=== PATIENT | male | born 1935 | race Caucasian/White ===

== ENCOUNTER 2018-02-03 09:44 | Outpatient (CLI) | payer MEDICARE, OTHER, SELFPAY ==
--- NOTE | 2018-02-03 | DI.RAD.S_ITS ---
PROCEDURE: FL INJECT SPINE FOR CT MYELO INDICATIONS: lumbarspondylosis TECHNIQUE: The indications, alternatives, benefits, risks and complications of the procedure were explained to the patient. Written informed consent was obtained and placed in the chart. The patient was placed in a prone position on the fluoroscopy table, and a level was chosen for percutaneous access under fluoroscopic guidance. The skin was prepped and draped in a sterile fashion. After local anaesthetic, a spinal needle was then used to enter the intrathecal space, with return of clear cerebrospinal fluid. 15 mL of Isovue M-200 were administered intrathecally under fluoroscopic visualization. The needle was then withdrawn, and a bandage applied to the puncture site. Fluoroscopic spot films were then acquired in various positions. FINDINGS: Standing frontal, lateral, and oblique views demonstrate no significant central canal stenoses. Access level: The right interlaminar notch dorsal to L3 Medications: 1% lidocaine for local anaesthesia. Complications: None. Patient was transferred to CT for subsequent CT myelogram. IMPRESSION: Successful fluoroscopically guided administration of iodinated contrast into the lumbar spine central canal for CT myelogram. Dictated by: Nito Smith M.D. on 02/03/2018 at 13:27 Approved by: Nito Smith M.D. on 02/03/2018 at 13:28
--- NOTE | 2018-02-03 | DI.CT.S_ITS ---
PROCEDURE: CT LUMBAR SPINE W CON INDICATIONS: LOW BACK PAIN TECHNIQUE: After the intrathecal administration of 15 mL intrathecal contrast, 3 mm thick sections acquired from T12 to the sacrum. Sagittal and coronal reformats were then constructed. For radiation dose reduction, the following was used: automated exposure control. COMPARISON: None. FINDINGS: Image quality: Excellent. There is trace retrolisthesis of L2 on L3, L3 on L4, L4 on L5. No spondylolysis or spondylolisthesis. No suspicious bony lesions. No acute fractures. Multilevel disc space narrowing is present, severe at L2-3, L3-4 and L4-5. Multilevel anterior osteophytes are present. Degenerative endplate changes with subchondral cyst formation are present most severe at L2 and L5. Mild disc bulges are present at L1-L2, including a small left foraminal component at L1-L2, L2-L3, L3-L4, L4-L5 and L5 on S1. There is mild left foraminal narrowing at L1-L2, severe bilateral L2-3, severe left and moderate to severe right L3-4, severe right and left L4-5, mild/moderate bilateral L5-S1. Minimal spinal stenosis is present at L1-2, L2-3, mild to moderate L3-4, L4-5. Multilevel facet hypertrophy is present. No retroperitoneal masses. The conus ends at L1. Visualized aorta demonstrates normal caliber. Nerve roots appear unremarkable throughout. No nerve root clumping to suggest arachnoiditis. IMPRESSION: 1. Multilevel disc bulges. 2. Mild to moderate spinal stenosis secondary to disc bulge with contributing affective retrolisthesis and facet arthropathy. 3. Multilevel foraminal narrowing most severe at L2-3 through L4-5 secondary to facet arthropathy. Dictated by: Neelam Segura M.D. on 02/03/2018 at 14:25 Approved by: Neelam Segura M.D. on 02/03/2018 at 14:40
[2018-02-03 10:09] VITALS: BP 137/75; PULSE 88; RESP 16; TEMP 36.7; O2SAT 99
[2018-02-03 10:30] VITALS: BP 146/91; PULSE 90; RESP 16; O2SAT 97
[2018-02-03 10:33] VITALS: BP 136/91; PULSE 92; RESP 14; O2SAT 97
[2018-02-03 11:01] VITALS: BP 126/76; PULSE 72; RESP 16; TEMP 37.5; O2SAT 98
--- NOTE | 2018-02-03 11:02 | SUR.PHASEII ---
RECIEVED PT FROM DI, PT DID NOT HAVE ANY SEDATION MEDICATION, PT IS TO LIE STILL WITH HOB AT SLIGHT INCLINE PER IR MARLENE STYLES. PT DENIES ANY PAIN OR DISCOMFORT. BACK DRESSING/BAND AID IS DRY AND INTACT. IS AT BEDSIDE WITH PT.
[2018-02-03 11:56] VITALS: BP 107/69; PULSE 76; RESP 15; TEMP 36.8; O2SAT 94
[2018-02-03 13:28] VITALS: BP 105/67; PULSE 69; RESP 16; TEMP 36.8; O2SAT 93
--- NOTE | 2018-02-03 14:04 | SUR.PHASEII ---
PT RESTED QUIETLY, NO C/O PAIN OR DISCOMFORT VOICED, BAND AID DRESSING REMAINS DRY AND INTACT, PT TOLERATING PO FLUIDS. D/C INSTRUCTIONS REVIEWED WITH PT AND WITH VERBALIZED UNDERSTANDING.
== END 2018-02-03 13:40 ==
PROVIDERS: PCP Internal Medicine; Visit Provider Orthopaedic Surgery Foot and Ankle Surgery
DX: M47.26 Other spondylosis with radiculopathy, lumbar region (principal); M16.0 Bilateral primary osteoarthritis of hip; M17.11 Unilateral primary osteoarthritis, right knee
CPT/HCPCS: 62284; 72132; 77003

== ENCOUNTER 2018-09-15 14:44 | Emergency (ER) | payer MEDICARE, OTHER, SELFPAY ==
[2018-09-15 14:46] VITALS: BP 123/66; PULSE 86; RESP 16; TEMP 37.2; O2SAT 97; BMI 27.2
--- NOTE | 2018-09-15 16:25 | DI.RAD.S_ITS ---
PROCEDURE: XR CHEST 2V INDICATIONS: shortness of breath TECHNIQUE: 2 views of the chest were acquired. COMPARISON: None. FINDINGS: Surgical changes and devices: There is a left chest wall dual-lead pacemaker with leads projecting over the right atrium and superior portion of the right ventricle. Lungs and pleura: There are bilateral reticular interstitial opacities. No definite focal consolidation. There is a nodular opacity projecting over the right lung base measuring up to approximately 0.8 cm. No pleural effusions or pneumothorax. Mediastinum: Mediastinal contours are normal. Heart size is within normal limits for technique. Bones and chest wall: No suspicious bony abnormalities. Soft tissues appear unremarkable. IMPRESSION: 1. Nonspecific reticular interstitial opacities demonstrated may represent chronic changes or interstitial edema. 2. Nodular opacity projecting over the right lung base may represent confluence of vascular structures, nipple shadow artifact, or a pulmonary nodule. Recommend a short term followup repeat study or further evaluation with CT. Dictated by: Osvaldo Hansen M.D. on 09/15/2018 at 17:15 Approved by: Osvaldo Hansen M.D. on 09/15/2018 at 17:17
[2018-09-15 16:56] LABS: Add Manual Diff / Slide Review NO; Basophils Absolute Auto 100 /uL (0-100); Basophils Percent Auto 0.9 % (0-2); Eosinophils Absolute Auto 0 /uL (0-450); Eosinophils Percent Auto 0.5 % (2-4); Hematocrit 33.4 % (41-53); Hemoglobin 11.3 g/dL (13.5-17.5); Lymphocytes Absolute Auto 1500 /uL (1100-4500); Lymphocytes Percent Auto 15.4 % (25-40); Mean Corpuscular HGB Conc 33.7 % (30-36); Mean Corpuscular Hemoglobin 29.8 PG (26-34); Mean Corpuscular Volume 88.4 fL (80-100); Monocytes Absolute Auto 1400 /uL (0-900); Monocytes Percent Auto 14.9 % (3-14); Neutrophils Absolute Auto 6600 /uL (1500-7000); Neutrophils Percent Auto 68.3 % (50-75); Platelet Count 345 X10^3/uL (150-400); Red Blood Cell Count 3.78 X10^6/uL (4.5-5.9); Red Cell Distribution Width 15.4 % (11.6-14.8); White Blood Cell Count 9.7 X10^3/uL (4.5-11.0)
[2018-09-15 17:04] LABS: Lactate (Lactic Acid) 0.7 mmol/L (0.7-2.1)
[2018-09-15 17:05] LABS: Alanine Aminotransferase 16 IU/L (21-72); Albumin 3.8 g/dL (3.5-5.0); Albumin Globulin Ratio 1.1 (1.0-2.8); Alkaline Phosphatase 64 U/L (38-126); Aspartate Aminotransferase 20 IU/L (17-59); Bilirubin Total 0.8 mg/dL (0.2-1.3); Blood Urea Nitrogen 12 mg/dL (9-20); Calcium 9.2 mg/dL (8.4-10.2); Carbon Dioxide 27 mmol/L (22-32); Chloride 97 mmol/L (98-107); Estimated Glomerular Filt Rate > 60.0 mL/min (>60); Globulin 3.6 g/dL (1.7-4.1); Glucose 109 mg/dL (80-110); HEMOLYSIS < 15 (0-50); Potassium 3.9 mmol/L (3.4-5.1); Sodium 133 mmol/L (137-145); Total Protein 7.4 g/dL (6.3-8.2)
[2018-09-15 18:00] VITALS: BP 124/85; PULSE 87; RESP 18; O2SAT 96
--- NOTE | 2018-09-15 18:43 | ED.EXTPRO ---
HPI - Extremity Problem General Chief complaint: Extremity Problem,Nontraumatic Stated complaint: weakness/right hand swelling x3 weeks Time Seen by Provider: 09/15/18 18:32 Source: patient Mode of arrival: ambulatory Limitations: no limitations History of Present Illness HPI Narrative: Patient is a 83-year-old male who presents with a variety of complaints. He states he was sent here by his PCP for abnormal EKG. Next pacemaker. Mother thought he had a lateral infarct and a left bundle branch block. He has no chest pain shortness of breath or dyspnea with exertion. He also is having an acute gout flare mostly in his right hand. He woke up this morning with a fever of 103. He is currently taking colchicine for his gout so he did not take any Tylenol or ibuprofen. He has no painful urination on no cough he does have a severe overall body aches but feeling okay now. They state they need an echocardogram. The actually have an appointment with the electrical systems design engineer soon. Also of note he is extremely weak requiring a gait belt to be used by his 79-year-old . He was put on a prednisone taper which stopped 2 weeks ago for his gout. He states that the prednisone seemed to help him a lot and he was much more ambulatory however since the prednisone has stopped his right leg is extremely weak. Related Data Home Medications Medication Instructions Recorded Confirmed latanoprost 09/15/18 timolol maleate 09/15/18 Previous Rx's Medication Instructions Recorded doxycycline hyclate 100 mg PO BID #14 cap 09/15/18 Allergies Allergy/AdvReac Type Severity Reaction Status Date / Time No Known Drug Allergies Allergy Verified 09/15/18 14:46 Review of Systems Review of Systems ROS Unobtainable: All systems reviewed & are unremarkable except as noted in HPI and below Constitutional Reports body ache(s), Denies chills and Reports fever(s) Eyes Denies change in vision, Denies eye discharge, Denies irritation and Denies loss of vision ENT Ears, Nose, Mouth, and Throat: Denies change in voice, Denies neck pain and Denies sore throat Cardiovascular Reports as per HPI, Denies chest pain, Denies irregular heart rhythm, Denies lightheadedness, Denies palpitations, Denies dyspnea, Denies dyspnea on exertion and Denies orthopnea Respiratory Denies cough, Denies dyspnea, Denies dyspnea on exertion and Denies wheezing Gastrointestinal Gastrointestinal: Denies abdominal pain, Denies change in bowel habits, Denies diarrhea, Denies nausea and Denies vomiting Genitourinary Denies hematuria, Denies flank pain, Denies urinary incontinence and Denies urinary urgency Musculoskeletal Reports as per HPI, Reports deformity, Reports arthralgias, Reports joint swelling and Denies neck pain Integumentary/Breasts Denies pruritus, Denies erythema, Denies rash and Denies wounds Neurologic Reports as per HPI and Denies loss of vision Comments: right leg weakness Endocrine Denies palpitations Allergic/Immunologic Denies wheezing [facility] Medical History Gout (Acute) Pacemaker (Acute) Social History (Updated 09/15/18 @ 18:53 by Juliane Song DO) marital status: household members: spouse lives independently: Yes Social History marital status: household members: spouse lives independently: Yes Exam Initial Vital Signs Initial Vital Signs: Vital Signs Temperature 98.9 F 09/15/18 14:46 Pulse Rate 86 09/15/18 14:46 Respiratory Rate 16 09/15/18 14:46 Blood Pressure 123/66 09/15/18 14:46 Pulse Oximetry 97 09/15/18 14:46 GENERAL: Alert elderly male and in no acute distress. HEENT: Head atraumatic,EOMI, pupils reactive, face symmetric CARDIOVASCULAR: Regular rate and rhythm without murmurs, rubs or gallops. RESPIRATORY: Breath sounds equal bilaterally, no wheezes rales or rhonchi. ABDOMEN: Soft, nontender. Normoactive bowel sounds all 4 quadrants. No guarding or rebound. : No CVA tenderness EXTREMITIES: Normal range of motion, no clubbing or edema. Neurovascularly intact. Right hand erythematous swollen tender to touch no streaking NEUROLOGICAL: Alert and oriented x4. Right leg of leak barely able to lift up off the gurney. Hips nontender knee nontender no erythema. Left leg able to lift up. Cranial nerves II through XII grossly intact. SKIN: Warm, dry, no laceration, no petechiae, no rashes or lesions. Course Orders Ordered: ED Orders 09/15/18 18:56 Urinalysis and Microscopic Stat Discontinued Medications Doxycycline Hyclate (Vibramycin) 100 mg PO NOW ONE Stop: 09/15/18 20:05 Last Admin: 09/15/18 20:14 Dose: 100 mg Vital Signs - 8 hr 09/15/18 20:36 Pulse Rate 80 Respiratory Rate 16 Blood Pressure 124/68 Pulse Oximetry 96 MDM - Extremity (Nontraumatic) Lab Data Attestation: I reviewed the patient's lab results. Result diagrams: 09/15/18 16:45 09/15/18 16:45 Lab Results 09/15/18 09/15/18 09/15/18 Range/Units 16:45 16:45 16:45 WBC 9.7 (4.5-11.0) X10^3/uL RBC 3.78 L (4.5-5.9) X10^6/uL Hgb 11.3 L (13.5-17.5) g/dL Hct 33.4 L (41-53) % MCV 88.4 (80-100) fL MCH 29.8 (26-34) PG MCHC 33.7 (30-36) % RDW 15.4 H (11.6-14.8) % Plt Count 345 (150-400) X10^3/uL Neut % (Auto) 68.3 (50-75) % Lymph % (Auto) 15.4 L (25-40) % [place] % (Auto) 14.9 H (3-14) % Eos % (Auto) 0.5 L (2-4) % Baso % (Auto) 0.9 (0-2) % Neut # (Auto) 6600 (6147-4340) /uL Lymph # (Auto) 1500 (7939-0276) /uL [place] # (Auto) 1400 H (0-900) /uL Eos # (Auto) 0 (0-450) /uL Baso # (Auto) 100 (0-100) /uL Sodium 133 L (137-145) mmol/L Potassium 3.9 (3.4-5.1) mmol/L Chloride 97 L (98-107) mmol/L Carbon Dioxide 27 (22-32) mmol/L BUN 12 (9-20) mg/dL Creatinine 0.80 (0.66-1.25) mg/dL Estimated GFR > 60.0 (>60) mL/min BUN/Creatinine Ratio 15.0 (6-22) Glucose 109 (80-110) mg/dL Lactate 0.7 (0.7-2.1) mmol/L Uric Acid (3.5-8.5) mg/dL Calcium 9.2 (8.4-10.2) mg/dL Total Bilirubin 0.8 (0.2-1.3) mg/dL AST 20 (17-59) IU/L ALT 16 L (21-72) IU/L Alkaline Phosphatase 64 (38-126) U/L Total Creatine Kinase (55-170) U/L CK-MB (CK-2) CK-MB (CK-2) Rel Index Troponin I (0.01-0.034) ng/mL Total Protein 7.4 (6.3-8.2) g/dL Albumin 3.8 (3.5-5.0) g/dL Globulin 3.6 (1.7-4.1) g/dL Albumin/Globulin Ratio 1.1 (1.0-2.8) Urine Color Urine Appearance Urine pH (4.5-8.0) Ur Specific [place] (1.000-1.035) Urine Protein (Negative) Urine Glucose (UA) (Negative) g/dL Urine Ketones (NEGATIVE) Urine Occult Blood (Negative) Urine Nitrate (Negative) Urine Bilirubin (NEGATIVE) Urine Urobilinogen (0.2) E.U./dL Ur Leukocyte Esterase (NEGATIVE) Urine RBC (0-5/HPF) Urine WBC (0-5/HPF) Ur Squamous Epith Cells (0-5/HPF) Urine Bacteria (None) Ur Culture Indicated? 09/15/18 09/15/18 Range/Units 16:45 18:56 WBC (4.5-11.0) X10^3/uL RBC (4.5-5.9) X10^6/uL Hgb (13.5-17.5) g/dL Hct (41-53) % MCV (80-100) fL MCH (26-34) PG MCHC (30-36) % RDW (11.6-14.8) % Plt Count (150-400) X10^3/uL Neut % (Auto) (50-75) % Lymph % (Auto) (25-40) % [place] % (Auto) (3-14) % Eos % (Auto) (2-4) % Baso % (Auto) (0-2) % Neut # (Auto) (7659-9263) /uL Lymph # (Auto) (9722-8114) /uL [place] # (Auto) (0-900) /uL Eos # (Auto) (0-450) /uL Baso # (Auto) (0-100) /uL Sodium (137-145) mmol/L Potassium (3.4-5.1) mmol/L Chloride (98-107) mmol/L Carbon Dioxide (22-32) mmol/L BUN (9-20) mg/dL Creatinine (0.66-1.25) mg/dL Estimated GFR (>60) mL/min BUN/Creatinine Ratio (6-22) Glucose (80-110) mg/dL Lactate (0.7-2.1) mmol/L Uric Acid 4.6 (3.5-8.5) mg/dL Calcium (8.4-10.2) mg/dL Total Bilirubin (0.2-1.3) mg/dL AST (17-59) IU/L ALT (21-72) IU/L Alkaline Phosphatase (38-126) U/L Total Creatine Kinase 40 L (55-170) U/L CK-MB (CK-2) TNP CK-MB (CK-2) Rel Index TNP Troponin I < 0.012 (0.01-0.034) ng/mL Total Protein (6.3-8.2) g/dL Albumin (3.5-5.0) g/dL Globulin (1.7-4.1) g/dL Albumin/Globulin Ratio (1.0-2.8) Urine Color Yellow Urine Appearance Clear Urine pH 6.5 (4.5-8.0) Ur Specific [place] 1.010 (1.000-1.035) Urine Protein Negative (Negative) Urine Glucose (UA) Negative (Negative) g/dL Urine Ketones Negative (NEGATIVE) Urine Occult Blood Trace-intact (Negative) Urine Nitrate Negative (Negative) Urine Bilirubin Negative (NEGATIVE) Urine Urobilinogen 0.2 (0.2) E.U./dL Ur Leukocyte Esterase Negative (NEGATIVE) Urine RBC 0-1/hpf (0-5/HPF) Urine WBC 0-1/hpf (0-5/HPF) Ur Squamous Epith Cells 0-1 /hpf (0-5/HPF) Urine Bacteria None seen (None) Ur Culture Indicated? Cult not indicated Imaging Data Chest x-ray: Radiologist's impression: PROCEDURE: XR CHEST 2V INDICATIONS: shortness of breath TECHNIQUE: 2 views of the chest were acquired. COMPARISON: None. FINDINGS: Surgical changes and devices: There is a left chest wall dual-lead pacemaker with leads projecting over the right atrium and superior portion of the right ventricle. Lungs and pleura: There are bilateral reticular interstitial opacities. No definite focal consolidation. There is a nodular opacity projecting over the right lung base measuring up to approximately 0.8 cm. No pleural effusions or pneumothorax. Mediastinum: Mediastinal contours are normal. Heart size is within normal limits for technique. Bones and chest wall: No suspicious bony abnormalities. Soft tissues appear unremarkable. IMPRESSION: 1. Nonspecific reticular interstitial opacities demonstrated may represent chronic changes or interstitial edema. 2. Nodular opacity projecting over the right lung base may represent confluence of vascular structures, nipple shadow artifact, or a pulmonary nodule. Recommend a short term followup repeat study or further evaluation with CT. Dictated by: Osvaldo Hansen M.D. on 09/15/2018 at 17:15 ECG Data Attestation EKG: I personally reviewed and interpreted this ECG as follows: Prior ECG tracings: not available for review Interpretation: Paced rhythm rate [address] changes no priors to compare MDM Narrative Medical decision making narrative: Patient overall has no cardiac symptoms no chest pain or shortness of breath with exertion. At this time cardiac workup can be done as an outpatient. His right hand is quite swollen slightly erythematous no streaking. He has been afebrile here in the ED however states that he does have a fever of 103. No other source of infection. At this time will put him on antibiotics to help cover for possible cellulitis although this may just be gout flare. He sees his deputy manager in 2 days. Discharge Plan Departure Patient Disposition: Home Clinical Impression: Cellulitis Qualifiers: Site of cellulitis: extremity Site of cellulitis of extremity: upper extremity Laterality: right Qualified Code(s): L03.113 - Cellulitis of right upper limb Gout Qualifiers: Gout site: hand Gout etiology: unspecified cause Chronicity: acute Laterality: right Qualified Code(s): M10.9 - Gout, unspecified Discharge Date/Time: 09/15/18 20:37 Interventions: ED Discharge Assessment Last Done: 09/15/18 20:36 Instructions: DI for Cellulitis -- Adult, Gout Activity Restrictions/Additional Instructions: *You have been diagnosed with cellulitis, gout *What to do: Redness on right hand suggest possible inflammation and/or infection. Will start on antibiotics *Continue to take medications as directed Doxycycline 100 mg twice a day--> SEND TO [facility] IN [place] You may take acetaminophen/Tylenol 650 mg every 4-6 hours if needed for fever *Follow up with your primary care provider in 2-3 days FOLLOW-UP WITH RHEUMATOLOGY IN 2 DAYS PREVIOUSLY ARRANGED *Return to ER if you should have increasing weakness, falls, worsening redness, persistent fever or any new, worsening or concerning symptoms Prescriptions: New doxycycline hyclate 100 mg capsule 100 mg PO BID Qty: 14 RF: 0 No Action latanoprost 0.005 % drops RF: 0 timolol maleate 0.5 % drops RF: 0 Referrals: Angle Herrera MD [Primary Care Provider] -
--- NOTE | 2018-09-15 18:50 | ED_ITS ---
HPI - Extremity Problem General Chief complaint: Extremity Problem,Nontraumatic Stated complaint: weakness/right hand swelling x3 weeks Time Seen by Provider: 09/15/18 18:32 Source: patient Mode of arrival: ambulatory Limitations: no limitations History of Present Illness HPI Narrative: Patient is a 83-year-old male who presents with a variety of complaints. He states he was sent here by his PCP for abnormal EKG. Next pacemaker. Mother thought he had a lateral infarct and a left bundle branch block. He has no chest pain shortness of breath or dyspnea with exertion. He also is having an acute gout flare mostly in his right hand. He woke up this morning with a fever of 103. He is currently taking colchicine for his gout so he did not take any Tylenol or ibuprofen. He has no painful urination on no co ugh he does have a severe overall body aches but feeling okay now. They state they need an echocardogram. The actually have an appointment with the body straightener soon. Also of note he is extremely weak requiring a gait belt to be used by his 79-year-old . He was put on a prednisone taper which stopped 2 weeks ago for his gout. He states that the prednisone seemed to help him a lot and he was much more ambulatory however since the prednisone has stopped his right leg is extremely weak. Related Data Home Medications Medication Instructions Recorded Confirmed latanoprost 09/15/18 timolol maleate 09/15/18 Previous Rx's Medication Instructions Recorded doxycycline hyclate 100 mg PO BID #14 cap 09/15/18 Allergies Allergy/AdvReac Type Severity Reaction Status Date / Time No Known Drug Allergies Allergy Verified 09/15/18 14:46 Review of Systems Review of Systems ROS Unobtainable: All systems reviewed & are unremarkable except as noted in HPI and below Constitutional Reports body ache(s), Denies chills and Reports fever(s) Eyes Denies change in vision, Denies eye discharge, Denies irritation and Denies loss of vision ENT Ears, Nose, Mouth, and Throat: Denies change in voice, Denies neck pain and Denies sore throat Cardiovascular Reports as per HPI, Denies chest pain, Denies irregular heart rhythm, Denies lightheadedness, Denies palpitations, Denies dyspnea, Denies dyspnea on exertion and Denies orthopnea Respiratory Denies cough, Denies dyspnea, Denies dyspnea on exertion and Denies wheezing Gastrointestinal Gastrointestinal: Denies abdominal pain, Denies change in bowel habits, Denies diarrhea, Denies nausea and Denies vomiting Genitourinary Denies hematuria, Denies flank pain, Denies urinary incontinence and Denies urinary urgency Musculoskeletal Reports as per HPI, Reports deformity, Reports arthralgias, Reports joint swelling and Denies neck pain Integumentary/Breasts Denies pruritus, Denies erythema, Denies rash and Denies wounds Neurologic Reports as per HPI and Denies loss of vision Comments: right leg weakness Endocrine Denies palpitations Allergic/Immunologic Denies wheezing [facility] Medical History Gout (Acute) Pacemaker (Acute) Social History (Updated 09/15/18 @ 18:53 by Juliane Song DO) marital status: household members: spouse lives independently: Yes Social History marital status: household members: spouse lives independently: Yes Exam Initial Vital Signs Initial Vital Signs: Vital Signs Temperature 98.9 F 09/15/18 14:46 Pulse Rate 86 09/15/18 14:46 Respiratory Rate 16 09/15/18 14:46 Blood Pressure 123/66 09/15/18 14:46 Pulse Oximetry 97 09/15/18 14:46 GENERAL: Alert elderly male and in no acute distress. HEENT: Head atraumatic,EOMI, pupils reactive, face symmetric CARDIOVASCULAR: Regular rate and rhythm without murmurs, rubs or gallops. RESPIRATORY: Breath sounds equal bilaterally, no wheezes rales or rhonchi. ABDOMEN: Soft, nontender. Normoactive bowel sounds all 4 quadrants. No guarding or rebound. : No CVA tenderness EXTREMITIES: Normal range of motion, no clubbing or edema. Neurovascularly intact. Right hand erythematous swollen tender to touch no streaking NEUROLOGICAL: Alert and oriented x4. Right leg of leak barely able to lift up off the gurney. Hips nontender knee nontender no erythema. Left leg able to lift up. Cranial nerves II through XII grossly intact. SKIN: Warm, dry, no laceration, no petechiae, no rashes or lesions. Course Orders Ordered: ED Orders 09/15/18 18:56 Urinalysis and Microscopic Stat Discontinued Medications Doxycycline Hyclate (Vibramycin) 100 mg PO NOW ONE Stop: 09/15/18 20:05 Last Admin: 09/15/18 20:14 Dose: 100 mg Vital Signs - 8 hr 09/15/18 20:36 Pulse Rate 80 Respiratory Rate 16 Blood Pressure 124/68 Pulse Oximetry 96 MDM - Extremity (Nontraumatic) Lab Data Attestation: I reviewed the patient's lab results. Result diagrams: 09/15/18 16:45 09/15/18 16:45 Lab Results 09/15/18 09/15/18 09/15/18 Range/Units 16:45 16:45 16:45 WBC 9.7 (4.5-11.0) X10^3/uL RBC 3.78 L (4.5-5.9) X10^6/uL Hgb 11.3 L (13.5-17.5) g/dL Hct 33.4 L (41-53) % MCV 88.4 (80-100) fL MCH 29.8 (26-34) PG MCHC 33.7 (30-36) % RDW 15.4 H (11.6-14.8) % Plt Count 345 (150-400) X10^3/uL Neut % (Auto) 68.3 (50-75) % Lymph % (Auto) 15.4 L (25-40) % Mcdonough % (Auto) 14.9 H (3-14) % Eos % (Auto) 0.5 L (2-4) % Baso % (Auto) 0.9 (0-2) % Neut # (Auto) 6600 (7660-8526) /uL Lymph # (Auto) 1500 (0633-1823) /uL Mcdonough # (Auto) 1400 H (0-900) /uL Eos # (Auto) 0 (0-450) /uL Baso # (Auto) 100 (0-100) /uL Sodium 133 L (137-145) mmol/L Potassium 3.9 (3.4-5.1) mmol/L Chloride 97 L (98-107) mmol/L Carbon Dioxide 27 (22-32) mmol/L BUN 12 (9-20) mg/dL Creatinine 0.80 (0.66-1.25) mg/dL Estimated GFR > 60.0 (>60) mL/min BUN/Creatinine Ratio 15.0 (6-22) Glucose 109 (80-110) mg/dL Lactate 0.7 (0.7-2.1) mmol/L Uric Acid (3.5-8.5) mg/dL Calcium 9.2 (8.4-10.2) mg/dL Total Bilirubin 0.8 (0.2-1.3) mg/dL AST 20 (17-59) IU/L ALT 16 L (21-72) IU/L Alkaline Phosphatase 64 (38-126) U/L Total Creatine Kinase (55-170) U/L CK-MB (CK-2) CK-MB (CK-2) Rel Index Troponin I (0.01-0.034) ng/mL Total Protein 7.4 (6.3-8.2) g/dL Albumin 3.8 (3.5-5.0) g/dL Globulin 3.6 (1.7-4.1) g/dL Albumin/Globulin Ratio 1.1 (1.0-2.8) Urine Color Urine Appearance Urine pH (4.5-8.0) Ur Specific Ashley (1.000-1.035) Urine Protein (Negative) Urine Glucose (UA) (Negative) g/dL Urine Ketones (NEGATIVE) Urine Occult Blood (Negative) Urine Nitrate (Negative) Urine Bilirubin (NEGATIVE) Urine Urobilinogen (0.2) E.U./dL Ur Leukocyte Esterase (NEGATIVE) Urine RBC (0-5/HPF) Urine WBC (0-5/HPF) Ur Squamous Epith Cells (0-5/HPF) Urine Bacteria (None) Ur Culture Indicated? 09/15/18 09/15/18 Range/Units 16:45 18:56 WBC (4.5-11.0) X10^3/uL RBC (4.5-5.9) X10^6/uL Hgb (13.5-17.5) g/dL Hct (41-53) % MCV (80-100) fL MCH (26-34) PG MCHC (30-36) % RDW (11.6-14.8) % Plt Count (150-400) X10^3/uL Neut % (Auto) (50-75) % Lymph % (Auto) (25-40) % Mcdonough % (Auto) (3-14) % Eos % (Auto) (2-4) % Baso % (Auto) (0-2) % Neut # (Auto) (5052-9265) /uL Lymph # (Auto) (5201-3159) /uL Mcdonough # (Auto) (0-900) /uL Eos # (Auto) (0-450) /uL Baso # (Auto) (0-100) /uL Sodium (137-145) mmol/L Potassium (3.4-5.1) mmol/L Chloride (98-107) mmol/L Carbon Dioxide (22-32) mmol/L BUN (9-20) mg/dL Creatinine (0.66-1.25) mg/dL Estimated GFR (>60) mL/min BUN/Creatinine Ratio (6-22) Glucose (80-110) mg/dL Lactate (0.7-2.1) mmol/L Uric Acid 4.6 (3.5-8.5) mg/dL Calcium (8.4-10.2) mg/dL Total Bilirubin (0.2-1.3) mg/dL AST (17-59) IU/L ALT (21-72) IU/L Alkaline Phosphatase (38-126) U/L Total Creatine Kinase 40 L (55-170) U/L CK-MB (CK-2) TNP CK-MB (CK-2) Rel Index TNP Troponin I < 0.012 (0.01-0.034) ng/mL Total Protein (6.3-8.2) g/dL Albumin (3.5-5.0) g/dL Globulin (1.7-4.1) g/dL Albumin/Globulin Ratio (1.0-2.8) Urine Color Yellow Urine Appearance Clear Urine pH 6.5 (4.5-8.0) Ur Specific Ashley 1.010 (1.000-1.035) Urine Protein Negative (Negative) Urine Glucose (UA) Negative (Negative) g/dL Urine Ketones Negative (NEGATIVE) Urine Occult Blood Trace-intact (Negative) Urine Nitrate Negative (Negative) Urine Bilirubin Negative (NEGATIVE) Urine Urobilinogen 0.2 (0.2) E.U./dL Ur Leukocyte Esterase Negative (NEGATIVE) Urine RBC 0-1/hpf (0-5/HPF) Urine WBC 0-1/hpf (0-5/HPF) Ur Squamous Epith Cells 0-1 /hpf (0-5/HPF) Urine Bacteria None seen (None) Ur Culture Indicated? Cult not indicated Imaging Data Chest x-ray: Radiologist's impression: PROCEDURE: XR CHEST 2V INDICATIONS: shortness of breath TECHNIQUE: 2 views of the chest were acquired. COMPARISON: None. FINDINGS: Surgical changes and devices: There is a left chest wall dual-lead pacemaker with leads projecting over the right atrium and superior portion of the right ventricle. Lungs and pleura: There are bilateral reticular interstitial opacities. No definite focal consolidation. There is a nodular opacity projecting over the right lung base measuring up to approximately 0.8 cm. No pleural effusions or pneumothorax. Mediastinum: Mediastinal contours are normal. Heart size is within normal limits for technique. Bones and chest wall: No suspicious bony abnormalities. Soft tissues appear unremarkable. IMPRESSION: 1. Nonspecific reticular interstitial opacities demonstrated may represent chronic changes or interstitial edema. 2. Nodular opacity projecting over the right lung base may represent confluence of vascular structures, nipple shadow artifact, or a pulmonary nodule. Recommend a short term followup repeat study or further evaluation with CT. Dictated by: Osvaldo Hansen M.D. on 09/15/2018 at 17:15 ECG Data Attestation EKG: I personally reviewed and interpreted this ECG as follows: Prior ECG tracings: not available for review Interpretation: Paced rhythm rate [address] changes no priors to compare MDM Narrative Medical decision making narrative: Patient overall has no cardiac symptoms no chest pain or shortness of breath with exertion. At this time cardiac workup can be done as an outpatient. His right hand is quite swollen slightly erythematous no streaking. He has been afebrile here in the ED however states that he does have a fever of 103. No other source of infection. At this time will put him on antibiotics to help cover for possible cellulitis although this may just be gout flare. 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 Discharge Plan Departure Patient Disposition: Home Clinical Impression: Cellulitis Qualifiers: Site of cellulitis: extremity Site of cellulitis of extremity: upper extremity Laterality: right Qualified Code(s): L03.113 - Cellulitis of right upper limb Gout Qualifiers: Gout site: hand Gout etiology: unspecified cause Chronicity: acute Laterality: right Qualified Code(s): M10.9 - Gout, unspecified Discharge Date/Time: 09/15/18 20:37 Interventions: ED Discharge Assessment Last Done: 09/15/18 20:36 Instructions: DI for Cellulitis -- Adult, Gout Activity Restrictions/Additional Instructions: *You have been diagnosed with cellulitis, gout *What to do: Redness on right hand suggest possible inflammation and/or infection. Will start on antibiotics *Continue to take medications as directed Doxycycline 100 mg twice a day--> SEND TO [facility] [place] You may take acetaminophen/Tylenol 650 mg every 4-6 hours if needed for fever *Follow up with your primary care provider in 2-3 days FOLLOW-UP WITH RHEUMATOLOGY IN 2 DAYS PREVIOUSLY ARRANGED *Return to ER if you should have increasing weakness, falls, worsening redness, persistent fever or any new, worsening or concerning symptoms Prescriptions: New doxycycline hyclate 100 mg capsule 100 mg PO BID Qty: 14 RF: 0 No Action latanoprost 0.005 % drops RF: 0 timolol maleate 0.5 % drops RF: 0 Referrals: Angle Herrera MD [Primary Care Provider] -
[2018-09-15 19:05] LABS: Bacteria Urine None Seen
[2018-09-15 19:06] LABS: Creatine Kinase 40 U/L (55-170); Uric Acid 4.6 mg/dL (3.5-8.5)
[2018-09-15 19:07] LABS: Appearance Urine UA CLEAR; Bilirubin Urine UA NEGATIVE (NEGATIVE); Color Urine UA YELLOW; Glucose Urine UA NEGATIVE (Negative); Ketones Urine UA NEGATIVE (NEGATIVE); Leukocyte Esterase Urine UA NEGATIVE (NEGATIVE); Nitrite Urine UA NEGATIVE (Negative); Occult Blood Urine UA TRACE-INTACT (Negative); Protein Urine UA NEGATIVE (Negative); Urobilinogen Urine UA 0.2 E.U./dL (0.2); pH Urine UA 6.5 (4.5-8.0)
[2018-09-15 19:16] LABS: Culture Indicated Urine Cult Not Indicated; RBC Urine 0-1/HPF (0-5/HPF); Squamous Epithelial Cell Urine 0-1 /HPF (0-5/HPF); WBC Urine 0-1/HPF (0-5/HPF)
[2018-09-15 19:18] LABS: Troponin I < 0.012 ng/mL (0.01-0.034)
[2018-09-15] MEDS: DOXYCYCLINE HYCLATE 100 MG TABLET PO (20:14)
[2018-09-15 20:36] VITALS: BP 124/68; PULSE 80; RESP 16; O2SAT 96
== END 2018-09-15 20:37 | disposition home or self-care (01) ==
PROVIDERS: Emergency Medicine; Emergency Provider Emergency Medicine; PCP Internal Medicine
DX: L03.113 Cellulitis of right upper limb (principal); M10.9 Gout, unspecified; R50.9 Fever, unspecified; R06.02 Shortness of breath; Z95.0 Presence of cardiac pacemaker
CPT/HCPCS: 36591; 71046; 80053; 81001; 82550; 83605; 84484; 84550; 85025; 93005; 99283; 99285

== ENCOUNTER 2018-12-22 15:09 | Emergency (ER) | payer MEDICARE, OTHER, SELFPAY ==
[2018-12-22 15:12] VITALS: BP 140/72; PULSE 66; RESP 18; TEMP 36.2; O2SAT 94
--- NOTE | 2018-12-22 17:09 | PC.NURSE ---
Pt has h/o large dbl hernia that he is having surgery on in January however feels short of breath and feels it is related to the large hernia. Denies fever / chills.
--- NOTE | 2018-12-22 17:11 | DI.RAD.S_ITS ---
PROCEDURE: XR CHEST 2V INDICATIONS: shortness of breath. TECHNIQUE: 2 views of the chest were acquired. COMPARISON: [facility], CR, XR CHEST 2V, 09/15/2018, 16:26. FINDINGS: Surgical changes and devices: Left-sided cardiac pacer device is in place. Lungs and pleura: Interval worsening of diffuse interstitial prominence without focal consolidation. No pleural effusion. No pneumothorax. Mediastinum: The cardiomediastinal contours remain stable. Heart size is normal. Bones and chest wall: No suspicious bony abnormalities. Soft tissues appear unremarkable. IMPRESSION: Interval worsening of diffuse interstitial opacities which may represent an infectious/inflammatory process versus developing pulmonary edema. Findings may be superimposed on chronic interstitial changes. No focal consolidation or substantial pleural effusion. Dictated by: Neto Vega M.D. on 12/22/2018 at 16:25 Approved by: Neto Vega M.D. on 12/22/2018 at 16:28
--- NOTE | 2018-12-22 18:31 | ED.SOB ---
HPI - SOB/Dyspnea General Chief Complaint: Shortness of Breath/Dyspnea Stated Complaint: SOB Time Seen by Provider: 12/22/18 16:42 Source: patient and family Mode of arrival: ambulatory Limitations: no limitations History of Present Illness HPI Narrative: Patient comes emergency department complaining of shortness breath for last 2 weeks. Patient denies any chest pain or pressure. No tightness. He states that he has not had any fevers, but has been coughing up a clear, mucousy-foamy sputum. He denies any nausea or vomiting. He denies any swelling in his lower extremities. Patient has a pacemaker for heart block, but denies any known history of congestive heart failure. Patient states that he occasionally takes his pulse ox at home, and has been finding it in the upper 80s for about the last week. Patient states this can be at any time. He states that sometimes he can go up the stairs without any difficulty, but other times, he has to stop in the middle to catch his breath. He states that he was recently on Bactrim for postoperative complications after an index finger joint replacement. Patient denies any other complaints this time. He states he has not had symptoms like this since he had his pacemaker put in. Patient does also note that he has a hiatal hernia that is supposed to be repaired in the near future, and is concerned that he may not be able to have the surgery if there is something wrong with his heart or lungs. Related Data Home Medications Medication Instructions Recorded Confirmed latanoprost 09/15/18 12/02/18 timolol maleate 09/15/18 12/02/18 colchicine 0.6 mg tablet 0.6 mg PO DAILY 12/02/18 12/02/18 Allergies Allergy/AdvReac Type Severity Reaction Status Date / Time Sulfa (Sulfonamide Allergy Severe Hives Verified 12/22/18 15:16 Antibiotics) cephalexin [From Keflex] Allergy Unknown Verified 12/22/18 15:16 Review of Systems Constitutional Constitutional: Denies chills, Denies fatigue, Denies fever(s), Denies frequent falls, Denies lethargy and Denies weakness Eyes Eyes: Denies change in vision, Denies eye discharge, Denies irritation and Denies loss of vision ENT Ears, Nose, Mouth, and Throat: Denies change in voice, Denies dizziness, Denies neck pain, Denies sore throat and Denies throat swelling Cardiovascular Cardiovascular: Denies chest pain, Denies irregular heart rhythm, Denies lightheadedness, Denies palpitations, Reports dyspnea, Reports dyspnea on exertion and Denies orthopnea Respiratory Respiratory: Reports cough, Reports dyspnea, Reports dyspnea on exertion and Denies wheezing Gastrointestinal Gastrointestinal: Denies abdominal pain, Denies change in bowel habits, Denies diarrhea, Denies nausea and Denies vomiting Genitourinary Genitourinary: Denies hematuria, Denies flank pain, Denies urinary incontinence and Denies urinary urgency Musculoskeletal Musculoskeletal: Denies back pain, Denies muscle weakness, Denies neck pain, Denies numbness and Denies tingling Integumentary/Breasts Skin/Breast: Denies pruritus, Denies erythema, Denies rash and Denies wounds Neurologic Neurologic: Denies behavioral changes, Denies confusion, Denies dizziness, Denies frequent falls, Denies loss of vision, Denies numbness, Denies tingling and Denies weakness Psychiatric Psychiatric: Denies anxiety, Denies behavioral changes, Denies confusion, Denies depression, Denies homicidal ideation and Denies suicidal ideation Endocrine Endocrine: Denies fatigue, Denies flushing and Denies palpitations Hematologic/Lymphatic Hematologic/Lymphatic: Denies easy bruising Allergic/Immunologic Allergic/Immunologic: Denies urticaria, Denies throat swelling and Denies wheezing PFSH Medical History Gout (Acute) Hx of cardiac pacemaker (Resolved) Pacemaker (Acute) Surgical History History of colon resection (Resolved) Hx of hernia repair (Resolved) Hx of knee surgery (Resolved) Social History (Updated 12/02/18 @ 14:35 by Susana Chau RN) marital status: household members: spouse lives independently: Yes occupational status: previously employed Smoking Status: Never smoker alcohol intake: current substance use type: does not use Social History marital status: household members: spouse lives independently: Yes occupational status: previously employed Smoking Status: Never smoker alcohol intake: current substance use type: does not use Exam Initial Vital Signs Initial Vital Signs: Vital Signs Temperature 97.2 F L 12/22/18 15:12 Pulse Rate 66 12/22/18 15:12 Respiratory Rate 18 12/22/18 15:12 Blood Pressure 140/72 12/22/18 15:12 Pulse Oximetry 94 12/22/18 15:12 Const General: cooperative and well developed Nutritional Appearance: well nourished Orientation: alert, awake, oriented x3 and not confused [facility] Head: normocephalic and atraumatic Ears: external ears normal Nose: external nose normal and No nasal discharge Face and sinus: face symmetric and No dry mucous membranes Mouth: oral mucosae normal and moist mucous membranes Teeth and gingiva: dentition normal Eyes General: appearance normal, both eyes and all related structures Eyelids: eyelids normal Conjunctivae: conjunctivae normal Sclera: sclerae normal Pupils: PERRL EOM: EOM intact bilaterally Neck Neck: normal visual inspection, trachea midline, No lymphadenopathy, No midline deformity and No JVD Lymphatic: No lymphedema Chest Chest: normal inspection of the chest Resp Effort & Inspection: normal respiratory effort, able to speak in complete sentences, no respiratory distress and no use of accessory muscles Auscultation: lung sounds not diminished, no rales, rhonchi (Mild) and no wheezes Cardio Rate: regular rate Rhythm: regular rhythm Heart Sounds: no click, no gallops, no murmurs and no rubs Pulses: normal peripheral pulses GI Inspection: non-distended Palpation: soft, no hepatosplenomegaly, No guarding, No pulsatile mass and No tender Back/Spine/Pelvis Back: No CVA tenderness Cervical Spine: cervical ROM normal and No pain with cervical ROM Thoracic/Lumbar Spine: thoracic and lumbar spine normal to inspection Skin General: no rashes or lesions noted, No jaundice and No petechiae Neuro General: alert, oriented x3, gait normal and no focal motor deficits Speech: speech normal Extrem General: full ROM, no clubbing, cyanosis or edema, no pedal edema and no calf tenderness Psych Appearance: well kempt Mental Status: mental status grossly normal Attitude: cooperative Thought Content: normal and suicidality Judgment: judgment good Course Course Course Narrative: Patient was well appearing in the emergency department, and without respiratory laboring. Worked up with labs, EKG, and chest x-ray. Chest x-ray showed some vascular congestion, but the patient's BNP was normal. Patient's history and lack of fever or cough did not support the possibility of pneumonia. He did not have any lower extremity pain or edema to his concern for DVT/PE. The patient reported that he was feeling better. We have discussed the need for follow-up for this issue. We have discussed home management of symptoms, as well as the usual indications for return. Patient's pulse ox has been steadily 94-96% on room air in the emergency department. Orders Ordered: ED Orders 12/22/18 15:16 EKG-12 Lead Stat 12/22/18 17:11 Chest [XR chest 2V] Stat 12/22/18 18:30 B Type Natriuretic Peptide Stat Complete Blood Count AUTO DIFF Stat Comprehensive Metabolic Panel Stat Prothrombin Time INR Stat Troponin & CK Cardiac Panel Stat Vital Signs Vital signs: Vital Signs - 8 hr 12/22/18 15:12 Temperature 97.2 F L Pulse Rate 66 Respiratory Rate 18 Blood Pressure 140/72 Pulse Oximetry 94 MDM - SOB/Dyspnea Medical Records Attestation: I reviewed the patient's medical records. Lab Data Attestation: I reviewed the patient's lab results. Result diagrams: 12/22/18 18:45 12/22/18 18:45 Labs: Lab Results 12/22/18 12/22/18 12/22/18 Range/Units 18:45 18:45 18:45 WBC 5.8 (4.5-11.0) X10^3/uL RBC 4.03 L (4.5-5.9) X10^6/uL Hgb 12.3 L (13.5-17.5) g/dL Hct 36.7 L (41-53) % MCV 91.1 (80-100) fL MCH 30.5 (26-34) PG MCHC 33.5 (30-36) % RDW 17.0 H (11.6-14.8) % Plt Count 254 (150-400) X10^3/uL Neut % (Auto) 51.6 (50-75) % Lymph % (Auto) 28.4 (25-40) % [place] % (Auto) 11.2 (3-14) % Eos % (Auto) 7.8 H (2-4) % Baso % (Auto) 1.0 (0-2) % Neut # (Auto) 3000 (7717-0168) /uL Lymph # (Auto) 1600 (3039-8242) /uL [place] # (Auto) 600 (0-900) /uL Eos # (Auto) 400 (0-450) /uL Baso # (Auto) 100 (0-100) /uL PT 11.2 (10.1-12.7) SECONDS INR 1.0 (0.9-1.3) Sodium 138 (137-145) mmol/L Potassium 3.9 (3.4-5.1) mmol/L Chloride 102 (98-107) mmol/L Carbon Dioxide 28 (22-32) mmol/L BUN 11 (9-20) mg/dL Creatinine 0.60 L (0.66-1.25) mg/dL Estimated GFR > 60.0 (>60) mL/min BUN/Creatinine Ratio 18.3 (6-22) Glucose 97 (80-110) mg/dL Calcium 9.5 (8.4-10.2) mg/dL Total Bilirubin 0.5 (0.2-1.3) mg/dL AST 36 (17-59) IU/L ALT 20 L (21-72) IU/L Alkaline Phosphatase 76 (38-126) U/L Total Creatine Kinase 149 (55-170) U/L CK-MB (CK-2) 1.92 (<2.37) ng/mL CK-MB (CK-2) Rel Index 1.3 L (1.5-5.0) % Troponin I < 0.012 (0.01-0.034) ng/mL B-Natriuretic Peptide < 100 (<100) Total Protein 7.5 (6.3-8.2) g/dL Albumin 4.1 (3.5-5.0) g/dL Globulin 3.4 (1.7-4.1) g/dL Albumin/Globulin Ratio 1.2 (1.0-2.8) Imaging Data Chest x-ray: Radiologist's impression: PROCEDURE: XR CHEST 2V INDICATIONS: shortness of breath. TECHNIQUE: 2 views of the chest were acquired. COMPARISON: [facility], [place], XR CHEST 2V, 09/15/2018, 16:26. FINDINGS: Surgical changes and devices: Left-sided cardiac pacer device is in place. Lungs and pleura: Interval worsening of diffuse interstitial prominence without focal consolidation. No pleural effusion. No pneumothorax. Mediastinum: The cardiomediastinal contours remain stable. Heart size is normal. Bones and chest wall: No suspicious bony abnormalities. Soft tissues appear unremarkable. IMPRESSION: Interval worsening of diffuse interstitial opacities which may represent an infectious/inflammatory process versus developing pulmonary edema. Findings may be superimposed on chronic interstitial changes. No focal consolidation or substantial pleural effusion. Dictated by: Neto Vega M.D. on 12/22/2018 at 16:25 Approved by: Neto Vega M.D. on 12/22/2018 at 16:28 ECG Data Attestation: I personally reviewed and interpreted this ECG as follows: Discharge Plan Departure Patient Disposition: Home Clinical Impression: Dyspnea Qualifiers: Dyspnea type: shortness of breath Qualified Code(s): R06.02 - Shortness of breath Discharge Date/Time: 12/22/18 22:05 Instructions: DI for Shortness of Breath Activity Restrictions/Additional Instructions: Your x-ray shows what could be scarring versus some mild fluid in your lungs. However, the testing for congestive heart failure, which would be the expected source of fluid in the lungs, is negative. You do not have any clinical signs of pneumonia, and your white blood cell count is normal. Additionally, there is no evidence of heart attack. It is very important that you follow up with your primary care physician to discuss whether you need to see a building superintendent, as you do have some existing scarring in your lungs that may be progressing. You should discuss having this done before your surgery to be sure that there is not a problem getting your surgery done. Your oxygen saturation here has been 94-96% on room air, which is quite normal. Prescriptions: No Action colchicine 0.6 mg tablet 0.6 mg PO DAILY RF: 0 latanoprost 0.005 % drops RF: 0 timolol maleate 0.5 % drops RF: 0 Referrals: [facility] Pulmonology [Provider Group] Angle Herrera MD [Primary Care Provider] -
[2018-12-22 18:47] VITALS: BP 131/81; PULSE 60; RESP 16; O2SAT 95
[2018-12-22 18:52] LABS: Add Manual Diff / Slide Review NO; Basophils Absolute Auto 100 /uL (0-100); Eosinophils Absolute Auto 400 /uL (0-450); Eosinophils Percent Auto 7.8 % (2-4); Hematocrit 36.7 % (41-53); Hemoglobin 12.3 g/dL (13.5-17.5); Lymphocytes Absolute Auto 1600 /uL (1100-4500); Lymphocytes Percent Auto 28.4 % (25-40); Mean Corpuscular HGB Conc 33.5 % (30-36); Mean Corpuscular Hemoglobin 30.5 PG (26-34); Mean Corpuscular Volume 91.1 fL (80-100); Monocytes Absolute Auto 600 /uL (0-900); Monocytes Percent Auto 11.2 % (3-14); Neutrophils Absolute Auto 3000 /uL (1500-7000); Neutrophils Percent Auto 51.6 % (50-75); Platelet Count 254 X10^3/uL (150-400); Red Blood Cell Count 4.03 X10^6/uL (4.5-5.9); White Blood Cell Count 5.8 X10^3/uL (4.5-11.0)
[2018-12-22 19:01] LABS: Prothrombin Time 11.2 SECONDS (10.1-12.7)
[2018-12-22 19:06] LABS: Alanine Aminotransferase 20 IU/L (21-72); Albumin 4.1 g/dL (3.5-5.0); Albumin Globulin Ratio 1.2 (1.0-2.8); Alkaline Phosphatase 76 U/L (38-126); Aspartate Aminotransferase 36 IU/L (17-59); BUN Creatinine Ratio 18.3 (6-22); Bilirubin Total 0.5 mg/dL (0.2-1.3); Blood Urea Nitrogen 11 mg/dL (9-20); Calcium 9.5 mg/dL (8.4-10.2); Carbon Dioxide 28 mmol/L (22-32); Chloride 102 mmol/L (98-107); Creatine Kinase 149 U/L (55-170); Estimated Glomerular Filt Rate > 60.0 mL/min (>60); Globulin 3.4 g/dL (1.7-4.1); Glucose 97 mg/dL (80-110); HEMOLYSIS < 15 (0-50); Potassium 3.9 mmol/L (3.4-5.1); Sodium 138 mmol/L (137-145); Total Protein 7.5 g/dL (6.3-8.2)
[2018-12-22 19:17] LABS: Troponin I < 0.012 ng/mL (0.01-0.034)
[2018-12-22 19:21] LABS: CKMB % Relative Index 1.3 % (1.5-5.0); Creatine Kinase MB 1.92 ng/mL (<2.37)
[2018-12-22 19:30] LABS: B Type Natriuretic Peptide < 100 (<100)
[2018-12-22 20:30] VITALS: BP 122/72; PULSE 59; RESP 17; O2SAT 96
[2018-12-22 22:05] VITALS: BP 135/79; PULSE 60; RESP 16; O2SAT 97
== END 2018-12-22 22:05 | disposition home or self-care (01) ==
PROVIDERS: Emergency Provider Emergency Medicine; PCP Internal Medicine
DX: R06.02 Shortness of breath (principal)
CPT/HCPCS: 36591; 71046; 80053; 82550; 82553; 83880; 84484; 85025; 85610; 93005; 99283; 99285

== ENCOUNTER → 2018-12-26 13:32 | Outpatient (CLI) | payer MEDICARE, OTHER, SELFPAY ==
--- NOTE | 2018-12-26 | DI.CT.S_ITS ---
PROCEDURE: CT CHEST WO CON INDICATIONS: Interstitial pulmonary disease, unspecified TECHNIQUE: Noncontrast 5 mm thick sections acquired from the pulmonary apices to the posterior costophrenic angles. 1 mm lung window, 5 mm thick coronal and sagittal and 7 mm axial MIP reformats were then acquired. For radiation dose reduction, the following was used: automated exposure control, adjustment of mA and/or kV according to patient size. COMPARISON: None. FINDINGS: Image quality: Excellent. Lungs and pleura: No acute air space opacities. What appears to be pulmonary hyperexpansion and interstitial prominence is stable over time from plain film imaging earlier this year, without superimposed alveolitis or worsening of previously present pulmonary fibrosis. No pleural effusions or pneumothorax. Central and peripheral airways are patent and normal in caliber. Mediastinum: Heart size is normal. No pericardial effusion. No mediastinal adenopathy by size criteria. Thoracic aorta and central pulmonary arteries are normal in size. Esophagus is normal in caliber. No hiatal hernia. Pacemaking device with dual chamber leads is present. Bones and chest wall: No suspicious bony lesions. No vertebral body compression fractures. No axillary or supraclavicular adenopathy by size criteria. Thyroid gland appears normal where well seen.. Abdomen: Visualized upper abdominal solid organs and bowel loops appear normal in the absence of contrast. IMPRESSION: COPD, centrilobular emphysema. Superimposed interstitial prominence and peripheral pulmonary fibrosis moderate in severity and stable over time with reference to the chest plain film imaging from earlier this year. Dictated by: Nito Smith M.D. on 12/26/2018 at 15:38 Approved by: Nito Smith M.D. on 12/26/2018 at 15:42
== END ==
PROVIDERS: PCP Internal Medicine; Visit Provider Internal Medicine Critical Care Medicine
DX: J84.9 Interstitial pulmonary disease, unspecified (principal); J43.2 Centrilobular emphysema; J84.10 Pulmonary fibrosis, unspecified
CPT/HCPCS: 71250

== ENCOUNTER → 2019-01-02 14:47 | Outpatient (CLI) | payer MEDICARE, OTHER, SELFPAY ==
--- NOTE | 2019-01-05 14:27 | PM.PFT.1 ---
Pulmonary Function Test Referral & Results Date Patient Seen: 01/02/19 Requesting provider: Luis Armando Domingo Results: The spirometry demonstrates an FVC of 3.37 L which is 85% of predicted. The FEV1 was measured at 2.77 L which is 100% of predicted. The FEV1/FVC ratio was 82 which is 115% of predicted. Following the administration of bronchodilator there was no appreciable change to above normal numbers. Lung volumes show an SVC of 3.55 L which is 81% of predicted. The diffusing capacity was measured at 16.09 which is 49% of predicted. No hemoglobin value was provided, so no correction for potential anemia could be made, if appropriate. The maximum voluntary ventilation was normal Interpretation: This study demonstrates minimal restrictive lung disease with significant reduction in diffusing capacity. This pattern is suggestive of some sort of interstitial lung disease Clinical correlation suggested
== END ==
PROVIDERS: PCP Internal Medicine; Visit Provider Internal Medicine
DX: J84.112 Idiopathic pulmonary fibrosis (principal); J84.9 Interstitial pulmonary disease, unspecified; R06.02 Shortness of breath
CPT/HCPCS: 94060; 94726; 94729

== ENCOUNTER 2019-02-02 07:51 | Day surgery (SDC) | payer MEDICARE, OTHER, SELFPAY ==
[2019-01-29 07:52] VITALS: BMI 27.2
[2019-02-02] VITALS (13 sets, daily range): BP systolic 108–150; BP diastolic 62–84; PULSE 59–70; RESP 10–96; TEMP 36–36.6; O2SAT 17–100; BMI 27.6
[2019-02-02] MEDS: LACTATED RINGERS 1,000 ML 100 ML IV (08:25)
--- NOTE | 2019-02-02 09:15 | SUR.OPER ---
Supine on padded OR bed, head on pillow, arms secured on padded arm boards at <90 degrees abduction, legs uncrossed, safety belt at thigh, tape over blanket over lower legs.
--- NOTE | 2019-02-02 09:21 | P.HP_ITS ---
History of Present Illness History of Present Illness Date Patient Seen: 02/02/19 Time Patient Seen: 09:21 Chief complaint: [id number] Narrative: Patient is a gentleman with an incisional hernia from a colon resection done elsewhere. He is here for repair of the hernia. He believes he may have to in the same area. He has a history of an umbilical hernia repaired with mesh. This present hernia is in the same region but separate from that. Patient History Medical History Arthritis (Acute) Detached retina, right (Acute ~1993) Eczema (Acute) Gout (Acute) Hx of cardiac pacemaker (Resolved 06/16/15) Interstitial lung disease (Acute) Surgical History History of colon resection (Resolved) History of left knee replacement (Acute ~03/2015) History of testicular surgery (Acute ~1989) Hx of arthroscopy of right knee (Acute ~1985) Hx of bilateral cataract extraction (Acute ~1986) Hx of eye surgery (Acute ~1996) Hx of hand surgery (Acute ~09/2018) Hx of hernia repair (Resolved) Hx of knee surgery (Resolved) Hx of umbilical hernia repair (Acute ~1997) Status post correction of deviated nasal septum (Acute ~1993) Family & Social History Social History: household members spouse lives independently Yes Tobacco & Substance use: Smoking Status Never smoker alcohol intake current alcohol intake frequency 0-2 drinks per day Substance Use Type does not use Meds Home Medications and Allergies Home Medications Medication Instructions Recorded Confirmed Type latanoprost 1 drp EYE-LEFT QPM 09/15/18 02/02/19 History timolol maleate 1 drp EYE-LEFT BID 09/15/18 02/02/19 History colchicine 0.6 mg tablet 0.6 mg PO DAILY 12/02/18 02/02/19 History Allergies Allergy/AdvReac Type Severity Reaction Status Date / Time cephalexin [From Keflex] Allergy Severe Anaphylaxis Verified 01/29/19 08:18 Sulfa (Sulfonamide Allergy Severe Hives Verified 12/22/18 15:16 Antibiotics) Review of Systems Review of Systems Narrative: Intermittent shortness of breath. No chest pain. No black or bloody bowel movements. No seizures or blackouts. Exam Vital Signs (past 8 hours): - 02/02/19 08:17 Temperature 97.8 F Pulse Rate 70 Respiratory Rate 16 Blood Pressure 134/84 Pulse Oximetry 97 Oxygen Delivery Method Room Air Narrative Exam Narrative: Operative no apparent distress. Lungs are clear. Heart regular rate and rhythm without murmur gallop. Abdomen is mildly protuberant soft. Transverse scar in the right abdomen just above the umbilicus with a palpable d efect. Easily reducible. Small scar in the infraumbilical fold and this area I do not feel a hernia. Patient is alert and oriented x3. Speech rate and content are appropriate. Affect is appropriate. Assessment & Plan Assessment & Plan narrative: Incisional ventral hernia. I have discussed repairing it including the use of mesh. His asked about 8 no mesh repair. I told her that I could do that but I would not recommended in this particular instance. All questions were answered and the patient wished to proceed.
--- NOTE | 2019-02-02 09:24 | PM.PREOP ---
Pre-operative Note Interval Note History & Physical reviewed/Exam performed by Physician: Yes Changes to H&P: No
[2019-02-02] MEDS: CLINDAMYCIN 900 MG/50 ML PIGGYBACK 50 MG IV (09:30)
[2019-02-02] MEDS: BUPIVACAINE 0.5% (PF) VIAL 30 ML INJ (09:55)
--- NOTE | 2019-02-02 11:28 | PM.OP.1 ---
Operative Date/Time/Diagnoses Date of procedure: 02/02/19 Time of procedure: 11:19 Pre-op diagnosis: Incisional hernia Post-op diagnosis: same Procedure & Clinicians Procedure: Repair with overlay of mesh Same procedure as scheduled: Yes Indications: Patient with an incisional hernia for pair Surgeon: Papi Jernigan Click Yes if Unassisted: Yes Anesthesia Type: General Operative Notes Findings: Hernia through rectus to midline. Closure Type: primary Specimen(s): none sent Prosthetic devices, grafts, tissues, transplants, or devices: Light weight mesh applied as an onlay Estimated Blood Loss (mL): 15 Blood products transfused: none Procedure in detail: Patient was placed supine on the operating room table and underwent general LMA anesthesia. He was prepped and draped in the usual fashion. Incision was made through the old scar and carried down into the subcu fat. Hernia sac was from surrounding structures and the dissection carried down to the fascia. I entered the sac in its midline and opened along its length. I palpated the underside. There was matted fatty tissues at the umbilicus from his prior repair and these were densely adherent and I had made no attempt to remove them. That hernia repair felt like it was intact. I could identify no others. I dissected the peritoneum away from the fascia and I dissected the 2 layers of rectus fascia from 1 another. I closed the peritoneum with interrupted 2 0 Vicryl in a [id number] fashion. I then closed the posterior and anterior fascia separately with 0 Tycron stitch interrupted [id number] sutures. I dissected along the anterior fascia it from the overlying fat and sutured into place a 2 layer light weight piece of mesh to reinforce my repair. This was sutured way back from the edge of the fascial closure. The subcu was then closed with interrupted 3 0 Vicryl the skin was closed with a running 4 0 Vicryl subcuticular stitch and Steri-Strips. Dressing was applied the patient was awakened extubated and taken recovery room good condition. Complications: none Post-operative Condition: stable Disposition: PACU
[2019-02-02] MEDS: fentaNYL 100 MCG/2 ML INJ 50 MCG IV ×2 (11:36→11:42)
[2019-02-02] MEDS: LACTATED RINGERS 1,000 ML 42 ML IV (11:40)
[2019-02-02] MEDS: HYDROCODONE/ACET 5/325 TABLET 1 TAB PO ×2 (12:16→13:01)
--- NOTE | 2019-02-02 13:37 | SUR.PHASEII ---
1335 Assumed care as he finished dressing; Ambulated to the bathroom holding on to wheelchair (his desire). Voided qs. Has glasses and hearing aids on. Ice pack in place. To car in [place]/C by volunteer. Stable, moves easily.
== END 2019-02-02 13:35 | disposition home or self-care (01) ==
PROVIDERS: PCP Internal Medicine; Visit Provider Specialist
PROC: (CPT 49560; principal; 2019-02-02 09:15)
DX: K43.2 Incisional hernia without obstruction or gangrene (principal); Z95.0 Presence of cardiac pacemaker
CPT/HCPCS: 49560; C1781; J2704; J3010

== ENCOUNTER 2019-05-05 08:34 | Day surgery (SDC) | payer MEDICARE, OTHER, SELFPAY ==
--- NOTE | 2019-05-05 | PATH_ITS ---
[facility] Accession Number: [id number] . 01 Material submitted: . rectum - RECTAL POLYP . 02 Diagnosis: Rectum Polyp: Tubular adenoma. MRV 05/06/2019 1023 Local . 02 Electronically signed: . Larry Pierson MD, PhD, Pathologist NPI- [id number] . 01 Gross description: . RECTAL POLYP: Received in formalin are 2 fragment(s) of rodriguez, soft tissue measuring 0.2 x 0.2 x 0.2 cm to 0.3 x 0.3 x 0.2 cm submitted entirely in 1 cassette(s) /[facility] [place] 05/05/2019 1859 Local . 02 Pathologist provided ICD-10: D12.8 . 02 CPT . 642327 Performed at: 01 [facility] [address] [facility], [place], [place] [id number] MD Osvaldo Hightower MD Phone: [phone] Performed at: 02 [facility] [address] [place], [place] [id number] MD Fatuma Anderson MD Phone: [phone]
[2019-05-05] MEDS: SODIUM CHLORIDE 0.9% 1,000 ML 200 ML IV (08:00)
[2019-05-05 09:00] VITALS: BMI 26.8
[2019-05-05 09:05] VITALS: BP 125/74; PULSE 61; RESP 15; TEMP 36.1; O2SAT 98
--- NOTE | 2019-05-05 09:29 | PM.HP.1 ---
History of Present Illness History of Present Illness Date Patient Seen: 05/05/19 Time Patient Seen: 09:18 Chief complaint: [id number] Narrative: Patient is a gentleman here for a colonoscopy his last exam was several years ago. He has had a change in his bowel habits and is concerned about that. He has had a colon resection in the past. Patient History Medical History Arthritis (Acute) Detached retina, right (Acute ~1993) Eczema (Acute) Gout (Acute) Hx of cardiac pacemaker (Resolved 06/16/15) Interstitial lung disease (Acute) Surgical History History of colon resection (Resolved) History of left knee replacement (Acute ~03/2015) History of testicular surgery (Acute ~1989) Hx of arthroscopy of right knee (Acute ~1985) Hx of bilateral cataract extraction (Acute ~1986) Hx of eye surgery (Acute ~1996) Hx of hand surgery (Acute ~09/2018) Hx of hernia repair (Resolved) Hx of knee surgery (Resolved) Hx of umbilical hernia repair (Acute ~1997) Status post correction of deviated nasal septum (Acute ~1993) Family & Social History Social History: household members spouse lives independently Yes Tobacco & Substance use: Smoking Status Never smoker alcohol intake current alcohol intake frequency 0-2 drinks per day Substance Use Type does not use Meds Home Medications and Allergies Home Medications Medication Instructions Recorded Confirmed Type latanoprost 1 drp EYE-LEFT QPM 09/15/18 05/05/19 History timolol maleate 1 drp EYE-LEFT BID 09/15/18 05/05/19 History allopurinol 200 mg PO DAILY 05/05/19 05/05/19 History colchicine [Colcrys] 0.6 mg PO DAILY PRN 05/05/19 05/05/19 History Allergies Allergy/AdvReac Type Severity Reaction Status Date / Time cephalexin [From Keflex] Allergy Severe Anaphylaxis Verified 05/05/19 08:57 Sulfa (Sulfonamide Allergy Severe Hives Verified 05/05/19 08:57 Antibiotics) Review of Systems Review of Systems ROS Unobtainable: All systems reviewed & are unremarkable except as noted in HPI and below Exam Vital Signs (past 8 hours): - 05/05/19 09:05 Temperature 96.9 F L Pulse Rate 61 Respiratory Rate 15 Blood Pressure 125/74 Pulse Oximetry 98 Oxygen Delivery Method Room Air Narrative Exam Narrative: Pleasant cooperative patient no apparent distress. Lungs are clear to auscultation. No rales or rhonchi. Heart regular rate and rhythm no murmur gallop. Abdomen is soft nontender without mass. No obvious hernias. Patient is alert and oriented x3. Assessment & Plan Assessment & Plan narrative: The patient for a screening colonoscopy. I have discussed the procedure with them. Risks of bleeding, perforation which would necessitate major operation, failure to find remove all lesions, the potential tattoo were all discussed. All questions were answered. They wished to proceed.
--- NOTE | 2019-05-05 09:33 | PM.PREOP ---
Pre-operative Note Interval Note History & Physical reviewed/Exam performed by Physician: Yes Changes to H&P: No ASA Class (for procedural sedation): II
[2019-05-05] MEDS: MIDAZOLAM 5 MG/5 ML VIAL IV (10:11)
[2019-05-05] MEDS: fentaNYL 250 MCG/5 ML INJ IV (10:12)
[2019-05-05 10:13] VITALS: BP 118/68; PULSE 60; RESP 11; TEMP 36.5; O2SAT 98
--- NOTE | 2019-05-05 10:13 | PM.OP.ENDO ---
Operative Date/Time/Diagnoses Date of procedure: 05/05/19 Time of procedure: 10:14 Pre-op diagnosis: Was change in bowel habits. History of colon resection. Post-op diagnosis: same (It appears the patient had a right hemicolectomy) Procedure & Clinicians Study performed: Colonoscopy Same procedure as scheduled: Yes Indications: Change in bowel habits. Surgeon: Papi Jernigan Procedure Notes SCOAP/Timeout: Performed Procedure in detail: The patient was placed in the left lateral decubitus position and underwent IV sedation directed by the surgeon consisting of fentanyl and Versed. Digital exam was remarkable for a fairly small but firm hard prostate. No dominant masses felt.. The scope was inserted and advanced through the rectum into the sigmoid, descending, transverse colon. The patient had extensive sigmoid diverticulosis. He also had a small polyp noted in his rectum which I removed on the way in with cold biopsy forceps. I reached what appeared to be the end of the colon and an anastomosis. The scope was gradually brought out. No other Polyps were found. The scope ultimately was retroflexed in the rectum. The appearance was[]. The scope was removed and the patient tolerated the procedure well Scope withdrawal time: 6 minutes Sedation minutes: 22 Findings: diverticulosis (Sigmoid) and polyp (Rectal) Specimen(s): other (Polyps) Complications: none Post-procedure Recommendations: Colonscopy in 3 years Follow up: as needed Disposition: PACU
[2019-05-05 10:18] VITALS: BP 125/76; PULSE 60; RESP 14; O2SAT 99
[2019-05-05 10:23] VITALS: BP 111/69; PULSE 60; RESP 13; TEMP 36.5; O2SAT 99
[2019-05-05 10:29] VITALS: BP 125/74; PULSE 60; RESP 18; TEMP 36.5; O2SAT 99
[2019-05-05 10:34] VITALS: BP 121/76; PULSE 60; RESP 19; TEMP 36.5; O2SAT 99
== END 2019-05-05 11:03 | disposition home or self-care (01) ==
PROVIDERS: PCP Internal Medicine; Visit Provider Specialist
PROC: 0DJD8ZZ Inspection of Lower Intestinal Tract, Via Natural or Artificial Opening Endoscopic (ICD-10-PCS; CPT 45378; principal; 2019-05-05 09:45)
DX: R19.4 Change in bowel habit (principal); Z90.49 Acquired absence of other specified parts of digestive tract; K57.30 Diverticulosis of large intestine without perforation or abscess without bleeding; D12.8 Benign neoplasm of rectum
CPT/HCPCS: 45380; 99152; J2250; J3010

== ENCOUNTER → 2019-10-06 10:04 | Outpatient (CLI) | payer MEDICARE, OTHER, SELFPAY ==
[2019-10-07 06:55] LABS: COVID19 Sendout Not Detected (Not Detect)
== END ==
PROVIDERS: PCP Internal Medicine; Visit Provider Physician Assistant
DX: Z01.812 Encounter for preprocedural laboratory examination (principal)
CPT/HCPCS: 87635

== ENCOUNTER → 2019-10-09 15:48 | Outpatient (CLI) | payer MEDICARE, OTHER, SELFPAY ==
--- NOTE | 2019-10-14 09:50 | PM.PFT.1 ---
Pulmonary Function Test Referral & Results Date Patient Seen: 10/09/19 Requesting provider: Ellis Carlin Results: The spirometry demonstrates an FVC of 4.0 L which is 102% of predicted. The FEV1 was measured at 3.22 L which is 117% of predicted. The FEV1/FVC ratio was 81 which is 113% of predicted. Following the administration of bronchodilator there was no appreciable change to above normal numbers. Lung volumes show an SVC of 3.86 L which is 88% of predicted. The diffusing capacity was measured at 17.44 which is 53% of predicted. No hemoglobin value was provided, so no correction for potential anemia could be made, if appropriate. The maximum voluntary ventilation was normal Interpretation: This study demonstrates normal spirometry. There is a marked reduction in diffusing capacity suggesting element of disease at the capillary alveolar level Compared to PFTs performed in December 2018, current study is essentially unchanged
== END ==
PROVIDERS: PCP Internal Medicine; Referring Provider Internal Medicine Critical Care Medicine; Visit Provider Internal Medicine Critical Care Medicine
DX: J84.10 Pulmonary fibrosis, unspecified (principal); J98.4 Other disorders of lung
CPT/HCPCS: 94060; 94726; 94729

== ENCOUNTER → 2020-02-10 11:48 | Outpatient (CLI) | payer MEDICARE, OTHER, SELFPAY ==
--- NOTE | 2020-02-10 | DI.CT.S_ITS ---
PROCEDURE: CT HEAD/BRAIN WO CON INDICATIONS: Headache, unspecified TECHNIQUE: Noncontrast 4.5 mm thick angled axial sections acquired from the foramen magnum to the vertex, with coronal and sagittal reformats. For radiation dose reduction, the following was used: automated exposure control, adjustment of mA and/or kV according to patient size. COMPARISON: None. FINDINGS: Image quality: Excellent. CSF spaces: Basal cisterns are patent. No extra-axial fluid collections. The ventricles are symmetric in size and shape. Brain: No intracranial bleeds or masses. There is cerebral volume loss for age, with resultant ventricular and sulcal prominence. There are periventricular and deep white matter chronic small vessel ischemic changes. There is intracranial internal carotid artery atherosclerosis. Skull and face: Calvarium and visualized facial bones appear intact, without suspicious lesions. Sinuses: Visualized sinuses and mastoids are clear. IMPRESSION: Unremarkable intracranial study, without an imaging explanation found for the patient's presenting history of headache. Note is made of age-appropriate brain parenchymal volume loss and chronic small vessel ischemic changes. Dictated by: Vinay Ng M.D. on 02/10/2020 at 11:02 Approved by: Vinay Ng M.D. on 02/10/2020 at 11:03
== END ==
PROVIDERS: PCP Internal Medicine; Referring Provider Internal Medicine; Visit Provider Internal Medicine
DX: R51.9 Headache, unspecified (principal); N40.1 Benign prostatic hyperplasia with lower urinary tract symptoms; N13.8 Other obstructive and reflux uropathy
CPT/HCPCS: 51798; 70450; 81002; 99213

== ENCOUNTER → 2021-08-01 14:00 | Outpatient (CLI) | payer MEDICARE, OTHER, SELFPAY ==
[2021-08-01 15:53] LABS: Prostate Specific Antigen 5.18 ng/mL (0.10-4.00)
== END ==
PROVIDERS: PCP Internal Medicine; Referring Provider Specialist; Visit Provider Specialist
DX: R97.20 Elevated prostate specific antigen [PSA] (principal)
CPT/HCPCS: 36415; 84153

== ENCOUNTER → 2021-09-29 12:03 | Outpatient (CLI) | payer MEDICARE, OTHER, SELFPAY ==
[2021-09-29 16:09] LABS: Prostate Specific Antigen 4.67 ng/mL (0.10-4.00)
== END ==
PROVIDERS: PCP Internal Medicine; Referring Provider Specialist; Visit Provider Specialist
DX: R97.20 Elevated prostate specific antigen [PSA] (principal)
CPT/HCPCS: 36415; 84153

== ENCOUNTER → 2022-04-06 13:36 | Outpatient (CLI) | payer MEDICARE, OTHER, SELFPAY | PROVIDERS: PCP Internal Medicine; Referring Provider Specialist; Visit Provider Specialist | DX: R97.20 Elevated prostate specific antigen [PSA] (principal) | CPT/HCPCS: 36415; 84153 ==

== ENCOUNTER → 2022-05-03 09:12 | Outpatient (CLI) | payer MEDICARE, OTHER, SELFPAY ==
[2022-05-03 11:14] LABS: COVID19 -Nasal RAPID Negative (Negative)
== END ==
PROVIDERS: PCP Internal Medicine; Visit Provider Surgery
DX: Z01.812 Encounter for preprocedural laboratory examination (principal); Z20.822 Contact with and (suspected) exposure to COVID-19
CPT/HCPCS: 87635; C9803

== ENCOUNTER 2022-05-04 10:33 | Day surgery (SDC) | payer MEDICARE, OTHER, SELFPAY ==
--- NOTE | 2022-05-04 | PATH_ITS ---
[facility] Accession Number: [id number] No. of containers..02 Tissue . 01 Material submitted: . PART A: colon - TRANSVERSE COLON POLYP PART B: colon - TRANSVERSE COLON POLYP #2 . 01 Diagnosis: A. Transverse Colon, Polyp, Biopsy: Sessile serrated adenoma with cytological dysplasia. Please see comment. Negative for malignancy. . B. Transverse Colon, Polyp #2, Biopsy: Sessile serrated adenoma with cytological dysplasia. Please see comment. Negative for malignancy. MRV 05/10/2022 1551 Local . 01 Comment: A-B: Current surveillance guidelines recommend that a sessile serrated adenoma with cytological dysplasia should be treated similar to an advanced adenoma. Complete polypectomy and shortened surveillance interval are recommended. . 01 Electronically signed: . Fatuma Anderson MD, Pathologist NPI- [id number] . 01 Gross description: . Part A: TRANSVERSE COLON POLYP: Received in formalin are multiple fragment(s) of rodriguez, soft tissue measuring 1.7 x 1.2 x 0.1 cm in aggregate submitted entirely in 1 cassette(s) Part B: TRANSVERSE COLON POLYP #2: Received in formalin are multiple fragment(s) of rodriguez, soft tissue measuring 1.7 x 1.2 x 0.1 cm in aggregate submitted entirely in 1 cassette(s) /CPE 05/05/2022 1008 Local . 01 Pathologist provided ICD-10: D12.3 . 01 CPT . 706031, 169267 Specimen Comment: A courtesy copy of this report has been sent to [facility] Performed at: 01 [facility] Cytology [address], [place], [place] [id number] MD Osvaldo Hightower MD Phone: [phone]
[2022-05-04] MEDS: LACTATED RINGERS 1,000 ML 84 ML IV (11:10)
[2022-05-04 11:18] VITALS: BP 155/88; PULSE 92; RESP 18; TEMP 36.9; O2SAT 98; BMI 25.8
[2022-05-04 11:37] VITALS: BMI 25.8
--- NOTE | 2022-05-04 12:37 | P.HP_ITS ---
History of Present Illness History of Present Illness Chief complaint: Colonoscopy Narrative: Mr. Golden presents today for a screening colonoscopy. Last colonoscopy was done by Dr. Jernigan January 2019. There was a tubular adenoma removed from the rectum. Doctor noted large amount of diverticular disease throughout the sigmoid as well. Mr. Golden has had a right hemicolectomy for what he understands was in a suspicious polyp. As he explains it: ?it was a routine colonoscopy at [facility] and 2-3 polyps were removed but they could not determine if 1 of them was cancer so we decided to go ahead and remove that part of the colon.? He does have some concerns about some hard dry kalani like steffanie stool that he has been passing frequently lately. He has to strain more than usual to pass this. He had some concerns about his prostate gland being enlarged and that could be contributing but he has been seen by Urology and it looks like the prostate is all right. Does eat a almost Mediterranean diet with fruits and vegetables and lots of nuts however he does not take fiber supplement. 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 gangrene Interstitial lung disease Osteoarthritis Peyronie's disease Surgical History H/O circumcision H/O vasectomy History of colon resection History of left knee replacement (~03/2015) History of testicular surgery (~1989) Hx of arthroscopy of right knee (~1985) Hx of bilateral cataract extraction (~1986) Hx of eye surgery (~1996) Hx of hand surgery (~09/2018) Hx of hernia repair Hx of knee surgery Hx of umbilical hernia repair (~1997) Status post correction of deviated nasal septum (~1993) Family & Social History Social History: household members spouse lives independently Yes Tobacco & Substance use: Smoking Status Never smoker alcohol intake current alcohol intake frequency 0-2 drinks per day Substance Use Type does not use Meds Home Medications and Allergies Home Medications Medication Instructions Recorded Confirmed Type allopurinol 100 mg tablet 200 mg PO DAILY 05/05/19 05/04/22 History valacyclovir 500 mg tablet 500 mg PO .PRN 08/23/21 05/04/22 History (Valtrex) alfuzosin 10 mg tablet,extended 10 mg PO DAILY #90 tabs 04/11/22 05/04/22 Rx release 24 hr finasteride 5 mg tablet 5 mg PO DAILY #90 tabs 04/11/22 05/04/22 Rx colchicine 0.6 mg tablet (Colcrys) 0.6 mg PO DAILY 05/04/22 05/04/22 History Allergies Allergy/AdvReac Type Severity Reaction Status Date / Time cephalexin [From Keflex] Allergy Severe Anaphylaxis Verified 05/04/22 11:02 Sulfa (Sulfonamide Allergy Severe Hives Verified 05/04/22 11:02 Antibiotics) Exam Vital Signs (past 8 hours): - 05/04/22 11:18 Temperature 98.4 F Pulse Rate 92 H Respiratory Rate 18 Blood Pressure 155/88 H Pulse Oximetry 98 Oxygen Delivery Method Room Air Oxygen Delivery Method Room Air Const General: cooperative, healthy appearing and comfortable HENMT Head: normal to inspection Resp Effort & Inspection: normal respiratory effort and able to speak in complete sentences GI Inspection: scar (Laparoscopic incisions and 1 larger adverse incision around the midline) Palpation: soft and No tender Assessment & Plan Assessment and plan (1) Screening for colon cancer: Status: Acute (2) History of colon polyps: Status: Acute Assessment & Plan narrative: Mr. Zaragoza is here for screening colonoscopy he understands procedure. I discussed with him risks including but not limited to perforation of the colon missed lesions and incomplete exam. Understands these risks and would like to proceed today Time Spent With Patient Critical Care time: I spent a total of [] minutes of critical care time on this patient's care today; this time is exclusive of procedural time.
[2022-05-04 13:59] VITALS: BP 119/73; PULSE 68; RESP 12; TEMP 36.3; O2SAT 100
[2022-05-04 14:05] VITALS: BP 117/82; PULSE 75; RESP 18; O2SAT 98
[2022-05-04] MEDS: ALBUTEROL 2.5 MG/3 ML NEB (ADULT) INH (14:08)
[2022-05-04 14:10] VITALS: BP 109/67; PULSE 60; RESP 18; O2SAT 98
[2022-05-04 14:15] VITALS: BP 110/73; PULSE 85; RESP 14; O2SAT 96
[2022-05-04 14:23] VITALS: BP 108/76; PULSE 69; RESP 16; TEMP 36.1; O2SAT 96
--- NOTE | 2022-05-04 16:07 | P.OP.COLON_ITS ---
Operative Date/Time/Diagnoses Date of procedure: 05/04/22 Procedure & Clinicians Study performed: Colonoscopy and biopsy Same procedure as scheduled: Yes Indications: Screening for colon cancer Surgeon: Latisha Neal Procedure Notes Procedure in detail: Patient was taken to the endoscopy suite and placed in a left lateral decubitus position. A time-out was performed. Conscious sedation was provided by anesthesiologist. A digital rectal exam was performed. Part of an enlarged prostate was palpated but I was not able to reach my finger to the top most portion of it, the palpable portion felt smooth. There were no strictures or masses. The colonoscope was then introduced into the anal canal and advanced. There were large multiple sigmoid diverticula. Photographs were taken. And I had some difficulty rounding the hepatic flexure, however I did make it through to where an obvious anastomosis with the small bowel was seen. A photograph was taken. The prep was not great and in some places was a [place] bowel prep of 3. I did my best to irrigate and provide an adequate exam. I then withdrew the scope and just past the hepatic flexure in the transverse colon I saw 2 sessile rather large polyps sized 2-3 cm in diameter. These were both snared with multiple passes to remove them in total. Photographs were taken both before and after polypectomy. The 2nd and larger of the polyps was inked prior to removal. The 2 polyps were sent separately and labeled transverse colon colon polyp and transverse colon polyp #2. Total withdrawal time including biopsies was 36 minutes. Specimen(s): other (1. Transverse colon polyp 2. Transverse colon polyp #2) Complications: none Post-procedure Recommendations: Colonoscopy in 3 years (Depending on pathology and patient preferences.)
== END 2022-05-04 14:56 | disposition home or self-care (01) ==
PROVIDERS: PCP Internal Medicine; Referring Provider Surgery; Visit Provider Surgery
PROC: 0DJD8ZZ Inspection of Lower Intestinal Tract, Via Natural or Artificial Opening Endoscopic (ICD-10-PCS; CPT 45378; principal; 2022-05-04 11:45)
DX: Z12.11 Encounter for screening for malignant neoplasm of colon (principal); Z86.010 Personal history of colon polyps; K57.30 Diverticulosis of large intestine without perforation or abscess without bleeding; D12.3 Benign neoplasm of transverse colon
CPT/HCPCS: 45385; J2250; J2704; J3010; J7613

== ENCOUNTER → 2022-05-16 12:38 | Outpatient (CLI) | payer MEDICARE, OTHER, SELFPAY ==
--- NOTE | 2022-05-16 12:40 | DI.US.S_ITS ---
PROCEDURE: US SCROTUM INDICATIONS: SWOLLEN LEFT TESTICLE TECHNIQUE: Real-time scanning was performed of the scrotum and testicles, with image documentation. Color and pulse Doppler interrogation was performed of both testicles. COMPARISON: None. FINDINGS: Right: Testicle is normal in size at 4.4 x 3.2 x 1.9 cm, and homogenous in echotexture. Bilobed cyst present measuring 0.5 cm. Epididymis is normal in overall size and morphology. Sub cm epididymal head cyst. No hydrocele or varicoceles. Overlying scrotal skin is normal in thickness. Left: Testicle is normal in size, and homogeneous in echotexture. Prominent right testes. Solid-appearing, hypoattenuating lesion on the inferior pole measuring 0.5 x 0.3 x 0.4 cm. Epididymis appears edematous, with increased vascularity. Small hydrocele with debris, measuring 15 cc. Sub cm epididymal head cyst. A simple appearing cystic lesion within the scrotum measuring 0.4 cm. Overlying scrotal skin is normal in thickness. Doppler: Color and pulse Doppler demonstrate normal and symmetric arterial flow in both testicles. IMPRESSION: 1. The left epididymis is mildly enlarged and demonstrates increased vascularity. Findings are suggestive of epididymitis. 2. Solid-appearing lesion within the inferior pole of the left testicle measuring 0.5 x 0.3 x 0.4 cm. Mass is not entirely excluded. Recommend outpatient urology referral. 3. Small left hydrocele containing debris. Dictated by: Armani Zelaya M.D. on 05/16/2022 at 16:22 Approved by: Armani Zelaya M.D. on 05/16/2022 at 16:29
== END ==
PROVIDERS: PCP Internal Medicine; Referring Provider Specialist; Visit Provider Specialist
DX: N48.6 Induration penis plastica (principal); N40.1 Benign prostatic hyperplasia with lower urinary tract symptoms; N13.8 Other obstructive and reflux uropathy; R97.20 Elevated prostate specific antigen [PSA]; N50.89 Other specified disorders of the male genital organs; N50.9 Disorder of male genital organs, unspecified; N43.3 Hydrocele, unspecified
CPT/HCPCS: 76870

== ENCOUNTER 2022-07-02 08:12 | Day surgery (SDC) | payer MEDICARE, OTHER, SELFPAY ==
[2022-07-02] VITALS (13 sets, daily range): BP systolic 117–160; BP diastolic 62–86; PULSE 60–84; RESP 12–18; TEMP 36.1–37.1; O2SAT 96–100; BMI 26.2
--- NOTE | 2022-07-02 | PATH_ITS ---
[facility] Accession Number: [id number] No. of containers..01 Tissue . 01 Material submitted: . prostate - PROSTATE CHIPS . 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 [facility] 07/04/2022 0954 Local . 01 Electronically signed: . Hansa Calero MD, Pathologist NPI- [id number] . 01 Gross description: . The specimen is received in formalin labeled with the patient's name, , and prostate chips consists of multiple rodriguez rubbery soft tissue fragments weighing 11 grams and aggregating to 7.2 x 6.1 x 1.3 cm. No discrete lesions are identified. The specimen is submitted entirely in cassettes A1-A9. ([id number]) /MRV 07/03/2022 182 Local . 01 Pathologist provided ICD-10: N32.0, R33.9 . 01 CPT . 302290 Specimen Comment: A courtesy copy of this report has been sent to [phone] Performed at: 01 [facility] [address] [place] [address], [place], [place] [id number] MD Osvaldo Hightower MD Phone: [phone]
--- NOTE | 2022-07-02 08:40 | PM.PREOP ---
Pre-operative Note COVID-19 Criteria for continued procedure: Expected advancement of disease process, Possibility delay results in more complex future surgery or treatment, Deterioration of the patient's condition or overall health, Delay expected to result in less-positive ultimate med/surg outcome and Non-surgical alternatives not available or appropriate per current SOC Interval Note History & Physical reviewed/Exam performed by Physician: Yes Changes to H&P: No
[2022-07-02] MEDS: ACETAMINOPHEN IV 1,000 MG/100 ML VIAL 400 MG IV (09:13)
[2022-07-02] MEDS: LACTATED RINGERS 1,000 ML 21 ML IV ×2 (09:13→10:10)
[2022-07-02 09:15] LABS: COVID19 -Nasal RAPID Negative (Negative)
[2022-07-02 09:16] LABS: Hematocrit 39.1 % (41-53)
[2022-07-02] MEDS: CIPROFLOXACIN 400 MG/200 ML PIGGYBACK 200 MG IV (09:22)
[2022-07-02] MEDS: TRANEXAMIC ACID 1,000 MG in SODIUM CHLORIDE 0.9% 100 ML 200 MG IV (09:42)
--- NOTE | 2022-07-02 09:44 | SUR.OPER ---
Lithotomy on padded OR bed, head on pillow, arms secured on padded arm boards at <90 degrees abduction. Legs secured in padded yellow fins stirrups.
--- NOTE | 2022-07-02 10:35 | P.OP_ITS ---
Operative Date/Time/Diagnoses Date of procedure: 07/02/22 Time of procedure: 10:25 Pre-op diagnosis: 1. Urinary retention. 2. Bladder outlet obstruction. Post-op diagnosis: same Procedure & Clinicians Procedure: 1. Transurethral resection of prostate. Same procedure as scheduled: Yes Indications: 1. Urinary retention. 2. Bladder outlet obstruction. Surgeon: Hilda Stoddard Click Yes if Unassisted: Yes Anesthesia Type: General Operative Notes Findings: 1. Urethra-normal caliber without annular stricture or lesion. 2. External sphincter-coapted with normal overlying urothelium. 3. 4 cm prostate length with moderately obstructing trilobar hyperplasia. 4. Bladder 1 to 2+ trabeculation. Normal ureteral orifices bilaterally. No evidence of stone, neoplasm, diverticulum, or foreign body. Closure Type: not applicable Specimen(s): other (Prostate chips.) Applied: catheter (Twenty-two [address] hematuria catheter to sterile normal saline continuous bladder irrigation.) Estimated Blood Loss (mL): 10 Blood products transfused: none Procedure in detail: The patient was positioned supine administered general anesthesia. He was then repositioned in semi lithotomy in the lower abdomen, genitalia, and groin were prepped and draped in sterile fashion. The resectoscope was then advanced and lower urinary tract under direct visualization with the as described above. The working element was then fitted with the resecting loop. TUR incisions were made from the level of the bladder neck to the verumontanum at the 1 and 11:00 a.m. locations to the level of the surgical capsule. The intervening anterior tissue was then resected. Next the left followed by the right lateral lobe were resected again from bladder neck to the level of the verumontanum. Finally the median lobe and floor were resected again from bladder neck to verumontanum. Hemostasis was attained with the electrocautery. All chips were then collected using the [employer] evacuator and manually with the resecting under direct visualiza tion. The bladder was then left partially filled and the resectoscope was removed. A [address] hemat[address] catheter was then placed in the lower urinary tract over a catheter guide and the balloon inflated to 30 cc. The catheter was irrigated for patency and was nearly clear. It was then attached to sterile normal saline continuous bladder irrigation. The patient was repositioned in supine, catheter was secured to the inner thigh without tension, patient was awakened, transferred to [facility], and transported recovery in stable condition. Complications: none Post-operative Condition: stable Disposition: PACU Plan for aftercare: Admit to acute care for outpatient with a bed.
[2022-07-02 10:56] LABS: Appearance Urine UA CLEAR; Bilirubin Urine UA NEGATIVE (NEGATIVE); Color Urine UA YELLOW; Glucose Urine UA NEGATIVE (Negative); Ketones Urine UA NEGATIVE (NEGATIVE); Leukocyte Esterase Urine UA NEGATIVE (NEGATIVE); Nitrite Urine UA NEGATIVE (Negative); Occult Blood Urine UA TRACE-INTACT (Negative); Protein Urine UA NEGATIVE (Negative); Specific Gravity Urine UA <=1.005 (1.000-1.035); Urobilinogen Urine UA 0.2 E.U./dL (0.2)
[2022-07-02 11:13] LABS: Bacteria Urine None Seen; Culture Indicated Urine Cult Not Indicated; RBC Urine 0-1/HPF (0-5/HPF); Squamous Epithelial Cell Urine None Seen (0-5/HPF); WBC Urine None Seen (0-5/HPF)
[2022-07-02] MEDS: LACTATED RINGERS 1,000 ML 125 ML IV ×2 (11:51→19:40)
--- NOTE | 2022-07-02 12:13 | PC.NURSE ---
Addendum entered by Jenna Augustin R.N. 07/02/22 15:52: Patients left for a bit, he is watching television. Continuous bladder irrigation running and patient is tolerating this well. Patients will be unavailable to pick him up before noon. Original Note: Patient up to room around 1145. He had a TURP done and has continuous bladder irrigation running through 3-way white. Urine color is clear at this time. One bag of saline continuously running at a time. He is alert and oriented x4, and is present at bedside. Patients white catheter patent with stat lock in place. He is resting comfortably at this time, will check irrigation and hang new bags frequently.
--- NOTE | 2022-07-02 23:37 | PC.NURSE ---
Patient is alert and oriented. Breath sounds with crackles at bilateral bases and per patient has idiopathic pulmonary fibrosis; denies SOB and RA sat is 100%. Is on continuous oximetry. HRR. Denies nausea. BT present and is passing flatus. Has indwelling catheter with continuous bladder irrigation; urine is clear light pink. Is able to move himself in bed and gets up to BSC w/walker and 1 assist. Denies pain. Wearing bilateral calf SCD's. Fall risk assessment is moderate and bed alarm is activated although uses call light appropriately.
[2022-07-03] VITALS: BP 133/75; PULSE 65; RESP 18; TEMP 37.2; O2SAT 99
[2022-07-03 03:18] VITALS: BP 137/70; PULSE 67; RESP 15; TEMP 36.7; O2SAT 98
[2022-07-03] MEDS: LACTATED RINGERS 1,000 ML 125 ML IV (04:24)
[2022-07-03 08:00] VITALS: BP 150/79; PULSE 64; RESP 17; TEMP 36.6; O2SAT 99
--- NOTE | 2022-07-03 10:45 | CM.DANOTE ---
Discharge Planning/Care Management CM Discharge Assessment Start: 07/03/22 09:21 Freq: Status: Active Protocol: Document 07/03/22 09:21 ASHLY (Rec: 07/03/22 10:45 ASHLY [id number]) Discharge Planning Assessment Assigned Software Publisher MART Mccarty DPOA/Assigned Designee Name Sera Golden, spouse Contact Information [phone] Advance Directives? Yes Advance Directives on File No: states full code History Provided By Patient,Medical Record Prior Living Arrangements House Household Members spouse Type of transporation used prior to Drives own vehicle admit Independent with ADL's Yes Is patient alert and oriented? Yes Comment Patient is an indp and active 86 yo Barriers to Discharge No Comment Patient is an active and indp 86 yo, resident of [place], POD1 from Transurethral resection of prostate r/t Urinary retention and Bladder outlet obstruction. Patient is walking the hallway and awaiting DC orders from Dr Stoddard, patient plans to return home w/spouse to assist as needed. No needs identified from this CM team. Plan: DC home w/spouse and close outpatient folllow up recommended. Back to functional baseline Discharge Plan Home Transportation Arrangement Spouse Referrals Initiated None needed
[2022-07-03 11:50] VITALS: BP 137/87; PULSE 66; RESP 17; TEMP 36.7; O2SAT 97
--- NOTE | 2022-07-03 11:59 | PM.DS.1 ---
History of Present Illness History of Present Illness Date Patient Seen: 07/03/22 Time Patient Seen: 11:59 Chief complaint: Transurethral Resection Prostate Narrative: Patient was admitted on 07/02/2022 and underwent uncomplicated Transurethral resection of the prostate for bladder outlet obstruction and high postvoid residual volume/urinary retention. Discharge Providers Provider Discharge Date: 07/03/22 Primary care physician: Angle Herrera MD Discharge provider: Hilda Stoddard MD Summary Hospital Course Discharge Diagnosis: One bladder outlet obstruction. Urinary retention. Hospital Course: The patient was admitted on 07/02/2022 and underwent uncomplicated Transurethral resection of the prostate under general anesthesia. The patient's postop course has been entirely unremarkable in that he has been able to tolerate general diet and has had return of bowel function, able to ambulate and transfer without assistance, and no requirement of postoperative analgesics for pain management. In the evening of the 1st postoperative day the patient is stable for discharge. In catheter care and use instruction as well as activity, hygiene and follow-up instructions in the Urology Clinic. Pending at discharge. Exam Vital Signs (past 8 hours): - 07/03/22 08:00 07/03/22 11:50 Temperature 97.8 F 98.1 F Pulse Rate 64 66 Respiratory Rate 17 17 Blood Pressure 150/79 H 137/87 Pulse Oximetry 99 97 Oxygen Flow Rate 0 0 Oxygen Delivery Method Room Air Oxygen Flow Rate 0 Narrative Exam Narrative: Patient is resting comfortably in bed and in no distress. Abdomen- normal active bowel tones. Non tender and nondistended. Objective Labs 07/02/22 08:43 PFS Medical History (Updated 06/21/22 @ 17:10 by Hilda Stoddard MD) Arthritis BPH w urinary obs/LUTS Detached retina, right (~1993) Eczema Elevated PSA Epididymal cyst Gout Hx of cardiac pacemaker (06/16/15) 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 gangrene Incomplete bladder emptying Interstitial lung disease Left epididymitis Left hydrocele Osteoarthritis Peyronie's disease Urinary retention Surgical History (Updated 06/25/22 @ 13:57 by Maria M Doty RN) H/O circumcision H/O vasectomy History of colon resection History of left knee replacement (~03/2015) History of testicular surgery (~1989) Hx of arthroscopy of right knee (~1985) Hx of bilateral cataract extraction (~1986) Hx of colonoscopy (~05/04/22) Hx of eye surgery (~1996) Hx of hand surgery (~09/2018) Hx of hernia repair Hx of hernia repair (02/02/19) Hx of knee surgery Hx of umbilical hernia repair (~1997) Status post correction of deviated nasal septum (~1993) Social History marital status: household members: spouse lives independently: Yes occupational status: previously employed Smoking Status: Never smoker alcohol intake: current substance use type: does not use Discharge Assessment & Plan Assessment and Plan Assessment: 1. Stable post op day 1 s/p TURP. 2. Indwelling white. 3. Pathology pending. Plan of Treatment: 1. Discharge home today. 2. Catheter care and use instruction per routine. Supervised voiding trial in Urology clinic 07/04/22. 3. Follow up surgical pathology when report final. Discharge Plan Discharge Plan Patient Disposition: Home Provider Discharge Comment: Please contact the urology clinic to schedule your outpatient follow-up appointment 07/04/2022. Discharge orders & Medications Discharge Orders: Discharge (Order); Ordered 07/03/22 Ordered By: Hilda Stoddard Prescriptions: New nitrofurantoin monohyd/m-cryst [Macrobid] 100 mg capsule 100 mg PO Q12H 5 Days Qty: 10 0RF Rx Instructions: must administer with a meal/food Continued allopurinol 100 mg tablet 200 mg PO DAILY colchicine [Colcrys] 0.6 mg tablet 0.6 mg PO .PRN valacyclovir [Valtrex] 500 mg tablet 500 mg PO PRN PRN (Reason: herpes) finasteride 5 mg tablet 5 mg PO DAILY Qty: 90 3RF alfuzosin 10 mg tablet extended release 24 hr 10 mg PO DAILY Qty: 90 3RF Rx Instructions: administer after the same meal each day Follow up/Referrals: Angle Herrera MD [Primary Care Provider] - Diet/Activity/Treatments Diet: Diet as Tolerated Activity: Not lift objects greater than 15 lb x 4 weeks Catheter: 2-way White Skin/Wound/Dressing Care Skin care: May shower daily. Report to your healthcare provider any signs of infection, such as:: chills, fever, night sweats, increased pain and unusual drainage Visit Report/Discharge Packet Instructions: How to Care for Your White Catheter -- Male, DI for Transurethral Resection of the Prostate Stand Alone Forms: Surgery Discharge Discharge Data Primary Care Provider: Angle Herrera Attending Provider: Hilda Stoddard VTE Deep Vein Thrombosis/Pulmonary Embolism Present on Admission: No
--- NOTE | 2022-07-03 13:28 | PC.NURSE ---
Pt has finished lunch and is ready for discharge home with Spouse. Instructed Pt and Spouse on care of indwelling catheter and both state they know how. Reviewed stroke education, s/s of infection and when to call MD, and follow up. Reminded Pt to take full course of antibiotics as prescribed and to drink plenty of fluids to prevent constipation or dehydration. Pt and Spouse denied further questions and Pt is ready to be taken out via w/c by [facility] with Spouse and all belongings.
== END 2022-07-03 13:48 | disposition home or self-care (01) ==
LOC: OR 08:13 → AC 08:14
PROVIDERS: PCP Internal Medicine; Referring Provider Specialist; Visit Provider Specialist
PROC: 0VT08ZZ Resection of Prostate, Via Natural or Artificial Opening Endoscopic (ICD-10-PCS; CPT 52601; principal; 2022-07-02 09:15)
DX: N32.0 Bladder-neck obstruction (principal); R33.9 Retention of urine, unspecified; N13.8 Other obstructive and reflux uropathy; N40.1 Benign prostatic hyperplasia with lower urinary tract symptoms
CPT/HCPCS: 52601; 36415; 81001; 82962; 85014; 85018; 87635; C9803; J0131; J0744; J2704; J3010

== ENCOUNTER 2022-07-23 09:04 | Emergency (ER) | payer MEDICARE, OTHER, SELFPAY ==
[2022-07-02 08:20] VITALS: BMI 26.2
[2022-07-23] VITALS (11 sets, daily range): BP systolic 110–162; BP diastolic 67–78; PULSE 59–87; RESP 14; TEMP 36.6–36.8; O2SAT 97–100; BMI 25.5
--- NOTE | 2022-07-23 09:54 | ED.GENADULT ---
HPI - General Adult General Chief complaint: Abdominal Pain Stated complaint: post op prostate surgery T-21 BM causes bleeding Time Seen by Provider: 07/23/22 09:44 Source: patient Mode of arrival: Ambulatory History of Present Illness HPI narrative: Patient is an 87-year-old male. Three weeks ago he underwent a TURP procedure. He states this was for an enlarged prostate. He has been urinating without any issues since then. No fevers. For the past 4 days he states he has been unable to have a bowel movement. No vomiting. No abdominal distention. He has had multiple abdominal surgeries to include a abdominal resection. No fevers. He has been trying laxatives at home as early as last evening. States that prior to the procedure he was having some abnormal bowel movements. But not constipated. Related Data Home Medications Medication Instructions Recorded Confirmed allopurinol 100 mg tablet 200 mg PO DAILY 05/05/19 07/12/22 colchicine 0.6 mg tablet (Colcrys) 0.6 mg PO .PRN 05/10/22 07/12/22 valacyclovir 500 mg tablet 500 mg PO PRN PRN herpes 05/10/22 07/12/22 (Valtrex) Previous Rx's Medication Instructions Recorded alfuzosin 10 mg tablet,extended 10 mg PO DAILY #90 tabs 04/11/22 release 24 hr finasteride 5 mg tablet 5 mg PO DAILY #90 tabs 04/11/22 Allergies Allergy/AdvReac Type Severity Reaction Status Date / Time cephalexin [From Keflex] Allergy Severe Anaphylaxis Verified 07/12/22 10:55 Sulfa (Sulfonamide Allergy Severe Hives Verified 07/12/22 10:55 Antibiotics) Review of Systems Constitutional Constitutional: Reports system reviewed and no additional complaints, except as documented Gastrointestinal Gastrointestinal: Reports system reviewed and no additional complaints, except as documented Genitourinary Genitourinary: Reports system reviewed and no additional complaints, except as documented Integumentary/Breasts Skin/Breast: Reports system reviewed and no additional complaints, except as documented Neurologic Neurologic: Reports system reviewed and no additional complaints, except as documented Hematologic/Lymphatic On Anticoagulants: No Patient History Medical History Arthritis BPH w urinary obs/LUTS Detached retina, right (~1993) Eczema Elevated PSA Epididymal cyst Gout Hx of cardiac pacemaker (06/16/15) 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 gangrene Incomplete bladder emptying Interstitial lung disease Left epididymitis Left hydrocele Osteoarthritis Peyronie's disease Urinary retention Surgical History (Updated 06/25/22 @ 13:57 by Maria M Doty RN) H/O circumcision H/O vasectomy History of colon resection History of left knee replacement (~03/2015) History of testicular surgery (~1989) Hx of arthroscopy of right knee (~1985) Hx of bilateral cataract extraction (~1986) Hx of colonoscopy (~05/04/22) Hx of eye surgery (~1996) Hx of hand surgery (~09/2018) Hx of hernia repair Hx of hernia repair (02/02/19) Hx of knee surgery Hx of umbilical hernia repair (~1997) Status post correction of deviated nasal septum (~1993) Social History marital status: household members: spouse lives independently: Yes occupational status: previously employed Smoking Status: Never smoker alcohol intake: current substance use type: does not use Smoking Status: Never smoker alcohol intake frequency: 0-2 drinks per day Substance Use Type: does not use Exam Initial Vital Signs Initial Vital Signs: Vital Signs Temperature 97.8 F 07/23/22 09:20 Pulse Rate 87 07/23/22 09:20 Respiratory Rate 14 07/23/22 09:20 Blood Pressure 162/78 H 07/23/22 09:20 Pulse Oximetry 99 07/23/22 09:20 Oxygen Delivery Method Room Air 07/23/22 09:20 Const General: cooperative, comfortable and No ill appearing [facility] Head: normal to inspection Resp Effort & Inspection: normal respiratory effort Auscultation: clear to auscultation bilaterally Cardio Rate: regular rate Rhythm: regular rhythm GI Inspection: normal to inspection and non-distended Palpation: soft, No firm, No guarding and No tender Skin General: no rashes or lesions noted Neuro General: patient alert, patient awake and moves all extremities Extrem General: normal to inspection and capillary refill normal Course Orders Ordered: ED Orders 07/23/22 09:55 CT abdomen pelvis w con Stat 07/23/22 10:05 Complete Blood Count AUTO DIFF Stat Comprehensive Metabolic Panel Stat Lipase Stat Vital Signs Vital signs: Vital Signs - 8 hr 07/23/22 09:20 07/23/22 10:15 07/23/22 10:16 Temperature 97.8 F Pulse Rate 87 62 Respiratory Rate 14 Blood Pressure 162/78 H 119/70 Pulse Oximetry 99 98 Oxygen Delivery Method Room Air 07/23/22 10:16 07/23/22 10:30 07/23/22 10:30 Temperature Pulse Rate 62 61 Respiratory Rate Blood Pressure 116/69 Pulse Oximetry 98 99 Oxygen Delivery Method 07/23/22 11:00 07/23/22 11:00 07/23/22 11:30 Temperature Pulse Rate 60 Respiratory Rate Blood Pressure 132/70 115/70 Pulse Oximetry 100 Oxygen Delivery Method 07/23/22 11:30 07/23/22 12:00 07/23/22 12:00 Temperature Pulse Rate 60 59 L Respiratory Rate Blood Pressure 126/70 Pulse Oximetry 98 97 Oxygen Delivery Method Medical Decision Making Lab Data Lab results reviewed: Yes I reviewed the patient's lab results. 07/23/22 10:05 07/23/22 10:05 Labs: Lab Results 07/23/22 07/23/22 Range/Units 10:05 10:05 WBC 5.5 (4.5-11.0) X10^3/uL RBC 3.67 L (4.5-5.9) X10^6/uL Hgb 11.9 L (13.5-17.5) g/dL Hct 35.0 L (41-53) % MCV 95.3 (80-100) fL MCH 32.5 (26-34) PG MCHC 34.1 (30-36) % RDW 13.8 (11.6-14.8) % Plt Count 304 (150-400) X10^3/uL Neut % (Auto) 64.2 (50-75) % Lymph % (Auto) 21.7 L (25-40) % [place] % (Auto) 8.4 (3-14) % Eos % (Auto) 4.5 H (2-4) % Baso % (Auto) 1.2 (0-2) % Neut # (Auto) 3600 (7561-9321) /uL Lymph # (Auto) 1200 (9142-4709) /uL [place] # (Auto) 500 (0-900) /uL Eos # (Auto) 200 (0-450) /uL Baso # (Auto) 100 (0-100) /uL Sodium 133 L (137-145) mmol/L Potassium 3.8 (3.4-5.1) mmol/L Chloride 98 (98-107) mmol/L Carbon Dioxide 31 (22-32) mmol/L BUN 10 (9-20) mg/dL Creatinine 0.75 (0.66-1.25) mg/dL Estimated GFR > 60 (>60) mL/min BUN/Creatinine Ratio 13.3 (6-22) Glucose 105 (80-110) mg/dL Calcium 8.9 (8.4-10.2) mg/dL Total Bilirubin 0.7 (0.2-1.3) mg/dL AST 28 (17-59) IU/L ALT 20 (<50) IU/L Alkaline Phosphatase 65 (38-126) U/L Total Protein 7.2 (6.3-8.2) g/dL Albumin 3.9 (3.5-5.0) g/dL Globulin 3.3 (1.7-4.1) g/dL Albumin/Globulin Ratio 1.2 (1.0-2.8) Lipase 42 (23-300) U/L Imaging Data CT scan - abdomen/pelvis: Radiologist's Impression: PROCEDURE:? CT ABDOMEN PELVIS W CON ? INDICATIONS:? hx of bowel resection now having constipation ? TECHNIQUE:? After the administration of oral and IV contrast, axial sections were acquired from the lung bases to the pubic symphysis.? Coronal and sagittal reformats were performed.? For radiation dose reduction, the following was used:? automated exposure control, adjustment of mA and/or kV according to patient size. ? COMPARISON:? CT, CT CHEST WO CON, 12/26/2018, 13:35. ? FINDINGS:? Image quality:? Excellent.? ? Lung bases:? Mild emphysema.? Bilateral subpleural septal thickening.? Small hiatal hernia.? Heart:? Heart size is mildly increased.? There is a cardiac pacemaker. ? ? ABDOMEN: Liver:? Normal size.? Mild hepatic steatosis.? ? Gallbladder:? Small gallstones.? ? Biliary ducts:? Unremarkable.? ? Pancreas:? Unremarkable.? ? Spleen:? Unremarkable.? ? Adrenal Glands:? There is a 1.2 cm left adrenal nodule.? ? Kidneys and Ureters:? Unremarkable.? ? ? Stomach and Bowel:? Stomach, small bowel loops, and colon are unremarkable.? There is a large amount of stool in colon.? Diverticulosis without diverticulitis.? Surgical sutures in cecum likely secondary to prior appendectomy. Peritoneum:? No abnormal intraperitoneal fluid.? No free air.? ? Ventral Wall: ? No hernia.? Abdominal Nodes:? No retroperitoneal or mesenteric adenopathy by size criteria.? Vessels:? Aorta and inferior vena cava are normal in size.? ? PELVIS: Pelvic Organs:? Suspect TURP.? ? Bladder:? There is mild bladder wall thickening.? ? Pelvic Nodes: No enlarged lymph nodes.? Miscellaneous: No inguinal hernias are seen. ? ? ? Bones:? Levoscoliosis.? [id number] degenerative changes in lumbar spine.? IMPRESSION:? ? 1. There is mild bladder wall thickening suggesting cystitis.? A differential diagnosis is chronic bladder outlet obstruction. 2. A large amount of stool in colon. 3. Postsurgical changes related to TURP. 4. Diverticulosis without diverticulitis. 5. Interstitial thickening and pulmonary fibrosis at lung bases. 6. Degenerative changes in lumbar spine.? ? ? The result was discussed with Dr. Duggan. [facility] Narrative Medical decision making narrative: The CT scan of the abdomen and pelvis does not show any signs of acute surgical pathology. The CT scan his physical exam are consistent with constipation. He is not having any vomiting. Is not having any UTI like symptoms. No signs of bowel obstruction. No indication for acute surgical consultation. Will discharge patient home with instructions to continue with the laxatives. Was given return precautions. He expressed understanding and agreement. Discharge Plan Departure Patient Disposition: Home Clinical Impression: Constipation Instructions: DI for Constipation Activity Restrictions/Additional Instructions: Continue to take all your medications as directed and use the laxatives like we discussed. Contact your primary doctor for follow-up. Continue to follow all of the postprocedure instructions given to you by Urology. Return to the emergency department for new or worsening symptoms. Prescriptions: No Action allopurinol 100 mg tablet 200 mg PO DAILY colchicine [Colcrys] 0.6 mg tablet 0.6 mg PO .PRN valacyclovir [Valtrex] 500 mg tablet 500 mg PO PRN PRN (Reason: herpes) finasteride 5 mg tablet 5 mg PO DAILY Qty: 90 3RF alfuzosin 10 mg tablet extended release 24 hr 10 mg PO DAILY Qty: 90 3RF Rx Instructions: administer after the same meal each day Referrals: Angle Herrera MD [Primary Care Provider] - Stand Alone Forms: Patient Portal/API
--- NOTE | 2022-07-23 09:55 | DI.CT.S_ITS ---
PROCEDURE: CT ABDOMEN PELVIS W CON INDICATIONS: hx of bowel resection now having constipation TECHNIQUE: After the administration of oral and IV contrast, axial sections were acquired from the lung bases to the pubic symphysis. Coronal and sagittal reformats were performed. For radiation dose reduction, the following was used: automated exposure control, adjustment of mA and/or kV according to patient size. COMPARISON: CT, CT CHEST WO CON, 12/26/2018, 13:35. FINDINGS: Image quality: Excellent. Lung bases: Mild emphysema. Bilateral subpleural septal thickening. Small hiatal hernia. Heart: Heart size is mildly increased. There is a cardiac pacemaker. ABDOMEN: Liver: Normal size. Mild hepatic steatosis. Gallbladder: Small gallstones. Biliary ducts: Unremarkable. Pancreas: Unremarkable. Spleen: Unremarkable. Adrenal Glands: There is a 1.2 cm left adrenal nodule. Kidneys and Ureters: Unremarkable. Stomach and Bowel: Stomach, small bowel loops, and colon are unremarkable. There is a large amount of stool in colon. Diverticulosis without diverticulitis. Surgical sutures in cecum likely secondary to prior appendectomy. Peritoneum: No abnormal intraperitoneal fluid. No free air. Ventral Wall: No hernia. Abdominal Nodes: No retroperitoneal or mesenteric adenopathy by size criteria. Vessels: Aorta and inferior vena cava are normal in size. PELVIS: Pelvic Organs: Suspect TURP. Bladder: There is mild bladder wall thickening. Pelvic Nodes: No enlarged lymph nodes. Miscellaneous: No inguinal hernias are seen. Bones: Levoscoliosis. [id number]-[id number] degenerative changes in lumbar spine. IMPRESSION: 1. There is mild bladder wall thickening suggesting cystitis. A differential diagnosis is chronic bladder outlet obstruction. 2. A large amount of stool in colon. 3. Postsurgical changes related to TURP. 4. Diverticulosis without diverticulitis. 5. Interstitial thickening and pulmonary fibrosis at lung bases. 6. Degenerative changes in lumbar spine. The result was discussed with Dr. Duggan. Dictated by: Karen Rose M.D. on 07/23/2022 at 10:57 Approved by: Karen Rose M.D. on 07/23/2022 at 13:14
[2022-07-23 10:20] LABS: Add Manual Diff / Slide Review NO; Basophils Absolute Auto 100 /uL (0-100); Basophils Percent Auto 1.2 % (0-2); Eosinophils Absolute Auto 200 /uL (0-450); Eosinophils Percent Auto 4.5 % (2-4); Hemoglobin 11.9 g/dL (13.5-17.5); Lymphocytes Absolute Auto 1200 /uL (1100-4500); Lymphocytes Percent Auto 21.7 % (25-40); Mean Corpuscular HGB Conc 34.1 % (30-36); Mean Corpuscular Hemoglobin 32.5 PG (26-34); Mean Corpuscular Volume 95.3 fL (80-100); Monocytes Absolute Auto 500 /uL (0-900); Monocytes Percent Auto 8.4 % (3-14); Neutrophils Absolute Auto 3600 /uL (1500-7000); Neutrophils Percent Auto 64.2 % (50-75); Platelet Count 304 X10^3/uL (150-400); Red Blood Cell Count 3.67 X10^6/uL (4.5-5.9); Red Cell Distribution Width 13.8 % (11.6-14.8); White Blood Cell Count 5.5 X10^3/uL (4.5-11.0)
[2022-07-23 10:27] LABS: Alanine Aminotransferase 20 IU/L (<50); Albumin 3.9 g/dL (3.5-5.0); Albumin Globulin Ratio 1.2 (1.0-2.8); Alkaline Phosphatase 65 U/L (38-126); Aspartate Aminotransferase 28 IU/L (17-59); BUN Creatinine Ratio 13.3 (6-22); Bilirubin Total 0.7 mg/dL (0.2-1.3); Blood Urea Nitrogen 10 mg/dL (9-20); Calcium 8.9 mg/dL (8.4-10.2); Carbon Dioxide 31 mmol/L (22-32); Chloride 98 mmol/L (98-107); Estimated Glomerular Filt Rate > 60 mL/min (>60); Globulin 3.3 g/dL (1.7-4.1); Glucose 105 mg/dL (80-110); HEMOLYSIS < 15 (0-50); Lipase 42 U/L (23-300); Potassium 3.8 mmol/L (3.4-5.1); Sodium 133 mmol/L (137-145); Total Protein 7.2 g/dL (6.3-8.2)
== END 2022-07-23 13:46 | disposition home or self-care (01) ==
PROVIDERS: Emergency Provider Emergency Medicine; PCP Internal Medicine
DX: K59.00 Constipation, unspecified (principal); R10.9 Unspecified abdominal pain
CPT/HCPCS: 36415; 74177; 80053; 83690; 85025; 99284; Q9967

== ENCOUNTER → 2022-08-17 11:43 | Outpatient (CLI) | payer MEDICARE, OTHER, SELFPAY ==
[2022-07-02 08:20] VITALS: BMI 26.2
[2022-08-17 14:00] LABS: Prostate Specific Antigen 4.08 ng/mL (0.10-4.00)
== END ==
PROVIDERS: PCP Internal Medicine; Referring Provider Specialist; Visit Provider Specialist
DX: N40.1 Benign prostatic hyperplasia with lower urinary tract symptoms (principal); R33.9 Retention of urine, unspecified; N13.8 Other obstructive and reflux uropathy; R97.20 Elevated prostate specific antigen [PSA]
CPT/HCPCS: 36415; 84153

== ENCOUNTER → 2022-10-26 10:42 | Outpatient (CLI) | payer MEDICARE, OTHER, SELFPAY ==
[2022-07-02 08:20] VITALS: BMI 26.2
[2022-10-26 11:49] LABS: Appearance Urine UA CLEAR; Bilirubin Urine UA NEGATIVE (NEGATIVE); Color Urine UA YELLOW; Glucose Urine UA NEGATIVE (Negative); Ketones Urine UA NEGATIVE (NEGATIVE); Leukocyte Esterase Urine UA TRACE (NEGATIVE); Nitrite Urine UA NEGATIVE (Negative); Occult Blood Urine UA NEGATIVE (Negative); Protein Urine UA NEGATIVE (Negative); Specific Gravity Urine UA <=1.005 (1.000-1.035); Urobilinogen Urine UA 0.2 E.U./dL (0.2); pH Urine UA 6.5 (4.5-8.0)
[2022-10-26 12:05] LABS: Bacteria Urine Occasional (0-1); Culture Indicated Urine Specimen Cultured; RBC Urine 0-1/HPF (0-5/HPF); Squamous Epithelial Cell Urine 0-1 /HPF (0-5/HPF); WBC Urine 0-1/HPF (0-5/HPF)
[2022-10-26 12:23] LABS: BUN Creatinine Ratio 19.7 (6-22); Blood Urea Nitrogen 14 mg/dL (9-20); Calcium 9.1 mg/dL (8.4-10.2); Carbon Dioxide 32 mmol/L (22-32); Chloride 99 mmol/L (98-107); Estimated Glomerular Filt Rate > 60 mL/min (>60); Glucose 85 mg/dL (80-110); HEMOLYSIS < 15 (0-50); Potassium 4.8 mmol/L (3.4-5.1); Sodium 135 mmol/L (137-145)
[2022-10-26 12:34] LABS: Add Manual Diff / Slide Review NO; Basophils Absolute Auto 100 /uL (0-100); Eosinophils Absolute Auto 300 /uL (0-450); Eosinophils Percent Auto 6.5 % (2-4); Hematocrit 35.4 % (41-53); Hemoglobin 11.9 g/dL (13.5-17.5); Lymphocytes Absolute Auto 1400 /uL (1100-4500); Mean Corpuscular HGB Conc 33.6 % (30-36); Mean Corpuscular Volume 95.2 fL (80-100); Monocytes Absolute Auto 600 /uL (0-900); Monocytes Percent Auto 12.4 % (3-14); Neutrophils Absolute Auto 2800 /uL (1500-7000); Neutrophils Percent Auto 53.1 % (50-75); Platelet Count 261 X10^3/uL (150-400); Red Blood Cell Count 3.72 X10^6/uL (4.5-5.9); Red Cell Distribution Width 14.6 % (11.6-14.8); White Blood Cell Count 5.2 X10^3/uL (4.5-11.0)
[2022-10-27 08:47] LABS: Labcorp Hemoglobin (Hb) A1c 5.6 % (4.8-5.6)
== END ==
PROVIDERS: PCP Internal Medicine; Referring Provider Orthopaedic Surgery; Visit Provider Orthopaedic Surgery
DX: M25.561 Pain in right knee (principal); R73.09 Other abnormal glucose; Z01.812 Encounter for preprocedural laboratory examination; N39.0 Urinary tract infection, site not specified
CPT/HCPCS: 36415; 80048; 81001; 83036; 85025; 87086

== ENCOUNTER 2022-11-22 11:38 | Day surgery (SDC) | payer MEDICARE, OTHER, SELFPAY ==
[2022-07-02 08:20] VITALS: BMI 26.2
[2022-11-06 12:56] VITALS: BMI 25.8
[2022-11-22] VITALS (8 sets, daily range): BP systolic 96–152; BP diastolic 57–77; PULSE 58–65; RESP 12–18; TEMP 35.6–36.4; O2SAT 95–100; BMI 25.2; BMI 27.8
--- NOTE | 2022-11-22 06:00 | DI.RAD.S_ITS ---
PROCEDURE: XR KNEE RT 1TO2V INDICATIONS: postop TECHNIQUE: 2 view(s) of the knee acquired. COMPARISON: [facility] [place], CR, XR KNEE 4+ VIEWS RIGHT, 11/12/2022, 14:17. FINDINGS: Bones: Patient is status post knee joint arthroplasty. Hardware components are in expected positions. Visualized bony structures are intact. Soft tissues: Overlying postoperative changes are noted. IMPRESSION: Expected immediate postoperative appearance of right TKA. Dictated by: Larry BAILEY Interpreted: Nikolay Crowe MD on 11/22/2022 at 20:36 Transcribed by: ADOLFO on 11/23/2022 at 8:17 Approved by: Nikolay Crowe M.D. on 11/23/2022 at 11:40
[2022-11-22] MEDS: PREGABALIN 75 MG CAPSULE PO (12:11)
[2022-11-22] MEDS: ACETAMINOPHEN 325 MG TABLET 975 MG PO (12:11)
[2022-11-22] MEDS: LACTATED RINGERS 1,000 ML 42 ML IV ×2 (12:11→16:49)
[2022-11-22] MEDS: CELECOXIB 200 MG CAPSULE PO (12:11)
--- NOTE | 2022-11-22 15:21 | PM.PREOP ---
Pre-operative Note Interval Note History & Physical reviewed/Exam performed by Physician: Yes Changes to H&P: No
[2022-11-22] MEDS: VANCOMYCIN 1,000 MG/200 ML PIGGYBACK 200 MG IV (15:29)
--- NOTE | 2022-11-22 15:42 | P.OP_ITS ---
Operative Date/Time/Diagnoses Date of procedure: 11/22/22 Time of procedure: 15:40 Pre-op diagnosis: Severe right knee OA Post-op diagnosis: same Procedure & Clinicians Procedure: Right total knee arthroplasty Same procedure as scheduled: Yes Indications: The patient has had progressively worsening right knee pain with radiographic changes consistent with arthritis. Non-operative management has failed and the patient has requested total knee replacement. The risks, benefits and alternatives to surgery were discussed with the patient prior to proceeding. Risks discussed included, but were not limited to, failure to relieve pain, stiffness, infection, nerve damage, deep venous thrombosis, pulmonary embolism, stroke, coma, heart attack, permanent paralysis and , as well as the potential need for eventual revision of the prosthetic. Surgeon: Shelbi Murcia [employer] Mechanical: Fatuma Martinez Anesthesia Type: General and Spinal Operative Notes Findings: Severe right knee OA Closure Type: primary Specimen(s): none sent Prosthetic devices, grafts, tissues, transplants, or devices: [place] and Nephew Journey BCS 2 size 35 oval patella, size 6 journey BCS 2 Oxinium [place] and Nephew right femur, +9 poly, size 6 titanium tibia Estimated Blood Loss (mL): 250 Blood products transfused: none Tourniquet time (min): 71 Procedure in detail: The patient was seen in the pre-operative area, where the patient identified the right knee as the operative site and this was marked with my initials. The patient received pre-operative antibiotics, and was taken to the operating room and placed on the operative table in the supine position. After satisfactory anesthesia, a [employer] out was performed. The right leg was encircled with a tourniquet about the proximal thigh, and the leg was prepared from the toes to the tourniquet with ChloroPrep in the usual fashion and draped through sterile drapes. The leg was elevated and exsanguinated with Eschmark bandage and the tourniquet inflated to [250] mmHg pressure. A PA was used on the procedure and was essential for retraction and safe implantation of the components. The knee was approached through an approximately 18 cm incision centered over the patella and carried into the knee through a medial parapatellar arthrotomy. A portion of the medial and lateral meniscus was resected. Soft tissue was carefully mobilized around the patella the patella was measured with a caliper. Bone was resected from the patella and the patellar height was reconstituted with up an appropriate sized patellar component. A cover was then placed on the patella. A small amount of additional medial and lateral meniscus was resected. The distal femur was cut at 5?. A [+2] cut was used. It looked like an appropriate distal femoral cut and the cut was made without difficulty. An extramedullary guide was used for the tibial cut. 10 mm was resected off the least affected side.The tibia was prepared. The rotation was assessed. The patient was placed in extension residual medial and lateral meniscus as well as any residual bone was carefully resected. [No] additional tibia was resected. Hemostasis was achieved especially posteriorly. Additional local was injected into the posterior capsule. The extension gap was assessed and additional releases for gap balancing were performed as necessary. It was checked with the gap sheep sorter. The femoral component was trial was placed and the notch was finished. The rotation was assessed and the appropriate size femoral guide was placed on the distal femur and finishing cuts were made. There is no evidence of notching. The anterior, posterior and chamfer cuts were then made. The posterior osteophytes and soft tissues were then removed. The posterior capsule was injected with part of a mixture of 60 ml 0.25% Marcaine mixed with 20 ml Exparel for post operative pain control. The remainder of this mixture was injected into the capsule and subcutaneous tissues during cement curing. The tibial and femoral components were then placed and the knee placed through a range of motion. Range of motion was [0-130], with good stability throughout the range. The trials were then removed, and the tibia was finished. The bone was prepared with pulsatile lavage, and dried with a sponge. Cement was applied and the final prosthetics placed. Excess cement was removed during and after cement curing. A brief Betadine soak was performed. After confirming there was no extruded cement posteriorly, the final tibial insert was placed. The knee was copiously irrigated and the tourniquet deflated. Hemostasis was obtained with the Bovie cautery. The capsule was closed with interrupted nonabsorbable suture. The subcutaneous layer was closed with barbed sutures, and the skin with a running 3-0 V-Lock suture and Surgical glue. An Aquacel Ag dressing was applied and the patient was taken to recovery having tolerated the procedure well. Complications: none Post-operative Condition: stable Disposition: Acute Care Plan for aftercare: The patient will be maintained on a standard total knee replacement protocol with weight bearing as tolerated. The patient will receive aspirin and sequential compression devices for DVT prophylaxis. The patient will be discharged home when safe for the home environment.
[2022-11-22] MEDS: CLINDAMYCIN 900 MG/50 ML PIGGYBACK 50 MG IV (16:00)
--- NOTE | 2022-11-22 16:33 | SUR.OPER ---
Addendum entered by Dalila Navarro R.N. 11/22/22 16:33: DeMayo Positioner Original Note: Supine on padded OR bed. Pillow under head, arms secured on padded armboards <90 degree abduction. Safety belt across torso. Non-operative leg secured with tape over blanket over lower leg. Operative leg secured in DeMayo/Doni/Nathe positioner. Foam padded brace at thigh of operative leg.
[2022-11-22] MEDS: BUPIVACAINE 0.25% (PF) 60 ML, EPINEPHrine 0.3 MG INJ (16:39)
[2022-11-22] MEDS: TRANEXAMIC ACID 1,000 MG VIAL 1000 MG INJ ×2 (16:40→17:31)
[2022-11-22] MEDS: SODIUM CHLORIDE IRRIG SOLUTION 250 ML, POVIDONE-IODINE SPONGE STICKS 1 APPLIC IRR (16:40)
[2022-11-22] MEDS: BUPIVACAINE LIPOSOME 266 MG/20 ML VIAL INJ (16:40)
[2022-11-22] MEDS: ACETAMINOPHEN 325 MG TABLET 650 MG PO (21:12)
[2022-11-22] MEDS: IBUPROFEN 400 MG TABLET PO (21:13)
[2022-11-22] MEDS: ASPIRIN EC 81 MG TABLET PO (21:13)
[2022-11-22] MEDS: LACTATED RINGERS 1,000 ML 100 ML IV (21:13)
[2022-11-22] MEDS: DOCUSATE 100 MG CAPSULE PO (21:13)
[2022-11-23] MEDS: ACETAMINOPHEN 325 MG TABLET 650 MG PO ×3 (02:20→13:14)
[2022-11-23] MEDS: IBUPROFEN 400 MG TABLET PO ×3 (02:21→10:19)
[2022-11-23] MEDS: VANCOMYCIN 1,000 MG/200 ML PIGGYBACK 200 MG IV (03:50)
[2022-11-23 05:35] VITALS: BP 115/65; PULSE 64; RESP 16; TEMP 36.7; O2SAT 98
--- NOTE | 2022-11-23 07:19 | P.DS_ITS ---
History of Present Illness History of Present Illness Date Patient Seen: 11/23/22 Time Patient Seen: 07:19 Chief complaint: Right Total Knee Arthroplasty 11/22 Narrative: Operative Date/Time/Diagnoses Date of procedure: 11/22/22 Time of procedure: 15:40 Pre-op diagnosis: Severe right knee OA Post-op diagnosis: same Procedure & Clinicians Procedure: Right total knee arthroplasty Same procedure as scheduled: Yes Indications: The patient has had progressively worsening right knee pain with radiographic changes consistent with arthritis. Non-operative management has failed and the patient has requested total knee replacement. The risks, benefits and alternatives to surgery were discussed with the patient prior to proceeding. Risks discussed included, but were not limited to, failure to relieve pain, stiffness, infection, nerve damage, deep venous thrombosis, pulmonary embolism, stroke, coma, heart attack, permanent paralysis and , as well as the potential need for eventual revision of the prosthetic. Surgeon: Shelbi Murcia Video Production Assistant: Fatuma Martinez Anesthesia Type: General and Spinal Operative Notes Findings: Severe right knee OA Closure Type: primary Specimen(s): none sent Prosthetic devices, grafts, tissues, transplants, or devices: Murcia and Nephew Journey BCS 2 size 35 oval patella, size 6 journey BCS 2 Oxinium Murcia and Nephew right femur, +9 poly, size 6 titanium tibia Estimated Blood Loss (mL): 250 Blood products transfused: none Tourniquet time (min): 71 Discharge Providers Provider Discharge Date: 11/23/22 Primary care physician: Angle Herrera MD Consults: 11/06/22 14:17 Consult to Anesthesiology Routine Comment: Consulting Provider: Anesthesiologist Reason for consultation: Surgeon, cardiology, respiratory 11/22/22 06:00 Consult to Anesthesiology Routine Comment: Consulting Provider: Anesthesiologist Reason for consultation: Regional block for post operative pain control 11/22/22 18:55 Consult to Discharge Planning Routine Comment: Consult to Occupational Therapy Evaluate & Treat Comment: Physician Instructions: Evaluate and treat Consult to Physical Therapy Evaluate & Treat Comment: Physician Instructions: postop TKA protocol Discharge provider: Cecy Combs PA-C Summary Hospital Course Discharge Diagnosis: Right knee osteoarthritis, s/p right total knee arthroplasty Hospital Course: Mr Caruso hospital course was unremarkable. On the morning of POD# 1, he was feeling well and wanted to go home. He had been OOB but had not yet worked w/ PT. He was eating and voiding without difficulty and his pain was well- controlled with oral medication. Exam Vital Signs (past 8 hours): - 11/23/22 05:35 Temperature 98.1 F Pulse Rate 64 Respiratory Rate 16 Blood Pressure 115/65 Pulse Oximetry 98 Oxygen Flow Rate 0 Oxygen Delivery Method Room Air Oxygen Flow Rate 0 Narrative Exam Narrative: 4/5 strength in hip flexors, quadriceps, hamstrings; 5/5 DF, PF, EHL on right. Sensation to light touch intact throughout RLE. Calf soft, compressible, nontender and without palpable cords or masses. MAICO and Aquacel CDI. [facility] Medical History Arthritis BPH w urinary obs/LUTS Detached retina, right (~1993) Eczema Elevated PSA Epididymal cyst Gout Hx of cardiac pacemaker (06/16/15) 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 gangrene Incomplete bladder emptying Interstitial lung disease Left epididymitis Left hydrocele Osteoarthritis Peyronie's disease Urinary retention Surgical History (Updated 11/06/22 @ 13:15 by Arely Zafar RN) H/O circumcision H/O transurethral resection of prostate H/O vasectomy History of colon resection History of left knee replacement (~03/2015) History of testicular surgery (~1989) Hx of arthroscopy of right knee (~1985) Hx of bilateral cataract extraction (~1986) Hx of colonoscopy (~05/04/22) Hx of eye surgery (~1996) Hx of hand surgery (~09/2018) Hx of hernia repair Hx of hernia repair (02/02/19) Hx of knee surgery Hx of umbilical hernia repair (~1997) Status post correction of deviated nasal septum (~1993) Social History marital status: household members: spouse lives independently: Yes occupational status: previously employed Smoking Status: Never smoker alcohol intake: current substance use type: does not use Discharge Assessment & Plan Assessment and Plan Assessment: Right knee osteoarthritis, s/p right total knee arthroplasty Plan of Treatment: Discharge home after PT if PT agrees. ASA BID for VTE prophylaxis, outpt PT, f/u in office in 2 weeks as scheduled. Pt has rxs for pain med at home. Discharge Plan Discharge Plan Patient Disposition: Home Discharge orders & Medications Discharge Orders: Discharge (Order); Ordered 11/23/22 Ordered By: Cecy Combs Prescriptions: Continued allopurinol 100 mg tablet 200 mg PO DAILY albuterol sulfate [ProAir HFA] 90 mcg/actuation HFA aerosol inhaler 90 mcg INHALATION DAILY valacyclovir [Valtrex] 500 mg tablet 500 mg PO PRN PRN (Reason: herpes) Follow up/Referrals: Angle Herrera MD [Primary Care Provider] - Shelbi Murcia MD [Physician] - As previously scheduled (Follow up with Cecy Combs PA-C, on 12/07/2022 @ 2:30 pm at [facility] in [place].) Diet/Activity/Treatments Diet: Diet as Tolerated Activity: Walk frequently! Cold/Heat Therapy: Ice to knee as needed for pain. Skin/Wound/Dressing Care Report to your healthcare provider any signs of infection, such as:: chills, fever, night sweats, unusual drainage and unusual redness Dressing: May remove MAICO wrap and shower on 11/25/2022. Leave Aquacel dressing on until follow up in office. No bathing or otherwise soaking incision. Call the office if the dressing becomes saturated inside. Visit Report/Discharge Packet Instructions: DI for Knee Replacement Stand Alone Forms: Patient Portal/API, Surgery Discharge Discharge Data Primary Care Provider: Angle Herrera Attending Provider: Shelbi Murcia Quality VTE Deep Vein Thrombosis/Pulmonary Embolism Present on Admission: No
[2022-11-23 07:33] LABS: Hematocrit 30.6 % (41-53); Hemoglobin 10.4 g/dL (13.5-17.5)
[2022-11-23 08:00] VITALS: BP 112/59; PULSE 61; RESP 17; TEMP 36.3; O2SAT 95
[2022-11-23] MEDS: ASPIRIN EC 81 MG TABLET PO (08:54)
[2022-11-23] MEDS: DOCUSATE 100 MG CAPSULE PO (08:54)
[2022-11-23 09:45] VITALS: PULSE 64; RESP 18; O2SAT 99
[2022-11-23] MEDS: ALBUTEROL 2.5 MG/3 ML NEB (ADULT) INH (09:45)
[2022-11-23] MEDS: OXYCODONE IR 5 MG TABLET PO (10:22)
--- NOTE | 2022-11-23 11:52 | OT.IP.EVAL ---
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 gangrene Incomplete bladder emptying Interstitial lung disease Left epididymitis Left hydrocele Osteoarthritis Peyronie's disease Urinary retention Surgical History (Last Updated 11/06/22 @ 13:15 by Arely Zafar RN) H/O circumcision H/O transurethral resection of prostate H/O vasectomy History of colon resection History of left knee replacement (~03/2015) History of testicular surgery (~1989) Hx of arthroscopy of right knee (~1985) Hx of bilateral cataract extraction (~1986) Hx of colonoscopy (~05/04/22) Hx of eye surgery (~1996) Hx of hand surgery (~09/2018) Hx of hernia repair Hx of hernia repair (02/02/19) Hx of knee surgery Hx of umbilical hernia repair (~1997) Status post correction of deviated nasal septum (~1993) Occupational Therapy Inpatient Evaluation/Re-Eval M1 PT/OT-IP Prior Functional Status Start: 11/23/22 11:52 Freq: NEEDED Status: Active Protocol: Document 11/23/22 11:53 CGR (Rec: 11/23/22 12:05 CGR [id number]) Medical Review Prior Functional Status Medical History Reviewed Yes Communication Pt is an effective verbal communicator. He is FALSE PASS but able to hear adaquately with a slight increase to voice. Mobility and Gait Pt was IND in all Functional mobility at baseline. Pt states that he was using a whitifeld for ~3 weeks prior to sx d/t pain. Activities of Daily Living and IADL's Pt states he was IND in all ADLs at baseline but needs extra time for LB dressing. Social History Household Members spouse Living Arrangements House Number of Floors (Floors) Two Floors Number of Stairs To Enter/Railing? Pt has 6 steps with B narrow railings to enter the home. He is able to stay on the main level but states that all of his project stuff is in the basement and garage. Home Environment High Toilet,Walk in Shower, Built-In Shower Seat Home Equipment Front Wheel Walker,Four Wheel Walker,Straight Cane,Hand Held Shower,Drafter Landscape Employment Status Retired Additional Social History Comment Pt has an adjustable bed available to him in the house but that is not his normal bed . M2 OT-IP Current Condition Start: 11/23/22 11:52 Freq: Status: Active Protocol: Document 11/23/22 11:53 CGR (Rec: 11/23/22 12:05 CGR [id number]) Occupational Therapy Current Condition Current Condition Evaluation Date 11/23/22 Treatment Diagnosis R TKA Diagnosis Onset Date 11/22/22 Weight Bearing Status Weight Bearing Status Weight Bear as Tolerated M3 OT- IP Subjective and Pain Start: 11/23/22 11:52 Freq: Status: Active Protocol: Document 11/23/22 11:53 CGR (Rec: 11/23/22 12:05 CGR [id number]) OT- Subjective Occupational Therapy Visit Type Type Initial Evaluation Visit Start Time 10:56 Visit Stop Time 11:52 Total Visit Minutes 56 OT Pain Assessment Pain When Pain Assessed At Rest Pain Present Pain Present Pain Reported Location Right Knee Scale Used did not rate Pain Behaviors Guarding Management Techniques Distraction,Modification of Treatment,Re-positioning, Timing of Activity with Medications M4 OT- IP ADL's Start: 11/23/22 11:52 Freq: Status: Active Protocol: Document 11/23/22 11:53 CGR (Rec: 11/23/22 12:05 CGR [id number]) OT [id number] Comments OT Self-Feeding Comments not meal time OT ADL-Grooming General Evaluation Grooming Ability Standby Assistance Comments OT Grooming Comments standing at sink OT ADL-Oral Care General Eval Oral Care Ability Standby Assistance Areas of Assistance Brushing Teeth Comments Oral Care Comments standing at sink OT ADL-Dressing General Eval Lower Body Dressing Ability Standby Assistance Areas Needing Assistance Socks Assistive Devices Dressing Assistive Devices Drafter Landscape,Sock Aid Comments OT Dressing Comments Pt demonstrated ability to use industrial sales manager and sock aide to doff and don socks to BLE. OT ADL-Toileting General Evaluation Toileting Ability Standby Assistance Comments OT Toileting Comments seated on toilet OT ADL-Bathing Comments OT Bathing Comments not performed M5 OT- IP IADL's Start: 11/23/22 11:52 Freq: Status: Active Protocol: Document 11/23/22 11:53 CGR (Rec: 11/23/22 12:05 CGR [id number]) OT-Instrumental Activities of Daily Living Deficits IADL Deficits Identified No Deficits Home Safety Awareness Awareness of Need for Assistance at Home Good Awareness Ability to Problem Solve Emergency Able to Problem Solve Situations Medication Management Medication Management No Deficits Identified Money Management Money Management No Deficits Identified Meal Preparation Meal Preparation Caregiver Provides Assist Construction Equipment Mechanic Construction Equipment Mechanic Caregiver Provides Assist Driving Driving Comments Pt's will drive while pt heals. M6 OT- IP Functional Cognition Start: 11/23/22 11:52 Freq: Status: Active Protocol: Document 11/23/22 11:53 CGR (Rec: 11/23/22 12:05 R [id number]) Cognitive Factors Limiting Selfcare Function Cognitive Ability Level of Alertness Alert Patient Orientation Name,Age,Birthday,Month,Date, Year,Day of Week,Place, Situation Attention Span Ability Capable of Focused Attention, Capable of Sustained Attention Ability to Follow Commands Able to Follow One Step Commands with Increased Time, Able to Follow One Step Commands with Repetition Problem Solving Ability No deficits Noted OT- Vision and Hearing OT- Hearing Assessment OT- Hearing Assessment Hearing Impaired,Use of Hearing Aids OT- Vision Assessment Visual Acuity Glasses All The Time Visual Attentiveness WFL Occular Pursuits WFL Visual Convergence WFL M7 OT- IP Mobility and Balance Start: 11/23/22 11:52 Freq: Status: Active Protocol: Document 11/23/22 11:53 CGR (Rec: 11/23/22 12:05 R [id number]) OT- Bed Mobility Assessment Supine to Sit Supine to Sit Assist Standby Assistance Scooting Scooting to Edge of Bed Standby Assistance OT-Transfer Assessment Sit to and From Stand Sit to and from Stand Standby Assistance Transfers Transfer Ability Standby Assistance Technique Transfer Destination Bed,Chair,Toilet Transfer Technique Stand Step Pivot Devices Transfer Assistive Devices Gait Belt,Front Wheeled Walker Comments Mobility Comments Mobility around the room. Walker initially positioned angled with back lower than front, OT adjusted pt's home walker for better stability. OT- Gait Assessment Gait Gait Assistance Required: Standby Assistance Assistive Devices Assistive Device Gait Belt,Front Wheeled Walker OT- Balance Assessment Sitting Balance and Reactions Static Sitting Balance Ability Normal Dynamic Sitting Balance Ability Normal M8 OT- IP Objective Assessments Start: 11/23/22 11:52 Freq: Status: Active Protocol: Document 11/23/22 11:53 CGR (Rec: 11/23/22 12:05 CGR [id number]) OT Gross Range of Motion Upper Extremity Range of Motion Assessment Within Functional Limits OT Strength Upper Extremity Strength Assessment Within Functional Limits OT- Coordination Assessment Upper Extremity Finger to Nose Test Within Functional Limits Finger Tapping Test Bilateral UE Impaired Comments Coordination Comments Pt has a hx of joint replacements to his hands that impair some of his fine motor . OT-Muscle Tone Assessment Muscle Tone WNL Yes OT Sensation Assessment Edema Edema Absent M9 OT- IP Assessment and Plan Start: 11/23/22 11:52 Freq: Status: Active Protocol: Document 11/23/22 11:53 CGR (Rec: 11/23/22 12:05 CGR [id number]) OT Summary Assessment and Plan Potential Rehabilitation Potential Excellent Analytic Complexity at Evaluation Low Summary OT Impairments Pain,Balance,Functional Mobility,Grooming,Dressing, Toileting,Bathing,Toilet Transfers,Shower Transfers, Activity Tolerance Progress Towards Goals Progressing Toward Goals Assessment Summary Pt presents as a low complexity evaluation s/p admit for R TKA. Pt is mobilizing well and demonstrated ability to ambulate in the room and transfer from the bed to toilet and chair. Pt is likely safe for discharge home with but first needs to do stairs with P.T. as pt has 6 steps to enter his home. Goals Grooming Goal Independent Dressing Goal Independent Toileting Goal Independent Bathing Goal Independent Toilet Transfer Goal Independent Shower Transfer Goal Independent Days to Meet Goals 4 Frequency of Treatment Frequency Of Treatment Once a Day Treatment Plan OT Treatment Plan ADL Training,Functional Mobility,Patient/Family Education,Discharge Planning Other Treatment Recommendations and Next shower Treatment Focus Discharge Recommendations OT Discharge Recommendations Home with Assistance Transportation Needs at Discharge Private Vehicle
[2022-11-23 12:00] VITALS: BP 123/60; PULSE 71; RESP 17; TEMP 36.6; O2SAT 98
--- NOTE | 2022-11-23 12:01 | PT.IIE ---
Current Diagnoses Idiopathic gout, right knee (11/22/22) Unilateral primary osteoarthritis, right knee (11/22/22) Surgery Performed Operation Date: 11/22/22 13:45 Actual Procedures p Total Knee Arthroplasty(Right) - Shelbi Murcia MD Surgical History (Last Updated 11/06/22 @ 13:15 by Arely Zafar RN) H/O circumcision H/O transurethral resection of prostate H/O vasectomy History of colon resection History of left knee replacement (~03/2015) History of testicular surgery (~1989) Hx of arthroscopy of right knee (~1985) Hx of bilateral cataract extraction (~1986) Hx of colonoscopy (~05/04/22) Hx of eye surgery (~1996) Hx of hand surgery (~09/2018) Hx of hernia repair Hx of hernia repair (02/02/19) Hx of knee surgery Hx of umbilical hernia repair (~1997) Status post correction of deviated nasal septum (~1993) Medical History (Last Reviewed 08/22/22 @ 10:11 by Hilda Stoddard MD) Arthritis BPH w urinary obs/LUTS Detached retina, right (~1993) Eczema Elevated PSA Epididymal cyst Gout Hx of cardiac pacemaker (06/16/15) 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 gangrene Incomplete bladder emptying Interstitial lung disease Left epididymitis Left hydrocele Osteoarthritis Peyronie's disease Urinary retention Physical Therapy Inpatient Evaluation/Re-Eval M1 PT/OT-IP Prior Functional Status Start: 11/23/22 12:52 Freq: NEEDED Status: Active Protocol: Document 11/23/22 12:01 AB (Rec: 11/23/22 13:05 [id number]) Medical Review Prior Functional Status Medical History Reviewed Yes Communication able to make needs known; AUGUSTINE Mobility and Gait pt stated that he is modified independent with all mobilities and ambulation without AD but started using a SPC a few weeks ago due to pain Activities of Daily Living and IADL's per OT note:Pt states he was IND in all ADLs at baseline but needs extra time for LB dressing. Social History Household Members spouse Living Arrangements House Number of Floors (Floors) Two Floors Number of Stairs To Enter/Railing? Pt stays on the main level of the house Pt has 6 steps with B rails from the porch Home Environment High Toilet,Walk in Shower, Built-In Shower Seat Home Equipment Front Wheel Walker,Four Wheel Walker,Straight Cane,Shower Seat with Backrest,Shower Seat without Backrest,Hand Held Shower,Director [employer] Employment Status Retired Additional Social History Comment Pt has an adjustable bed available to him in the house but that is not his normal bed . M2 PT-IP Current Condition Start: 11/23/22 12:52 Freq: NEEDED Status: Active Protocol: Document 11/23/22 12:01 AB (Rec: 11/23/22 13:05 AB [id number]) Physical Therapy Current Condition Current Condition Evaluation Date 11/23/22 Treatment Diagnosis s/p R TKA; difficulty in walking Onset Date 11/22/22 M3 PT-IP Subjective Start: 11/23/22 12:52 Freq: NEEDED Status: Active Protocol: Document 11/23/22 12:01 AB (Rec: 11/23/22 13:05 AB [id number]) Subjective Physical Therapy Visit Type Type Initial Evaluation Visit Start Time 12:01 Visit Stop Time 12:50 Total Visit Minutes 49 Number of EMPLOYMENT RECRUITER Visits 0 Physical Therapy Visit Comments Patient Comments agreeable to do PT Therapy Pain Assessment Pain When Pain Assessed At Rest Pain Present Pain Present Pain Reported Location Right Knee Intensity 2 Scale Used Numeric (0 - 10) Pain Management Techniques Distraction,Modification of Treatment,Re-positioning, Timing of Activity with Medications M4 PT-IP Mobility and Gait Start: 11/23/22 12:52 Freq: NEEDED Status: Active Protocol: Document 11/23/22 12:01 AB (Rec: 11/23/22 13:05 AB [id number]) PT-Bed Mobility Assessment Supine to Sit Supine to Sit Standby Assistance Sit to Supine Sit to Supine Standby Assistance PT-Transfer Assessment Sit to and From Stand Sit to and from Stand Contact Guard Assistance, Minimal Assistance,1 Person Assistance,Use of Upper Extremities Equipment Transfer Assistive Device Gait Belt,Front Wheeled Walker Orthotic/Prosthetic Devices or Brace: No Transfers Transfer Destination Bed,Chair Transfer Technique ambulated Transfer Ability Level of Assist Contact Guard Assistance,1 Person Assistance,Use of Upper Extremities Comments Mobility Comments pt sitting on the chair. agreeable to do PT. pt requires repeated cues with all tasks and has memory issues. completed sit to stand from the chair min A and cues. ambulated in room using FWW ~ 35 ft CGA and cues for upright posture and safety. pt sat on EOB and completed supine<>sit SBA. pt completed sit to stand from EOB min A and cues. instructed to sit back down. educated on sit<> stand techniques. pt completed sit <>stand x 3 CGA and cues for techniques. completed step transfer to chair using FWW CGA. positioned on the chair. call light and table placed within reach. set up caregiver training this afternoon at ~ 1-130pm. Gait Assessment Gait Gait Assistance Required: Contact Guard Assist Distance (Feet) 35 Able to Maintain Weight Bearing Status Yes During Gait Assistive Devices Assistive Device Gait Belt,Front Wheeled Walker Orthotic/Prosthetic Devices or Brace: No Gait Deviations General Gait Pattern Antalgic,Decreased Stride Length,Decreased Feet Clearance Factors Limiting Gait Function Factors Limiting Gait Function Decreased Activity Tolerance, Decreased Strength,Difficulty Following Directions,Limited Range of Motion,Pain,Poor Balance,Poor Safety Awareness PT-Balance Assessment Sitting Balance and Reactions Static Sitting Balance Ability Normal Dynamic Sitting Balance Ability Good Standing Balance and Reactions Static Standing Balance Ability Fair Dynamic Standing Balance Ability Fair Device Used FWW M5 PT-IP Objective Assessments Start: 11/23/22 12:52 Freq: NEEDED Status: Active Protocol: Document 11/23/22 12:01 AB (Rec: 11/23/22 13:05 AB [id number]) Orientation Orientation/Cognition Level of Alertness Alert Orientation Name,Place,Situation Language Function Ability Hard of Hearing Safety Awareness Decreased Safety Awareness Memory Description Short Term Impaired Gross Range of Motion Lower Extremity ROM Impairments R knee flexion: ~ 70 deg Strength Lower Extremity Strength Assessment Right Impaired Hip 4-/5 Knee 3+/5 Sensation Assessment Sensation Gross Sensation WNL Muscle Tone Muscle Tone WNL Yes M6 PT-IP Treatment Start: 11/23/22 12:52 Freq: NEEDED Status: Active Protocol: Document 11/23/22 12:01 AB (Rec: 11/23/22 13:05 AB [id number]) Physical Therapy Treatment Education Education Provided Precautions,Weight Bearing Status,Post-Op Packet,Safety M7 PT-IP Assessment and Plan Start: 11/23/22 12:52 Freq: NEEDED Status: Active Protocol: Document 11/23/22 12:01 AB (Rec: 11/23/22 13:05 [id number]) PT Summary Assessment and Plan Potential Rehabilitation Potential Fair Status of Condition at Evaluation Evolving Summary Impairments Pain,ROM,Strength,Balance, Coordination,Sensation,Tone, Cognition,Bed Mobility, Transfers,Gait,Activity Tolerance Assessment Summary pt s/p R TKA POD 1. pt requiring CGA to min A with mobility and max cues with tasks. pt has memory issues affecting carryover and safety awareness. Caregiver training set up for this afternoon. Spouse agreeable. pt plans to go home and has outpt PT set up already. will continue to assess progress. Goals Bed Mobility Goal Independent Transfer Goal Independent,Front Wheeled Walker Gait Goal Independent,Front Wheel Walker Gait Distance 200 Other Goals up/down 6 steps B rails SBA Days to Meet Goals 5 Frequency of Treatment Frequency Of Treatment Twice a Day Treatment Plan Physical Therapy Treatment Plan Bed Mobility Training,Transfer Training,Gait Training, Therapeutic Exercise,Balance Retraining,Post Op Education, Discharge Planning,Hot or Cold Pack,Neuromuscular Re-ed, Coordination Retraining,Manual Therapy Weight Bearing Status Weight Bearing Status Weight Bear as Tolerated Allowed Weight Bearing Amount (enter % RLE WBAT or #) (%) Recommendations To Nursing Amount of Assist Needed 1 Person Assist Discharge Recommendations PT Discharge Recommendations Home with Assistance, Outpatient PT Transportation Needs at Discharge Private Vehicle
--- NOTE | 2022-11-23 13:13 | PT.IPTN ---
Current Diagnoses Idiopathic gout, right knee (11/22/22) Unilateral primary osteoarthritis, right knee (11/22/22) Surgery Performed Operation Date: 11/22/22 13:45 Actual Procedures p Total Knee Arthroplasty(Right) - Shelbi Murcia MD Physical Therapy Treatment Note M2 PT-IP Current Condition Start: 11/23/22 12:52 Freq: NEEDED Status: Discharge Protocol: Document 11/23/22 12:01 AB (Rec: 11/23/22 13:05 AB [id number]) Physical Therapy Current Condition Current Condition Evaluation Date 11/23/22 Treatment Diagnosis s/p R TKA; difficulty in walking Onset Date 11/22/22 M3 PT-IP Subjective Start: 11/23/22 12:52 Freq: NEEDED Status: Discharge Protocol: Document 11/23/22 15:24 TS (Rec: 11/23/22 15:46 TS [id number]) Subjective Physical Therapy Visit Type Type Treatment Note Visit Start Time 13:13 Visit Stop Time 13:40 Total Visit Minutes 27 Notes Spouse present for caregiver training. Number of VISUAL C DEVELOPER Visits 1 Physical Therapy Visit Comments Patient Comments Pt found resting in the chair, spouse in room, pt reports feeling good and having moderate pain with his R knee, is agreeable to PT. Therapy Pain Assessment Pain When Pain Assessed At Rest Pain Present Pain Present Pain Reported M4 PT-IP Mobility and Gait Start: 11/23/22 12:52 Freq: NEEDED Status: Discharge Protocol: Document 11/23/22 15:24 TS (Rec: 11/23/22 15:46 TS [id number]) PT-Transfer Assessment Sit to and From Stand Sit to and from Stand Contact Guard Assistance,1 Person Assistance,Use of Upper Extremities Equipment Transfer Assistive Device Gait Belt,Front Wheeled Walker Orthotic/Prosthetic Devices or Brace: No Comments Mobility Comments Edcuated/instructed spouse on donning of gait belt, gait donned prior to sit to stand. Pt performed sit to stand CGA with FWW, pt denied any dizziness in standing, has good standing posture and balance. He ambulated ~200' SBA with a quick pace step to antalgic gait. Pt had x1LOB in FWW, pt self-corrected with use of FWW and no additional assistance. Pt performed steps x6 with BUE handrail assist and CGA from spouse, instructed spouse in proper handplacement on gait belt and sequencing of stairs. Pt ambulated back to room, sat in chair. Educated pt on importance of post-op exercises and mobility at home prior to outpatient appointment. Pt was left in chair with call light nearby, spouse in room, RN notified. Gait Assessment Gait Gait Assistance Required: Standby Assistance Distance (Feet) 200 Able to Maintain Weight Bearing Status Yes During Gait Assistive Devices Assistive Device Gait Belt,Front Wheeled Walker Orthotic/Prosthetic Devices or Brace: No Gait Deviations General Gait Pattern Antalgic,Decreased Stride Length,Decreased Feet Clearance Factors Limiting Gait Function Factors Limiting Gait Function Decreased Activity Tolerance, Decreased Strength,Difficulty Following Directions,Limited Range of Motion,Pain,Poor Balance,Poor Safety Awareness Comments Gait Comments See mobility comments. Stair Climbing Assessment Evaluation Level of Assist On Stairs Contact Guard Assistance Devices Stair Climbing Assistive Devices Left Railing,Right Railing Technique/Endurance Stair Climbing Direction Ascend and Descend Stair Climbing Technique Step to Step Number of Steps Climbed 6 Comments Stair Climbing Comments See mobility comments. PT-Balance Assessment Sitting Balance and Reactions Static Sitting Balance Ability Normal Dynamic Sitting Balance Ability Good Standing Balance and Reactions Static Standing Balance Ability Good Dynamic Standing Balance Ability Fair Device Used FWW Comments Other Balance Tests/Deviations/Treatment Pt had x1LOB with gait. See : mobility comments. M5 PT-IP Objective Assessments Start: 11/23/22 12:52 Freq: NEEDED Status: Discharge Protocol: Document 11/23/22 12:01 AB (Rec: 11/23/22 13:05 AB [id number]) Orientation Orientation/Cognition Level of Alertness Alert Orientation Name,Place,Situation Language Function Ability Hard of Hearing Safety Awareness Decreased Safety Awareness Memory Description Short Term Impaired Gross Range of Motion Lower Extremity ROM Impairments R knee flexion: ~ 70 deg Strength Lower Extremity Strength Assessment Right Impaired Hip 4-/5 Knee 3+/5 Sensation Assessment Sensation Gross Sensation WNL Muscle Tone Muscle Tone WNL Yes M6 PT-IP Treatment Start: 11/23/22 12:52 Freq: NEEDED Status: Discharge Protocol: Document 11/23/22 15:24 TS (Rec: 11/23/22 15:46 TS [id number]) Physical Therapy Treatment Education Education Provided Precautions,Weight Bearing Status,Post-Op Packet,Safety M7 PT-IP Assessment and Plan Start: 11/23/22 12:52 Freq: NEEDED Status: Discharge Protocol: Document 11/23/22 15:24 TS (Rec: 11/23/22 15:46 TS [id number]) PT Summary Assessment and Plan Potential Rehabilitation Potential Good Summary Impairments Pain,ROM,Strength,Balance, Coordination,Sensation,Tone, Cognition,Bed Mobility, Transfers,Gait,Activity Tolerance Progress Towards Goals Progressing Toward Goals Assessment Summary Pt made good progress with his mobility this session. He is SBA for sit to stand with no cueing, pt is slightly impulsive to stand before therapist was ready with FWW. He progressed his ambulation to ~200' SBA, he did have x1LOB in FWW but self- corrected. He progressed stairs to x6 with no buckling or LOB with use of B handrail assist. Pt demonstrated good carryover of mobility techniques and sequencing. Spouse was educated on and performed donning of gait, handplacement on gait belt for mobility, and sequencing and assistance level for stairs. PT is recommending return home with assistance from spouse. Goals Bed Mobility Goal Independent Transfer Goal Independent,Front Wheeled Walker Gait Goal Independent,Front Wheel Walker Gait Distance 200 Other Goals up/down 6 steps B rails SBA Days to Meet Goals 5 Frequency of Treatment Frequency Of Treatment Twice a Day Treatment Plan Physical Therapy Treatment Plan Bed Mobility Training,Transfer Training,Gait Training, Therapeutic Exercise,Balance Retraining,Post Op Education, Discharge Planning,Hot or Cold Pack,Neuromuscular Re-ed, Coordination Retraining,Manual Therapy Weight Bearing Status Weight Bearing Status Weight Bear as Tolerated Allowed Weight Bearing Amount (enter % RLE WBAT or #) (%) Recommendations To Nursing Amount of Assist Needed 1 Person Assist Discharge Recommendations PT Discharge Recommendations Home with Assistance, Outpatient PT Transportation Needs at Discharge Private Vehicle
--- NOTE | 2022-11-23 14:41 | PC.NURSE ---
Day shift: Paperwork signed and all questions answered. Left unit at approx 1430 via WC. Takne to car by this magnetic tape typewriter operator. Spouse is driving and she was there for teachings. MAICO and Lilly remain CDI. No new MD scripts. Pt has all personal belongings.
== END 2022-11-23 14:43 | disposition home or self-care (01) ==
LOC: OR 11:39 → AC 11:39
PROVIDERS: PCP Internal Medicine; Referring Provider Orthopaedic Surgery; Visit Provider Orthopaedic Surgery
PROC: 0SRC0JZ Replacement of Right Knee Joint with Synthetic Substitute, Open Approach (ICD-10-PCS; CPT 27447; principal; 2022-11-22 13:45)
DX: M17.11 Unilateral primary osteoarthritis, right knee (principal)
CPT/HCPCS: 27447; 36415; 73560; 85014; 85018; 94640; 97116; 97162; 97165; 97530; 97535; C1776; C9290; J0171; J1100; J2405; J2704; J3010; J7613

== ENCOUNTER → 2022-12-06 13:17 | Outpatient (CLI) | payer MEDICARE, OTHER, SELFPAY ==
[2022-11-22 19:06] VITALS: BMI 27.8
[2022-12-06 18:05] LABS: Appearance Urine UA CLEAR; Bilirubin Urine UA NEGATIVE (NEGATIVE); Color Urine UA YELLOW; Glucose Urine UA NEGATIVE (Negative); Ketones Urine UA NEGATIVE (NEGATIVE); Leukocyte Esterase Urine UA NEGATIVE (NEGATIVE); Nitrite Urine UA NEGATIVE (Negative); Occult Blood Urine UA NEGATIVE (Negative); Protein Urine UA NEGATIVE (Negative); Specific Gravity Urine UA <=1.005 (1.000-1.035); Urobilinogen Urine UA 0.2 E.U./dL (0.2); pH Urine UA 6.5 (4.5-8.0)
[2022-12-06 18:52] LABS: RBC Urine None Seen (0-5/HPF)
[2022-12-06 18:53] LABS: Bacteria Urine None Seen; Culture Indicated Urine Cult Not Indicated; Squamous Epithelial Cell Urine 0-1 /HPF (0-5/HPF); WBC Urine None Seen (0-5/HPF)
== END ==
PROVIDERS: PCP Internal Medicine; Referring Provider Internal Medicine; Visit Provider Internal Medicine
DX: R39.9 Unspecified symptoms and signs involving the genitourinary system (principal)
CPT/HCPCS: 81001; 87086

== ENCOUNTER → 2023-02-06 13:34 | Outpatient (CLI) | payer MEDICARE, OTHER, SELFPAY ==
[2022-11-22 19:06] VITALS: BMI 27.8
[2023-02-06 14:59] LABS: Prostate Specific Antigen 6.17 ng/mL (0.10-4.00)
== END ==
PROVIDERS: PCP Internal Medicine; Referring Provider Specialist; Visit Provider Specialist
DX: R97.20 Elevated prostate specific antigen [PSA] (principal)
CPT/HCPCS: 36415; 84153

== ENCOUNTER → 2023-03-15 14:35 | Outpatient (CLI) | payer MEDICARE, OTHER, SELFPAY ==
[2022-11-22 19:06] VITALS: BMI 27.8
[2023-03-15 17:47] LABS: Alanine Aminotransferase 14 IU/L (<50); Albumin 3.8 g/dL (3.5-5.0); Albumin Globulin Ratio 1.1 (1.0-2.8); Alkaline Phosphatase 68 U/L (38-126); Aspartate Aminotransferase 27 IU/L (17-59); BUN Creatinine Ratio 15.9 (6-22); Bilirubin Total 0.4 mg/dL (0.2-1.3); Blood Urea Nitrogen 13 mg/dL (9-20); C-Reactive Protein Quant 1.8 mg/dL (<1.0); Calcium 9.2 mg/dL (8.4-10.2); Carbon Dioxide 30 mmol/L (22-32); Chloride 102 mmol/L (98-107); Estimated Glomerular Filt Rate > 60 mL/min (>60); Globulin 3.4 g/dL (1.7-4.1); Glucose 85 mg/dL (80-110); HEMOLYSIS < 15 (0-50); Potassium 4.1 mmol/L (3.4-5.1); Sodium 138 mmol/L (137-145); Total Protein 7.2 g/dL (6.3-8.2)
[2023-03-15 17:56] LABS: Rheumatoid Factor < 8.6 IU/mL (<12.0)
[2023-03-15 20:06] LABS: Erythrocyte Sedimentation Rate 31 MM/HR (0-15)
[2023-03-20 17:56] LABS: ANA Screen, IFA Negative (.); CCP Antibodies IgG/IgA 5 units (0-19)
== END ==
PROVIDERS: PCP Internal Medicine; Referring Provider Internal Medicine Rheumatology; Visit Provider Internal Medicine Rheumatology
DX: M10.9 Gout, unspecified (principal); M25.50 Pain in unspecified joint
CPT/HCPCS: 36415; 80053; 84550; 85651; 86038; 86140; 86200; 86430

== ENCOUNTER → 2023-05-03 14:14 | Outpatient (CLI) | payer MEDICARE, OTHER, SELFPAY ==
[2023-03-18 12:31] VITALS: BMI 27.8
[2023-05-06 11:17] LABS: PSA Free % 6.5 % (.); PSA, Total 6.8 ng/mL (0.0-4.0)
== END ==
LOC: LAB 14:16
PROVIDERS: PCP Internal Medicine; Referring Provider Specialist; Visit Provider Specialist
DX: R97.20 Elevated prostate specific antigen [PSA] (principal)
CPT/HCPCS: 36415; 84153; 84154

== ENCOUNTER → 2023-06-14 13:54 | Outpatient (CLI) | payer MEDICARE, OTHER, SELFPAY ==
[2023-03-18 12:31] VITALS: BMI 27.8
--- NOTE | 2023-06-14 13:57 | DI.CT.S_ITS ---
PROCEDURE: CT ABDOMEN PELVIS W CON INDICATIONS: Unspecified abdominal pain TECHNIQUE: After the administration of intravenous contrast, axial sections acquired from the lung bases to the pubic symphysis. Coronal and sagittal reformats were performed. For radiation dose reduction, the following was used: automated exposure control, adjustment of mA and/or kV according to patient size. COMPARISON: [facility], RG, CT ABDOMEN/PELVIS WITH CONTRAST, 01/09/2018, 16:29. [facility], CT, CT ABDOMEN PELVIS W CON, 07/23/2022, 10:52. FINDINGS: Image quality: Diagnostic. Lower Chest: Emphysematous changes. Peripheral interstitial reticulation, stable. Small hiatal hernia. ABDOMEN: Liver: No solid mass. Diffuse hepatic hypoattenuation, suggestive of steatosis, stable. Gallbladder: Trace layering sludge. No wall thickening or pericholecystic fluid. Biliary ducts: No biliary dilation. Pancreas: No ductal dilation. Spleen: Size is within normal limits. Adrenal Glands: Thickening of the left adrenal gland. Previously described discrete adrenal nodule is not well seen. No right-sided adrenal nodules. Kidneys and Ureters: No hydronephrosis. No solid mass. No complex renal cystic lesion which requires follow up. Left interpolar simple cyst. Stomach and Bowel: Status post ascending bowel resection with intact anastomosis. New heterogeneous soft tissue mass at the surgical staple line measuring approximately 5.2 x 4.4 x 4.3 cm (, 08/05). Stomach appears grossly normal. Small and large bowel is normal in caliber, without obstruction. Diverticulosis, without diverticulitis. Above average colonic stool burden. No pneumatosis, pneumoperitoneum or portal venous gas. Peritoneum: No abnormal intraperitoneal fluid. No free air. Ventral Wall: No significant ventral hernia. Nodular scarring in the anterior abdominal wall with no discrete fluid collection, similar to prior (). Abdominal Nodes: No retroperitoneal or mesenteric adenopathy by size criteria. Vessels: Aorta and inferior vena cava are normal in size. Infrarenal abdominal aorta measures 2.5 x 2.5 cm, stable. Mild calcification of the abdominal aorta and branch vessels. Proximal mesenteric vessels are patent. Patent portal vein. PELVIS: Pelvic Organs: Status post TURP. Bladder: No bladder wall thickening, accounting for underdistention. Pelvic Nodes: No enlarged lymph nodes. Miscellaneous: Small bilateral fat containing inguinal hernias. Bones: No aggressive osseous abnormality. No acute fractures. Severe multilevel degenerative changes of the spine. IMPRESSION: 1. Status post ascending bowel resection with intact anastomosis. New heterogeneous soft tissue mass at the surgical staple line measuring approximately 5.2 x 4.4 x 4.3 cm is suspicious for malignancy, less likely mixed stool/contrast contents. Recommend direct visualization for further evaluation. 2. Above average colonic stool burden, suggestive of constipation. 3. Colonic diverticulosis, without diverticulitis. 4. Interstitial thickening and pulmonary fibrosis at the lung bases. 5. Postsurgical changes of TURP. 6. 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 Vascular incidental findings followup recommendations: ACR White Paper AAA imaging followup intervals: AAA defined as 3.0 cm or more luminal diameter. * 2.5-2.9 cm (ectasia): 5 year followup. * 3.0-3.4 cm: 3 year followup. * 3.5-3.9 cm: 3 year followup. * 4.0-4.4 cm: 1 year followup. * 4.5-4.9 cm: 6 month followup. Consider surgery/endovascular Rx. * 5.0-5.5 cm: 3-6 month followup. Consider surgery/endovascular Rx. Dictated by: Luke Nagy M.D. on 06/15/2023 at 10:22 Approved by: Luke Nagy M.D. on 06/15/2023 at 10:58
== END ==
LOC: CT 13:56
PROVIDERS: PCP Internal Medicine; Referring Provider Internal Medicine; Visit Provider Internal Medicine
DX: K91.89 Other postprocedural complications and disorders of digestive system (principal); I77.811 Abdominal aortic ectasia; K57.90 Diverticulosis of intestine, part unspecified, without perforation or abscess without bleeding; K44.9 Diaphragmatic hernia without obstruction or gangrene; J84.10 Pulmonary fibrosis, unspecified; R10.9 Unspecified abdominal pain; Z98.0 Intestinal bypass and anastomosis status; K40.20 Bilateral inguinal hernia, without obstruction or gangrene, not specified as recurrent
CPT/HCPCS: 74177; Q9967

== ENCOUNTER → 2023-06-27 16:57 | Outpatient (CLI) | payer MEDICARE, OTHER, SELFPAY ==
[2023-03-18 12:31] VITALS: BMI 27.8
[2023-06-27 17:44] LABS: Add Manual Diff / Slide Review NO; Basophils Absolute Auto 100 /uL (0-100); Basophils Percent Auto 0.9 % (0-2); Eosinophils Absolute Auto 500 /uL (0-450); Eosinophils Percent Auto 8.5 % (2-4); Hematocrit 34.5 % (41-53); Hemoglobin 11.6 g/dL (13.5-17.5); Lymphocytes Absolute Auto 1300 /uL (1100-4500); Lymphocytes Percent Auto 21.5 % (25-40); Mean Corpuscular HGB Conc 33.5 % (30-36); Mean Corpuscular Hemoglobin 31.1 PG (26-34); Mean Corpuscular Volume 93.1 fL (80-100); Monocytes Absolute Auto 700 /uL (0-900); Monocytes Percent Auto 10.8 % (3-14); Neutrophils Absolute Auto 3600 /uL (1500-7000); Neutrophils Percent Auto 58.3 % (50-75); Platelet Count 313 X10^3/uL (150-400); Red Blood Cell Count 3.71 X10^6/uL (4.5-5.9); Red Cell Distribution Width 14.3 % (11.6-14.8); White Blood Cell Count 6.2 X10^3/uL (4.5-11.0)
[2023-06-27 18:02] LABS: Alanine Aminotransferase 13 IU/L (<50); Albumin 4.1 g/dL (3.5-5.0); Albumin Globulin Ratio 1.1 (1.0-2.8); Alkaline Phosphatase 74 U/L (38-126); Aspartate Aminotransferase 27 IU/L (17-59); BUN Creatinine Ratio 14.9 (6-22); Bilirubin Total 0.5 mg/dL (0.2-1.3); Blood Urea Nitrogen 11 mg/dL (9-20); Calcium 9.3 mg/dL (8.4-10.2); Carbon Dioxide 31 mmol/L (22-32); Chloride 102 mmol/L (98-107); Estimated Glomerular Filt Rate > 60 mL/min (>60); Globulin 3.9 g/dL (1.7-4.1); Glucose 100 mg/dL (80-110); HEMOLYSIS < 15 (0-50); Potassium 4.2 mmol/L (3.4-5.1); Sodium 138 mmol/L (137-145)
[2023-06-27 18:32] LABS: Carcinoembryonic Antigen 3.5 ng/mL (0.1-3.0)
== END ==
PROVIDERS: PCP Internal Medicine; Referring Provider Surgery; Visit Provider Surgery
DX: K63.89 Other specified diseases of intestine (principal)
CPT/HCPCS: 36415; 80053; 82378; 85025; 99214

== ENCOUNTER 2023-07-24 07:29 | Inpatient (IN) | payer MEDICARE, OTHER, SELFPAY ==
[2023-06-28 10:09] VITALS: BMI 27.8
[2023-07-16 10:26] VITALS: BMI 25.5
--- NOTE | 2023-07-23 08:06 | PM.PREOP ---
Pre-operative Note Interval Note History & Physical reviewed/Exam performed by Physician: Yes Changes to H&P: No
[2023-07-24] VITALS (19 sets, daily range): BP systolic 108–154; BP diastolic 50–91; PULSE 60–81; RESP 14–20; TEMP 36–36.8; O2SAT 92–100; BMI 24.6
--- NOTE | 2023-07-24 | PATH_ITS ---
[facility] Accession Number: [id number] No. of containers..01 Tissue . 01 Material submitted: . colon - RIGHT COLON . 01 Diagnosis: ILEUM AND RIGHT COLON, RIGHT HEMICOLECTOMY: Serrated polyp with features suggestive of sessile serrated adenoma. No other significant pathologic alterations identified within the ileocolonic mucosa; no evidence of invasive malignancy. 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 Pathologic stage : pT( see comment) pN1a. Resection margins are negative for dysplasia and malignancy. See comment. [facility] 08/05/2023 1127 Local . 01 Comment: The specimen was unremarkable for a gross lesion within the mucosa. Tissue around the staple line, as well as the rest of the mucosa and parenchyma was extensively sampled and histologically evaluated. Apart from a focal serrated polyp, no other significant pathologic alterations were identified. Hence a pT stage of 0 is favored. . One lymph node was noted to be completely replaced by metastatic adenocarcinoma which, on immunophenotype, is consistent with colon primary. . As part of ongoing quality assurance monitor chassis, selected slides from this case is also reviewed by Dr. Larry Pierson and Dr. Fatuma Anderson, who concur with the interpretation. . Patient's prior biopsy slides ( pathology accession: [id number]; 05/05/2022) were reviewed and confirm the pathology diagnosis of sessile serrated adenoma with cytologic dysplasia. . Findings were discussed with on 08/02/2023 at 1350 hours by via telephone. . 01 Electronically signed: . Neena Lennon MD, Pathologist NPI- [id number] . 01 Gross description: . Received in formalin is a right hemicolectomy that includes 4 cm in length by 2.2 cm in diameter of distal ileum and 11.5 cm in length and up to 8 cm in circumference of cecum and colon. There is a 4.0 cm in length linear surgical defect which is located in the cecum. The proximal resection margin is inked orange and the distal resection margin is inked black. There is a 2.5 cm in length, faint, well-healed, previous surgical staple anastomosis that has an overlying, unremarkable, rodriguez, glistening mucosa. This anastomotic line is further located 4.8 cm from the proximal resection margin and 10.5 cm from the distal resection margin. There is no ileocecal valve present in the specimen. No appendix is identified. The serosal surface is rodriguez-brown with mild, diffuse, fibrous adhesions. The bowel wall is uniformly thick averaging 0.3 cm in thickness. The mucosa is rodriguez-brown, finely granular, with normal intestinal folds, and no mucosal masses appreciated. The mucosa is slightly hyperemic at the site of previous surgical defect. There is a moderate amount of attached pericolonic adipose tissue and omental adipose tissue. The lumen at the previous anastomotic site averages 1.8 cm in diameter. The fat is further examined to show multiple red-rodriguez lymph nodes ranging from 0.2 up to 1.4 cm in greatest dimension. The largest lymph node measures 1.4 x 1.0 x 0.8 cm is firm and white. Alterations Expert sections are submitted in: Cassette A1: Proximal resection margin (shave). Cassette A2: Distal resection margin (shave). Cassette A3: Mesenteric radial margin (shave). Cassette A4: Alterations Expert colonic sections to include area of hyperemic mucosa adjacent to previous surgical intervention. Cassettes A5-A7: Well-healed staple line entirely submitted. Cassette A8: Four possible lymph nodes. Cassette A9: Five possible lymph nodes. Cassette A10: Five possible lymph nodes. Cassette A11: Two possible lymph nodes. Cassette A12: One lymph node, trisected. . Dr. Anderson and have grossly reviewed the specimen. ([id number]) . Additional sections are submitted in [id number]. ([id number]) /MRV 08/05/2023 1127 Local . 01 Microscopic: . The lymphnode with metastatic adenocarcinoma is evaluated with immunostains to determine the primary. The malignant cells are diffusely positive for villin and SATB2 and focally positive for CDX2 and CK20 confirming colon primary. The lesional cells are negative for CK7, RAYMOND-3 and PSA. Control stains approrpiately. . 01 Pathologist provided ICD-10: C18.9 . 01 CPT . 285641, O90011, [id number] Specimen Comment: A courtesy copy of this report has been sent to [phone] Performed at: 01 [facility] [address] [place] [address] [address] [facility], [place], [place] [id number] MD Osvaldo Hightower MD Phone: [phone]
[2023-07-24] MEDS: LACTATED RINGERS 1,000 ML 21 ML IV ×2 (07:48→13:11)
[2023-07-24] MEDS: levoFLOXacin 500 MG/100 ML PIGGYBACK 100 MG IV (09:34)
[2023-07-24] MEDS: metroNIDAZOLE 500 MG/100 ML PIGGYBACK 100 MG IV (11:54)
--- NOTE | 2023-07-24 12:27 | SUR.OPER ---
Supine on padded OR bed, head on pillow, arms secured on padded arm boards at <90 degrees abduction, legs uncrossed, safety belt at thigh, tape over blanket over lower legs.
[2023-07-24] MEDS: ACETAMINOPHEN IV 1,000 MG/100 ML VIAL 400 MG IV (12:45)
[2023-07-24] MEDS: BUPIVACAINE LIPOSOME 266 MG/20 ML VIAL INJ (13:02)
[2023-07-24] MEDS: HYDROMORPHONE 1 MG INJ IV ×2 (13:38→13:45)
[2023-07-24] MEDS: OXYCODONE IR 5 MG TABLET PO (13:45)
--- NOTE | 2023-07-24 14:30 | OT.IPNOTE ---
OT eval received, but pt not up on the floor yet from surgery. To check on the pt tomorrow.
--- NOTE | 2023-07-24 14:38 | PT-IP ANOTE ---
PT eval recevied but pt is not on the acute floor yet and no H&P or operative note in from MD for precautions/other protocols. will f/u tomorrow.
[2023-07-24] MEDS: DEXTROSE 5%-0.45% NS 1,000 ML 100 ML IV (15:46)
[2023-07-24] MEDS: BICALUTAMIDE 50 MG TABLET PO (17:36)
--- NOTE | 2023-07-24 19:28 | PM.OP.1 ---
Operative Date/Time/Diagnoses Date of procedure: 07/24/23 Time of procedure: 19:29 Pre-op diagnosis: Colon mass Procedure & Clinicians Procedure: Open right hemicolectomy Same procedure as scheduled: Yes Indications: Zbigniew is a 88-year-old man who had a previous ileocecectomy for benign disease. Colonoscopy performed April 2022 demonstrated 2 large polyps within the proximal colon pathology demonstrated tubular adenoma with cytological dysplasia. He underwent CT abdomen pelvis June 2023 for abdominal pain which demonstrated a 5 cm mass of the proximal colon concerning for malignancy. He was referred to General surgery for consultation in regards to the mass and for obstructive symptoms. We discussed repeat endoscopy versus surgical resection. He declined repeat colonoscopy and elected to proceed with resection. Surgeon: Denzel Richardson [employer] Teacher: Gregory Quintana Anesthesia Type: General Operative Notes Findings: Right colon was opened on the back table. The colon wall was thickened, perhaps residual polyps within it but no aneesh mass identified Specimen(s): other (Right colon) Estimated Blood Loss (mL): 50 Procedure in detail: Patient was brought to the operating room placed supine on the table. Bilateral lower extremity compression devices were applied. General anesthesia was induced he was intubated with an endotracheal tube. A Rudolph catheter was then sterilely placed. He was prepped and draped in sterile fashion. Time-out was performed. He received ciprofloxacin and Flagyl prior to skin incision. A midline laparotomy was made. The abdomen was entered. There was adhesions from previous cecectomy which were sharply divided. The small bowel was eviscerated. The prior ileal colonic anastomosis was identified. There was some thickening of the colon here but no aneesh mass was appreciable on palpation. The right colon was mobilized medially by incising along the white line of Toldt to the hepatic flexure. The gastrocolic ligament was divided with LigaSure and the transverse colon was mobilized from the hepatic flexure. The transverse colon was then divided. A window within the mesentery was made and the colon was divided just distal to the hepatic flexure. The terminal ileum was divided in the similar fashion. The sweep of the duodenal was identified and kept posterior out of harm's way. The mesentery to the right colon was divided using the LigaSure. The ileocolic pedicle was suture ligated twice and then divided near its takeoff. The right colon was passed off the field as specimen. A [id number] functional end and ileocolonic anastomosis was formed. A colotomy and an enterotomy were made and then a 3rd staple load was used to create a common channel. The anastomosis was inspected it was widely patent and hemostatic. The common opening was then closed with PDS suture in a running fashion. The suture line was imbricated with interrupted silk suture. Crotch stitch was placed. The mesenteric defect was closed with interrupted suture. The anastomosis was tested there was no evidence of leak it was without tension and well perfused. Piece of omentum was tacked in place over the anastomosis. The anastomosis was returned to the abdomen with was copiously lavaged with saline and returned clear. Hemostasis was checked once again. The abdomen was then closed with 1. PDS suture in running fashion. Subcutaneous tissue reapproximated with 3-0 Vicryl and the skin closed with mariana. Patient tolerated the operation well and was transferred to recovery in stable condition. Complications: none Post-operative Condition: stable Disposition: Acute Care
[2023-07-24] MEDS: SODIUM CHLORIDE 0.9% FLUSH 10 ML IV (20:40)
--- NOTE | 2023-07-24 23:45 | PC.NURSE ---
Patient is alert and oriented. MORONGO and wearing left hearing aid. Breath sounds with crackles in bilateral mid/lower lobes related to history of pulmonary fibrosis. Has some hoarseness from being intubated during surgery but denies sore throat and declines Cepacol lozenge. Is on oxygen at 1L/min with sat of 97% but left on O2 as drops to 92% when asleep. 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 Denied nausea. BT very hypoactive and no flatus. Denies any abdominal pain. Aquacel dressing to abdomen is intact with no new drainage (was outlined on previous shift). Wearing abdominal binder. Indwelling catheter is patent; urine is clear ayla. Is able to move himself in bed. Refused to get out of bed to ambulate or sit in chair stating he wants to wait until morning. Is wearing bilateral calf SCD's. Fall risk score is moderate and bed alarm is activated.
[2023-07-25] VITALS (10 sets, daily range): BP systolic 112–142; BP diastolic 59–70; PULSE 62–74; RESP 16–18; TEMP 36.1–36.9; O2SAT 96–100
[2023-07-25] MEDS: IBUPROFEN 600 MG TABLET PO (02:18)
[2023-07-25 06:41] LABS: Add Manual Diff / Slide Review NO; Basophils Absolute Auto 0 /uL (0-100); Basophils Percent Auto 0.2 % (0-2); Eosinophils Absolute Auto 0 /uL (0-450); Hematocrit 30.9 % (41-53); Hemoglobin 10.6 g/dL (13.5-17.5); Lymphocytes Absolute Auto 700 /uL (1100-4500); Lymphocytes Percent Auto 8.1 % (25-40); Mean Corpuscular HGB Conc 34.4 % (30-36); Mean Corpuscular Hemoglobin 31.5 PG (26-34); Mean Corpuscular Volume 91.5 fL (80-100); Monocytes Absolute Auto 700 /uL (0-900); Monocytes Percent Auto 8.5 % (3-14); Neutrophils Absolute Auto 6900 /uL (1500-7000); Neutrophils Percent Auto 83.2 % (50-75); Platelet Count 315 X10^3/uL (150-400); Red Blood Cell Count 3.37 X10^6/uL (4.5-5.9); Red Cell Distribution Width 13.9 % (11.6-14.8); White Blood Cell Count 8.4 X10^3/uL (4.5-11.0)
[2023-07-25 07:26] LABS: BUN Creatinine Ratio 15.6 (6-22); Blood Urea Nitrogen 10 mg/dL (9-20); Carbon Dioxide 27 mmol/L (22-32); Chloride 101 mmol/L (98-107); Estimated Glomerular Filt Rate > 60 mL/min (>60); Glucose 117 mg/dL (80-110); HEMOLYSIS < 15 (0-50); Potassium 3.8 mmol/L (3.4-5.1); Sodium 133 mmol/L (137-145)
[2023-07-25] MEDS: ENOXAPARIN 40 MG/0.4 ML SYRINGE SUBCUT (08:10)
[2023-07-25] MEDS: allopurinoL 100 MG TABLET 200 MG PO (08:10)
--- NOTE | 2023-07-25 08:59 | PM.PNPO.1 ---
Subjective Subjective Date Patient Seen: 07/25/23 Time Patient Seen: 12:37 Interval history: Postoperative day 1 status post right hemicolectomy Tolerating full liquid diet No flatus or bowel movement Pain adequately controlled Ambulatory Exam Vital Signs (past 8 hours): - 07/25/23 02:22 07/25/23 05:20 07/25/23 05:20 Temperature 98.3 F Pulse Rate 69 Respiratory Rate 16 Blood Pressure 133/67 Pulse Oximetry 98 96 96 Oxygen Delivery Method Nasal Cannula Nasal Cannula Oxygen Flow Rate 1 1 1 Oxygen Delivery Method Nasal Cannula Oxygen Flow Rate 1 Narrative Exam Narrative: General adult man alert oriented no acute distress Abdomen soft appropriately tender to palpation. Objective Labs 07/25/23 06:23 07/25/23 06:23 Labs: Laboratory Results - last 24 hr 07/25/23 06:23 WBC 8.4 RBC 3.37 L Hgb 10.6 L Hct 30.9 L MCV 91.5 MCH 31.5 MCHC 34.4 RDW 13.9 Plt Count 315 Neut % (Auto) 83.2 H Lymph % (Auto) 8.1 L [place] % (Auto) 8.5 Eos % (Auto) 0.0 L Baso % (Auto) 0.2 Neut # (Auto) 6900 Lymph # (Auto) 700 L [place] # (Auto) 700 Eos # (Auto) 0 Baso # (Auto) 0 Sodium 133 L Potassium 3.8 Chloride 101 Carbon Dioxide 27 BUN 10 Creatinine 0.64 L Estimated GFR > 60 BUN/Creatinine Ratio 15.6 Glucose 117 H Calcium 9.0 PFSH Medical History (Updated 07/16/23 @ 10:53 by Maria M Doty RN) COPD (chronic obstructive pulmonary disease) Prostate cancer History of urinary retention Left epididymitis Left hydrocele Epididymal cyst Incomplete bladder emptying Peyronie's disease Elevated PSA BPH w urinary obs/LUTS Osteoarthritis Interstitial lung disease Detached retina, right (~1993) Eczema Arthritis 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) Gout Surgical History (Updated 07/16/23 @ 10:34 by Maria M Doty RN) History of total left knee replacement (11/22/22) H/O transurethral resection of prostate Hx of hernia repair (02/02/19) Hx of colonoscopy (~05/04/22) H/O circumcision H/O vasectomy Hx of hand surgery (~09/2018) History of left knee replacement (~03/2015) Hx of umbilical hernia repair (~1997) Hx of eye surgery (~1996) Status post correction of deviated nasal septum (~1993) History of testicular surgery (~1989) Hx of bilateral cataract extraction (~1986) Hx of arthroscopy of right knee (~1985) History of colon resection Hx of hernia repair Hx of knee surgery Social History marital status: household members: spouse lives independently: Yes occupational status: previously employed Smoking Status: Never smoker alcohol intake: current substance use type: does not use Assessment & Plan Post-op Postoperative Procedures: Procedures Operation Date: 07/24/23 08:45 Actual Procedure Side Surgeon p Open Colectomy Right Denzel Richardson MD Postoperative status narrative: 88-year-old man postop day 1 status post right hemicolectomy for colonic mass. Progressing appropriately after surgery. -continue full liquid diet until return of bowel function -DC Rudolph catheter -SCDs and Lovenox -DC telemetry
[2023-07-25] MEDS: ALBUTEROL 2.5 MG/3 ML NEB (ADULT) INH (09:07)
[2023-07-25] MEDS: SODIUM CHLORIDE 0.9% FLUSH 10 ML IV ×2 (09:10→20:09)
--- NOTE | 2023-07-25 09:39 | PT.IIE ---
Current Diagnoses Other specified diseases of intestine (07/24/23) Surgery Performed Operation Date: 07/24/23 08:45 Actual Procedures p Open Colectomy(Right) - Denzel Richardson MD Surgical History (Last Updated 07/16/23 @ 10:34 by Maria M Doty, RN) H/O circumcision H/O transurethral resection of prostate H/O vasectomy History of colon resection History of left knee replacement (~03/2015) History of testicular surgery (~1989) History of total left knee replacement (11/22/22) Hx of arthroscopy of right knee (~1985) Hx of bilateral cataract extraction (~1986) Hx of colonoscopy (~05/04/22) Hx of eye surgery (~1996) Hx of hand surgery (~09/2018) Hx of hernia repair Hx of hernia repair (02/02/19) Hx of knee surgery Hx of umbilical hernia repair (~1997) Status post correction of deviated nasal septum (~1993) Medical History (Last Updated 07/16/23 @ 10:53 by Maria M Doty RN) Arthritis BPH w urinary obs/LUTS COPD (chronic obstructive pulmonary disease) Detached retina, right (~1993) Eczema Elevated PSA Epididymal cyst Gout History of urinary retention Hx of cardiac pacemaker (06/16/15) 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 gangrene Incomplete bladder emptying Interstitial lung disease Left epididymitis Left hydrocele Osteoarthritis Peyronie's disease Prostate cancer Physical Therapy Inpatient Evaluation/Re-Eval M1 PT/OT-IP Prior Functional Status Start: 07/25/23 08:20 Freq: NEEDED Status: Active Protocol: Document 07/25/23 09:32 MB (Rec: 07/25/23 09:39 MB [id number]) Medical Review Prior Functional Status Medical History Reviewed Yes Diet/Fluid Consistency Regular Communication WNLs Mobility and Gait I Activities of Daily Living and IADL's I Social History Household Members spouse Living Arrangements House Number of Stairs To Enter/Railing? 5 steps and 2 rails to enter Home Equipment Four Wheel Walker,Straight Cane Employment Status Retired Additional Social History Comment OT asking home equipment questions on PT arrival and will fill in in EMR at a later time M2 PT-IP Current Condition Start: 07/25/23 08:20 Freq: NEEDED Status: Active Protocol: Document 07/25/23 09:32 MB (Rec: 07/25/23 09:39 MB [id number]) Physical Therapy Current Condition Current Condition Evaluation Date 07/25/23 Treatment Diagnosis Colon resection M3 PT-IP Subjective Start: 07/25/23 08:20 Freq: NEEDED Status: Active Protocol: Document 07/25/23 09:32 MB (Rec: 07/25/23 09:39 MB [id number]) Subjective Physical Therapy Visit Type Type Initial Evaluation Visit Start Time 08:15 Visit Stop Time 08:31 Number of COLD WORK OPERATOR Visits 0 Physical Therapy Visit Comments Patient Comments Pt pleasant and chatty and agreeable to PT Therapy Pain Assessment Pain When Pain Assessed At Rest Pain Present Pain Present Denied Pain M4 PT-IP Mobility and Gait Start: 07/25/23 08:20 Freq: NEEDED Status: Active Protocol: Document 07/25/23 09:32 MB (Rec: 07/25/23 09:39 MB [id number]) PT-Bed Mobility Assessment Rolling Type of Rolling Roll to Right Level of Assist Standby Assistance Supine to Sit Supine to Sit Independent Scooting Scooting to Edge of Bed Independent PT-Transfer Assessment Sit to and From Stand Sit to and from Stand Independent,Standby Assistance Equipment Transfer Assistive Device Gait Belt,Front Wheeled Walker Orthotic/Prosthetic Devices or Brace: No Transfers Transfer Destination Chair Transfer Technique Ambulation Transfer Ability Level of Assist Independent,Standby Assistance Comments Mobility Comments PT instructs pt in log rolling after abdominal surgery and he performs to the right and states he often moves this way at home. He then mobilizes well in bed and gets up to feet with RW. BP and HR taken in standing and are functional and he has no dizziness (155/ 77). Gait Assessment Gait Gait Assistance Required: Independent,Standby Assistance Distance (Feet) 100 Able to Maintain Weight Bearing Status Yes During Gait Assistive Devices Assistive Device Gait Belt,Front Wheeled Walker Orthotic/Prosthetic Devices or Brace: No Gait Deviations General Gait Pattern Decreased Stride Length Factors Limiting Gait Function Factors Limiting Gait Function Poor Balance Comments Gait Comments 100' gait with RW and then 100 ' gait without AD and gait is better without the RW as he is not used to a walker that does not turn, TYRELL is wide Stair Climbing Assessment Evaluation Level of Assist On Stairs Independent,Standby Assistance ,1 Person Assistance Devices Stair Climbing Assistive Devices Left Railing,Right Railing Technique/Endurance Stair Climbing Direction Ascend and Descend Stair Climbing Technique Step Over Step,Step to Step Number of Steps Climbed 3 Query Text: Stair Climbing Set # Repetitions (reps) 1 Comments Stair Climbing Comments Step over step with B rails ascend and holding and facing right rail descend, step to step to help support his leg PT-Balance Assessment Sitting Balance and Reactions Static Sitting Balance Ability Normal Dynamic Sitting Balance Ability Normal Standing Balance and Reactions Static Standing Balance Ability Normal Dynamic Standing Balance Ability Good Device Used RW and no AD M5 PT-IP Objective Assessments Start: 07/25/23 08:20 Freq: NEEDED Status: Active Protocol: Document 07/25/23 09:32 MB (Rec: 07/25/23 09:39 MB [id number]) Orientation Orientation/Cognition Level of Alertness Alert Orientation Name,Age,Birthday,Month,Date, Year,Day of Week,Place, Situation Language Function Ability No Deficits Noted Safety Awareness Understands Safety Issues Memory Description No Deficits Noted Comments Pt is slightly [place] but pleasantly conversant and answers all questions, occ joking Gross Range of Motion Upper Extremity ROM Impairments Defer to OT Lower Extremity ROM Assessment Within Functional Limits Impairments Skin changes on right knee that appears to be an old scar and pt reports old right ankle issue Strength Lower Extremity Strength Assessment Within Functional Limits M6 PT-IP Treatment Start: 07/25/23 08:20 Freq: NEEDED Status: Active Protocol: Document 07/25/23 09:32 MB (Rec: 07/25/23 09:39 MB [id number]) Physical Therapy Treatment Education Education Provided Safety Other Treatments Other Treatment Performed Abdominal precautions taught M7 PT-IP Assessment and Plan Start: 07/25/23 08:20 Freq: NEEDED Status: Active Protocol: Document 07/25/23 09:32 MB (Rec: 07/25/23 09:39 MB [id number]) PT Summary Assessment and Plan Potential Rehabilitation Potential Excellent Status of Condition at Evaluation Stable Summary Progress Towards Goals Safe For Discharge Assessment Summary Pt is a pleasant 88 y/o male who is moving well post-op and is able to log roll and gait around the unit x2, once with RW and once without AD as well as ascend and descend 3 steps with rails. No acute PT needs and recommend up with nsg. Pt left up in chair with OT nearby. Frequency of Treatment Frequency Of Treatment Discharge Precautions Abdominal Surgery Precautions Log Roll,Lifting Restrictions, Gait Belt above Incisional Area Weight Bearing Status Weight Bearing Status Weight Bear as Tolerated Recommendations To Nursing Amount of Assist Needed Standby Assistance Discharge Recommendations PT Discharge Recommendations Home with Assistance Transportation Needs at Discharge Private Vehicle
--- NOTE | 2023-07-25 09:46 | OT.IP.EVAL ---
Addendum entered and electronically signed by Araceli Damico OT 07/25/23 09:58: esign Original Note: Current Diagnoses Other specified diseases of intestine (07/24/23) Surgery Performed Operation Date: 07/24/23 08:45 Actual Procedures p Open Colectomy(Right) - Denzel Richarsdon MD Past Medical History (Last Updated 07/16/23 @ 10:53 by Maria M Doty, RN) Arthritis BPH w urinary obs/LUTS COPD (chronic obstructive pulmonary disease) Detached retina, right (~1993) Eczema Elevated PSA Epididymal cyst Gout History of urinary retention Hx of cardiac pacemaker (06/16/15) 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 gangrene Incomplete bladder emptying Interstitial lung disease Left epididymitis Left hydrocele Osteoarthritis Peyronie's disease Prostate cancer Surgical History (Last Updated 07/16/23 @ 10:34 by Maria M Doty RN) H/O circumcision H/O transurethral resection of prostate H/O vasectomy History of colon resection History of left knee replacement (~03/2015) History of testicular surgery (~1989) History of total left knee replacement (11/22/22) Hx of arthroscopy of right knee (~1985) Hx of bilateral cataract extraction (~1986) Hx of colonoscopy (~05/04/22) Hx of eye surgery (~1996) Hx of hand surgery (~09/2018) Hx of hernia repair Hx of hernia repair (02/02/19) Hx of knee surgery Hx of umbilical hernia repair (~1997) Status post correction of deviated nasal septum (~1993) Occupational Therapy Inpatient Evaluation/Re-Eval M1 PT/OT-IP Prior Functional Status Start: 07/25/23 09:44 Freq: NEEDED Status: Active Protocol: Document 07/25/23 09:45 [facility] (Rec: 07/25/23 09:56 [facility] [id number]) Medical Review Prior Functional Status Medical History Reviewed Yes Diet/Fluid Consistency Regular Communication WNLs Mobility and Gait I Activities of Daily Living and IADL's I Social History Household Members spouse Living Arrangements House Number of Stairs To Enter/Railing? 5 steps and 2 rails to enter Home Environment Standard Height Toilet,Walk in Shower,Built-In Shower Seat Home Equipment Front Wheel Walker,Four Wheel Walker,Straight Cane,Long Handled Shoe Horn,Research Chef Employment Status Retired Additional Social History Comment Pt states has grab bars for the bathroom but has not installed them. M2 OT-IP Current Condition Start: 07/25/23 09:44 Freq: Status: Active Protocol: Document 07/25/23 09:45 [facility] (Rec: 07/25/23 09:56 [facility] [id number]) Occupational Therapy Current Condition Current Condition Evaluation Date 07/25/23 Treatment Diagnosis S/P Right hemicolectomy Diagnosis Onset Date 07/24/23 Post Operative Precautions Abdominal Surgery Precautions Log Roll,Lifting Restrictions, Gait Belt above Incisional Area M3 OT- IP Subjective and Pain Start: 07/25/23 09:44 Freq: Status: Active Protocol: Document 07/25/23 09:45 [facility] (Rec: 07/25/23 09:56 [facility] [id number]) OT- Subjective Occupational Therapy Visit Type Type Initial Evaluation Visit Start Time 09:07 Visit Stop Time 09:46 Occupational Therapy Visit Comments Patient Comments Pt agreed to get up. PT present for part of the eval. Patient/Caregiver Goals TO go home. OT Pain Assessment Pain When Pain Assessed At Rest Pain Present Pain Present Denied Pain M4 OT- IP ADL's Start: 07/25/23 09:44 Freq: Status: Active Protocol: Document 07/25/23 09:45 [facility] (Rec: 07/25/23 09:56 [facility] [id number]) OT [id number] Comments OT Self-Feeding Comments Pt on liquid diet at this time . OT ADL-Grooming General Evaluation Grooming Ability Independent Comments OT Grooming Comments WHile seated. OT ADL-Oral Care General Eval Oral Care Ability Independent Comments Oral Care Comments While seated. OT ADL-Dressing General Eval Lower Body Dressing Ability Standby Assistance,Maximum Assistance Comments OT Dressing Comments Able to show pt use of sock aid to assist for LB dressing needs. Pt states has a geophysical laboratory director and long handled shoe horn already at home that he uses. OT ADL-Toileting Comments OT Toileting Comments Pt not having to go. OT ADL-Bathing Comments OT Bathing Comments Pt states his is able to assist him at home. M5 OT- IP IADL's Start: 07/25/23 09:44 Freq: Status: Active Protocol: Document 07/25/23 09:45 [facility] (Rec: 07/25/23 09:56 [facility] [id number]) OT-Instrumental Activities of Daily Living Deficits IADL Deficits Identified Deficits Home Safety Awareness Awareness of Need for Assistance at Home Good Awareness Ability to Problem Solve Emergency Able to Problem Solve Situations Medication Management Medication Management No Deficits Identified Money Management Money Management No Deficits Identified Meal Preparation Meal Preparation Caregiver Provides Assist Design Engineering Technician Design Engineering Technician Caregiver Provides Assist M6 OT- IP Functional Cognition Start: 07/25/23 09:44 Freq: Status: Active Protocol: Document 07/25/23 09:45 [facility] (Rec: 07/25/23 09:56 [facility] [id number]) Cognitive Factors Limiting Selfcare Function Cognitive Ability Level of Alertness Alert Patient Orientation Name,Age,Birthday,Month,Date, Year,Day of Week,Place, Situation Attention Span Ability Capable of Focused Attention, Capable of Sustained Attention Ability to Follow Commands Able to Follow Multi-Step Commands Cognitive Comments Cognitive Assessment Comments Pt is intact just needing occasional vc to slow down and follow his abdominal precautions. OT- Vision and Hearing OT- Hearing Assessment OT- Hearing Assessment WFL OT- Vision Assessment Visual Acuity Glasses All The Time Visual Attentiveness WFL Occular Pursuits WFL M7 OT- IP Mobility and Balance Start: 07/25/23 09:44 Freq: Status: Active Protocol: Document 07/25/23 09:45 [facility] (Rec: 07/25/23 09:56 [facility] [id number]) OT- Bed Mobility Assessment Supine to Sit Supine to Sit Assist Standby Assistance OT-Transfer Assessment Sit to and From Stand Sit to and from Stand Standby Assistance Transfers Transfer Ability Independent,Standby Assistance Technique Transfer Destination Bed,Chair Devices Transfer Assistive Devices None,Gait Belt,Front Wheeled Walker Comments Mobility Comments Pt SBA with FWW and distant SBA without the walker and suggested pt call for assist when up on his feet for safety . Suggested when coughing to hold a pillow. OT- Balance Assessment Sitting Balance and Reactions Static Sitting Balance Ability Normal Dynamic Sitting Balance Ability Normal Standing Balance and Reactions Static Standing Balance Ability Normal Dynamic Standing Balance Ability Good M8 OT- IP Objective Assessments Start: 07/25/23 09:44 Freq: Status: Active Protocol: Document 07/25/23 09:45 [facility] (Rec: 07/25/23 09:56 [facility] [id number]) OT Gross Range of Motion Upper Extremity Range of Motion Assessment Within Functional Limits OT Strength Upper Extremity Strength Assessment Bilaterally Impaired Comments Strength Comments WFL for needs but has weakness in his shoulders. OT- Coordination Assessment Comments Coordination Comments Pt has had joint replacement in the past several years for his hands. M9 OT- IP Assessment and Plan Start: 07/25/23 09:44 Freq: Status: Active Protocol: Document 07/25/23 09:45 [facility] (Rec: 07/25/23 09:56 [facility] [id number]) OT Summary Assessment and Plan Potential Rehabilitation Potential Excellent Analytic Complexity at Evaluation Low Summary OT Impairments Pain,Balance,Functional Mobility,Dressing,Bathing Progress Towards Goals Safe For Discharge Assessment Summary Pt low complexity and main barriers are occasional reminders for his abdominal precautions. Pt has a supportive to assist with his needs. Suggested pt may benefit from a sock aid and long handle brush for ADL needs. Pt to go home with assist when medically stable. Frequency of Treatment Frequency Of Treatment Discharge Discharge Recommendations Home Equipment Needs sock aid, long handled brush Transportation Needs at Discharge Private Vehicle
--- NOTE | 2023-07-25 14:54 | DIET.CONS ---
Dietary Consultation Note Admission Date: 07/24/2023 07:29 Assessment: 88 y M admitted for right hemicolectomy. Nutrition consulted for weight loss and cancer diagnosis. Pt with PMH of prostate cancer and previous colon resection. Met with pt at bedside. He reports him and changed their diet to reflect the Mediterranean diet in the last month and he has stopped eating so much nuts due to worry it would cause GI distress, which has resulted in 12 lb weight loss in 1 month and feeling like his clothes are looser. He did not intend to lose weight. Per chart review noted pt c/o worsening lower abdominal pain and severe constipation for past year. Diet recall: B-vegetable omelet, 1 slice of toast and jelly OR cereal with nuts and fruit and milk L-Half of sandwich with meat or fish, olive, fruit, chips, chocolate; sometimes skips lunch and snacks in shop instead D-Microwavable meal Snacks on pb and crackers at workshop Has at least 2 Ensures per day Nutrition focused physical exam results: Muscle wasting: -Mild-moderate loss in temporalis -Mild loss in interosseous -No loss in clavicle region Subcutaneous fat loss: -Mild loss in orbital fat pads -Mild-moderate loss in buccal fat pads Ht: 177.8 cm Wt: 77.791 kg BMI: 24.6 UBW: 83.18 kg (-6.5% weight loss in 1 month) Last BM: 07/23/23 (07/24/23 15:41) MNA: 10 Nitin Score: 20 Diet: 07/24/23 Dinner Full Liquid Diet Diet Modifications: protein supplement with each meal Nutrition Percent Meal Consumed 75% 07/25/23 13:09 Percent Meal Consumed 100% 07/25/23 09:50 Percent Meal Consumed 75% 07/24/23 18:00 Labs: RBC 3.37 X10^6/uL (4.5-5.9) L 07/25/23 06:23 Hgb 10.6 g/dL (13.5-17.5) L 07/25/23 06:23 Hct 30.9 % (41-53) L 07/25/23 06:23 Creatinine 0.64 mg/dL (0.66-1.25) L 07/25/23 06:23 Nutrition Diagnosis: Moderate Acute Protein Calorie Malnutrition r/t increased energy-protein needs as evidenced by 6.5% weight loss in 1 month,severe, mild-moderate muscle loss (temporalis, interosseous) and mild subcutaneous fat loss (orbital and buccal). Interventions: 1. Receiving protein supplementation at every meal 2. When diet advanced as medically able: Encouraged 3 meals, snacks, and 2-3 Ensures EER: [id number] kcals/day (25-30 kcals/kg BMI) 95-110 g protein/day (1.25 g protein/kg) Monitoring/Evaluations: diet advancement, po intakes Electronically Signed by: Trina Camacho 07/25/23 14:54 Clinical Dietitian [address] [id number]
--- NOTE | 2023-07-25 15:19 | CM.DANOTE ---
Initial DCP Assessment Note Reviewed EMR and team rounds for pt's medical status and updates. Did not meet with pt f/f today, will f/u in the morning to discuss discharge plan and assess for community support needs. Payor: Medicare Attending: Dr. Richardson Pt is a 88 yeare-old M with a hx of prior colon resection in 2019. He has had a recent hx of worsening lower abdominal pain and constipation, making stools difficult to pass. He was seen by Dr. Richardson for consultation and was agreeable to a right-sided colon hemicolectomy surgery. Per Dr. Richardson, he is progressing well post-operatively, and is tolerating fluids well this am. Plan is to continue to progress diet and d/c home w/spouse once he's medically stable for d/c. DCP will continue to follow and assist with any further evolving needs. Discharge Planning/Care Management Advanced directive, confirm from FAMILY Start: 07/24/23 15:48 Freq: Q24H Status: Active Protocol: Document 07/24/23 15:48 CEW (Rec: 07/24/23 18:45 CEW [id number]) Advance Directive, confirm on record Time 17:00 Person contacted pt/ Copy received No CM Discharge Assessment Start: 07/25/23 15:14 Freq: Status: Active Protocol: Document 07/25/23 15:16 DPL (Rec: 07/25/23 15:18 DPL [id number]) Discharge Planning Assessment Assigned Vocational Services Specialist MART Terry Advance Directives? Yes Advance Directives on File No: states full code History Provided By Medical Record Expected Length of Stay 2 Has Patient been admitted in last 30 No days? Prior Living Arrangements House Household Members spouse Independent with ADL's Yes Is patient alert and oriented? Yes Caregiver for Another No DME Already Rented / Owned FWW / Walker,Cane Comment No anticipated home d/c needs identified at this time. Barriers to Discharge No Discharge Plan Home Transportation Arrangement Spouse Referrals Initiated None needed Whiteboard Updated in Patient Room with Yes name and ext. # of Vocational Services Specialist Review Status In Process Please Provide Date Initial DC 07/25/23 Assessment Was Performed Pre-Anesthesia Assessment Start: 07/16/23 10:26 Freq: Status: Complete Protocol: Document 07/16/23 10:26 CAB (Rec: 07/16/23 11:28 CAB [id number]) Pre-Anesthesia Assessment Patient Information Reviewed Via Phone Assessment Assessment Completed With Patient Primary Care Provider Angle Domínguez Seen Specialist in Last 12 Months Yes Specialist Seen Outsoles Channel Opener,General surgeon, Opthamologist/Baker D[employer]nut, Orthopedist,[employer], Urologist Primary Language Upper Sorbian Preferred Language Upper Sorbian Program Counselor Required No Height 177.8 cm Weight 80.739 kg Body Mass Index (BMI) 25.5 Hearing Ability Hearing Impaired,Use of Hearing Aid Visual Assist Glasses Dentition Type Teeth, Missing,Partial- Upper & Lower Barriers to Learning None Comment Pt states he can hear without hearing aids Hx Anesthesia Reactions No Hx Family Anesthesia Reaction No Hx Malignant Hyperthermia No Hx Blood Transfusions Yes: 1978 Hx Blood Transfusion Reaction No Anesthesia Review Requested No Warehouse Trainer No alcohol intake current alcohol intake frequency 0-2 drinks per day Smoking Status Never smoker Substance Use Type does not use Pain Present Denied Pain History of Falling (Recent or History of No ) Patient is completely paralyzed or No completely immobile Prosthesis or Orthotic Device Cane,Front Wheel Walker Mental Status Oriented to own ability Is patient on oxygen? No Does patient have MORSE/SOB Yes: MORSE Hx Sleep Apnea No CPAP/BIPAP use not prescribed Currently Taking a Beta Harsh No Can You Climb a Flight of Stairs Without Yes: Patient climbs 13 stairs SOB daily Hx Chest Pain No Hx SOB Yes: MORSE Hx Syncope or Dizziness No Anti-Coagulant Therapy No: Pt denies using any type of aspirin Has a Outsoles Channel Opener Yes: Last visit 07/10/[address] Moss Hx Pacemaker/ICD Yes: Pacer rep Ivis [phone] Pacemaker Rep Required? Yes: Scheduled w/pacer rep Ivis [phone] 07/02/23 Comment Cardiac records scanned and in surgery folder Diet Type At Home Regular Gastrointestinal Symptoms Abdominal Pain,Bloating, Constipation Genitourinary Symptoms Change in Urinary Stream, Difficulty Urinating Chronic UTI No Urinary Catheter Present No Hx Urinary Self Catheterization No Diabetes No Presence of External or Internal Medical Yes: Pacemaker, knee Devices prosthesis, amira eye IOLs, bilateral wrists, left knee Received a COVID vaccine? Yes Marital Status Lives With spouse Current Living Arrangements House Number of Floors (Floors) One Floor Number of Stairs To Enter/Railing? 13 from garage Support System Spouse Patient Discharge Plan Description Return Home Comment Pt advised 3 day length of stay per surgeon Feels Safe in Current Environment Yes Been Physically Hurt or Threatened By a No Person in Current Environment Do you have thoughts of harming yourself None or others? Are you currently considering suicide? No Do you have a plan to hurt yourself or No Plan others? Do You Have Any Spiritual Beliefs That No May Affect Your HC Choices? Do You Have Any Cultural Practices That No May Affect Your HC Choices? Comment Pentecostal Who Can We Speak to About Patient's Care Family only Identifying Code for Release of Patient [facility] Health Care Proxy/Next of Kin Sera () Health Care Proxy Emergency Contact Name Sera () Emergency Contact Advance Directives? Yes Advance Directives on File Yes: states full code Power of Cloth Shrinking Supervisor Yes Power of Cloth Shrinking Supervisor Name Sera Golden Power of Cloth Shrinking Supervisor PAC Instructions Durable medical equipment, Medications to take/avoid,No ETOH/petroleum product on skin DOS,NPO,Post-op transportation,Pre-surgical wash,Sensory aids,Sturdy shoes /comfortable clothes,Do not bring valuables and remove jewelry Stop Bang Assessment Do you snore loudly (louder than talking No or loud enough to be heard through closed doors) Do you often feel tired, fatigued or No sleepy during the daytime Has anyone ever observed you stop No breathing while sleeping? Do you have, or are you being treated No for, high blood pressure
--- NOTE | 2023-07-25 17:37 | PC.NURSE ---
Patient is A&OX4, VSS, afebrile weaned to RA this a.m. (Per third shift lieutenant, typically only uses 02 while sleeping) Patient with Midline aquacel minimal shadow dressing. He tolerates full liquid diet well and ambulates in the bosch. Abdomen soft and tender BS =x4. He reports burping but not passing gas this shift. Per orders White catheter removed approximately 0900 this a.m. at 1700 patient still reports no urge to void. Bladder scan results of 764 cc called to , and white catheter replaced. He has moderate leaking from under kingel, notified and dressing replaced with pressure held.
[2023-07-25] MEDS: BICALUTAMIDE 50 MG TABLET PO (17:46)
--- NOTE | 2023-07-25 21:26 | PC.NURSE ---
Addendum entered by Maria M Espinoza R.N. 07/26/23 06:39: Reinforced drsg is CDI. VSS, O2 saturation in high 90's on RA overnight. Patient is coughing up clear phlegm, using IS while awake. Stated he had a sore throat, lozenge & warm tea given. Original Note: program clerk: Patient is AxOx4, VSS. Denies pain, N/V, dizziness, SOB. Aquacel drsg is saturated w/ serosanguinous drainage and medium sized blood-clot. Reinforced drsg w/ gauze & ABD pads and placed abdominal binder on. Notified MD Zelaya, recommended ice pack & orders for CBC in the morning and to hold morning Lovenox. Ice pack placed. Cont pulse ox in place. Plan of care ongoing.
[2023-07-26] VITALS (12 sets, daily range): BP systolic 131–155; BP diastolic 60–78; PULSE 70–86; RESP 16–18; TEMP 35.9–36.7; O2SAT 93–98
[2023-07-26] MEDS: BENZOCAINE/MENTHOL 1 LOZ PKT 1 EACH PO (02:38)
[2023-07-26 05:18] LABS: Add Manual Diff / Slide Review NO; Basophils Absolute Auto 0 /uL (0-100); Basophils Percent Auto 0.6 % (0-2); Eosinophils Absolute Auto 200 /uL (0-450); Eosinophils Percent Auto 2.4 % (2-4); Hematocrit 32.5 % (41-53); Lymphocytes Absolute Auto 1000 /uL (1100-4500); Lymphocytes Percent Auto 12.5 % (25-40); Mean Corpuscular HGB Conc 33.8 % (30-36); Mean Corpuscular Hemoglobin 31.2 PG (26-34); Mean Corpuscular Volume 92.3 fL (80-100); Monocytes Absolute Auto 500 /uL (0-900); Monocytes Percent Auto 6.5 % (3-14); Neutrophils Absolute Auto 6200 /uL (1500-7000); Platelet Count 319 X10^3/uL (150-400); Red Blood Cell Count 3.52 X10^6/uL (4.5-5.9); Red Cell Distribution Width 14.4 % (11.6-14.8)
[2023-07-26] MEDS: ALBUTEROL 2.5 MG/3 ML NEB (ADULT) INH (09:19)
--- NOTE | 2023-07-26 10:28 | CM.DPC ---
DCP Cont. Reviewed EMR and team rounds for status updates. Pt will need 1-2 more days before he is medically stable for d/c, as well as to advance his diet and work with therapies. Will monitor for any additional needs that may evolve prior to d/c home.
[2023-07-26] MEDS: allopurinoL 100 MG TABLET 200 MG PO (11:14)
[2023-07-26] MEDS: SODIUM CHLORIDE 0.9% FLUSH 10 ML IV ×2 (11:14→20:46)
--- NOTE | 2023-07-26 13:09 | PM.PNPO.1 ---
Subjective Subjective Date Patient Seen: 07/26/23 Time Patient Seen: 13:09 Interval history: Postoperative day 2 status post right hemicolectomy -no further bleeding from abdominal midline -no flatus or BM. Exam Vital Signs (past 8 hours): - 07/26/23 07:55 07/26/23 09:00 07/26/23 09:19 Temperature 98.0 F Pulse Rate 74 86 Respiratory Rate 18 18 Blood Pressure 137/78 Pulse Oximetry 95 96 96 Oxygen Delivery Method Room Air Room Air Oxygen Flow Rate 0 Oxygen Delivery Method Room Air Oxygen Flow Rate 0 Narrative Exam Narrative: General elderly man alert oriented no acute distress Chest nonlabored respiration Abdomen distended but compressible. Dressing with recent bleeding not saturated Objective Labs 07/26/23 05:01 07/25/23 06:23 Labs: Laboratory Results - last 24 hr 07/26/23 05:01 WBC 8.0 RBC 3.52 L Hgb 11.0 L Hct 32.5 L MCV 92.3 MCH 31.2 MCHC 33.8 RDW 14.4 Plt Count 319 Neut % (Auto) 78.0 H Lymph % (Auto) 12.5 L [place] % (Auto) 6.5 Eos % (Auto) 2.4 Baso % (Auto) 0.6 Neut # (Auto) 6200 Lymph # (Auto) 1000 L [place] # (Auto) 500 Eos # (Auto) 200 Baso # (Auto) 0 PFSH Medical History (Updated 07/16/23 @ 10:53 by Maria M Doty RN) COPD (chronic obstructive pulmonary disease) Prostate cancer History of urinary retention Left epididymitis Left hydrocele Epididymal cyst Incomplete bladder emptying Peyronie's disease Elevated PSA BPH w urinary obs/LUTS Osteoarthritis Interstitial lung disease Detached retina, right (~1993) Eczema Arthritis 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) Gout Surgical History (Updated 07/16/23 @ 10:34 by Maria M Doty RN) History of total left knee replacement (11/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) H/O transurethral resection of prostate Hx of hernia repair (02/02/19) Hx of colonoscopy (~05/04/22) H/O circumcision H/O vasectomy Hx of hand surgery (~09/2018) History of left knee replacement (~03/2015) Hx of umbilical hernia repair (~1997) Hx of eye surgery (~1996) Status post correction of deviated nasal septum (~1993) History of testicular surgery (~1989) Hx of bilateral cataract extraction (~1986) Hx of arthroscopy of right knee (~1985) History of colon resection Hx of hernia repair Hx of knee surgery Social History marital status: household members: spouse lives independently: Yes occupational status: previously employed Smoking Status: Never smoker alcohol intake: current substance use type: does not use Assessment & Plan Post-op Postoperative Procedures: Procedures Operation Date: 07/24/23 08:45 Actual Procedure Side Surgeon p Open Colectomy Right Denzel Richardson MD Postoperative plan narrative: Postoperative day 2 status post open right hemicolectomy for colon mass. Postoperative ileus-await return of bowel function okay for liquids if no nausea Urinary retention-continue Rudolph catheter SCDs and prophylactic Lovenox.
[2023-07-26] MEDS: BICALUTAMIDE 50 MG TABLET PO (18:02)
[2023-07-26] MEDS: ACETAMINOPHEN 325 MG TABLET 650 MG PO (20:01)
[2023-07-26] MEDS: CALCIUM CARBONATE 500 MG TAB 1000 MG PO (21:40)
[2023-07-27] VITALS (8 sets, daily range): BP systolic 126–151; BP diastolic 81–87; PULSE 81–95; RESP 14–17; TEMP 35.9–36.7; O2SAT 92–99
[2023-07-27] MEDS: PANTOPRAZOLE DR 40 MG TABLET PO (08:15)
[2023-07-27] MEDS: ALBUTEROL 2.5 MG/3 ML NEB (ADULT) INH (09:27)
[2023-07-27] MEDS: allopurinoL 100 MG TABLET 200 MG PO (09:28)
--- NOTE | 2023-07-27 09:41 | PM.PNPO.1 ---
Subjective Subjective Date Patient Seen: 07/27/23 Time Patient Seen: 09:41 Interval history: depressed. no appetite and wound is bleeding again. Small BM, no flatus Exam Vital Signs (past 8 hours): - 07/27/23 05:00 Pulse Oximetry 95 Oxygen Delivery Method Room Air Oxygen Flow Rate 0 Oxygen Delivery Method Room Air Oxygen Flow Rate 0 Narrative Exam Narrative: abdomen soft and benign Objective Labs 07/26/23 05:01 07/25/23 06:23 PFS Medical History (Updated 07/16/23 @ 10:53 by Maria M Doty RN) COPD (chronic obstructive pulmonary disease) Prostate cancer History of urinary retention Left epididymitis Left hydrocele Epididymal cyst Incomplete bladder emptying Peyronie's disease Elevated PSA BPH w urinary obs/LUTS Osteoarthritis Interstitial lung disease Detached retina, right (~1993) Eczema Arthritis 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) Gout Surgical History (Updated 07/16/23 @ 10:34 by Maria M Doty RN) History of total left knee replacement (11/22/22) H/O transurethral resection of prostate Hx of hernia repair (02/02/19) Hx of colonoscopy (~05/04/22) H/O circumcision H/O vasectomy Hx of hand surgery (~09/2018) History of left knee replacement (~03/2015) Hx of umbilical hernia repair (~1997) Hx of eye surgery (~1996) Status post correction of deviated nasal septum (~1993) History of testicular surgery (~1989) Hx of bilateral cataract extraction (~1986) Hx of arthroscopy of right knee (~1985) History of colon resection Hx of hernia repair Hx of knee surgery Social History marital status: household members: spouse lives independently: Yes occupational status: previously employed Smoking Status: Never smoker alcohol intake: current substance use type: does not use Assessment & Plan Post-op Postoperative Procedures: Procedures Operation Date: 07/24/23 08:45 Actual Procedure Side Surgeon p Open Colectomy Right Denzel Richardson MD Postoperative status: doing well Postoperative status narrative: no complications Postoperative plan narrative: advance diet. Anticipate discharge tomorrow.
--- NOTE | 2023-07-27 10:34 | CM.DPC ---
DCP Cont. Reviewed EMR and team rounds for status updates. Pt is starting on clear liquids today, will likely need 1-2 more days for advancing diet. Will continue to monitor.
[2023-07-27 14:17] LABS: Add Manual Diff / Slide Review NO; Basophils Absolute Auto 0 /uL (0-100); Basophils Percent Auto 0.3 % (0-2); Eosinophils Absolute Auto 200 /uL (0-450); Eosinophils Percent Auto 2.7 % (2-4); Hematocrit 33.6 % (41-53); Lymphocytes Absolute Auto 800 /uL (1100-4500); Lymphocytes Percent Auto 10.5 % (25-40); Mean Corpuscular HGB Conc 32.8 % (30-36); Mean Corpuscular Hemoglobin 30.3 PG (26-34); Mean Corpuscular Volume 92.5 fL (80-100); Monocytes Absolute Auto 600 /uL (0-900); Neutrophils Absolute Auto 6100 /uL (1500-7000); Neutrophils Percent Auto 78.5 % (50-75); Platelet Count 337 X10^3/uL (150-400); Red Blood Cell Count 3.63 X10^6/uL (4.5-5.9); Red Cell Distribution Width 14.6 % (11.6-14.8); White Blood Cell Count 7.7 X10^3/uL (4.5-11.0)
[2023-07-27] MEDS: BICALUTAMIDE 50 MG TABLET PO (18:05)
[2023-07-27] MEDS: SODIUM CHLORIDE 0.9% FLUSH 10 ML IV (20:24)
[2023-07-28] VITALS (8 sets, daily range): BP systolic 124–157; BP diastolic 66–83; PULSE 79–87; RESP 16–18; TEMP 35.8–36.6; O2SAT 96–98
[2023-07-28] MEDS: PANTOPRAZOLE DR 40 MG TABLET PO (06:02)
[2023-07-28] MEDS: BISACODYL 10 MG SUPP PR (09:35)
--- NOTE | 2023-07-28 10:05 | PM.PNPO.1 ---
Subjective Subjective Date Patient Seen: 07/28/23 Time Patient Seen: 10:06 Interval history: Patient more despondent and sad. Mixed report of BM and flatus. Exam Vital Signs (past 8 hours): - 07/28/23 03:20 07/28/23 05:00 07/28/23 09:00 Temperature 97.7 F 97.1 F L Pulse Rate 79 80 Respiratory Rate 17 16 Blood Pressure 142/73 H 126/66 Pulse Oximetry 96 96 98 Oxygen Delivery Method Room Air Oxygen Flow Rate 0 Oxygen Delivery Method Room Air Oxygen Flow Rate 0 Narrative Exam Narrative: abdomen distended. No further bleeding of wound. Normal WBC. Objective Labs 07/27/23 14:10 07/25/23 06:23 Labs: Laboratory Results - last 24 hr 07/27/23 14:10 WBC 7.7 RBC 3.63 L Hgb 11.0 L Hct 33.6 L MCV 92.5 MCH 30.3 MCHC 32.8 RDW 14.6 Plt Count 337 Neut % (Auto) 78.5 H Lymph % (Auto) 10.5 L [place] % (Auto) 8.0 Eos % (Auto) 2.7 Baso % (Auto) 0.3 Neut # (Auto) 6100 Lymph # (Auto) 800 L [place] # (Auto) 600 Eos # (Auto) 200 Baso # (Auto) 0 PFSH Medical History (Updated 07/16/23 @ 10:53 by Maria M Doty RN) COPD (chronic obstructive pulmonary disease) Prostate cancer History of urinary retention Left epididymitis Left hydrocele Epididymal cyst Incomplete bladder emptying Peyronie's disease Elevated PSA BPH w urinary obs/LUTS Osteoarthritis Interstitial lung disease Detached retina, right (~1993) Eczema Arthritis 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) Gout Surgical History (Updated 07/16/23 @ 10:34 by Maria M Doty RN) History of total left knee replacement (11/22/22) H/O transurethral resection of prostate Hx of hernia repair (02/02/19) Hx of colonoscopy (~05/04/22) H/O circumcision H/O vasectomy Hx of hand surgery (~09/2018) History of left knee replacement (~03/2015) Hx of umbilical hernia repair (~1997) Hx of eye surgery (~1996) Status post correction of deviated nasal septum (~1993) History of testicular surgery (~1989) Hx of bilateral cataract extraction (~1986) Hx of arthroscopy of right knee (~1985) History of colon resection Hx of hernia repair Hx of knee surgery Social History marital status: household members: spouse lives independently: Yes occupational status: previously employed Smoking Status: Never smoker alcohol intake: current substance use type: does not use Assessment & Plan Post-op Postoperative Procedures: Procedures Operation Date: 07/24/23 08:45 Actual Procedure Side Surgeon p Open Colectomy Right Denzel Richardson MD Postoperative status: post-op ileus Postoperative status narrative: Normal WBC, Hct 33% Postoperative plan narrative: Rectal suppository to stimulate function. Needs more activity. Time Spent With Patient Time with patient: 15-24 minutes
--- NOTE | 2023-07-28 10:44 | PC.NURSE ---
Addendum entered by Jenna Augustin R.N. 07/28/23 12:10: Patient is tolerating some apple sauce and he ate some chicken broth for lunch. He will ambulate in the halls with his after a while. Original Note: Patient distended, he has an abdominal binder on and dressing is cdi. States that he was nauseated last night and was in discomfort this morning. Given a suppository per Dr. Zelaya. He tolerated this well but has not had any results yet. Refused breakfast, encouraged to ambulate. He wants to take his medication later today, and will ambulate with his in the halls today. Bt are hypoactive x4. in room visiting now, patients water glass was filled.
[2023-07-28] MEDS: allopurinoL 100 MG TABLET 200 MG PO (12:26)
[2023-07-28] MEDS: BICALUTAMIDE 50 MG TABLET PO (17:39)
[2023-07-28] MEDS: SODIUM CHLORIDE 0.9% FLUSH 10 ML IV (20:01)
[2023-07-29] VITALS (13 sets, daily range): BP systolic 121–142; BP diastolic 60–82; PULSE 72–94; RESP 14–18; TEMP 35.9–37.4; O2SAT 94–99
[2023-07-29] MEDS: PANTOPRAZOLE DR 40 MG TABLET PO (06:28)
[2023-07-29] MEDS: SODIUM CHLORIDE 0.9% FLUSH 10 ML IV ×2 (08:55→21:36)
[2023-07-29] MEDS: allopurinoL 100 MG TABLET 200 MG PO (08:55)
[2023-07-29] MEDS: ALBUTEROL 2.5 MG/3 ML NEB (ADULT) INH (09:02)
--- NOTE | 2023-07-29 11:57 | PM.PNPO.1 ---
Subjective Subjective Date Patient Seen: 07/29/23 Time Patient Seen: 11:58 Interval history: Fully dressed and waiting for his . Not sure just now if he is ready to go home, he has upset stomach. Exam Vital Signs (past 8 hours): - 07/29/23 04:00 07/29/23 05:38 07/29/23 07:00 Temperature 96.9 F L 96.7 F L Pulse Rate 83 94 H Respiratory Rate 17 17 Blood Pressure 124/64 134/82 Pulse Oximetry 94 94 94 Oxygen Delivery Method Room Air Oxygen Flow Rate 0 0 0 07/29/23 09:00 07/29/23 09:09 07/29/23 11:00 Temperature 99.3 F Pulse Rate 88 72 Respiratory Rate 16 18 Blood Pressure 122/72 Pulse Oximetry 97 98 Oxygen Delivery Method Room Air Oxygen Flow Rate 0 0 Oxygen Delivery Method Room Air Oxygen Flow Rate 0 Narrative Exam Narrative: abdomen soft, nontender. dressing changed and there is old blood no new bleeding. wound looks great. Objective Labs 07/27/23 14:10 07/25/23 06:23 [facility] Medical History (Updated 07/16/23 @ 10:53 by Maria M Doty RN) COPD (chronic obstructive pulmonary disease) Prostate cancer History of urinary retention Left epididymitis Left hydrocele Epididymal cyst Incomplete bladder emptying Peyronie's disease Elevated PSA BPH w urinary obs/LUTS Osteoarthritis Interstitial lung disease Detached retina, right (~1993) Eczema Arthritis 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) Gout Surgical History (Updated 07/16/23 @ 10:34 by Maria M Doty RN) History of total left knee replacement (11/22/22) H/O transurethral resection of prostate Hx of hernia repair (02/02/19) Hx of colonoscopy (~05/04/22) H/O circumcision H/O vasectomy Hx of hand surgery (~09/2018) History of left knee replacement (~03/2015) Hx of umbilical hernia repair (~1997) Hx of eye surgery (~1996) Status post correction of deviated nasal septum (~1993) History of testicular surgery (~1989) Hx of bilateral cataract extraction (~1986) Hx of arthroscopy of right knee (~1985) History of colon resection Hx of hernia repair Hx of knee surgery Social History marital status: household members: spouse lives independently: Yes occupational status: previously employed Smoking Status: Never smoker alcohol intake: current substance use type: does not use Assessment & Plan Post-op Postoperative Procedures: Procedures Operation Date: 07/24/23 08:45 Actual Procedure Side Surgeon p Open Colectomy Right Denzel Richardson MD Postoperative status: doing well Postoperative status narrative: return of GI function, tolerating diet. no complications Postoperative plan narrative: Will see if he feels more confident after lunch for discharge home. Time Spent With Patient Time with patient: 25 - 35 minutes
--- NOTE | 2023-07-29 12:34 | CM.DPNOTE ---
DCP Note BAR CATCHER reviewed EMR. per hemodialysis charge nurse in morning rounds, pt tolerated advancing diet well. Passing gas and had BM. Per RN, pt eager to dc home. BAR CATCHER met with pt in room. Pt reports he began to feel abdominal pain after breakfast. Pt was eager to dc home, but now with abdominal pain is not so sure. Pt denies any CM needs. Spouse will pick him up at dc. RN/surgeon notified of abdominal pain. Per surgeon PN, plan to keep pt through lunch, and may dc home pending how he tolerates lunch. Plan: dc home today vs tomorrow with spouse support, pending how he tolerates lunch. Denies CM needs. CM team will follow as needed. MART Muller
[2023-07-29] MEDS: ACETAMINOPHEN 325 MG TABLET 650 MG PO (13:50)
--- NOTE | 2023-07-29 14:57 | DIET.CONS2 ---
Dietary Inpatient Consultation Note Admission Date: 07/24/2023 07:29 Nutrition f/u due to low PO intakes. 0-25% intake recorded x3 days Pt did not want to order anything for dinner and stated he hadn't even eaten his lunch yet. Will continue to monitor po intakes. ONS at meal times to support adequate intake as tolerated. Diet: 07/27/23 Lunch General (Regular) Diet Diet Modifications: Food Texture: Level 7 - Regular Liquid Consistency: Level 0 - Thin Nutrition Percent Meal Consumed 0% 07/29/23 13:54 Percent Meal Consumed 50% 07/29/23 07:00 Percent Meal Consumed 25% 07/28/23 17:00 Percent Meal Consumed pt ref dinner 07/28/23 09:00 Percent Meal Consumed 25% 07/27/23 18:00 Electronically Signed by: Trina Camacho 07/29/23 14:57 Clinical Dietitian [address] [address]
[2023-07-29] MEDS: ONDANSETRON 4 MG ODT SL (15:53)
[2023-07-29] MEDS: BICALUTAMIDE 50 MG TABLET PO (18:08)
[2023-07-30] VITALS (11 sets, daily range): BP systolic 116–148; BP diastolic 57–69; PULSE 64–92; RESP 14–19; TEMP 35.8–36.9; O2SAT 95–98
[2023-07-30] MEDS: PANTOPRAZOLE DR 40 MG TABLET PO (06:36)
[2023-07-30] MEDS: allopurinoL 100 MG TABLET 200 MG PO (08:38)
[2023-07-30] MEDS: SODIUM CHLORIDE 0.9% FLUSH 10 ML IV ×2 (08:39→20:51)
[2023-07-30] MEDS: ALBUTEROL 2.5 MG/3 ML NEB (ADULT) INH (09:08)
[2023-07-30] MEDS: ACETAMINOPHEN 325 MG TABLET 650 MG PO (10:39)
[2023-07-30] MEDS: IBUPROFEN 600 MG TABLET PO (10:39)
[2023-07-30] MEDS: ONDANSETRON 4 MG ODT SL (10:42)
--- NOTE | 2023-07-30 11:01 | CM.DPNOTE ---
Addendum entered by MART Muller 07/30/23 16:23: Per chart review, pt placed back on full liquid diet. Per surgeon PN, He has a postoperative ileus which is gradually resolving. SL Original Note: DCP NOte REGISTRATION OFFICER reviewed EMR. Per nursing staff, anticipate dc later this afternoon if pt tolerates bfast and lunch. REGISTRATION OFFICER met with pt and spouse in room. Report eager to dc home. Deny current CM needs. Spouse inquired about CG information in case needed in the future. REGISTRATION OFFICER provided spouse with Senior Resources booklet with CGs highlighted for LTC planning. Plan: anticipte home with family when medically stable- spouse to transport. No anticipated CM needs. Today vs tomorrow. CM team will continue to follow as needed. MART Muller
--- NOTE | 2023-07-30 13:06 | PM.PNPO.1 ---
Subjective Subjective Date Patient Seen: 07/30/23 Time Patient Seen: 16:12 Interval history: Emesis this morning. Positive BM and flatus. Exam Vital Signs (past 8 hours): - 07/30/23 08:20 07/30/23 08:47 07/30/23 09:00 Temperature 96.5 F L Pulse Rate 92 H Respiratory Rate 16 Blood Pressure 133/69 Pulse Oximetry 96 97 Oxygen Delivery Method Room Air Room Air Oxygen Flow Rate 0 0 Fraction of Inspired Oxygen 07/30/23 09:08 07/30/23 12:43 07/30/23 13:00 Temperature 98.4 F Pulse Rate 72 64 Respiratory Rate 16 16 Blood Pressure 137/67 Pulse Oximetry 97 98 98 Oxygen Delivery Method Room Air Room Air Oxygen Flow Rate 0 0 0 Fraction of Inspired Oxygen 21 Fraction of Inspired Oxygen 21 SaO2/FiO2 Ratio 461 Oxygen Delivery Method Room Air Oxygen Flow Rate 0 Narrative Exam Narrative: General elderly man alert oriented no acute distress Abdomen soft appropriately to tender to palpation. Objective Labs 07/27/23 14:10 07/25/23 06:23 [facility] Medical History (Updated 07/16/23 @ 10:53 by Maria M Doty RN) COPD (chronic obstructive pulmonary disease) Prostate cancer History of urinary retention Left epididymitis Left hydrocele Epididymal cyst Incomplete bladder emptying Peyronie's disease Elevated PSA BPH w urinary obs/LUTS Osteoarthritis Interstitial lung disease Detached retina, right (~1993) Eczema Arthritis 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) Gout Surgical History (Updated 07/16/23 @ 10:34 by Maria M Doty RN) History of total left knee replacement (11/22/22) H/O transurethral resection of prostate Hx of hernia repair (02/02/19) Hx of colonoscopy (~05/04/22) H/O circumcision H/O vasectomy Hx of hand surgery (~09/2018) History of left knee replacement (~03/2015) Hx of umbilical hernia repair (~1997) Hx of eye surgery (~1996) Status post correction of deviated nasal septum (~1993) History of testicular surgery (~1989) Hx of bilateral cataract extraction (~1986) Hx of arthroscopy of right knee (~1985) History of colon resection Hx of hernia repair Hx of knee surgery Social History marital status: household members: spouse lives independently: Yes occupational status: previously employed Smoking Status: Never smoker alcohol intake: current substance use type: does not use Assessment & Plan Post-op Postoperative Procedures: Procedures Operation Date: 07/24/23 08:45 Actual Procedure Side Surgeon p Open Colectomy Right Denzel Richardson MD Postoperative plan narrative: 88-year-old man postoperative day 6 status post open right hemicolectomy. He has a postoperative ileus which is gradually resolving. -resume IV fluids -full liquid diet as tolerated Out of bed ambulate -SCDs and prophylactic Lovenox
[2023-07-30] MEDS: DEXTROSE 5%-0.45% NS 1,000 ML 100 ML IV ×2 (13:44→23:53)
--- NOTE | 2023-07-30 15:46 | DIET.CONS2 ---
Dietary Inpatient Consultation Note Admission Date: 07/24/2023 07:29 Spoke with pt and today to coordinate full liquid dinner option. Reports regular protein smoothie or ONS is too sweet. Coordinated with unit host/kitchen to make less sweet options for dinner. Will continue to monitor PO intake and tolerance to protein supplement variation. Diet: 07/30/23 Dinner Full Liquid Diet Diet Modifications: protein supplement with each meal Nutrition Percent Meal Consumed 0% 07/29/23 19:53 Percent Meal Consumed 5% 07/29/23 18:10 Percent Meal Consumed 0% 07/29/23 13:54 Percent Meal Consumed 50% 07/29/23 07:00 Percent Meal Consumed 25% 07/28/23 17:00 Electronically Signed by: Trina Camacho 07/30/23 15:46 Clinical Dietitian [address] [address]
[2023-07-30] MEDS: ONDANSETRON 4 MG/2 ML INJ IV ×2 (16:28→20:50)
[2023-07-30] MEDS: BICALUTAMIDE 50 MG TABLET PO (17:56)
[2023-07-31 02:03] VITALS: O2SAT 95
[2023-07-31 05:20] VITALS: BP 119/54; PULSE 71; RESP 12; TEMP 36.3; O2SAT 99
[2023-07-31 06:40] VITALS: O2SAT 99
[2023-07-31] MEDS: PANTOPRAZOLE DR 40 MG TABLET PO (06:45)
[2023-07-31 08:29] VITALS: BP 116/55; PULSE 71; RESP 16; TEMP 36.4; O2SAT 94
[2023-07-31 09:03] VITALS: PULSE 77; RESP 14; O2SAT 94
[2023-07-31] MEDS: ALBUTEROL 2.5 MG/3 ML NEB (ADULT) INH (09:03)
--- NOTE | 2023-07-31 09:28 | P.DS_ITS ---
History of Present Illness History of Present Illness Date Patient Seen: 07/31/23 Time Patient Seen: 09:31 Chief complaint: Colon Resection Narrative: Zbigniew is a 87-year-old man PMH BPH, emphysema, history of pacemaker for a new colon mass. He has a history of previous colon resection. 2019 he underwent a laparoscopic right hemicolectomy for suspicious appearing polyp, final pathology demonstrated a tubular adenoma with low-grade dysplasia negative for invasive carcinoma. Most recent colonoscopy performed 2022 which demonstrated several large tubular adenomas which were removed there was no mention of a mass. For the past year he has complaint of worsening lower abdominal pain and severe constipation. He feels ?obstructed and bloating ?, constipation is severe enough that he feels the need to cut his stools with tongs for concern they will clog the toilet. CT abdomen pelvis June 14, 2023 demonstrates a 5 cm colonic mass at the surgical staple line without mesenteric lymphadenopathy or metastatic disease. 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 Current with pulmonology. Performs activities of daily living without issue. Tolerated total knee arthroplasty 2022 without anesthetic or bleeding issues. Discharge Providers Provider Date of admission: 07/24/23 07:29 Discharge Date: 07/31/23 Primary care physician: Angle Domínguez MD Consults: 07/24/23 13:37 Consult to Discharge Planning Routine Comment: Consult to Occupational Therapy Evaluate & Treat Comment: Physician Instructions: Evaluate and treat Consult to Physical Therapy Evaluate & Treat Comment: Physician Instructions: Evaluate and Treat 07/24/23 15:48 Consult to Dietitian, Adult Routine Comment: cancer diagnosis Reason For Exam: some weight loose r/t diet changes for recent Discharge provider: Denzel Richardson MD Summary Hospital Course Discharge Diagnosis: Colon mass Hospital Course: Patient underwent an open right hemicolectomy July 23. He tolerated the operation well. Postoperatively he had a prolonged postoperative ileus which gradually resolved with conservative management. At the time of discharge he is ambulatory, pain is well controlled with nonnarcotic medication, he is tolerant of a diet with return of bowel function. Time Spent with Patient Time spent: Greater than 30 minutes Exam Vital Signs (past 8 hours): - 07/31/23 02:03 07/31/23 05:20 07/31/23 06:40 Temperature 97.4 F L Pulse Rate 71 Respiratory Rate 12 Blood Pressure 119/54 L Pulse Oximetry 95 99 99 Oxygen Delivery Method Room Air Room Air Oxygen Flow Rate 0 0 0 07/31/23 08:29 07/31/23 09:03 Temperature 97.5 F L Pulse Rate 71 77 Respiratory Rate 16 14 Blood Pressure 116/55 L Pulse Oximetry 94 94 Oxygen Delivery Method Room Air Oxygen Flow Rate 0 Fraction of Inspired Oxygen 21 SaO2/FiO2 Ratio 461 Oxygen Delivery Method Room Air Oxygen Flow Rate 0 Narrative Exam Narrative: General elderly man alert oriented no acute distress Chest nonlabored respiration Abdomen soft appropriately tender to palpation. Minimal distention. Dressing to midline clean dry intact. Objective Labs 07/27/23 14:10 07/25/23 06:23 [facility] Medical History (Updated 07/16/23 @ 10:53 by Maria M Doty RN) COPD (chronic obstructive pulmonary disease) Prostate cancer History of urinary retention Left epididymitis Left hydrocele Epididymal cyst Incomplete bladder emptying Peyronie's disease Elevated PSA BPH w urinary obs/LUTS Osteoarthritis Interstitial lung disease Detached retina, right (~1993) Eczema Arthritis 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) Gout Surgical History (Updated 07/16/23 @ 10:34 by Maria M Doty RN) History of total left knee replacement (11/22/22) H/O transurethral resection of prostate Hx of hernia repair (02/02/19) Hx of colonoscopy (~05/04/22) H/O circumcision H/O vasectomy Hx of hand surgery (~09/2018) History of left knee replacement (~03/2015) Hx of umbilical hernia repair (~1997) Hx of eye surgery (~1996) Status post correction of deviated nasal septum (~1993) History of testicular surgery (~1989) Hx of bilateral cataract extraction (~1986) Hx of arthroscopy of right knee (~1985) History of colon resection Hx of hernia repair Hx of knee surgery Social History marital status: household members: spouse lives independently: Yes occupational status: previously employed Smoking Status: Never smoker alcohol intake: current substance use type: does not use Discharge Plan Discharge Plan Patient Disposition: Home Provider Discharge Comment: -Okay to shower with dressing in place -Do not submerge wounds in water until seen in follow-up. -No lifting >10 lbs x 4 weeks. Discharge orders & Medications Prescriptions: New ibuprofen 200 mg tablet 400 mg PO Q6H Qty: 60 0RF acetaminophen [Tylenol] 325 mg capsule 650 mg PO QID PRN (Reason: pain) Qty: 60 0RF Continued allopurinol 100 mg tablet 200 mg PO DAILY bicalutamide 50 mg Tablet 50 mg PO DAILY albuterol sulfate [ProAir HFA] 90 mcg/actuation HFA aerosol inhaler 90 mcg INHALATION DAILY colchicine [Colcrys] 0.6 mg tablet 0.6 mg PO DAILY PRN (Reason: Gout flare) valacyclovir [Valtrex] 500 mg tablet 500 mg PO PRN PRN (Reason: herpes) Discontinued neomycin 500 mg tablet 1 g PO TID Qty: 6 0RF Rx Instructions: administer at 1 PM, 2 PM, and 10 PM the day prior to surgery metronidazole 500 mg tablet 500 mg PO TID Qty: 3 0RF Rx Instructions: administer at 1 PM, 2 PM, and 10 PM the day prior to surgery Follow up/Referrals: Denzel Richardson MD [Physician] - Diet/Activity/Treatments Diet: Diet as Tolerated Skin/Wound/Dressing Care Report to your healthcare provider any signs of infection, such as:: chills, fever, increased pain, unusual drainage and unusual redness Visit Report/Discharge Packet Stand Alone Forms: Patient Portal/API, Stroke Signs & Symptoms Discharge Data Primary Care Provider: Angle Domínguez
[2023-07-31] MEDS: allopurinoL 100 MG TABLET 200 MG PO (09:44)
[2023-07-31 10:00] VITALS: O2SAT 94
--- NOTE | 2023-07-31 10:19 | CM.DPC ---
DCP Cont. Reviewed EMR and team rounds for status updates. Pt has been medically cleared for d/c, no further DCP needs identified at this time. Spouse will transport home.
--- NOTE | 2023-07-31 12:20 | PC.NURSE ---
Patient is A&OX4, VSS, afebrile on RA he tolerates Full liquids althought does c/o of waves of nausea. He declined antiemetic. +BS, and passing flatus. Abdomen dressing C/D/I. Patient is evaluated by MD Richardson and is anxious to discharge home. He is cleared medically for discharge home with follow-up with MD Richardson's office 07/31. He and his verbalize understanding of discharge plan, site care, medications, worsening symptoms as well as follo up with MD Richardson. Patient is escorted via w/ch to private vehicle with his at 11 30a .m. with all of his belongings.
== END 2023-07-31 11:30 | disposition home or self-care (01) | DRG 330 ==
PROVIDERS: Surgery; Admitting Provider Surgery; PCP Internal Medicine; Referring Provider Surgery; Visit Provider Surgery
PROC: 0DTF0ZZ Resection of Right Large Intestine, Open Approach (ICD-10-PCS; CPT 44140; principal; 2023-07-24 08:45)
DX: C18.9 Malignant neoplasm of colon, unspecified (principal); K56.7 Ileus, unspecified; K91.89 Other postprocedural complications and disorders of digestive system; M10.9 Gout, unspecified; Z86.010 Personal history of colon polyps; Z85.46 Personal history of malignant neoplasm of prostate; Z95.0 Presence of cardiac pacemaker
CPT/HCPCS: 36415; 44160; 80048; 82962; 85025; 94640; 94760; 97161; 97165; 97530; 97535; C9290; J0136; J1100; J1170; J1650; J1956; J2405; J2704; J3010; J3490; J7613

== ENCOUNTER 2023-08-05 01:00 | Emergency (ER) | payer MEDICARE, OTHER, SELFPAY ==
[2023-07-24 15:41] VITALS: BMI 24.6
[2023-08-05] VITALS (11 sets, daily range): BP systolic 123–159; BP diastolic 66–77; PULSE 60–71; RESP 15–18; TEMP 36.9; O2SAT 93–100; BMI 25.7
--- NOTE | 2023-08-05 01:09 | DI.CT.S_ITS ---
PROCEDURE: CT ABDOMEN PELVIS W CON INDICATIONS: OOZING FROM MIDLINE INCISION TECHNIQUE: After the administration of intravenous contrast, axial sections acquired from the lung bases to the pubic symphysis. Coronal and sagittal reformats were performed. For radiation dose reduction, the following was used: automated exposure control, adjustment of mA and/or kV according to patient size. COMPARISON: [facility], CT, CT ABDOMEN PELVIS W CON, 06/14/2023, 15:37. FINDINGS: Image quality: Diagnostic. Lower Chest: Advanced emphysematous changes at bilateral lung bases are seen with features suggestive of pulmonary fibrosis. Heart size is enlarged, no pericardial effusion. Pacemaker leads are seen in right atrium and right ventricle. ABDOMEN: Liver: No solid mass. Tiny hypodensity involving inferior right hepatic lobe and is too small to characterize. Gallbladder: Gallbladder is distended. No radiopaque gallstones or wall thickening. Biliary ducts: No biliary dilation. Pancreas: No ductal dilation. Spleen: Size is within normal limits. Adrenal Glands: No adrenal nodules. Kidneys and Ureters: No hydronephrosis. No solid mass. Simple appearing left renal cyst measures 1.5 x 1.3 cm in size is again seen unchanged from prior study. No complex renal cystic lesion which requires follow up. Stomach and Bowel: Patient is status post interval right-sided hemicolectomy with postsurgical changes. Surgical anastomosis is grossly intact. There is no evidence of bowel obstruction. Mild fecal stasis in the colon is seen. No gross abnormal bowel wall thickening. Nonspecific mesenteric fat stranding in right abdomen is seen likely represent postsurgical changes. Peritoneum: There is no peritoneal free air. No peritoneal free fluid or discrete drainable abscess collection. Ventral Wall: No significant ventral hernia. Postsurgical changes are noted in midline abdomen with skin mariana seen. Underlying subcutaneous fat stranding and non continuous subcutaneous small fluid collections are noted without peripheral enhancement or thick capsule. Abdominal Nodes: No retroperitoneal or mesenteric adenopathy by size criteria. Vessels: Aorta and inferior vena cava are normal in size. PELVIS: Pelvic Organs: Unremarkable. Bladder: No bladder wall thickening, accounting for underdistention. Pelvic Nodes: No enlarged lymph nodes. Miscellaneous: No inguinal hernias are seen. Bones: No aggressive osseous abnormality.. IMPRESSION: 1. Postsurgical changes from right hemicolectomy. Anastomosis is grossly intact. No abnormal bowel wall thickening. No free fluid of free air. No discrete drainable abscess collection. 2. Postsurgical changes in midline anterior abdominal wall with ill-defined small subcutaneous soft tissue fluid collection likely represent organizing hematoma or seroma. Overall appearance is not suggestive of abscess collection. 3. Distended gallbladder. No CT evidence of acute cholecystitis. No significant discrepancies from preliminary reading. Dictated by: Garth Wall M.D. on 08/05/2023 at 8:06 Approved by: Garth Wall M.D. on 08/05/2023 at 8:15
--- NOTE | 2023-08-05 01:13 | ED.WOUNDLAC ---
HPI - Wound/Laceration General Chief Complaint: Wound/Laceration Stated Complaint: Wound check Time Seen by Provider: 08/05/23 01:00 History of Present Illness HPI narrative: 88-year-old male with history of pacemaker, pulmonary fibrosis presents by EMS from home for leaking abdominal wound. Patient underwent open right hemicolectomy on 07/24/2023 for abdominal mass. Patient states that he went to bed around 11:00 p.m. and when he woke up the dressing was saturated so he called 911. Patient states he has been recovering uneventfully from surgery and has had no abdominal pain. Related Data Home Medications Medication Instructions Recorded Confirmed allopurinol 100 mg tablet 200 mg PO DAILY 05/05/19 07/16/23 valacyclovir 500 mg tablet 500 mg PO PRN PRN herpes 05/10/22 07/16/23 (Valtrex) albuterol sulfate 90 mcg/actuation 90 mcg inhalation DAILY 11/22/22 07/24/23 aerosol inhaler (ProAir HFA) colchicine 0.6 mg tablet (Colcrys) 0.6 mg PO DAILY PRN Gout flare 04/11/23 07/16/23 bicalutamide 50 mg tablet 50 mg PO DAILY 07/16/23 07/16/23 Previous Rx's Medication Instructions Recorded acetaminophen 325 mg capsule 650 mg (2 x 325 mg) PO QID PRN 07/31/23 (Tylenol) pain #60 caps ibuprofen 200 mg tablet 400 mg (2 x 200 mg) PO Q6H #60 tabs 07/31/23 Allergies Allergy/AdvReac Type Severity Reaction Status Date / Time cephalexin [From Keflex] Allergy Severe Anaphylaxis Verified 07/24/23 07:56 nickel Allergy Severe Rash Verified 07/24/23 07:56 Sulfa (Sulfonamide Allergy Severe Hives Verified 07/24/23 07:56 Antibiotics) Review of Systems Review of Systems Narrative: See HPI Patient History Medical History COPD (chronic obstructive pulmonary disease) Prostate cancer History of urinary retention Left epididymitis Left hydrocele Epididymal cyst Incomplete bladder emptying Peyronie's disease Elevated PSA BPH w urinary obs/LUTS Osteoarthritis Interstitial lung disease Detached retina, right (~1993) Eczema Arthritis 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) Gout Surgical History History of total left knee replacement (11/22/22) H/O transurethral resection of prostate Hx of hernia repair (02/02/19) Hx of colonoscopy (~05/04/22) H/O circumcision H/O vasectomy Hx of hand surgery (~09/2018) History of left knee replacement (~03/2015) Hx of umbilical hernia repair (~1997) Hx of eye surgery (~1996) Status post correction of deviated nasal septum (~1993) History of testicular surgery (~1989) Hx of bilateral cataract extraction (~1986) Hx of arthroscopy of right knee (~1985) History of colon resection Hx of hernia repair Hx of knee surgery Social History marital status: household members: spouse lives independently: Yes occupational status: previously employed Smoking Status: Never smoker alcohol intake: current substance use type: does not use Smoking Status: Never smoker alcohol intake frequency: a few times a week Substance Use Type: does not use Exam Narrative Exam Narrative: Const: Awake, alert, no acute distress, nontoxic appearing Cardiac: regular rate, regular rhythm RESP: unlabored, clear bilaterally, no wheezing GI: Brusing lower abdomen, Surgical wound covered in saturated serosanguinous bandage. Robby intact Skin: Postoperative bruising as expected over abdominal wound Neuro: AO x3, CN II-XII grossly intact, moves all extremities Initial Vital Signs Initial Vital Signs: Vital Signs Pulse Rate 71 08/05/23 01:06 Pulse Oximetry 97 08/05/23 01:06 Course Orders Ordered: ED Orders 08/05/23 01:09 CT abdomen pelvis w con Stat 08/05/23 01:20 UA Complete [Urinalysis and Microscopic] Stat 08/05/23 01:50 CBC Auto Diff [Complete Blood Count AUTO DIFF] Stat CMP [Comprehensive Metabolic Panel] Stat Lipase Stat Sodium Chloride (Sodium Chloride 0.9% Flush) 10 ml IV BID KASIA Sodium Chloride (Sodium Chloride 0.9% Flush) 10 ml IV PRN PRN PRN Reason: Flush Vital Signs Vital signs: Vital Signs - 8 hr 08/05/23 01:06 08/05/23 01:07 08/05/23 01:07 Temperature 98.4 F Pulse Rate 71 60 71 Respiratory Rate 18 Blood Pressure 159/77 H Pulse Oximetry 97 100 93 Oxygen Delivery Method Room Air 08/05/23 01:07 08/05/23 02:09 08/05/23 02:10 Temperature Pulse Rate 65 64 Respiratory Rate Blood Pressure 159/77 H Pulse Oximetry 97 98 Oxygen Delivery Method 08/05/23 02:10 08/05/23 02:30 08/05/23 02:30 Temperature Pulse Rate 68 Respiratory Rate 18 Blood Pressure 145/73 H 156/70 H Pulse Oximetry 98 Oxygen Delivery Method MDM - Wound/Laceration Lab Data 08/05/23 01:50 08/05/23 01:50 Labs: Lab Results 08/05/23 08/05/23 Range/Units 01:20 01:50 WBC 5.9 (4.5-11.0) X10^3/uL RBC 3.66 L (4.5-5.9) X10^6/uL Hgb 11.3 L (13.5-17.5) g/dL Hct 33.6 L (41-53) % MCV 91.9 (80-100) fL MCH 30.9 (26-34) PG MCHC 33.6 (30-36) % RDW 14.2 (11.6-14.8) % Plt Count 482 H (150-400) X10^3/uL Neut % (Auto) 57.1 (50-75) % Lymph % (Auto) 22.1 L (25-40) % [place] % (Auto) 10.3 (3-14) % Eos % (Auto) 9.5 H (2-4) % Baso % (Auto) 1.0 (0-2) % Neut # (Auto) 3400 (1176-0654) /uL Lymph # (Auto) 1300 (3016-7100) /uL [place] # (Auto) 600 (0-900) /uL Eos # (Auto) 600 H (0-450) /uL Baso # (Auto) 100 (0-100) /uL Sodium 139 (137-145) mmol/L Potassium 3.4 (3.4-5.1) mmol/L Chloride 102 (98-107) mmol/L Carbon Dioxide 31 (22-32) mmol/L BUN 7 L (9-20) mg/dL Creatinine 0.68 (0.66-1.25) mg/dL Estimated GFR > 60 (>60) mL/min BUN/Creatinine Ratio 10.3 (6-22) Glucose 100 (80-110) mg/dL Calcium 9.3 (8.4-10.2) mg/dL Total Bilirubin 0.5 (0.2-1.3) mg/dL AST 36 (17-59) IU/L ALT 25 (<50) IU/L Alkaline Phosphatase 76 (38-126) U/L Total Protein 7.6 (6.3-8.2) g/dL Albumin 4.2 (3.5-5.0) g/dL Globulin 3.4 (1.7-4.1) g/dL Albumin/Globulin Ratio 1.2 (1.0-2.8) Lipase 187 (23-300) U/L Urine Color Yellow Urine Appearance Clear Urine pH 7.0 (4.5-8.0) Ur Specific [place] <=1.005 (1.000-1.035) Urine Protein Negative (Negative) Urine Glucose (UA) Negative (Negative) g/dL Urine Ketones Negative (NEGATIVE) Urine Occult Blood Negative (Negative) Urine Nitrate Negative (Negative) Urine Bilirubin Negative (NEGATIVE) Urine Urobilinogen 0.2 (0.2) E.U./dL Ur Leukocyte Esterase Negative (NEGATIVE) Urine RBC None seen (0-5/HPF) Urine WBC None seen (0-5/HPF) Ur Squamous Epith Cells None seen (0-5/HPF) Urine Bacteria None seen (None) Ur Culture Indicated? Cult not indicated Vol Urine Centrifuged 10ml (spun) MDM Narrative Medical decision making narrative: Well-appearing patient with postoperative drainage from his surgical site. Wound appears to be healing well, however there is a small opening in the incision near the umbilicus draining serosanguinous material. No tenderness to palpation. [place] are intact. Laboratory work shows no leukocytosis. CT of the abdomen and pelvis shows ?small discontinuous midline abdominal wall fluid collection, possibly resolving hematoma or seroma. No obvious abscess or fistula?. Case discussed with patient's surgeon Dr. Richardson, who recommended that patient's surgical site be left covered in clean bandages and to follow up in clinic. Patient informed of all lab and imaging findings as well as General surgery recommendations. He has scheduled follow up already in 4 days. He was advised to see if he could move his appointment forward Discharge Plan Departure Patient Disposition: Home Clinical Impression: Abdominal wall seroma Instructions: How to Care for a Surgical Wound Activity Restrictions/Additional Instructions: Your laboratory work is normal, your CT showed that you have a small fluid collection in your abdominal wall which is likely something called a ?seroma?. This is not dangerous it was not need antibiotics. Please call Dr. Richardson's office to see if you can move your appointment this week forward. Prescriptions: No Action allopurinol 100 mg tablet 200 mg PO DAILY bicalutamide 50 mg Tablet 50 mg PO DAILY ibuprofen 200 mg tablet 400 mg PO Q6H Qty: 60 0RF acetaminophen [Tylenol] 325 mg capsule 650 mg PO QID PRN (Reason: pain) Qty: 60 0RF albuterol sulfate [ProAir HFA] 90 mcg/actuation HFA aerosol inhaler 90 mcg INHALATION DAILY colchicine [Colcrys] 0.6 mg tablet 0.6 mg PO DAILY PRN (Reason: Gout flare) valacyclovir [Valtrex] 500 mg tablet 500 mg PO PRN PRN (Reason: herpes) Referrals: Angle Domínguez MD [Primary Care Provider] - Denzel Richardson MD [Physician] - Stand Alone Forms: Patient Portal/API
[2023-08-05 01:27] LABS: Appearance Urine UA CLEAR; Bilirubin Urine UA NEGATIVE (NEGATIVE); Color Urine UA YELLOW; Glucose Urine UA NEGATIVE (Negative); Ketones Urine UA NEGATIVE (NEGATIVE); Leukocyte Esterase Urine UA NEGATIVE (NEGATIVE); Nitrite Urine UA NEGATIVE (Negative); Occult Blood Urine UA NEGATIVE (Negative); Protein Urine UA NEGATIVE (Negative); Specific Gravity Urine UA <=1.005 (1.000-1.035); Urobilinogen Urine UA 0.2 E.U./dL (0.2)
[2023-08-05 01:32] LABS: Urine Volume 10mL (spun)
[2023-08-05 01:33] LABS: Bacteria Urine None Seen; Culture Indicated Urine Cult Not Indicated; RBC Urine None Seen (0-5/HPF); Squamous Epithelial Cell Urine None Seen (0-5/HPF); WBC Urine None Seen (0-5/HPF)
[2023-08-05 02:01] LABS: Add Manual Diff / Slide Review NO; Basophils Absolute Auto 100 /uL (0-100); Eosinophils Absolute Auto 600 /uL (0-450); Eosinophils Percent Auto 9.5 % (2-4); Hematocrit 33.6 % (41-53); Hemoglobin 11.3 g/dL (13.5-17.5); Lymphocytes Absolute Auto 1300 /uL (1100-4500); Lymphocytes Percent Auto 22.1 % (25-40); Mean Corpuscular HGB Conc 33.6 % (30-36); Mean Corpuscular Hemoglobin 30.9 PG (26-34); Mean Corpuscular Volume 91.9 fL (80-100); Monocytes Absolute Auto 600 /uL (0-900); Monocytes Percent Auto 10.3 % (3-14); Neutrophils Absolute Auto 3400 /uL (1500-7000); Neutrophils Percent Auto 57.1 % (50-75); Platelet Count 482 X10^3/uL (150-400); Red Blood Cell Count 3.66 X10^6/uL (4.5-5.9); Red Cell Distribution Width 14.2 % (11.6-14.8); White Blood Cell Count 5.9 X10^3/uL (4.5-11.0)
[2023-08-05 02:07] LABS: Alanine Aminotransferase 25 IU/L (<50); Albumin 4.2 g/dL (3.5-5.0); Albumin Globulin Ratio 1.2 (1.0-2.8); Alkaline Phosphatase 76 U/L (38-126); Aspartate Aminotransferase 36 IU/L (17-59); BUN Creatinine Ratio 10.3 (6-22); Bilirubin Total 0.5 mg/dL (0.2-1.3); Blood Urea Nitrogen 7 mg/dL (9-20); Calcium 9.3 mg/dL (8.4-10.2); Carbon Dioxide 31 mmol/L (22-32); Chloride 102 mmol/L (98-107); Estimated Glomerular Filt Rate > 60 mL/min (>60); Globulin 3.4 g/dL (1.7-4.1); Glucose 100 mg/dL (80-110); HEMOLYSIS < 15 (0-50); Lipase 187 U/L (23-300); Potassium 3.4 mmol/L (3.4-5.1); Sodium 139 mmol/L (137-145); Total Protein 7.6 g/dL (6.3-8.2)
--- NOTE | 2023-08-05 06:34 | PC.NURSE ---
Discussed dressing with Dr. Boateng and discussed a tiara dressing. Dr. Boateng gave verbal order to place dressing. Instructed patient and on dressing use. verbally repeated instructions and demonstrated use of pump.
== END 2023-08-05 06:34 | disposition home or self-care (01) ==
PROVIDERS: Emergency Provider Emergency Medicine; PCP Internal Medicine
DX: L76.34 Postprocedural seroma of skin and subcutaneous tissue following other procedure (principal)
CPT/HCPCS: 36415; 74177; 80053; 81001; 83690; 85025; 99283; 99284; Q9967

== ENCOUNTER → 2023-08-20 13:18 | Outpatient (CLI) | payer MEDICARE, OTHER, SELFPAY ==
[2023-07-24 15:41] VITALS: BMI 24.6
[2023-08-20 15:55] LABS: Carcinoembryonic Antigen 3.2 ng/mL (0.1-3.0)
== END ==
LOC: LAB 13:20
PROVIDERS: PCP Internal Medicine; Referring Provider Surgery; Visit Provider Surgery
DX: C80.1 Malignant (primary) neoplasm, unspecified (principal)
CPT/HCPCS: 36415; 82378

== ENCOUNTER → 2023-09-20 13:59 | Outpatient (CLI) | payer MEDICARE, OTHER, SELFPAY ==
[2023-07-24 15:41] VITALS: BMI 24.6
[2023-09-20 16:10] LABS: Prostate Specific Antigen < 0.064 ng/mL (0.10-4.00)
== END ==
LOC: LAB 13:59
PROVIDERS: PCP Internal Medicine; Referring Provider Specialist; Visit Provider Specialist
DX: C61 Malignant neoplasm of prostate (principal); R97.20 Elevated prostate specific antigen [PSA]
CPT/HCPCS: 36415; 84153

== ENCOUNTER → 2023-10-29 12:53 | Outpatient (CLI) | payer MEDICARE, OTHER, SELFPAY ==
[2023-07-24 15:41] VITALS: BMI 24.6
[2023-10-29 14:45] LABS: Erythrocyte Sedimentation Rate > 140 MM/HR (0-15)
[2023-10-29 14:53] LABS: Alanine Aminotransferase 15 IU/L (<50); Albumin 3.5 g/dL (3.5-5.0); Alkaline Phosphatase 78 U/L (38-126); Aspartate Aminotransferase 24 IU/L (17-59); BUN Creatinine Ratio 14.7 (6-22); Bilirubin Total 0.6 mg/dL (0.2-1.3); Blood Urea Nitrogen 11 mg/dL (9-20); Calcium 8.9 mg/dL (8.4-10.2); Carbon Dioxide 26 mmol/L (22-32); Chloride 100 mmol/L (98-107); Estimated Glomerular Filt Rate > 60 mL/min (>60); Globulin 3.4 g/dL (1.7-4.1); Glucose 106 mg/dL (80-110); HEMOLYSIS < 15 (0-50); Potassium 4.4 mmol/L (3.4-5.1); Sodium 135 mmol/L (137-145); Total Protein 6.9 g/dL (6.3-8.2); Uric Acid 3.4 mg/dL (3.5-8.5)
[2023-10-29 14:56] LABS: Rheumatoid Factor 11.6 IU/mL (<12.0)
[2023-10-31 09:36] LABS: CCP Antibodies IgG/IgA 2 units (0-19)
[2023-10-31 22:10] LABS: ANA Screen, IFA Negative (.)
== END ==
PROVIDERS: PCP Internal Medicine; Referring Provider Internal Medicine; Visit Provider Internal Medicine
DX: M10.9 Gout, unspecified (principal); M25.50 Pain in unspecified joint
CPT/HCPCS: 36415; 80053; 84550; 85651; 86038; 86140; 86200; 86430

== ENCOUNTER 2023-12-13 14:28 | Emergency (ER) | payer MEDICARE, OTHER, SELFPAY ==
[2023-07-24 15:41] VITALS: BMI 24.6
[2023-12-13] VITALS (13 sets, daily range): BP systolic 105–146; BP diastolic 58–80; PULSE 79–111; RESP 14–26; TEMP 36.6; O2SAT 92–99; BMI 25.0
[2023-12-13 15:10] LABS: Add Manual Diff / Slide Review NO; Basophils Absolute Auto 100 /uL (0-100); Eosinophils Absolute Auto 200 /uL (0-450); Hemoglobin 9.9 g/dL (13.5-17.5); Lymphocytes Absolute Auto 1200 /uL (1100-4500); Lymphocytes Percent Auto 13.7 % (25-40); Mean Corpuscular Hemoglobin 29.2 PG (26-34); Mean Corpuscular Volume 88.4 fL (80-100); Monocytes Absolute Auto 800 /uL (0-900); Monocytes Percent Auto 9.2 % (3-14); Neutrophils Absolute Auto 6300 /uL (1500-7000); Neutrophils Percent Auto 74.1 % (50-75); Platelet Count 415 X10^3/uL (150-400); Red Blood Cell Count 3.39 X10^6/uL (4.5-5.9); White Blood Cell Count 8.4 X10^3/uL (4.5-11.0)
[2023-12-13 15:13] LABS: Alanine Aminotransferase 31 IU/L (<50); Albumin Globulin Ratio 1.2 (1.0-2.8); Alkaline Phosphatase 69 U/L (38-126); Aspartate Aminotransferase 39 IU/L (17-59); BUN Creatinine Ratio 16.4 (6-22); Bilirubin Total 0.5 mg/dL (0.2-1.3); Blood Urea Nitrogen 12 mg/dL (9-20); Calcium 9.3 mg/dL (8.4-10.2); Carbon Dioxide 25 mmol/L (22-32); Chloride 102 mmol/L (98-107); Estimated Glomerular Filt Rate > 60 mL/min (>60); Globulin 3.4 g/dL (1.7-4.1); Glucose 127 mg/dL (80-110); Lipase 64 U/L (23-300); Potassium 4.3 mmol/L (3.4-5.1); Sodium 135 mmol/L (137-145); Total Protein 7.4 g/dL (6.3-8.2)
[2023-12-13 15:14] LABS: HEMOLYSIS 62 (0-50)
--- NOTE | 2023-12-13 15:32 | ED_ITS ---
HPI - Abdominal Pain General Chief Complaint: Abdominal Pain Stated Complaint: bowel obstruction, sent by Dr. Richardson Time Seen by Provider: 12/13/23 15:01 History of Present Illness HPI narrative: 88-year-old male with history of colon cancer status post partial resection July 2023, also has a more recent diagnosis of prostate cancer, awaiting possible chemotherapy for one or both cancers, has had right-sided abdominal discomfort and some distention, last bowel movement this morning small amount, no black or red color with that bowel movement. No nausea or vomiting. No fevers or chills. No black or red stools. No fevers or chills. No painful or frequent urinations. No chest pain or shortness of breath. Related Data Home Medications Medication Instructions Recorded Confirmed allopurinol 100 mg tablet 200 mg PO DAILY 05/05/19 10/01/23 albuterol sulfate 90 mcg/actuation 90 mcg inhalation DAILY 11/22/22 10/01/23 aerosol inhaler (ProAir HFA) Previous Rx's Medication Instructions Recorded acetaminophen 325 mg capsule 650 mg (2 x 325 mg) PO QID PRN 07/31/23 (Tylenol) pain #60 caps ibuprofen 200 mg tablet 400 mg (2 x 200 mg) PO Q6H #60 tabs 07/31/23 megestrol 20 mg tablet 20 mg PO BID #180 tabs 10/03/23 lactulose 20 gram/30 mL oral 20 g (30 mL) PO BID #300 mL 12/13/23 solution Allergies Allergy/AdvReac Type Severity Reaction Status Date / Time cephalexin [From Keflex] Allergy Severe Anaphylaxis Verified 08/15/23 13:11 nickel Allergy Severe Rash Verified 08/15/23 13:11 Sulfa (Sulfonamide Allergy Severe Hives Verified 08/15/23 13:11 Antibiotics) Review of Systems Review of Systems Narrative: see HPI Patient History Medical History COPD (chronic obstructive pulmonary disease) Prostate cancer History of urinary retention Left epididymitis Left hydrocele Epididymal cyst Incomplete bladder emptying Peyronie's disease Elevated PSA BPH w urinary obs/LUTS Osteoarthritis Interstitial lung disease Detached retina, right (~1993) Eczema Arthritis 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) Gout Surgical History History of total left knee replacement (11/22/22) H/O transurethral resection of prostate Hx of hernia repair (02/02/19) Hx of colonoscopy (~05/04/22) H/O circumcision H/O vasectomy Hx of hand surgery (~09/2018) History of left knee replacement (~03/2015) Hx of umbilical hernia repair (~1997) Hx of eye surgery (~1996) Status post correction of deviated nasal septum (~1993) History of testicular surgery (~1989) Hx of bilateral cataract extraction (~1986) Hx of arthroscopy of right knee (~1985) History of colon resection Hx of hernia repair Hx of knee surgery Social History marital status: household members: spouse lives independently: Yes occupational status: previously employed Smoking Status: Never smoker alcohol intake: current substance use type: does not use Smoking Status: Never smoker alcohol intake frequency: a few times a week Substance Use Type: does not use Exam Narrative Exam Narrative: GENERAL: Well-developed patient, in mild distress. HEAD: Atraumatic. Normocephalic. EYES: Pupils equal round and reactive. Extraocular motions intact. No scleral icterus. No injection or drainage. ENT: Nose without bleeding, purulent drainage. Throat without erythema, tonsillar hypertrophy or exudate. Airway patent. NECK: Trachea midline. Non tender CARDIOVASCULAR: Regular rate and rhythm without murmurs, gallops, or rubs. RESPIRATORY: Clear to auscultation. Breath sounds equal bilaterally. No wheezes, rales, or rhonchi. GASTROINTESTINAL: Abdominal tenderness mild right middle quadrant, no obvious ventral midline or other incisional hernia. No guarding or rebound. Unremarkable bowel tones EXTREMITIES: No edema or joint tenderness. BACK: Nontender without deformity or crepitance. No flank tenderness. NEURO: AOx3. SKIN: No rash or erythema of visible areas Initial Vital Signs Initial Vital Signs: Vital Signs Temperature 97.8 F 12/13/23 14:35 Pulse Rate 111 H 12/13/23 14:35 Respiratory Rate 16 12/13/23 14:35 Blood Pressure 120/70 12/13/23 14:35 Pulse Oximetry 97 12/13/23 14:35 Oxygen Delivery Method Room Air 12/13/23 14:35 Course Orders Ordered: ED Orders 12/13/23 14:52 Complete Blood Count AUTO DIFF Stat Comprehensive Metabolic Panel Stat Lipase Stat 12/13/23 16:02 EKG-12 Lead Stat 12/13/23 16:19 CT abdomen pelvis w con Stat Discontinued Medications Lactulose (Lactulose 20 Gm/30 Ml Solution) 20 gm PO NOW ONE Stop: 12/13/23 17:22 Last Admin: 12/13/23 17:53 Dose: 20 gm Documented By: MONICA Vital Signs Vital signs: Vital Signs - 8 hr 12/13/23 14:35 12/13/23 15:35 12/13/23 15:36 Temperature 97.8 F Pulse Rate 111 H 100 H 97 H Respiratory Rate 16 22 23 Blood Pressure 120/70 Pulse Oximetry 97 96 96 Oxygen Delivery Method Room Air 12/13/23 15:36 12/13/23 15:54 12/13/23 15:54 Temperature Pulse Rate 100 H Respiratory Rate 26 H Blood Pressure 144/80 H 146/68 H Pulse Oximetry 98 Oxygen Delivery Method 12/13/23 16:00 12/13/23 16:00 12/13/23 16:40 Temperature Pulse Rate 92 H Respiratory Rate 24 Blood Pressure 132/76 Pulse Oximetry 99 99 Oxygen Delivery Method 12/13/23 16:42 12/13/23 16:42 12/13/23 17:00 Temperature Pulse Rate 86 79 Respiratory Rate 21 24 Blood Pressure 141/69 H Pulse Oximetry 93 92 Oxygen Delivery Method 12/13/23 17:01 12/13/23 17:01 12/13/23 17:30 Temperature Pulse Rate 79 Respiratory Rate 24 Blood Pressure 120/58 L 105/71 Pulse Oximetry 97 Oxygen Delivery Method 12/13/23 17:30 12/13/23 17:40 12/13/23 17:40 Temperature Pulse Rate 86 81 Respiratory Rate Blood Pressure 130/63 Pulse Oximetry 98 97 Oxygen Delivery Method 12/13/23 18:00 12/13/23 18:00 12/13/23 18:36 Temperature Pulse Rate 83 80 Respiratory Rate 14 Blood Pressure 141/75 H 141/75 H Pulse Oximetry 96 99 Oxygen Delivery Method Room Air MDM - Abdominal Pain Lab Data Attestation: I reviewed the patient's lab results. 12/13/23 14:52 09/06/24 14:52 Labs: Lab Results 12/13/23 Range/Units 14:52 WBC 8.4 (4.5-11.0) X10^3/uL RBC 3.39 L (4.5-5.9) X10^6/uL Hgb 9.9 L (13.5-17.5) g/dL Hct 30.0 L (41-53) % MCV 88.4 (80-100) fL MCH 29.2 (26-34) PG MCHC 33.0 (30-36) % RDW 20.0 H (11.6-14.8) % Plt Count 415 H (150-400) X10^3/uL Neut % (Auto) 74.1 (50-75) % Lymph % (Auto) 13.7 L (25-40) % [place] % (Auto) 9.2 (3-14) % Eos % (Auto) 2.0 (2-4) % Baso % (Auto) 1.0 (0-2) % Neut # (Auto) 6300 (8230-0711) /uL Lymph # (Auto) 1200 (5591-2560) /uL [place] # (Auto) 800 (0-900) /uL Eos # (Auto) 200 (0-450) /uL Baso # (Auto) 100 (0-100) /uL Sodium 135 L (137-145) mmol/L Potassium 4.3 (3.4-5.1) mmol/L Chloride 102 (98-107) mmol/L Carbon Dioxide 25 (22-32) mmol/L BUN 12 (9-20) mg/dL Creatinine 0.73 (0.66-1.25) mg/dL Estimated GFR > 60 (>60) mL/min BUN/Creatinine Ratio 16.4 (6-22) Glucose 127 H (80-110) mg/dL Calcium 9.3 (8.4-10.2) mg/dL Total Bilirubin 0.5 (0.2-1.3) mg/dL AST 39 (17-59) IU/L ALT 31 (<50) IU/L Alkaline Phosphatase 69 (38-126) U/L Total Protein 7.4 (6.3-8.2) g/dL Albumin 4.0 (3.5-5.0) g/dL Globulin 3.4 (1.7-4.1) g/dL Albumin/Globulin Ratio 1.2 (1.0-2.8) Lipase 64 (23-300) U/L Point of care testing: Urine Dip Bedside Urine Glucose Negative Bedside Urine Bilirubin - Negative Bedside Urine Ketone - Negative Urine Specific [place] 1.010 Bedside Urine Occult Blood - Negative Bedside Urine Protein - Negative Bedside Urine Urobilinogen - Negative Bedside Urine Nitrite - Negative Bedside Urine Leukocytes - Negative Esterase MDM Narrative Medical decision making narrative: 88-year-old male with history of colon cancer, resection history, prostate cancer, awaiting chemotherapy, right-sided abdominal discomfort despite home MiraLax and bowel movement earlier this morning. Afebrile, sirs screen negative. Some tenderness right middle quadrant, no obvious ventral hernia. DDx consider bowel obstruction, colitis, diverticulitis, perforated viscus, peptic ulcer, pancreatitis, choledocholithiasis, internal hernia, other. Patient declines pain medication at this time. Labs pending. Hemoglobin 9.9, no signs and symptoms GI bleeding. GFR adequate, CT abdomen and pelvis with IV contrast ordered. Keep NPO CT shows no acute changes. Trial of lactulose, dose given, Rx sent to his pharmacy. Follow-up with PCP and oncology as planned. Return precautions discussed Discharge Plan Departure Patient Disposition: Home Clinical Impression: Abdominal pain, Constipation Activity Restrictions/Additional Instructions: Abdominal discomfort, concern for constipation, not responsive to MiraLax thus far. CT scan abdomen and pelvis tonight showed no obstruction or acute inflammatory changes. Consider lactulose for the next couple of days to see if your bowels move easier. Consider [id number] Fleet's enemas if needed. Recheck with your regular provider if symptoms persist Saturday after this weekend. Drink plenty of fluids. Return earlier to this/nearest emergency department for any change worsening symptoms or any concerns prior Prescriptions: New lactulose 20 gram/30 mL solution 20 g PO BID Qty: 300 0RF No Action megestrol 20 mg tablet 20 mg PO BID Qty: 180 3RF allopurinol 100 mg tablet 200 mg PO DAILY ibuprofen 200 mg tablet 400 mg PO Q6H Qty: 60 0RF acetaminophen [Tylenol] 325 mg capsule 650 mg PO QID PRN (Reason: pain) Qty: 60 0RF albuterol sulfate [ProAir HFA] 90 mcg/actuation HFA aerosol inhaler 90 mcg INHALATION DAILY Referrals: Angle Domínguez MD [Primary Care Provider] - Stand Alone Forms: Patient Portal/API
--- NOTE | 2023-12-13 16:02 | EKG_ITS ---
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
--- NOTE | 2023-12-13 16:10 | PC.NURSE ---
The patient had an appointment earlier this week at the cancer center. They wanted him to have an empty colon and full bladder. The procedure was not successful because he did not have a clear colon. The patient was instructed to go home and change his diet to low fiber and also take stool softeners. He states for the last week he has been having intermittent constipation and passes really hard stool followed by soft stool. He stated a concern that he was obstructed since he had prior abd surgery with resection. he called Dr. Hutchison's office and spoke to the nurse and told them about his constipation and abd pain and the nurse told him that dr hutchison wanted him to get evaluated by the ER. He is currently not in pain and passed bm this morning. He denies nausea, vomiting at this time. He also had a TURP with Dr Stoddard a year ago and since then has been having intermittent buring when urinating. He states that he feels like he empties his bladder fully and frequently and does not feel fullness after voiding. He had concerns that these two symptom sets were connected and he was concerned that if he was obstructed that he would not get his study at the cancer center and that he would also get really sick. He states the only meds hes taking is allopurinol and prednisone which he stated 2 weeks ago.
--- NOTE | 2023-12-13 16:19 | DI.CT.S_ITS ---
PROCEDURE: CT ABDOMEN PELVIS W CON INDICATIONS: abd pain TECHNIQUE: After the administration of intravenous contrast, axial sections acquired from the lung bases to the pubic symphysis. Coronal and sagittal reformats were performed. For radiation dose reduction, the following was used: automated exposure control, adjustment of mA and/or kV according to patient size. COMPARISON: [facility], CT, CT ABDOMEN PELVIS W CON, 08/05/2023, 1:38. FINDINGS: Image quality: Diagnostic. Lower Chest: No significant findings. ABDOMEN: Liver: No solid mass. Hepatic steatosis. Punctate low-attenuation focus within the liver too small to definitively characterize, cyst is locally simple cyst. Gallbladder: No radiopaque gallstones or wall thickening. Biliary ducts: No biliary dilation. Pancreas: No ductal dilation. Spleen: Size is within normal limits. Adrenal Glands: No adrenal nodules. Kidneys and Ureters: No hydronephrosis. No solid mass. No complex renal cystic lesion which requires follow up. Simple left renal cyst. Stomach and Bowel: Normal colonic caliber, without significant wall thickening. Diverticulosis. Peritoneum: No abnormal intraperitoneal fluid. No free air. Ventral Wall: No significant ventral hernia. Abdominal Nodes: No retroperitoneal or mesenteric adenopathy by size criteria. Vessels: Aorta and inferior vena cava are normal in size. PELVIS: Pelvic Organs: Unremarkable. Bladder: No bladder wall thickening, accounting for underdistention. Pelvic Nodes: No enlarged lymph nodes. Miscellaneous: No inguinal hernias are seen. Bones: No aggressive osseous abnormality. IMPRESSION: No visualized acute intra-abdominal or pelvic process. Diverticulosis. Dictated by: Neelam Segura M.D. on 12/13/2023 at 16:39 Approved by: Neelam Segura M.D. on 12/13/2023 at 16:41
[2023-12-13] MEDS: LACTULOSE 20 GM/30 ML SOLUTION PO (17:53)
== END 2023-12-13 18:41 | disposition home or self-care (01) ==
PROVIDERS: Emergency Provider Emergency Medicine; PCP Internal Medicine
DX: R10.9 Unspecified abdominal pain (principal); C61 Malignant neoplasm of prostate; K59.00 Constipation, unspecified; C18.9 Malignant neoplasm of colon, unspecified
CPT/HCPCS: 36415; 74177; 80053; 81003; 83690; 85025; 93005; 99284

== ENCOUNTER → 2024-02-12 14:43 | Outpatient (CLI) | payer MEDICARE, OTHER, SELFPAY ==
[2023-07-24 15:41] VITALS: BMI 24.6
[2024-02-12 16:19] LABS: Prostate Specific Antigen < 0.064 ng/mL (0.10-4.00)
== END ==
PROVIDERS: PCP Nurse Practitioner Adult Health; Referring Provider Radiology Radiation Oncology; Visit Provider Radiology Radiation Oncology
DX: C61 Malignant neoplasm of prostate (principal); J43.9 Emphysema, unspecified; J84.10 Pulmonary fibrosis, unspecified
CPT/HCPCS: 36415; 84153; 99214

== ENCOUNTER 2024-03-20 13:34 | Emergency (ER) | payer MEDICARE, OTHER, SELFPAY ==
[2023-07-24 15:41] VITALS: BMI 24.6
[2024-03-20] VITALS (13 sets, daily range): BP systolic 132–141; BP diastolic 67–78; PULSE 76–103; RESP 17–33; TEMP 36.8; O2SAT 88–98; BMI 28.5
--- NOTE | 2024-03-20 13:39 | EKG_ITS ---
[address] [address] Test Date: 2024-03-20 Pat Name: Zbigniew Golden Department: [facility] Room: Gender: Male [employer] Machine Operator: Ebony AGUILAR RN : 1935 Requested By: Order Number: [id number] Reading MD: Arnold Morris MD Measurements Intervals [place] Rate: 90 P: 13 CO: 140 QRS: 71 QRSD: 152 T: 168 QT: 388 QTc: 474 Interpretive Statements Atrial-sensed ventricular-paced rhythm Electronically Signed On 03-21-2024 16:16:44 PST by Arnold Morris MD
--- NOTE | 2024-03-20 13:39 | DI.RAD.S_ITS ---
PROCEDURE: XR CHEST 1V INDICATIONS: Shortness of breath TECHNIQUE: One view of the chest was acquired. COMPARISON: None. FINDINGS: Surgical changes and devices: Pacemaker. Lungs and pleura: Interstitial pulmonary edema. Possible chronic interstitial pulmonary fibrosis. Mediastinum: Mediastinal contours appear normal. Heart size is normal. Bones and chest wall: No suspicious bony lesions. Overlying soft tissues appear unremarkable. IMPRESSION: Interstitial pulmonary edema. Possible chronic interstitial pulmonary fibrosis. Dictated by: Beck Turpin M.D. on 03/20/2024 at 15:02 Approved by: Beck Turpin M.D. on 03/20/2024 at 15:18
--- NOTE | 2024-03-20 14:10 | ED.SOB ---
HPI - SOB/Dyspnea General Chief Complaint: Shortness of Breath/Dyspnea Stated Complaint: low oxygen sat, sob, fatigue Time Seen by Provider: 03/20/24 14:08 Source: patient, RN notes reviewed and old records reviewed Mode of arrival: Wheelchair Limitations: no limitations History of Present Illness HPI Narrative: 88-year-old male history of prostate cancer completed treatment in January, colon cancer, pulmonary fibrosis and emphysema (CPFE), pacemaker presents with complaint of increasing shortness of breath since about February 13. Patient states he really seemed to noticed change when he started on metoprolol February 13. Has not increasing dyspnea particularly with exertion such as going up the steps. Denies any chest pain or pressure. No syncope. Has had a little bit of cough that he states occasionally little bit of green discoloration. He has a normal cough at baseline but states it has not usually productive. He relates this to his pulmonary fibrosis. Patient states no fevers. No nasal congestion. Does not describe any orthopnea. No nausea no vomiting no issues with bowel movements. Patient had an office visit today with Dr. Wall who changed his metoprolol to verapamil he has not made this change yet. Patient does not take any anticoagulants, recently started on metoprolol supposed to be changed to verapamil also takes meloxicam, allopurinol, tapering off prednisone for polymyalgia rheumatica is a 11 mg we will taper next about 9 mg in 2 weeks, prostate cancer completed treatment at the end of January had colon resection for colon cancer. Prior surgeries include pacemaker, bilateral knee surgery, bilateral thumb surgery, prostate surgery and colon resection. Reports allergy to cephalexin, nickel and sulfa. No tobacco, occasional alcohol, no recreational drugs. Patient is seeking a more local primary care physician there is has since left the area. He sees Dr. Magaña for cardiology. Related Data Home Medications Medication Instructions Recorded Confirmed allopurinol 100 mg tablet 200 mg PO DAILY 05/05/19 02/14/24 albuterol sulfate 90 mcg/actuation 90 mcg inhalation DAILY 11/22/22 02/14/24 aerosol inhaler (ProAir HFA) ipratropium bromide 42 mcg (0.06 2 spray intranasal TID PRN 02/12/24 02/14/24 %) nasal spray prednisone 20 mg tablet 20 mg PO DAILY 02/12/24 02/14/24 Previous Rx's Medication Instructions Recorded acetaminophen 325 mg capsule 650 mg (2 x 325 mg) PO QID PRN 07/31/23 (Tylenol) pain #60 caps ibuprofen 200 mg tablet 400 mg (2 x 200 mg) PO Q6H #60 tabs 07/31/23 azithromycin 250 mg tablet See Rx Instructions PO .COMPLEX #6 03/20/24 tabs prednisone 20 mg tablet 40 mg (2 x 20 mg) PO DAILY 5 days 03/20/24 #10 tabs Allergies Allergy/AdvReac Type Severity Reaction Status Date / Time cephalexin [From Keflex] Allergy Severe Anaphylaxis Verified 02/14/24 11:08 nickel Allergy Severe Rash Verified 02/14/24 11:08 Sulfa (Sulfonamide Allergy Severe Hives Verified 02/14/24 11:08 Antibiotics) Review of Systems Review of Systems ROS Unobtainable: All systems reviewed & are unremarkable except as noted in HPI and below Patient History Medical History COPD (chronic obstructive pulmonary disease) Prostate cancer History of urinary retention Left epididymitis Left hydrocele Epididymal cyst Incomplete bladder emptying Peyronie's disease Elevated PSA BPH w urinary obs/LUTS Osteoarthritis Interstitial lung disease Detached retina, right (~1993) Eczema Arthritis 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) Gout Surgical History History of total left knee replacement (11/22/22) H/O transurethral resection of prostate Hx of hernia repair (02/02/19) Hx of colonoscopy (~05/04/22) H/O circumcision H/O vasectomy Hx of hand surgery (~09/2018) History of left knee replacement (~03/2015) Hx of umbilical hernia repair (~1997) Hx of eye surgery (~1996) Status post correction of deviated nasal septum (~1993) History of testicular surgery (~1989) Hx of bilateral cataract extraction (~1986) Hx of arthroscopy of right knee (~1985) History of colon resection Hx of hernia repair Hx of knee surgery Social History marital status: household members: spouse lives independently: Yes occupational status: previously employed Smoking Status: Never smoker alcohol intake: current substance use type: does not use Smoking Status: Never smoker alcohol intake frequency: a few times a week Exam Narrative Exam Narrative: GENERAL: Alert and oriented x three, male in mild distress HEENT: Head normocephalic, atraumatic, EOMI, no nasal congestion pupils reactive, face symmetric, moist mucous membranes NECK: Supple, full range of motion CARDIOVASCULAR: Regular rate and rhythm without murmurs, rubs or gallops. No JVD. No edema bilateral lower extremities. RESPIRATORY: Breath sounds equal bilaterally, no wheezes rales or rhonchi. No tachypnea at rest patient is able to ambulate about the room some slight tachypnea with ambulation. ABDOMEN: Soft, nontender. Normoactive bowel sounds all 4 quadrants. No guarding or rebound, rigidity, no mass : No CVA tenderness EXTREMITIES: Normal range of motion, no clubbing or edema. Neurovascularly intact NEUROLOGICAL: Cranial nerves II through XII grossly intact. Moving all extremities SKIN: Warm, dry, no petechiae, no rashes or lesions. Initial Vital Signs Initial Vital Signs: Vital Signs Temperature 98.3 F 03/20/24 13:36 Pulse Rate 90 03/20/24 13:36 Respiratory Rate 18 03/20/24 13:36 Blood Pressure 141/67 H 03/20/24 13:36 Pulse Oximetry 98 03/20/24 13:36 Oxygen Delivery Method Nasal Cannula 03/20/24 13:36 Oxygen Flow Rate 2 03/20/24 13:36 Course Orders Ordered: ED Orders 03/20/24 13:39 XR chest 1V Stat EKG-12 Lead Stat Measure peak expiratory flow ONCE RT Consult Eval and Treat NOW 03/20/24 14:19 Complete Blood Count AUTO DIFF Stat Comprehensive Metabolic Panel Stat Lactate (Lactic Acid) Stat NT-proBNP (BNP-Adult 18+) Stat Prothrombin Time INR Stat Troponin & CK Cardiac Panel Stat 03/20/24 14:24 Covid-19 + FLU A/B + RSV - PCR Stat Urine Microscopic Stat 03/20/24 16:42 CT angio chest PE protocol Stat 03/20/24 16:49 Home O2 [Evaluate for home oxygen] NOW 03/20/24 17:20 Consult to Cardio/Pulmonary Rehabilitation Stat Vital Signs Vital signs: Vital Signs - 8 hr 03/20/24 13:36 03/20/24 14:16 12/13/24 14:20 Temperature 98.3 F Pulse Rate 90 103 H 92 H Respiratory Rate 18 17 Blood Pressure 141/67 H Pulse Oximetry 98 92 97 Oxygen Delivery Method Nasal Cannula Oxygen Flow Rate 2 03/20/24 14:20 03/20/24 14:30 03/20/24 15:00 Temperature Pulse Rate 87 87 Respiratory Rate 17 17 Blood Pressure 140/78 Pulse Oximetry 95 92 Oxygen Delivery Method Oxygen Flow Rate 03/20/24 15:30 03/20/24 16:00 03/20/24 16:30 Temperature Pulse Rate 85 81 82 Respiratory Rate 33 H 27 H 28 H Blood Pressure Pulse Oximetry 88 L 95 95 Oxygen Delivery Method Room Air Nasal Cannula Nasal Cannula Oxygen Flow Rate 2 2 03/20/24 17:06 03/20/24 17:30 Temperature Pulse Rate 95 H 80 Respiratory Rate 26 H Blood Pressure Pulse Oximetry 96 95 Oxygen Delivery Method Nasal Cannula Nasal Cannula Oxygen Flow Rate 2 2 MDM - SOB/Dyspnea Lab Data 03/20/24 14:19 03/20/24 14:19 Labs: Lab Results 03/20/24 03/20/24 03/20/24 Range/Units 14:19 14:19 14:24 WBC 9.1 (4.5-11.0) X10^3/uL RBC 3.95 L (4.5-5.9) X10^6/uL Hgb 12.1 L (13.5-17.5) g/dL Hct 36.7 L (41-53) % MCV 92.9 (80-100) fL MCH 30.6 (26-34) PG MCHC 33.0 (30-36) % RDW 17.5 H (11.6-14.8) % Plt Count 365 (150-400) X10^3/uL Neut % (Auto) 76.7 H (50-75) % Lymph % (Auto) 11.4 L (25-40) % [place] % (Auto) 7.7 (3-14) % Eos % (Auto) 3.3 (2-4) % Baso % (Auto) 0.9 (0-2) % Neut # (Auto) 7000 (9183-6673) /uL Lymph # (Auto) 1000 L (6024-3682) /uL [place] # (Auto) 700 (0-900) /uL Eos # (Auto) 300 (0-450) /uL Baso # (Auto) 100 (0-100) /uL PT 11.8 (9.4-12.5) SECONDS INR 1.0 (0.9-1.3) Sodium 134 L (137-145) mmol/L Potassium 4.0 (3.4-5.1) mmol/L Chloride 103 (98-107) mmol/L Carbon Dioxide 23 (22-32) mmol/L BUN 15 (9-20) mg/dL Creatinine 0.87 (0.66-1.25) mg/dL Estimated GFR > 60 (>60) mL/min BUN/Creatinine Ratio 17.2 (6-22) Glucose 119 H (80-110) mg/dL Lactate 1.0 (0.7-2.1) mmol/L Calcium 9.3 (8.4-10.2) mg/dL Total Bilirubin 0.6 (0.2-1.3) mg/dL AST 40 (17-59) IU/L ALT 23 (<50) IU/L Alkaline Phosphatase 134 H (38-126) U/L Total Creatine Kinase 125 (55-170) U/L Troponin I Cancelled < 0.012 NT-Pro-B Natriuret Pep 379 (<450) pg/mL Total Protein 7.9 (6.3-8.2) g/dL Albumin 4.3 (3.5-5.0) g/dL Globulin 3.6 (1.7-4.1) g/dL Albumin/Globulin Ratio 1.2 (1.0-2.8) Urine RBC 0-1/hpf (0-5/HPF) Urine WBC 0-1/hpf (0-5/HPF) Ur Squamous Epith Cells 0-1 /hpf (0-5/HPF) Urine Bacteria Occasional (0-1) (None) Ur Culture Indicated? Cult not indicated Vol Urine Centrifuged 10ml (spun) SARS-CoV-2 (PCR) Negative (Negative) Influenza A (RT-PCR) Flu a negative (NEGATIVE) Influenza B (RT-PCR) Flu b negative (NEGATIVE) RSV (PCR) Negative (Negative) Urine Dip Bedside Urine Glucose Negative Bedside Urine Bilirubin - Negative Bedside Urine Ketone - Negative Urine Specific [place] 1.005 Bedside Urine Occult Blood +/- Bedside Urine pH 6.0 Bedside Urine Protein - Negative Bedside Urine Urobilinogen - Negative Bedside Urine Nitrite - Negative Bedside Urine Leukocytes - Negative Esterase Imaging Data Chest x-ray: Radiologist's Impression: [address] [address] XRay Report Signed Patient: Zbigniew Golden V MR#: [id number] : 1935 Acct:[id number] Age/Sex: 88 / M Date of Service: 03/20/24 Loc: ED Accession Number: [id number] Procedure: XR chest 1V Ordering Provider: Nadine Wang D.O. PROCEDURE: XR CHEST 1V INDICATIONS: Shortness of breath TECHNIQUE: One view of the chest was acquired. COMPARISON: None. FINDINGS: Surgical changes and devices: Pacemaker. Lungs and pleura: Interstitial pulmonary edema. Possible chronic interstitial pulmonary fibrosis. Mediastinum: Mediastinal contours appear normal. Heart size is normal. Bones and chest wall: No suspicious bony lesions. Overlying soft tissues appear unremarkable. IMPRESSION: Interstitial pulmonary edema. Possible chronic interstitial pulmonary fibrosis. Dictated by: Beck Turpin M.D. on 03/20/2024 at 15:02 Approved by: Beck Turpin M.D. on 03/20/2024 at 15:18 CT scan - chest: Radiologist's Impression: [address] [address] [address] Scan Report Signed Patient: Zbigniew Golden V MR#: [id number] : 1935 Acct:[id number] Age/Sex: 88 / M Date of Service: 03/20/24 Loc: ED Accession Number: [id number] Procedure: CT angio chest PE protocol Ordering Provider: Nadine Wang D.O. PROCEDURE: CT ANGIO CHEST PE PROTOCOL INDICATIONS: hypoxia, acute on chronic r/o PE TECHNIQUE: After the administration of intravenous contrast, 2 mm thick sections acquired from the pulmonary apices to the posterior costophrenic angles. 3-dimensional maximum intensity projection (MIP) coronal and sagittal reformats were then acquired through the thorax. For radiation dose reduction, the following was used: automated exposure control, adjustment of mA and/or kV according to patient size. COMPARISON: Prior not available FINDINGS: Image quality: Diagnostic Lungs and pleura: Background moderate findings of interstitial lung disease, with areas of honeycombing, compatible with UIP pattern. Traction bronchiectasis is present. No dense airspace disease or pleural effusions. There are mild nodular opacities, most notably in the lingula measuring 1.4 cm on series 7, image 154. Mediastinum, heart, and esophagus: No acute pulmonary embolism. Borderline distended main pulmonary artery measuring 3.1 cm. Coronary disease and postsurgical changes. A left chest wall pulse generator with electrode leads in place. No pathologic lymph nodes by size criteria. There are prominent mediastinal lymph nodes may be may be reactive in this clinical context. Chest wall and thyroid: Unremarkable Upper abdomen: Unremarkable on this arterial phase study Bones: Degenerative changes are present. IMPRESSION: No acute pulmonary embolism. Moderate findings of interstitial lung disease, suggestive of UIP pattern. Superimposed small nodular mostly ground-glass opacities, possibly ILD exacerbation versus superimposed infection. Consider follow-up high-resolution chest CT for future surveillance . Mild distention of the main pulmonary artery is suggestive of chronically high pulmonary pressures. Other findings above Dictated by: Neville Guzman M.D. on 03/20/2024 at 17:10 Approved by: Neville Guzman M.D. on 03/20/2024 at 17:14 ECG Data Attestation: I personally reviewed and interpreted this ECG as follows: Interpretation: Ventricularly paced rhythm rate of 90 IA 140 QRS of 152 QTC of 474, no acute ST changes appreciated. MDM Narrative Medical decision making narrative: 88-year-old male with complaint of dyspnea with exertion shortness of breath for the past 3 weeks does note a little bit of green productive sputum was also recently started on metoprolol about 3 weeks ago as well. Patient is hypoxic 85% with a good plus but ambulating minimal distress. He was some mild tachypnea with ambulation but otherwise appears quite comfortable at rest. Patient has reported 1st and 2nd degree AV block no known atrial fib history is paced here in the department. Patient has potential for infectious, pulmonary with a history of pulmonary fibrosis as well as cardiac source of his symptoms. Labs white count of 9.1 hemoglobin is 12.1 brief from prior patient appears to run 10-11 normally, platelets are 360 predominance of neutrophil, INR is 1 sodium is 134 potassium 4 chloride 103 CO2 is 23 BUN 15 creatinine 0.87 glucose is 119 lactate 1 calcium is 9.3 LFTs are negative except for alk-phos of 134 total CK is 125 with a troponin less than 0.012 and a BNP of 379 Chest x-ray interstitial pulmonary edema possible chronic interstitial pulmonary fibrosis. EKG shows paced rhythm COVID/influenza/RSV is negative. CT PE protocol is negative for pulmonary emboli shows changes most consistent with interstitial lung disease, potential for superimposed infection. Mild distention main pulmonary artery suggestive chronically high pulmonary pressures. 1559 Hospitalist; spoke with Dr. Medrano asks that we interrogate his pacemaker. Reviewing patient chart, care everywhere. He will see patient in the department. Patient has a history of pulmonary fibrosis, was slightly tachycardic although not captured on EKG after exertion reports that he was started on metoprolol 3 weeks ago for tachycardia but unclear why he was tachycardic. Patient has had little bit of green productive sputum otherwise appears very well. Dr. Medrano requests CT chest PE protocol if negative for pulmonary emboli asked that we discharge home on home O2, prednisone 40 mg once daily x5 days and then returned to their current dose of 11mg daily without taper and if able to arrange cardiac rehab as an outpatient would request that we do so. If unable to set up for home O2 or other changes to re-contact. Reviewed findings with the patient was able to set up with home O2. Patient discharged home with take states that the provider has been in contact. Discussed plans and recommendations they feel comfortable with this plan patient has ambulated here in the department without issue but does become hypoxic without O2. 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 Carlin. Please call to set up an appointment. You has been set up with home oxygen continue at 2L nasal cannula An order was placed for cardiac/pulmonary rehab but talk with your rail doweling machine operator or primary care if you have any difficulty setting this up as an outpatient or if you have not heard from them in the next several days. Take prednisone 40mg once daily x4 days, then return to your normal dosing. Take azithromycin until completed. Take your first doses today. Prescription sent to [facility] in [place]. Please return for new chest pain or shortness of breath, increasing difficulty with breathing especially with exertion, new swelling of your extremities, fevers, coughing up blood, lightheadedness or passing out or other new or concerning changes. Prescriptions: New prednisone 20 mg tablet 40 mg PO DAILY 5 Days Qty: 10 0RF azithromycin 250 mg tablet See Rx Instructions .ROUTE .COMPLEX Qty: 6 0RF Rx Instructions: For 250 mg dose pack: take 500 mg today (day 1), then 250 mg for 4 days (days 2-5) No Action allopurinol 100 mg tablet 200 mg PO DAILY ibuprofen 200 mg tablet 400 mg PO Q6H Qty: 60 0RF acetaminophen [Tylenol] 325 mg capsule 650 mg PO QID PRN (Reason: pain) Qty: 60 0RF albuterol sulfate [ProAir HFA] 90 mcg/actuation HFA aerosol inhaler 90 mcg INHALATION DAILY ipratropium bromide 42 mcg (0.06 %) spray,non-aerosol 2 spray intranasal TID PRN prednisone 20 mg tablet 20 mg PO DAILY Referrals: Ellis Carlin MD [Physician] - Ronald Celeste ARNP [Primary Care Provider] - Stand Alone Forms: Patient Portal/API/Survey
[2024-03-20 14:26] LABS: Add Manual Diff / Slide Review NO; Basophils Absolute Auto 100 /uL (0-100); Basophils Percent Auto 0.9 % (0-2); Eosinophils Absolute Auto 300 /uL (0-450); Eosinophils Percent Auto 3.3 % (2-4); Hematocrit 36.7 % (41-53); Hemoglobin 12.1 g/dL (13.5-17.5); Lymphocytes Absolute Auto 1000 /uL (1100-4500); Lymphocytes Percent Auto 11.4 % (25-40); Mean Corpuscular Hemoglobin 30.6 PG (26-34); Mean Corpuscular Volume 92.9 fL (80-100); Monocytes Absolute Auto 700 /uL (0-900); Monocytes Percent Auto 7.7 % (3-14); Neutrophils Absolute Auto 7000 /uL (1500-7000); Neutrophils Percent Auto 76.7 % (50-75); Platelet Count 365 X10^3/uL (150-400); Red Blood Cell Count 3.95 X10^6/uL (4.5-5.9); Red Cell Distribution Width 17.5 % (11.6-14.8); White Blood Cell Count 9.1 X10^3/uL (4.5-11.0)
[2024-03-20 14:34] LABS: Bacteria Urine Occasional (0-1); Culture Indicated Urine Cult Not Indicated; RBC Urine 0-1/HPF (0-5/HPF); Squamous Epithelial Cell Urine 0-1 /HPF (0-5/HPF); Urine Volume 10mL (spun); WBC Urine 0-1/HPF (0-5/HPF)
[2024-03-20 14:40] LABS: Alanine Aminotransferase 23 IU/L (<50); Albumin 4.3 g/dL (3.5-5.0); Albumin Globulin Ratio 1.2 (1.0-2.8); Alkaline Phosphatase 134 U/L (38-126); Aspartate Aminotransferase 40 IU/L (17-59); BUN Creatinine Ratio 17.2 (6-22); Bilirubin Total 0.6 mg/dL (0.2-1.3); Blood Urea Nitrogen 15 mg/dL (9-20); Calcium 9.3 mg/dL (8.4-10.2); Carbon Dioxide 23 mmol/L (22-32); Chloride 103 mmol/L (98-107); Creatine Kinase 125 U/L (55-170); Estimated Glomerular Filt Rate > 60 mL/min (>60); Globulin 3.6 g/dL (1.7-4.1); Glucose 119 mg/dL (80-110); HEMOLYSIS < 15 (0-50); Sodium 134 mmol/L (137-145); Total Protein 7.9 g/dL (6.3-8.2)
[2024-03-20 14:46] LABS: Prothrombin Time 11.8 SECONDS (9.4-12.5)
[2024-03-20 14:52] LABS: NT-proBNP (BNP-Adult 18+) 379 pg/mL (<450); Troponin I < 0.012 ng/mL (0.01-0.034)
[2024-03-20 15:15] LABS: Influenza A - CEPHEID Flu A NEGATIVE (NEGATIVE); Influenza B - CEPHEID Flu B NEGATIVE (NEGATIVE); Respiratory Syncytial Virus Negative (Negative)
[2024-03-20 15:20] LABS: COVID-19 CEPHEID 4-PLEX PCR Negative (Negative)
--- NOTE | 2024-03-20 16:42 | DI.CT.S_ITS ---
PROCEDURE: CT ANGIO CHEST PE PROTOCOL INDICATIONS: hypoxia, acute on chronic r/o PE TECHNIQUE: After the administration of intravenous contrast, 2 mm thick sections acquired from the pulmonary apices to the posterior costophrenic angles. 3-dimensional maximum intensity projection (MIP) coronal and sagittal reformats were then acquired through the thorax. For radiation dose reduction, the following was used: automated exposure control, adjustment of mA and/or kV according to patient size. COMPARISON: Prior not available FINDINGS: Image quality: Diagnostic Lungs and pleura: Background moderate findings of interstitial lung disease, with areas of honeycombing, compatible with UIP pattern. Traction bronchiectasis is present. No dense airspace disease or pleural effusions. There are mild nodular opacities, most notably in the lingula measuring 1.4 cm on series 7, image 154. Mediastinum, heart, and esophagus: No acute pulmonary embolism. Borderline distended main pulmonary artery measuring 3.1 cm. Coronary disease and postsurgical changes. A left chest wall pulse generator with electrode leads in place. No pathologic lymph nodes by size criteria. There are prominent mediastinal lymph nodes may be may be reactive in this clinical context. Chest wall and thyroid: Unremarkable Upper abdomen: Unremarkable on this arterial phase study Bones: Degenerative changes are present. IMPRESSION: No acute pulmonary embolism. Moderate findings of interstitial lung disease, suggestive of UIP pattern. Superimposed small nodular mostly ground-glass opacities, possibly ILD exacerbation versus superimposed infection. Consider follow-up high-resolution chest CT for future surveillance . Mild distention of the main pulmonary artery is suggestive of chronically high pulmonary pressures. Other findings above Dictated by: Neville Guzman M.D. on 03/20/2024 at 17:10 Approved by: Neville Guzman M.D. on 03/20/2024 at 17:14
--- NOTE | 2024-03-20 16:54 | PM.CN ---
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 Patient states that he feels that this has been going on for the past couple of weeks, but in review of in his chart and with the patient he does state that he has noted a progressive decline over the past year and his exercise tolerance. He has been working on this with his catalyst concentration operator, who attempted metoprolol and just today they switch to diltiazem. Over the past couple of weeks there may be a slight increase in his cough, which is intermittently productive of some light green sputum, though he does state this is quite mild. His oxygen levels at home have always been fine, though he has not checked it after he exerts himself. Over the past year since his colon resection he has not been as active, and gets tired quite easily, with minimal exertion. He has been taking multiple naps throughout the day. He has been referred to PT by his PCP, scheduled for 04/02 per his spouse. He has never heard about pulmonary rehab before. He denies any fever, chills, nasal congestion, or runny nose. He denies any chest pain, abdominal pain, nausea, vomiting, or diarrhea. He denies any swelling in his feet or his legs, but does endorse some weight gain recently which he related to his prednisone. He denies any melena or BRBPR, no hemoptysis. Labs: WBC 9.1, Hg 12.1, Na 134, Cr 0.87. Troponin is <0.012. UA negative. COVID/FLU/RSV negative. On room air at rest, patient's O2 saturation was 94-96%. He ambulated within the ER unassisted with his cane about 50 ft, was short of breath when he returned to his room, and O2 saturations were 87% which improved to 94% again with rest in about 30 seconds. Meds Home Medications and Allergies Home Medications Medication Instructions Recorded Confirmed Type allopurinol 100 mg tablet 200 mg PO DAILY 05/05/19 02/14/24 History albuterol sulfate 90 mcg/actuation 90 mcg inhalation DAILY 11/22/22 02/14/24 History aerosol inhaler (ProAir HFA) acetaminophen 325 mg capsule 650 mg (2 x 325 mg) PO QID PRN 07/31/23 02/14/24 Rx (Tylenol) pain #60 caps ibuprofen 200 mg tablet 400 mg (2 x 200 mg) PO Q6H #60 tabs 07/31/23 02/14/24 Rx ipratropium bromide 42 mcg (0.06 2 spray intranasal TID PRN 02/12/24 02/14/24 History %) nasal spray prednisone 20 mg tablet 20 mg PO DAILY 02/12/24 02/14/24 History Allergies Allergy/AdvReac Type Severity Reaction Status Date / Time cephalexin [From Keflex] Allergy Severe Anaphylaxis Verified 02/14/24 11:08 nickel Allergy Severe Rash Verified 02/14/24 11:08 Sulfa (Sulfonamide Allergy Severe Hives Verified 02/14/24 11:08 Antibiotics) Review of Systems Review of Systems Narrative: All other systems reviewed with the patient and are negative unless otherwise stated. Exam Vital Signs (past 8 hours): - 03/20/24 13:36 03/20/24 14:16 03/20/24 14:20 Temperature 98.3 F Pulse Rate 90 103 H 92 H Respiratory Rate 18 17 Blood Pressure 141/67 H Pulse Oximetry 98 92 97 Oxygen Delivery Method Nasal Cannula Oxygen Flow Rate 2 03/20/24 14:20 03/20/24 14:30 03/20/24 15:00 Temperature Pulse Rate 87 87 Respiratory Rate 17 17 Blood Pressure 140/78 Pulse Oximetry 95 92 Oxygen Delivery Method Oxygen Flow Rate Oxygen Delivery Method Nasal Cannula Oxygen Flow Rate 2 Narrative Exam Narrative: Gen: well appearing male, no acute distressed, WDWN CV: RRR no m/r/g, paced on monitor Pulm: diminished breath sounds bilaterally, some rhonchi in the lung bases Abd: S NT ND Ext: No edmea Gait: ambulatory without assistance, uses cane. Objective ECG Impression: Paced rhythm as interpreted by me. Labs 03/20/24 14:19 03/20/24 14:19 Labs: Laboratory Results - last 24 hr 03/20/24 03/20/24 03/20/24 14:19 14:19 14:24 WBC 9.1 RBC 3.95 L Hgb 12.1 L Hct 36.7 L MCV 92.9 MCH 30.6 MCHC 33.0 RDW 17.5 H Plt Count 365 Neut % (Auto) 76.7 H Lymph % (Auto) 11.4 L Gentry % (Auto) 7.7 Eos % (Auto) 3.3 Baso % (Auto) 0.9 Neut # (Auto) 7000 Lymph # (Auto) 1000 L Gentry # (Auto) 700 Eos # (Auto) 300 Baso # (Auto) 100 PT 11.8 INR 1.0 Sodium 134 L Potassium 4.0 Chloride 103 Carbon Dioxide 23 BUN 15 Creatinine 0.87 Estimated GFR > 60 BUN/Creatinine Ratio 17.2 Glucose 119 H Lactate 1.0 Calcium 9.3 Total Bilirubin 0.6 AST 40 ALT 23 Alkaline Phosphatase 134 H Total Creatine Kinase 125 Troponin I Cancelled < 0.012 NT-Pro-B Natriuret Pep 379 Total Protein 7.9 Albumin 4.3 Globulin 3.6 Albumin/Globulin Ratio 1.2 Urine RBC 0-1/hpf Urine WBC 0-1/hpf Ur Squamous Epith Cells 0-1 /hpf Urine Bacteria Occasional (0-1) Ur Culture Indicated? Cult not indicated Vol Urine Centrifuged 10ml (spun) SARS-CoV-2 (PCR) Negative Influenza A (RT-PCR) Flu a negative Influenza B (RT-PCR) Flu b negative RSV (PCR) Negative PFSH Medical History COPD (chronic obstructive pulmonary disease) Prostate cancer History of urinary retention Left epididymitis Left hydrocele Epididymal cyst Incomplete bladder emptying Peyronie's disease Elevated PSA BPH w urinary obs/LUTS Osteoarthritis Interstitial lung disease Detached retina, right (~1993) Eczema Arthritis 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) Gout Surgical History History of total left knee replacement (11/22/22) H/O transurethral resection of prostate Hx of hernia repair (02/02/19) Hx of colonoscopy (~05/04/22) H/O circumcision H/O vasectomy Hx of hand surgery (~09/2018) History of left knee replacement (~03/2015) Hx of umbilical hernia repair (~1997) Hx of eye surgery (~1996) Status post correction of deviated nasal septum (~1993) History of testicular surgery (~1989) Hx of bilateral cataract extraction (~1986) Hx of arthroscopy of right knee (~1985) History of colon resection Hx of hernia repair Hx of knee surgery Social History marital status: household members: spouse lives independently: Yes occupational status: previously employed Tobacco & Substance Use Smoking Status: Never smoker alcohol intake: current substance use type: does not use Assessment & Plan Assessment & Plan narrative: 1. Acute hypoxic respiratory failure with exertion, CPFE with possible mild flare, pulmonary HTN - Wanted to rule out PE given tachycardia and dyspnea. CTA PE study showed no PE, some ground glass nodular opacities along with chronic UIP pattern ILD and mild dilation of the main pulmonary artery suggestive of pulmonary hypertension. - acute flare of bronchiectasis seems less likely based on presentation, more probably pulmonary HTN given presentation over many months based on history or combination of this with decreased exercise tolerance due to recent inactivity. Can trial 40 mg prednisone x5 days. There is no leukocytosis or fever suggestive on pneumonia or acute infection. Covid/flu/rsv is negative. - recommend outpatient pulmonology follow up as soon as possible, referral for pulmonary rehab, and physical therapy. Also recommend sleep study if not previously performed given his presenting symptoms, though symptoms can be consistent with pulmonary HTN as well - start home O2 with activity only (patient desaturated to 87 with ambulation). At rest he is 94-96% on room air. 2. tachy/martine syndrome s/p PPM - continue diltiazem per catalyst concentration operator, no changes recommended - recent echocardiogram 2 months ago with normal EF and mild aortic insufficiency per cardiology notes. - he appears euvolemic on exam, do not suspect volume overload component at this time. 3. PMR - okay for short 40 mg x5 course of prednisone as noted above, then resume ongoing taper as recommended by legal project manager. 4. History of colon and prostate CA Code: Full, surrogate is patient's spouse I have utilized all available immediate resources to obtain, update, or review the patient's current medications. Dispo: Discharge from the ER if home O2 can be set up. Can observe overnight if it cannot. Patient and spouse were in agreement with plan for discharge home. Additional history obtained via discussions with the ER provider and patient's spouse, along with review of records from outpatient rhematologist, catalyst concentration operator, oncologist and pulmonlogist. These discussions and review of outside records contributed to the creation of the above assessment and plan. I have reviewed patient's presenting documentation, labs, and imaging personally. Summary of recommendations: Trial 40 mg prednisone x5 days, okay to resume previous steroid taper per rheumatology after this Discharge home with home O2 with activity, instructed patient and spouse how to monitor O2 levels at home. If unable to set up home O2 reasonably quickly, can admit observation status to set this up. Follow up with pulmonology as soon as possible after discharge Recommend referral to pulmonary rehab. Already has PT referral and appointment 04/02/24. Time-Based Coding :: [TOTAL MINUTES] spent with patient and on the chart (including review of chart, obtaining history, exam, reviewing outside data, placing orders, documenting exam and treatment plan, and counseling patient) on [DATE].
--- NOTE | 2024-03-20 19:34 | PC.NURSE ---
1900 Patient Dc'd with Home O2 2 LNC. Per RT, the Oxygen company will arrive at the patient's house in the next 5-6 hours to set the patient up with an Oxygen Concentrator. I informed the patient of this. I helped the and the patient out to the car for them to get home.
== END 2024-03-20 18:30 | disposition home or self-care (01) ==
PROVIDERS: Emergency Provider Emergency Medicine; PCP Nurse Practitioner Adult Health
DX: J96.01 Acute respiratory failure with hypoxia (principal); J84.9 Interstitial pulmonary disease, unspecified; J84.10 Pulmonary fibrosis, unspecified; J43.9 Emphysema, unspecified; I27.20 Pulmonary hypertension, unspecified; I49.5 Sick sinus syndrome; M35.3 Polymyalgia rheumatica; Z85.038 Personal history of other malignant neoplasm of large intestine; Z85.46 Personal history of malignant neoplasm of prostate; Z95.0 Presence of cardiac pacemaker
CPT/HCPCS: 0241U; 36415; 71045; 71275; 80053; 81003; 81015; 82550; 83605; 83880; 84484; 85025; 85610; 93005; 99285; Q9967

== ENCOUNTER → 2024-04-13 16:24 | Outpatient (CLI) | payer MEDICARE, OTHER, SELFPAY ==
[2024-03-24 11:36] VITALS: BMI 24.6
--- NOTE | 2024-04-13 16:25 | DI.RAD.S_ITS ---
PROCEDURE: XR LUMBAR SPINE 2-3V INDICATIONS: chronic low back pain TECHNIQUE: 3 views of the lumbar spine were acquired. COMPARISON: None. FINDINGS: Bones: 5 age-ozi-nfmjpmd vertebrae are present. Straightening of the normal lumbar lordosis. Grade 1 anterolisthesis L1-2, grade 1 retrolisthesis L2-3, L3-4, and L4-5. Moderate to severe multilevel disc height loss. Lumbar levoscoliosis with L3 apex and contralateral reactive endplate osteophytes due to asymmetric disc height loss. Moderate facet arthropathy from L3 through S1. No vertebral body compression fractures. No suspicious bony lesions. Moderate bilateral femoroacetabular joint space loss incidentally noted. Soft tissues: Overlying bowel gas pattern is normal. No suspicious soft tissue calcifications. IMPRESSION: Multilevel degenerative changes throughout the lumbar spine as described. Dictated by: Latonia Ceja M.D. on 04/14/2024 at 13:51 Approved by: Latonia Ceja M.D. on 04/14/2024 at 13:53
== END ==
PROVIDERS: PCP Family Medicine; Referring Provider Family Medicine; Visit Provider Family Medicine
DX: M47.816 Spondylosis without myelopathy or radiculopathy, lumbar region (principal); M47.817 Spondylosis without myelopathy or radiculopathy, lumbosacral region; M43.16 Spondylolisthesis, lumbar region; M54.50 Low back pain, unspecified; G89.29 Other chronic pain
CPT/HCPCS: 72100

== ENCOUNTER → 2024-04-24 13:58 | Outpatient (CLI) | payer MEDICARE, OTHER, SELFPAY ==
[2024-03-24 11:36] VITALS: BMI 24.6
--- NOTE | 2024-04-24 14:01 | DI.CT.S_ITS ---
PROCEDURE: CT LUMBAR SPINE WO CON INDICATIONS: spinal stenosis TECHNIQUE: Noncontrast 3 mm thick sections acquired from the T12 level to the sacrum. Sagittal and coronal reformats were constructed. For radiation dose reduction, the following was used: automated exposure control. COMPARISON: [facility], CR, XR LUMBAR SPINE 2-3V, 04/13/2024, 16:37. [facility], CT, CT LUMBAR SPINE W CON, 02/03/2018, 10:38. FINDINGS: Image quality: Excellent. Bones: Slight leftward curvature of the spine, centered L3 and L4. There is a chronic appearing fracture through the right transverse process of L5. This is new from prior. No acute vertebral body compression fractures. No suspicious lytic or blastic bony lesions. No pars defects. T12-L1: Moderate disc height loss. Mild facet arthrosis. L1-L2: Moderate disc height loss, disc osteophyte complex, facet hypertrophy and arthrosis. L2-L3: Severe disc height loss, disc osteophyte complex, facet hypertrophy. Moderate right neural foraminal narrowing. L3-L4: Severe disc height loss, disc osteophyte complex, facet hypertrophy. Moderate to severe left neural foraminal narrowing. [id number]-[id number] right neural foraminal narrowing. L4-L5: Severe disc height loss, broad-based disc bulge, ligamentum flavum hypertrophy, facet hypertrophy. Mild spinal canal narrowing. Moderate to severe right neural foraminal narrowing and left neural foraminal narrowing. L5-S1: Mild disc height loss. Moderate bilateral neural foraminal narrowing. Soft tissues: No retroperitoneal masses or hematomas. Visualized aorta is normal in caliber. IMPRESSION: New, but chronic appearing right transverse process fracture at L5. Multilevel degenerative disc disease and diffuse facet arthrosis. No significant spinal canal narrowing, with up to mild narrowing at L4-5. Multilevel neural foraminal narrowing, moderate to severe at multilevel size detailed above. Dictated by: Armani Zelaya M.D. on 04/24/2024 at 15:12 Approved by: Armani Zelaya M.D. on 04/24/2024 at 15:17
== END ==
PROVIDERS: PCP Family Medicine; Referring Provider Physical Medicine & Rehabilitation Pain Medicine; Visit Provider Physical Medicine & Rehabilitation Pain Medicine
DX: S32.059A Unspecified fracture of fifth lumbar vertebra, initial encounter for closed fracture (principal); M48.062 Spinal stenosis, lumbar region with neurogenic claudication; M51.369 Other intervertebral disc degeneration, lumbar region without mention of lumbar back pain or lower extremity pain; M47.816 Spondylosis without myelopathy or radiculopathy, lumbar region; M48.07 Spinal stenosis, lumbosacral region
CPT/HCPCS: 72131

== ENCOUNTER → 2024-05-21 13:49 | Outpatient (CLI) | payer MEDICARE, OTHER, SELFPAY ==
[2024-03-24 11:36] VITALS: BMI 24.6
[2024-05-21 14:31] LABS: Add Manual Diff / Slide Review NO; Basophils Absolute Auto 100 /uL (0-100); Basophils Percent Auto 1.1 % (0-2); Eosinophils Absolute Auto 500 /uL (0-450); Eosinophils Percent Auto 7.3 % (2-4); Hematocrit 36.8 % (41-53); Hemoglobin 12.2 g/dL (13.5-17.5); Lymphocytes Absolute Auto 1400 /uL (1100-4500); Lymphocytes Percent Auto 19.5 % (25-40); Mean Corpuscular HGB Conc 33.1 % (30-36); Mean Corpuscular Hemoglobin 31.6 PG (26-34); Mean Corpuscular Volume 95.6 fL (80-100); Monocytes Absolute Auto 900 /uL (0-900); Monocytes Percent Auto 12.9 % (3-14); Neutrophils Absolute Auto 4300 /uL (1500-7000); Neutrophils Percent Auto 59.2 % (50-75); Platelet Count 307 X10^3/uL (150-400); Red Blood Cell Count 3.85 X10^6/uL (4.5-5.9); Red Cell Distribution Width 15.4 % (11.6-14.8); White Blood Cell Count 7.3 X10^3/uL (4.5-11.0)
[2024-05-21 14:49] LABS: Alanine Aminotransferase 100 IU/L (<50); Albumin 4.3 g/dL (3.5-5.0); Albumin Globulin Ratio 1.4 (1.0-2.8); Alkaline Phosphatase 105 U/L (38-126); Aspartate Aminotransferase 73 IU/L (17-59); BUN Creatinine Ratio 15.9 (6-22); Bilirubin Total 0.5 mg/dL (0.2-1.3); Blood Urea Nitrogen 14 mg/dL (9-20); Calcium 9.6 mg/dL (8.4-10.2); Carbon Dioxide 29 mmol/L (22-32); Chloride 102 mmol/L (98-107); Estimated Glomerular Filt Rate > 60 mL/min (>60); Globulin 3.1 g/dL (1.7-4.1); Glucose 105 mg/dL (80-110); HEMOLYSIS < 15 (0-50); Potassium 4.5 mmol/L (3.4-5.1); Sodium 138 mmol/L (137-145); Total Protein 7.4 g/dL (6.3-8.2)
[2024-05-21 14:53] LABS: C-Reactive Protein Quant 1.7 mg/dL (<1.0)
[2024-05-21 15:20] LABS: Carcinoembryonic Antigen 10.1 ng/mL (0.1-3.0)
[2024-05-21 15:21] LABS: Erythrocyte Sedimentation Rate 52 MM/HR (0-15)
[2024-05-21 15:23] LABS: Prostate Specific Antigen < 0.064 ng/mL (0.10-4.00)
== END ==
PROVIDERS: PCP Family Medicine; Referring Provider Internal Medicine Hematology & Oncology; Visit Provider Internal Medicine Hematology & Oncology
DX: C79.51 Secondary malignant neoplasm of bone (principal); C18.2 Malignant neoplasm of ascending colon; C61 Malignant neoplasm of prostate; C18.9 Malignant neoplasm of colon, unspecified
CPT/HCPCS: 80053; 82378; 84153; 84403; 85025; 85651; 86140

== ENCOUNTER → 2024-06-09 14:44 | Outpatient (CLI) | payer MEDICARE, OTHER, SELFPAY ==
[2024-03-24 11:36] VITALS: BMI 24.6
== END ==
PROVIDERS: PCP Family Medicine; Referring Provider Internal Medicine Critical Care Medicine; Visit Provider Internal Medicine Critical Care Medicine
DX: J84.112 Idiopathic pulmonary fibrosis (principal); R05.9 Cough, unspecified; Z99.81 Dependence on supplemental oxygen; R94.2 Abnormal results of pulmonary function studies
CPT/HCPCS: 94060; 94726; 94729

== ENCOUNTER → 2024-06-15 15:01 | Outpatient (CLI) | payer MEDICARE, OTHER, SELFPAY ==
[2024-03-24 11:36] VITALS: BMI 24.6
--- NOTE | 2024-06-15 15:03 | DI.RAD.S_ITS ---
PROCEDURE: XR DEXA AXIAL SKELETON INDICATIONS: SCREENING FOR OSTEOPOROSIS COMPARISON: None. FINDINGS: Lumbar Spine: Bone mineral density 0.942 g/cm2, T score -0.3. Left Femoral Neck: Bone mineral density 0.701 g/cm2, T score -1.3. Left Hip: Bone mineral density 0.878 g/cm2, T score -0.5. Fracture Risk Calculation (when applicable): 10-year fracture risk of a major osteoporotic fracture 9.2 percent and of a hip fracture 4.2 percent. (T score greater or equal to -1.0 to: NORMAL) (T score from -1.1 to -2.4: OSTEOPENIA) (T score less than or equal to -2.5: OSTEOPOROSIS) IMPRESSION: Low bone mineral density (osteopenia) by WHO classification. Follow-up guidelines as follows: Osteoporosis: Consider a repeat DEXA and Vertebral Fracture Assessment (VFA) exam in 2 years or sooner if medically necessary, to reassess this patient's status. Osteopenia: Consider a repeat DEXA in 2-3 years to reassess this patient's status, or if there is a new clinical indication. Normal: Consider a repeat DEXA in 5 years or sooner, or if there is a new clinical indication. All treatment decisions require clinical judgment and consideration of individual patient factors, including patient preferences, comorbidities, previous drug use, risk factors not captured in the FRAX model (e.g., frailty, falls, vitamin D deficiency, increased bone turnover, interval significant decline in bone density ) and possible under- or over-estimation of fracture risk by FRAX. In addition, the NOF Guide recommends that FDA-approved medical therapies be considered in postmenopausal women and men age >= 50 years with a: * Hip or vertebral (clinical or morphometric) fracture * T-score of <=-2.5 at the spine or hip * Ten-year fracture probability by FRAX of >= 3% for hip fracture or >=20% for major osteoporotic fracture. Dictated by: Nikolay Crowe M.D. on 06/15/2024 at 16:16 Approved by: Nikolay Crowe M.D. on 06/15/2024 at 16:17
[2024-06-15 15:46] LABS: Erythrocyte Sedimentation Rate 56 MM/HR (0-15)
[2024-06-15 15:50] LABS: HEMOLYSIS < 15 (0-50); Iron 56 ug/dL (49-181)
[2024-06-15 15:55] LABS: C-Reactive Protein Quant 1.1 mg/dL (<1.0)
[2024-06-15 16:04] LABS: Percent Iron Saturation 27 % (20-50); Total Iron Binding Capacity 206 ug/dL (261-462); Transferrin 175 mg/dL (206-381)
[2024-06-15 16:26] LABS: Ferritin 104 ng/mL (18-464)
[2024-06-15 16:58] LABS: Folate 11.2 ng/mL (2.76-20.0); Vitamin B12 520 pg/mL (239-931)
== END ==
PROVIDERS: PCP Family Medicine; Referring Provider Internal Medicine Rheumatology; Visit Provider Internal Medicine Rheumatology
DX: C18.2 Malignant neoplasm of ascending colon (principal); M81.0 Age-related osteoporosis without current pathological fracture; D64.9 Anemia, unspecified; R79.89 Other specified abnormal findings of blood chemistry
CPT/HCPCS: 36415; 77080; 82607; 82728; 82746; 83540; 83550; 85651; 86140

== ENCOUNTER → 2024-06-25 12:59 | Outpatient (CLI) | payer MEDICARE, OTHER, SELFPAY ==
[2024-03-24 11:36] VITALS: BMI 24.6
--- NOTE | 2024-06-25 13:03 | DI.CT.S_ITS ---
PROCEDURE: CT ABDOMEN PELVIS W CON INDICATIONS: SURVEILLANCE FOR COLON CANCER TECHNIQUE: After the administration of intravenous contrast, axial sections acquired from the lung bases to the pubic symphysis. Coronal and sagittal reformats were performed. For radiation dose reduction, the following was used: automated exposure control, adjustment of mA and/or kV according to patient size. COMPARISON: [facility], CT, CT ABDOMEN PELVIS W CON, 12/13/2023, 16:27. FINDINGS: Image quality: Diagnostic. Lower Chest: Pacemaker leads present in the heart. Pulmonary fibrosis in the lungs. Tiny hiatal hernia. ABDOMEN: Liver: Mild steatosis. Occasional tiny hypodensities too small to characterize. No enhancing mass. Gallbladder: No wall thickening or calcified stones. Biliary ducts: No biliary dilation. Pancreas: No ductal dilation. Spleen: Size is within normal limits. Upper pole flash fill hemangioma, stable. Adrenal Glands: No adrenal nodules. Kidneys and Ureters: Normal renal size. Symmetric enhancement. Mild left hydronephrosis and minor bilateral hydroureter. No collecting system calcifications. No solid enhancing masses. Stomach and Bowel: Stomach and small bowel appear normal. Prior right hemicolectomy and right mid abdominal ileocolonic anastomosis. Increased quantity of solid stool throughout the colon. Diverticulosis of the right tendon to descending colon. No suspicious wall thickening. Peritoneum: No abnormal intraperitoneal fluid. No free air. No suspicious nodularity. Ventral Wall: Wide necked, small fat containing ventral hernias. No significant adjacent inflammation or fluid. Abdominal Nodes: No retroperitoneal or mesenteric adenopathy by size criteria. Vessels: The abdominal aorta, IVC, and portal vein are of normal caliber. Noncalcified atherosclerotic plaque causing stenosis of the proximal SMA Moderate abdominal aortic atherosclerotic calcification. PELVIS: Pelvic Organs: Prostatectomy. Bladder: Distended urinary bladder without wall thickening or stones. Pelvic Nodes: No enlarged lymph nodes. Miscellaneous: No inguinal hernias are seen. Bones: Multilevel degenerative disc and endplate changes in the lumbar spine. No suspicious bone lesions. IMPRESSION: Prior right hemicolectomy without evidence of local recurrence or metastatic disease. Slight distension of the urinary collecting system due to large volume of the urinary bladder. Dictated by: Latonia Ceja M.D. on 06/25/2024 at 17:16 Approved by: Latonia Ceja M.D. on 06/25/2024 at 17:25
== END ==
PROVIDERS: PCP Family Medicine; Referring Provider Family Medicine
DX: C18.2 Malignant neoplasm of ascending colon (principal); K76.0 Fatty (change of) liver, not elsewhere classified; I70.0 Atherosclerosis of aorta; N13.30 Unspecified hydronephrosis; M51.369 Other intervertebral disc degeneration, lumbar region without mention of lumbar back pain or lower extremity pain; K57.30 Diverticulosis of large intestine without perforation or abscess without bleeding; K43.9 Ventral hernia without obstruction or gangrene; Z98.0 Intestinal bypass and anastomosis status; Z90.49 Acquired absence of other specified parts of digestive tract; Z95.0 Presence of cardiac pacemaker
CPT/HCPCS: 74177; Q9967

== ENCOUNTER 2024-07-20 14:15 | Outpatient (RCR) | payer MEDICARE, OTHER, SELFPAY ==
[2024-03-24 11:36] VITALS: BMI 24.6
== END 2024-07-20 16:15 ==
LOC: PUL 14:15
PROVIDERS: PCP Family Medicine; Referring Provider Student in an Organized Health Care Education/Training Program; Visit Provider Student in an Organized Health Care Education/Training Program
DX: J84.89 Other specified interstitial pulmonary diseases (principal)
CPT/HCPCS: G0237; G0238

== ENCOUNTER 2024-07-24 08:07 | Day surgery (SDC) | payer MEDICARE, OTHER, SELFPAY ==
[2024-03-24 11:36] VITALS: BMI 24.6
--- NOTE | 2024-07-24 | PATH_ITS ---
[facility] Accession Number: [id number] No. of containers..02 Tissue . 01 Material submitted: . PART A: colon - TRANSVERSE COLON MASS PART B: colon - SIGMOID COLON POLYP . 01 Diagnosis: A. TRANSVERSE COLON MASS, BIOPSY: Invasive adenocarcinoma, poorly differentiated, immunophenotypically consistent with colonic origin. Lymphovascular invasion not identified. Loss of MLH1 and PMS by immunohistochemistry; please see below. . B. SIGMOID COLON POLYP: Colonic mucosa with focal mucosal hyperplasia. Negative for dysplasia or malignancy. . . . A. IMMUNOHISTOCHEMISTRY TESTING FOR MISMATCH REPAIR PROTEINS: . MLH1: Loss of nuclear expression. MSH2: Intact nuclear expression. MSH6: Intact nuclear expression. PMS2: Loss of nuclear expression. Background nonneoplastic tissue/internal control with intact nuclear expression. . INTERPRETATION: Loss of nuclear expression of MLH1 and PMS2: testing for methylation of the MLH1 promoter and/or mutation of BRAF is indicated (the presence of a BRAF V600E mutation and/or MLH1 methylation suggests that the tumor is sporadic and germline evaluation is probably not indicated; absence of both MLH1 methylation and of BRAF V600E mutation suggests the possibility of Larson syndrome, and sequencing and/or large deletion/duplication testing of germline MLH1 may be indicated) . *There are exceptions to the above IHC interpretations. These results should not be considered in isolation, and clinical correlation with genetic counseling is recommended to assess the need for germline testing. [facility] 07/29/2024 1814 Local . 01 Comment: As part of routine senior data quality analyst, Dr. Hightower has reviewed part A of this case and agrees with the diagnosis of invasive adenocarcinoma with colonic immunophenotype, as well as loss of MLH1 and PMS2. The finding of adenocarcinoma was discussed between Dr. Camacho and Dr. Pierson on 07/28/2024 at 4:50 p.m. . 01 Electronically signed: . Larry Pierson MD, PhD, Pathologist NPI- [id number] . 01 Gross description: . Part A: TRANSVERSE COLON MASS: Received in formalin are multiple fragment(s) of rodriguez, soft tissue measuring 0.1 x 0.1 x 0.1 cm to 1.0 x 0.4 x 0.3 cm submitted entirely in 2 cassette(s) Part B: SIGMOID COLON POLYP: Received in formalin is 1 fragment(s) of rodriguez, soft tissue measuring 0.7 x 0.6 x 0.4 cm submitted entirely in 1 cassette(s) /[facility] 07/27/2024 2221 Local . 01 Microscopic: . A. Sections are of colonic mucosa with expansion of the submucosa and lamina propria by a proliferation of epithelioid cells in a nested and trabecular growth pattern. Stromal desmoplasia and areas of necrosis are present. To further classify the lesion, a panel of immunohistochemical stains is performed (each with an appropriate staining control). The malignant cells are negative for cytokeratin 7 and cytokeratin 20 immunoreactivity, as well as negative for other markers of specific differentiation including squamous (p40), lung (TTF1), renal (PAX8), and neuroendocrine (chromogranin, synaptophysin). The malignant cells are strongly and diffusely positive for SATB2 and villin immunoreactivity, consistent with colonic origin. Additionally, the malignant cells show loss of MLH1 and PMS2 nuclear immunoreactivity, with intact MSH2 and MSH6 immunoreactivity. . * This test was developed and the performance characteristics were validated by [facility]. It has not been cleared or approved by the U.S. Food and Drug Administration. . 01 Pathologist provided ICD-10: C18.4 . 01 CPT . 540142, 091577, [id number], [id number] Specimen Comment: A courtesy copy of this report has been sent to [facility] Performed at: [address] [address], [place], [place] [id number] MD Osvaldo Hightower MD Phone: [phone]
[2024-07-24] MEDS: LACTATED RINGERS 1,000 ML 42 ML IV (08:53)
[2024-07-24] MEDS: ALBUTEROL/IPRATROPIUM 3 ML AMPUL INH (08:53)
[2024-07-24 09:01] VITALS: BP 120/70; PULSE 82; RESP 14; TEMP 36.3; O2SAT 96
--- NOTE | 2024-07-24 09:28 | PM.PREOP ---
Pre-operative Note Interval Note History & Physical reviewed/Exam performed by Physician: Yes Changes to H&P: No
--- NOTE | 2024-07-24 10:03 | PM.OP.COLON ---
Operative Date/Time/Diagnoses Date of procedure: 07/24/24 Time of procedure: 10:03 Pre-op diagnosis: Personal history colon cancer Post-op diagnosis: same ( recurrent transverse colon mass) Procedure & Clinicians Study performed: 1. Colonoscopy with hot snare polypectomy, attempted endoscopic mucosal resection, tattoo ink marking of ulcerated transverse colon mass 2. Hot snare polypectomy, benign-appearing sigmoid colon polyp Same procedure as scheduled: Yes Indications: Personal history of colon cancer status post ileocolectomy Surgeon: Kayode Camacho Procedure Notes SCOAP/Timeout: Performed Procedure in detail: Time-out was performed. Mac was induced. Patient was placed in left lateral decubitus position. The perineum was inspected without any gross abnormality. Lubricated pediatric colonoscope was inserted and advanced to the anastomosis. The terminal ileum was intubated. The colonoscope was withdrawn slowly inspecting the circumference of the colon. Within 10 cm of the previous anastomosis was an ulcerated firm implant. This measured approximately 20 cm in size and comprised a 3rd the circumference of the colon. The mass was attempted to be lifted with injection of normal saline, however the central ulcerated area failed to lift. As such hot snare polypectomy was performed to obtain biopsies from the periphery of the mass, it was not completely excised. Tattoo ink was placed in the vicinity of this mass. In additional benign-appearing sigmoid colon polyp was removed with a hot snare completely and retrieved. Very small polyps may have been missed, prep quality was adequate. Retroflexed view of the rectum showed small, non prolapsed nonbleeding internal hemorrhoids. The scope was withdrawn the patient was taken to PACU in good condition. Scope withdrawal time: 22 Findings: polyp(s) and possible cancer Specimen(s): other (1. Transverse colon mass 2. Sigmoid colon polyp) Complications: none Impression: Likely recurrence Post-procedure Recommendations: Other recommendation(s) (CT scan, CEA, eventual Segmental colectomy) Plan for aftercare: home Follow up: weeks (1) Disposition: PACU
[2024-07-24 10:11] VITALS: BP 112/64; PULSE 63; RESP 16; TEMP 36.2; O2SAT 100
[2024-07-24 10:16] VITALS: BP 105/69; PULSE 67; RESP 16; O2SAT 100
[2024-07-24 10:32] VITALS: BP 98/71; PULSE 67; RESP 16; TEMP 36.8; O2SAT 98
[2024-07-24 11:11] LABS: Carcinoembryonic Antigen 5.2 ng/mL (0.1-3.0)
== END 2024-07-24 10:47 | disposition home or self-care (01) ==
PROVIDERS: PCP Family Medicine; Referring Provider Surgery; Visit Provider Surgery
PROC: 0DJD8ZZ Inspection of Lower Intestinal Tract, Via Natural or Artificial Opening Endoscopic (ICD-10-PCS; CPT 45378; principal; 2024-07-24 09:30)
DX: Z12.11 Encounter for screening for malignant neoplasm of colon (principal); Z85.038 Personal history of other malignant neoplasm of large intestine; C18.4 Malignant neoplasm of transverse colon
CPT/HCPCS: 45381; 45385; 82378; J2704

== ENCOUNTER → 2024-07-29 13:12 | Outpatient (CLI) | payer MEDICARE, OTHER, SELFPAY ==
[2024-03-24 11:36] VITALS: BMI 24.6
--- NOTE | 2024-07-29 13:15 | DI.CT.S_ITS ---
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 5 mm coronal and sagittal reformats were performed, with additional 7 mm MIP reformats through the lungs. For radiation dose reduction, the following was used: automated exposure control, adjustment of mA and/or kV according to patient size. COMPARISON: Merged With [facility], CT, CT ABDOMEN PELVIS W CON, 07/23/2022, 10:52. Merged With [facility], CT, CT ABDOMEN PELVIS W CON, 06/25/2024, 14:33. FINDINGS: Image quality: Excellent. CHEST: Lower Neck: No enlarged lymph nodes. Thyroid: No thyroid nodules which require sonographic follow up, per consensus guidelines. Axillae: No enlarged lymph nodes. Chest Wall: Left chest wall generator with cardiac leads. Lungs and Pleura: Basilar predominant peripheral reticulation without subpleural sparing. Bronchiectasis is present. No ground-glass . Suspected honeycombing. Heart: Heart size is normal. No pericardial effusion. Moderate to severe LAD calcifications. Thoracic Vessels: Dilated main pulmonary artery. Mediastinum and Emma: No enlarged lymph nodes. Esophagus: No wall thickening. No hiatal hernia. Patulous esophagus. This is likely from age related esophageal dysmotility. ABDOMEN: Liver: Stable hypoattenuating lesions scattered throughout the liver compared with 2022; stability favors benign cysts. Gallbladder: Cholelithiasis without wall thickening or adjacent fat stranding to suggest acute cholecystitis. Biliary ducts: No biliary dilation. Pancreas: No ductal dilation. Spleen: Stable subcentimeter enhancing lesion along the hilum compared with 2022; this probably represents a benign hemangioma in the absence of growth. Adrenal Glands: No adrenal nodules. Kidneys and Ureters: No hydronephrosis. No solid mass. No complex renal cystic lesion which requires follow up. Stomach and Bowel: Right hemicolectomy. No measurable bowel mass. Colonic diverticulosis without evidence of diverticulitis. Peritoneum: No abnormal intraperitoneal fluid. No free air. Ventral Wall: Wide-mouth ventral hernia containing fat. The neck measures 4.7 cm. Abdominal Nodes: No retroperitoneal or mesenteric adenopathy by size criteria. Vessels: Aorta and inferior vena cava are normal in size. PELVIS: Pelvic Organs: Prostatectomy. Bladder: No bladder wall thickening, accounting for underdistention. Pelvic Nodes: No enlarged lymph nodes. Miscellaneous: No inguinal hernias are seen. Bones: No aggressive osseous abnormality. Degenerative disc disease of the lumbar spine. IMPRESSION: Right hemicolectomy. No measurable transverse colon mass. No adjacent adenopathy. Stable subcentimeter hypoattenuating liver lesions since 2022, likely small cysts. 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 No suspicious pulmonary nodules. Other chronic findings as above. Dictated by: Armain Zelaya M.D. on 07/29/2024 at 23:19 Approved by: Armani Zelaya M.D. on 07/29/2024 at 23:26
[2024-07-29 13:43] LABS: Estimated Glomerular Filt Rate > 60 mL/min (>60)
== END ==
PROVIDERS: PCP Family Medicine; Referring Provider Surgery; Visit Provider Surgery
DX: C18.9 Malignant neoplasm of colon, unspecified (principal); J47.9 Bronchiectasis, uncomplicated; I25.10 Atherosclerotic heart disease of native coronary artery without angina pectoris; I28.1 Aneurysm of pulmonary artery; K76.9 Liver disease, unspecified; K80.20 Calculus of gallbladder without cholecystitis without obstruction; D73.89 Other diseases of spleen; K57.90 Diverticulosis of intestine, part unspecified, without perforation or abscess without bleeding; K43.9 Ventral hernia without obstruction or gangrene; M51.369 Other intervertebral disc degeneration, lumbar region without mention of lumbar back pain or lower extremity pain; Z90.49 Acquired absence of other specified parts of digestive tract; Z95.0 Presence of cardiac pacemaker
CPT/HCPCS: 36415; 71260; 74177; 82565; Q9967

== ENCOUNTER 2024-08-17 06:00 | Inpatient (IN) | payer MEDICARE, OTHER, SELFPAY ==
[2024-03-24 11:36] VITALS: BMI 24.6
[2024-08-10 13:50] VITALS: BMI 28.1
[2024-08-17] VITALS (16 sets, daily range): BP systolic 89–141; BP diastolic 48–80; PULSE 70–89; RESP 10–18; TEMP 36.1–36.5; O2SAT 94–100; BMI 28.4
--- NOTE | 2024-08-17 | PATH_ITS ---
[facility] Accession Number: [id number] No. of containers..01 Tissue . 01 Material submitted: . colon - TERMINAL ILEUM ANCOLON . 01 Diagnosis: TERMINAL ILEUM AND TRANSVERSE COLON, SEGMENTAL RESECTION: Invasive adenocarcinoma; see cancer case summary. . . CASE SUMMARY - COLON AND RECTUM Specimen Procedure: Other - segmental resection. Tumor Tumor site: Transverse colon. Histologic type: Adenocarcinoma. Histologic grade: G3, poorly differentiated. Tumor size: 2.5 cm in greatest dimension. Multiple primary sites: Not applicable. Tumor extent: Invades into muscular propria. Macroscopic tumor perforation: Not identified. Lymphovascular invasion: Not identified. Perineural invasion: Not identified. Tumor budding score: Low. Treatment effect: No known presurgical therapy. Margins Margin status for invasive carcinoma: All margins negative for invasive carcinoma. Margin status for non-invasive tumor: All margins negative for dysplasia. Regional lymph nodes Regional lymph node status: Regional lymph nodes present. All regional lymph nodes negative for tumor. Number of lymph nodes with tumor: 0. Number of lymph nodes examined: 11. Tumor deposits: Not identified. Regional lymph node comment: Additional pericolonic fat is examined and additional tissue submitted, only 11 lymph nodes are identified. Distant metastasis: Not applicable. pTNM classification (AJCC 8th Edition) Modified classification: Not applicable. pT category: pT2 pN category: pN0 Special studies: Performed on prior biopsy ([id number]) with loss of MLH1 and PMS2 expression by immunohistochemistry. Additional studies showed positive MLH1 promoter methylation and presence of the BRAF V600E mutation. [facility] 08/21/2024 1356 Local . 01 Electronically signed: . Larry Pierson MD, PhD, Pathologist NPI- [id number] . 01 Gross description: . Received in formalin with two identifiers and terminal ileum and transverse colon, is a segment of colon with anastomotic site measuring 15.2 cm in length and ranging from 2.3 cm at the narrowest point to 6.7 cm in diameter at the anastomotic site. The segment of ileum is 9.5 cm in length and the segment of colon is 9.1 cm in length. The ileal margin is inked blue, the colon margin is inked black, and the presumed mesenteric margin is inked green. The lumen contains a small amount of green-brown fecal material. The anastomotic site is slightly erythematous but otherwise well healed. A sessile lesion is located within the colon measuring 2.5 x 1.9 cm and is located 2.3 cm from the nearest black-inked colon margin. The lesion extends into the wall and is adjacent but not grossly invading the pericolonic fat. The lesion is also located 3.5 cm distal to the anastomotic site. The remaining mucosa is pink-rodriguez and velvety with normal-appearing folds and no additional lesions identified. The rodrigez average 0.3 cm thick with no diverticula identified. Palpation reveals 13 rodriguez lymph node candidates, 0.3 to 0.7 cm in greatest dimension. Genetic Engineer sections are submitted as follows: . A1: Ileal margin en face. A2: Lesion perpendicular to black-inked colon margin. A3-A5: Remaining lesion. A6: Unremarkable full-thickness sections. A7: Area of anastomosis. A8: Four intact lymph node candidates. A9: Five intact lymph node candidates. A10: Four intact lymph node candidates. ([id number]) . Fourteen rodriguez to brown lymphoid candidates are additionally palpated ranging from 0.4 to 0.8 cm in greatest dimension. The lymph node candidates and additional adipose are submitted as follows: . A11: Six intact lymph node candidates. A12: Five intact lymph node candidates. A13: Three intact lymph node candidates. A14: Additional adipose. ([id number]) /MRV 08/20/2024 1907 Local . 01 Pathologist provided ICD-10: C18.4 . 01 CPT . 045113 Specimen Comment: A courtesy copy of this report has been sent to [phone] Performed at: [address] [facility], [place], [place] [id number] MD Osvaldo Hightower MD Phone: [phone]
[2024-08-17] MEDS: ALBUTEROL/IPRATROPIUM 3 ML AMPUL INH ×3 (07:17→18:44)
[2024-08-17] MEDS: LACTATED RINGERS 1,000 ML 42 ML IV ×2 (07:17→10:18)
--- NOTE | 2024-08-17 07:48 | PM.PREOP ---
Pre-operative Note COVID-19 COVID-19 status: Not tested Interval Note History & Physical reviewed/Exam performed by Physician: Yes Changes to H&P: No ASA Class (for procedural sedation): III
--- NOTE | 2024-08-17 08:32 | SUR.OPER ---
Supine on padded OR bed with pink pads, head on pillow, arms padded and tucked at sides, legs uncrossed, safety belt at thigh, tape over blanket over lower legs .
[2024-08-17] MEDS: BUPIVACAINE 0.5% W/ EPI (PF) 30 ML VIAL INJ (08:47)
--- NOTE | 2024-08-17 08:51 | SUR.OPER ---
Dr. Fong notified of patient allergies, order for 3g Unasyn placed. Dr. Toledo notified of order for 3 grams Unasyn. Dose given at 0821. Per Dr. Toledo, no signs or symptoms of reaction to medication. Pt tolerated dose well.
[2024-08-17] MEDS: ACETAMINOPHEN IV 1,000 MG/100 ML VIAL 400 MG IV (10:08)
[2024-08-17] MEDS: metroNIDAZOLE 500 MG/100 ML PIGGYBACK 100 MG IV (10:20)
[2024-08-17] MEDS: BUPIVACAINE LIPOSOME 266 MG/20 ML VIAL INJ (11:03)
--- NOTE | 2024-08-17 11:36 | PM.OP.1 ---
Operative Date/Time/Diagnoses Date of procedure: 08/17/24 Time of procedure: 11:37 Pre-op diagnosis: Transverse colon cancer Post-op diagnosis: same Procedure & Clinicians Procedure: Laparoscopic extended right hemicolectomy Same procedure as scheduled: Yes Surgeon: Gerardo Fong Extracorporeal Circulation Specialist: Gregory Quintana Anesthesia Type: General Operative Notes Findings: Tattoo ink and a palpable mass in the proximal transverse colon just distal to the anastomosis Estimated Blood Loss (mL): 40 Procedure in detail: The patient is an 89-year-old man who was recently diagnosed with a transverse colon cancer. He had originally undergone an ileocecectomy for an advanced polyp many years ago. He then had an open right hemicolectomy in July of last year because of a CT scan finding suggesting a mass in the right colon just past the old ileocecal anastomosis. During that surgery the ileum was anastomosed to the proximal transverse colon. The specimen had been reportedly opened on the back table with no finding of a mass. The pathology from at operation reported no finding of colon cancer but there was a single lymph node in the mesentery with adenocarcinoma. He then had another colonoscopy June of this year by Dr. Camacho with findings of a colon cancer in the transverse colon just distal to the anastomosis. Dr. Camacho did inject tattoo ink just distal to the mass. A repeat CT scan of the chest abdomen pelvis demonstrated no evidence of metastatic disease. The mass was not visible on CT. The patient was given Unasyn. The patient was brought to the operating room, placed on the table in the supine position and general endotracheal anesthesia was induced. The abdomen was prepped and draped in the usual fashion and a time-out was performed. A cutdown was performed in the left midabdomen. We dissected down to the anterior sheath and scored the anterior sheath with cautery. The anterior sheath was grasped with a Keith clamp. The underlying muscle fibers were spread revealing the posterior sheath which was grasped between tonsil clamps and divided sharply with Metzenbaum scissors. A 12 mm De La Torre port was introduced into the abdomen. The abdomen was insufflated to 15 mmHg. The camera was inserted in the there was no evidence of injury. There were no adhesions of bowel or omentum to the anterior abdominal wall. We then placed a 5 mm port in the left upper quadrant, and 2 5 mm ports in the right lower quadrant. The patient was positioned in reverse Trendelenburg and air planed towards the left. We started by dividing the omentum off the transverse colon to enter into the lesser sac posterior to the stomach. We continued the dissection until the entire C-loop of the duodenum was exposed. We then dissected laterally until we had the anastomosis completely mobilized off the right sidewall. The tattoo ink was visible in the proximal transverse colon. We took down some adhesions of the terminal ileum to the right sidewall. Next we made 5 cm midline incision over the pre-existing incisional hernia to the left of the umbilicus. We opened the hernia sac. The hernia consisted of a predominant incisional hernia of about 3 cm adjacent to to smaller hernia defects each about 1 cm. We divided the fascial bridges between them to create 1 5 cm defect. The Chris wound retractor was placed and the terminal ileum, old anastomosis and proximal transverse colon were exteriorized. We divided the transverse colon just distal to the ink and several cm distal to the palpable mass with a single firing of the 75 mm blue load linear cutting stapler. We then used the LigaSure to take down the mesentery involving the middle colic vessels and the ileocolic vessels running out to the anastomosis. There were some palpable nodes along the ileocolic. We then divided the terminal ileum about 20 cm from the anastomosis using a single firing of the blue load linear cutting stapler. We then created a [id number]-[id number]-[id number] functional end to end anastomosis using a single firing of the 75 mm blue load stapler. We closed the enterotomies in 2 layers using a running 3-0 PDS followed by multiple interrupted 3-0 silk Lembert sutures. We did not close the mesenteric defect due to the wide span. Next we transitioned to clean closure and closed the fascia in the midline. It appeared that there was old mesh towards the midline suggesting that the hernia was a recurrence off the left side of the old mesh. We dissected out the hernia sac and discarded it. We were able to close the anterior sheath from the cutdown incision through the midline incision. The skin incisions were closed with mairana. EBL: 40 mL Specimen: Terminal ileum, old anastomosis and transverse colon Gregory ANGEL provided assistance with exposure, retraction and closure of incisions. Complications: none Post-operative Condition: stable Disposition: PACU
--- NOTE | 2024-08-17 12:42 | SUR.PHASEI ---
Pacemaker rep Peterson at bedside to reprogram pacemaker from DDD rate of 80 to DDD rate of 60. See chart for additional information.
[2024-08-17] MEDS: LACTATED RINGERS 1,000 ML 75 ML IV (13:21)
--- NOTE | 2024-08-17 14:04 | PC.NURSE ---
Patient admitted to the floor around 1315, he had an abdominal surgery, laparascopic transverse colon resection. He has a midline with aquacel with scant drainage to area, and 2 smaller lap incisions on each side with allevyn dressing. Rudolph patent and patient is tolerating ivf. Resting comfortably. Patient is normally on 2L at home, he has interstial lung disease, copd, and pulmonary fibrosis. he is satting at 95%. He denies any pain at this time.
[2024-08-17] MEDS: dilTIAZem 30 MG TABLET 60 MG PO (17:01)
[2024-08-17] MEDS: TAMSULOSIN 0.4 MG CAPSULE PO (20:30)
[2024-08-18] VITALS (10 sets, daily range): BP systolic 94–157; BP diastolic 59–82; PULSE 69–91; RESP 16–18; TEMP 36.7–37.7; O2SAT 95–100
[2024-08-18] MEDS: dilTIAZem 30 MG TABLET 60 MG PO ×3 (00:22→15:53)
[2024-08-18 06:24] LABS: Add Manual Diff / Slide Review NO; Basophils Absolute Auto 0 /uL (0-100); Basophils Percent Auto 0.2 % (0-2); Eosinophils Absolute Auto 0 /uL (0-450); Eosinophils Percent Auto 0.1 % (2-4); Hematocrit 27.4 % (41-53); Hemoglobin 9.6 g/dL (13.5-17.5); Lymphocytes Absolute Auto 800 /uL (1100-4500); Lymphocytes Percent Auto 12.1 % (25-40); Mean Corpuscular Hemoglobin 32.6 PG (26-34); Mean Corpuscular Volume 93.2 fL (80-100); Monocytes Absolute Auto 700 /uL (0-900); Monocytes Percent Auto 10.6 % (3-14); Neutrophils Absolute Auto 4800 /uL (1500-7000); Platelet Count 198 X10^3/uL (150-400); Red Blood Cell Count 2.94 X10^6/uL (4.5-5.9); White Blood Cell Count 6.2 X10^3/uL (4.5-11.0)
[2024-08-18 06:34] LABS: BUN Creatinine Ratio 16.7 (6-22); Blood Urea Nitrogen 11 mg/dL (9-20); Calcium 8.9 mg/dL (8.4-10.2); Carbon Dioxide 27 mmol/L (22-32); Chloride 104 mmol/L (98-107); Estimated Glomerular Filt Rate > 60 mL/min (>60); Glucose 122 mg/dL (70-99); HEMOLYSIS < 15 (0-50); Potassium 3.7 mmol/L (3.4-5.1); Sodium 137 mmol/L (137-145)
[2024-08-18] MEDS: ALBUTEROL/IPRATROPIUM 3 ML AMPUL INH ×5 (08:17→22:30)
[2024-08-18] MEDS: allopurinoL 100 MG TABLET 200 MG PO (09:35)
[2024-08-18] MEDS: PANTOPRAZOLE 40 MG VIAL IV ×2 (10:29→20:47)
--- NOTE | 2024-08-18 10:51 | CM.DANOTE ---
Addendum entered by MART Mukherjee 08/18/24 11:40: ADD: Per [facility], reviewing and will need PT eval note to confirm if he meets homebound criteria to accept. PT orders placed and will need to send to [facility] when available to review. BF Original Note: Patient is an 89 yo male who was admitted INPT Status on 08/17/24 for Lap Hemmicolectomy. Pt has [facility] and [employer] for insurance and his PCP is Dr. Kirti Tai at [facility]. EMR was reviewed. Per Surgeon, pt with recent dx of traverse colon CA after colonoscopy and proceeded with planned hemicolectomy and to advance diet and ambulate towards plan of d/c home when stable. Per spa concierge, pt was refusing ambulation or to be turned in bed or skin check last night and this morning but very chatty. SW met bedside with pt and explained role and called spouse Sera via phone and they confirm they live at home in [place] and are fairly independent with ADLs at baseline. Pt uses a 4WW and cane for ambulation at baseline and spouse is still driving. Pt's POA is his spouse Sera. They deny any hx of HH or SNF but spouse feels HH would be needed at d/c. SW provided HH Choice list of [facility] based on their location on [facility] and no preference so [facility] referral made based on Vendor Calendar. F2F completed but not sent yet. SW discussed the importance of ambulation and risk of skin break down and they confirm preference is home and spouse agreeable to encourage pt to mobilize and be repositioned in bed and spouse will be bedside this afternoon (states she is not a morning person) and will provide transport for pt to home at d/c. Plan: SW to follow for [facility] review to confirm they can accept and plan of discharge home with spouse when medically stable and any further identified discharge planning needs. SW to notify TCM team at discharge for outpt f/u with his PCP Dr. Tai. MART Mukherjee Discharge Planning/Care Management Advanced directive, confirm from FAMILY Start: 08/17/24 13:27 Freq: Q24H Status: Active Protocol: Document 08/17/24 14:01 CLL (Rec: 08/17/24 14:03 CLL [id number]) Advance Directive, confirm on record Time 14:03 Person contacted patient Copy received No CM Discharge Assessment Start: 08/17/24 06:32 Freq: Status: Active Protocol: Document 08/18/24 10:48 BF (Rec: 08/18/24 10:50 BF [id number]) Discharge Planning Assessment Assigned Recreation Worker MART Cantu DPOA/Assigned Designee Name spouse Sera Contact Information [phone] Advance Directives? Yes Advance Directives on File No: states full code History Provided By Patient,Family Member,Medical Record Has Patient been admitted in last 30 No days? Comment Recent colonoscopy in July that determined the need for hemicolectomy Prior Living Arrangements House Household Members spouse Type of transporation used prior to Relies on Others admit Independent with ADL's Yes: mostly Is patient alert and oriented? Yes: mostly Needs Assistance With Managing Medications,Home Chores / Shopping Caregiver for Another No DME Already Rented / Owned FWW / Walker,Cane Patient/Family Preference Home with Home Health Barriers to Discharge No Discharge Plan Home with Home Health Community Services Physical Therapy,Home Health Nurse Transportation Arrangement Spouse Referrals Initiated Home Health If patient plan is home with home health Yes : Has signed face to face form been completed? Medicare Choice List Provided Yes Medicare choice list reviewed on family electronic tablet with SNF/HH Preference [facility] referral based on vendor calendar Whiteboard Updated in Patient Room with Yes name and ext. # of Recreation Worker Review Status In Process Please Provide Date Initial DC 08/18/24 Assessment Was Performed Next Review Type Continued Stay Review Pre-Anesthesia Assessment Start: 08/10/24 13:50 Freq: Status: Complete Protocol: Document 08/10/24 13:50 CAB (Rec: 08/10/24 14:48 CAB [id number]) Pre-Anesthesia Assessment PAC Comment Phone assessment Patient Information Reviewed Via Phone Assessment Assessment Completed With Patient,Spouse Primary Care Provider Angle Domínguez Seen Specialist in Last 12 Months Yes Specialist Seen Criminal Justice Social Worker,General surgeon, Product Ambassador Primary Language Somali Preferred Language Somali Fish Hatchery Superintendent Required No Height 177.8 cm Weight 88.904 kg Body Mass Index (BMI) 28.1 Hearing Ability Hearing Impaired,Use of Hearing Aid Visual Assist Glasses Dentition Type Teeth, Natural Present,Teeth, Missing Barriers to Learning Auditory Comment Pt states he can hear without hearing aids Hx Anesthesia Reactions No Hx Family Anesthesia Reaction No Hx Malignant Hyperthermia No Hx Blood Transfusions Yes: 1977 Hx Blood Transfusion Reaction No Anesthesia Review Requested Yes: PAC courtesy re: Medical history Cereal Chemist No alcohol intake current alcohol intake frequency 1-2 drinks per day Smoking Status Never smoker Substance Use Type [#R] does not use Pain Present Denied Pain History of Falling (Recent or History of No ) Patient is completely paralyzed or No completely immobile Prosthesis or Orthotic Device Cane,Front Wheel Walker Mental Status Oriented to own ability Is patient on oxygen? Yes: 2L02 continuous Does patient have MORSE/SOB Yes: MORSE Hx Sleep Apnea No CPAP/BIPAP use not prescribed Currently Taking a Beta Harsh No Can You Climb a Flight of Stairs Without Yes: Patient climbs 13 stairs SOB daily Hx Chest Pain No Hx SOB Yes: MORSE Hx Syncope or Dizziness No Anti-Coagulant Therapy No Has a Criminal Justice Social Worker Yes: Visit 05/14/24 Criminal Justice Social Worker name Dr. Wall @ [facility] Hx Pacemaker/ICD Yes Pacemaker Rep Required? Yes: 08/11/24 Scheduled rep lucei/ Peterson [phone] Cardiac Clearance Received Yes Comment Cardiac records scanned and in surgery folder Diet Type At Home Regular Dysphagia No Gastrointestinal Symptoms Abdominal Pain,Bloating Genitourinary Symptoms Change in Urinary Stream Urinary Catheter Present No Hx Urinary Self Catheterization No Diabetes No Hx Drug Resistant Organism No Presence of External or Internal Medical Yes: Pacemaker, knee Devices prosthesis, amira eye IOLs, bilateral wrists, left knee Month and year received flu vaccine 2022 Received a COVID vaccine? Yes: plus boosters Marital Status Lives With spouse Current Living Arrangements House Number of Floors (Floors) One Floor Number of Stairs To Enter/Railing? 13 from garage Support System Spouse Does the Patient Have Assistance After Yes Surgery Patient Discharge Plan Description Return Home Comment Pt advised 4-5 day length of stay per surgeon Feels Safe in Current Environment Yes Been Physically Hurt or Threatened By a No Person in Current Environment Do you have thoughts of harming yourself None or others? Are you currently considering suicide? No Do you have a plan to hurt yourself or No Plan others? Do You Have Any Spiritual Beliefs That No May Affect Your HC Choices? Do You Have Any Cultural Practices That No May Affect Your HC Choices? Comment Faith Who Can We Speak to About Patient's Care Family only Identifying Code for Release of Patient [place] Information Health Care Proxy/Next of Kin Sera Golden () Health Care Proxy Emergency Contact Name Sera Golden () Emergency Contact Advance Directives? Yes Advance Directives on File No: states full code Power of Manager Customer Service Yes Power of Manager Customer Service Name Sera Golden Power of Manager Customer Service PAC Instructions Durable medical equipment, Medications to take/avoid,No ETOH/petroleum product on skin DOS,NPO,Pre-op antibiotic, Sensory aids,Sturdy shoes/ comfortable clothes,Do not bring valuables and remove jewelry Stop Bang Assessment Do you snore loudly (louder than talking No or loud enough to be heard through closed doors) Do you often feel tired, fatigued or No sleepy during the daytime Has anyone ever observed you stop No breathing while sleeping? Do you have, or are you being treated No for, high blood pressure
--- NOTE | 2024-08-18 12:00 | PT.IIE ---
Current Diagnoses Malignant neoplasm of colon, unspecified (08/17/24) Surgery Performed Operation Date: 08/17/24 07:45 Actual Procedures p Laparoscopic Transverse Colon Resection with primary repair of incisional ventral hernia - Gerardo Fong MD Surgical History (Last Reviewed 07/24/24 @ 08:45 by Renata Castro RN) Anesthesia H/O circumcision H/O transurethral resection of prostate H/O vasectomy History of colon resection History of left knee replacement (~03/2015) History of testicular surgery (~1989) History of total left knee replacement (11/22/22) Hx of arthroscopy of right knee (~1985) Hx of bilateral cataract extraction (~1986) Hx of cardiac pacemaker (06/16/15) Hx of colonoscopy (~05/04/22) Hx of eye surgery (~1996) Hx of hand surgery (~09/2018) Hx of hernia repair Hx of hernia repair (02/02/19) Hx of knee surgery Hx of umbilical hernia repair (~1997) Status post correction of deviated nasal septum (~1993) Medical History (Last Updated 08/11/24 @ 12:07 by Eduardo rTipp MD) Actinic keratosis (~2014) Arthritis BPH w urinary obs/LUTS Cataracts, bilateral (~1986) Chronic cough COPD (chronic obstructive pulmonary disease) Detached retina, right (~1993) Diverticular disease (~2018) Eczema (~2014) Elevated PSA Epididymal cyst Glaucoma (~05/2003) Gout Gouty arthritis (~2015) Hearing loss (~2013) Herpes (~1982) History of colon polyps History of colorectal cancer (~07/2023) History of urinary retention Idiopathic pulmonary fibrosis 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 gangrene Incisional hernia without mention of obstruction or gangrene Incomplete bladder emptying Interstitial lung disease Left epididymitis Left hydrocele Mass of colon Osteoarthritis (~2015) Pacemaker (07/17/15) Peripheral neuropathy (~2023) Personal history of colon cancer Peyronie's disease PMR (polymyalgia rheumatica) (~2015) Preoperative respiratory examination Prostate cancer (~06/2023) Pulmonary fibrosis (~2018) Recurrent sinusitis (~1984) Retinal detachment (~1991) Rosacea Wears glasses Physical Therapy Inpatient Evaluation/Re-Eval M1 PT/OT-IP Prior Functional Status Start: 08/18/24 13:28 Freq: NEEDED Status: Active Protocol: Document 08/18/24 12:00 AB (Rec: 08/18/24 14:09 [id number]) Medical Review Prior Functional Status Medical History Reviewed Yes Communication able to make needs known Mobility and Gait pt stated that he was modified independent with all mobilities and ambulation without AD but uses either a 4WW or a SPC when he has flare ups on his PMR Prior Functional Level (Other details) pt uses home O2: 2L/min Social History Household Members spouse Living Arrangements House Number of Floors (Floors) Two Floors Number of Stairs To Enter/Railing? pt stays on the main level of the house has 12 steps L rail ascending to enter the house Home Environment Standard Height Toilet,Walk in Shower,Built-In Shower Seat Home Equipment Front Wheel Walker,Straight Cane,Shower Seat with Backrest ,Hand Held Shower,Grab Bars Near Toilet Additional Social History Comment pt has an adjustable bed M2 PT-IP Current Condition Start: 08/18/24 13:28 Freq: NEEDED Status: Active Protocol: Document 08/18/24 12:00 AB (Rec: 08/18/24 14:09 [id number]) Physical Therapy Current Condition Current Condition Evaluation Date 08/18/24 Treatment Diagnosis Lap extended R hemicolectomy; colon CA; difficulty in walking Onset Date 08/17/24 M3 PT-IP Subjective Start: 08/18/24 13:28 Freq: NEEDED Status: Active Protocol: Document 08/18/24 12:00 AB (Rec: 08/18/24 14:09 [id number]) Subjective Physical Therapy Visit Type Type Initial Evaluation Visit Start Time 12:00 Visit Stop Time 12:40 Number of APPRAISER ART Visits 0 Physical Therapy Visit Comments Patient Comments agreeable to do PT Therapy Pain Assessment Pain Present Pain Present Denied Pain M4 PT-IP Mobility and Gait Start: 08/18/24 13:28 Freq: NEEDED Status: Active Protocol: Document 08/18/24 12:00 AB (Rec: 08/18/24 14:09 [id number]) PT-Bed Mobility Assessment Rolling Type of Rolling Log Rolling Level of Assist Moderate Assistance Supine to Sit Supine to Sit Moderate Assistance PT-Transfer Assessment Sit to and From Stand Sit to and from Stand Minimal Assistance,1 Person Assistance,Use of Upper Extremities Equipment Transfer Assistive Device Gait Belt,4 Wheeled Walker Orthotic/Prosthetic Devices or Brace: No Transfers Transfer Destination Chair Transfer Technique ambulated Transfer Ability Level of Assist Minimal Assistance,Moderate Assistance,1 Person Assistance ,Use of Upper Extremities Comments Mobility Comments pt in bed and spouse in room. obtained PLOB and home set up. spouse tends to speak for pt. educated pt on abdominal precautions. BP 102/58. pt completed log roll supine to sit mod A and max cues. able to sit on EOB SBA. BP: 116/65 . sit to stand min A and cues and ambulated in the room using 4WW min to mod A and max cues ~ 12 ft. unsteady gait with (+) LOB x2 requiring mod A and cues. pt stated that he feels woozy during ambulation. pt sat on the chair. BP checked: 108/56. positioned pt on the chair. call light and table placed within reach. left pt with spouse. post-op handout provided to pt. Gait Assessment Gait Gait Assistance Required: Minimum Assistance,Moderate Assistance Distance (Feet) 12 Able to Maintain Weight Bearing Status Yes During Gait Assistive Devices Assistive Device Gait Belt,4 Wheeled Walker Orthotic/Prosthetic Devices or Brace: No Gait Deviations General Gait Pattern Ataxic,Decreased Stride Length ,Decreased Feet Clearance Factors Limiting Gait Function Factors Limiting Gait Function Decreased Activity Tolerance, Decreased Strength,Difficulty Following Directions,Limited Range of Motion,Poor Balance, Poor Safety Awareness PT-Balance Assessment Sitting Balance and Reactions Static Sitting Balance Ability Good Dynamic Sitting Balance Ability Good Standing Balance and Reactions Static Standing Balance Ability Fair Dynamic Standing Balance Ability Poor Device Used 4WW M5 PT-IP Objective Assessments Start: 08/18/24 13:28 Freq: NEEDED Status: Active Protocol: Document 08/18/24 12:00 AB (Rec: 08/18/24 14:09 AB [id number]) Orientation Orientation/Cognition Level of Alertness Alert Orientation Name Language Function Ability Hard of Hearing Safety Awareness Decreased Safety Awareness Memory Description Short Term Impaired Comments with slight confusion Gross Range of Motion Lower Extremity ROM Assessment Within Functional Limits Strength Lower Extremity Strength Assessment Left Impaired Knee 4-/5 Ankle 3+/5 Muscle Tone Muscle Tone WNL Yes M6 PT-IP Treatment Start: 08/18/24 13:28 Freq: NEEDED Status: Active Protocol: Document 08/18/24 12:00 AB (Rec: 08/18/24 14:09 [id number]) Physical Therapy Treatment Education Education Provided Precautions,Weight Bearing Status,Post-Op Packet,Safety M7 PT-IP Assessment and Plan Start: 08/18/24 13:28 Freq: NEEDED Status: Active Protocol: Document 08/18/24 12:00 AB (Rec: 08/18/24 14:09 [id number]) PT Summary Assessment and Plan Potential Rehabilitation Potential Fair Status of Condition at Evaluation Evolving Summary Impairments Pain,ROM,Strength,Balance, Coordination,Sensation,Tone, Cognition,Bed Mobility, Transfers,Gait,Activity Tolerance Assessment Summary pt is an 89 y/o M who underwent Laparoscopic extended hemicolectomy POD 1. pt with abdominal precautions . pt requiring mod A for log roll supine to sit and min to mod A for ambulation using 4WW . pt will require 24/7 assist and plans to have his spouse assist him. will continue to assess progress. will conduct caregiver training when appropriate. pt also will benefit from HHPT. Goals Bed Mobility Goal Independent Transfer Goal Independent,Four Wheeled Walker Gait Goal Independent,Four Wheel Walker Gait Distance 150 Other Goals up/down 12 steps L rail ascending SBA Days to Meet Goals 10 Frequency of Treatment Frequency Of Treatment Once a Day Treatment Plan Physical Therapy Treatment Plan Bed Mobility Training,Transfer Training,Gait Training, Therapeutic Exercise,Balance Retraining,Post Op Education, Discharge Planning,Hot or Cold Pack,Neuromuscular Re-ed, Coordination Retraining,Manual Therapy Precautions Abdominal Surgery Precautions Log Roll,Lifting Restrictions, Gait Belt above Incisional Area Recommendations To Nursing Amount of Assist Needed 1 Person Assist Discharge Recommendations PT Discharge Recommendations Home with 24/7 Assist Available,Home Health Transportation Needs at Discharge Private Vehicle - PT assist 1
--- NOTE | 2024-08-18 12:59 | PC.NURSE ---
Patients white taken out around 1130, given urinal to void. Up with physical therapy and patient is cleared for just transfers now. He is unsteady on his feet when up per physical therapist. Sitting up in the chair and joing his for lunch.
--- NOTE | 2024-08-18 13:46 | OT.IP.EVAL ---
Current Diagnoses Malignant neoplasm of colon, unspecified (08/17/24) Surgery Performed Operation Date: 08/17/24 07:45 Actual Procedures p Laparoscopic Transverse Colon Resection with primary repair of incisional ventral hernia - Gerardo Fong MD Past Medical History (Last Updated 08/11/24 @ 12:07 by Eduardo Tripp MD) Actinic keratosis (~2014) Arthritis BPH w urinary obs/LUTS Cataracts, bilateral (~1986) Chronic cough COPD (chronic obstructive pulmonary disease) Detached retina, right (~1993) Diverticular disease (~2018) Eczema (~2014) Elevated PSA Epididymal cyst Glaucoma (~05/2003) Gout Gouty arthritis (~2015) Hearing loss (~2013) Herpes (~1982) History of colon polyps History of colorectal cancer (~07/2023) History of urinary retention Idiopathic pulmonary fibrosis 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 gangrene Incisional hernia without mention of obstruction or gangrene Incomplete bladder emptying Interstitial lung disease Left epididymitis Left hydrocele Mass of colon Osteoarthritis (~2015) Pacemaker (07/17/15) Peripheral neuropathy (~2023) Personal history of colon cancer Peyronie's disease PMR (polymyalgia rheumatica) (~2015) Preoperative respiratory examination Prostate cancer (~06/2023) Pulmonary fibrosis (~2018) Recurrent sinusitis (~1984) Retinal detachment (~1991) Rosacea Wears glasses Surgical History (Last Reviewed 07/24/24 @ 08:45 by Renata Castro RN) Anesthesia H/O circumcision H/O transurethral resection of prostate H/O vasectomy History of colon resection History of left knee replacement (~03/2015) History of testicular surgery (~1989) History of total left knee replacement (11/22/22) Hx of arthroscopy of right knee (~1985) Hx of bilateral cataract extraction (~1986) Hx of cardiac pacemaker (06/16/15) Hx of colonoscopy (~05/04/22) Hx of eye surgery (~1996) Hx of hand surgery (~09/2018) Hx of hernia repair Hx of hernia repair (02/02/19) Hx of knee surgery Hx of umbilical hernia repair (~1997) Status post correction of deviated nasal septum (~1993) Occupational Therapy Inpatient Evaluation/Re-Eval M1 PT/OT-IP Prior Functional Status Start: 08/18/24 13:28 Freq: NEEDED Status: Active Protocol: Document 08/18/24 13:54 [facility] (Rec: 08/18/24 14:23 [facility] Desktop) Medical Review Prior Functional Status Medical History Reviewed Yes Communication able to make needs known Mobility and Gait pt stated that he was modified independent with all mobilities and ambulation without AD but uses either a 4WW or a SPC when he has flare ups on his PMR Activities of Daily Living and IADL's Pt able to do all ADL and assist with bills. Pt's assisted with set-up of medications. Prior Functional Level (Other details) pt uses home O2: 2L/min Social History Household Members spouse Living Arrangements House Number of Floors (Floors) Two Floors Number of Stairs To Enter/Railing? pt stays on the main level of the house has 12 steps L rail ascending to enter the house Home Environment Standard Height Toilet,Walk in Shower,Built-In Shower Seat Home Equipment Front Wheel Walker,Straight Cane,Shower Seat with Backrest ,Hand Held Shower,Grab Bars Near Toilet Additional Social History Comment pt has an adjustable bed M2 OT-IP Current Condition Start: 08/18/24 14:09 Freq: Status: Active Protocol: Document 08/18/24 13:54 [facility] (Rec: 08/18/24 14:23 [facility] Desktop) Occupational Therapy Current Condition Current Condition Evaluation Date 08/18/24 Treatment Diagnosis S/P Laparoscopic extended R hemicolectomy Diagnosis Onset Date 08/17/24 Post Operative Precautions Abdominal Surgery Precautions Log Roll,Lifting Restrictions, Gait Belt above Incisional Area M3 OT- IP Subjective and Pain Start: 08/18/24 14:09 Freq: Status: Active Protocol: Document 08/18/24 13:54 [facility] (Rec: 08/18/24 14:23 [facility] Desktop) OT- Subjective Occupational Therapy Visit Type Type Initial Evaluation Visit Start Time 13:15 Visit Stop Time 13:46 Occupational Therapy Visit Comments Patient Comments Pt agreed to get up to brush his teeth. Patient/Caregiver Goals TO go home. OT Pain Assessment Pain When Pain Assessed During Mobility Pain Present Pain Present Pain Reported Location Abdomen Pain Behaviors Facial Grimacing,Holding Area M4 OT- IP ADL's Start: 08/18/24 14:09 Freq: Status: Active Protocol: Document 08/18/24 13:54 [facility] (Rec: 08/18/24 14:23 [facility] Desktop) OT [id number] Comments OT Self-Feeding Comments Pt on clear liquids. OT ADL-Grooming General Evaluation Grooming Ability Standby Assistance Areas Needing Assistance Retrieving/Set-up of Grooming Items Comments OT Grooming Comments Set-up assist but able to stand and do grooming needs with 4ww in front of him. OT ADL-Oral Care General Eval Oral Care Ability Independent Comments Oral Care Comments While standing with 4ww. OT ADL-Dressing General Eval Lower Body Dressing Ability Maximum Assistance Comments OT Dressing Comments Pt able to practice use of LB dressing equipment due to abdom. precautions. Pt looking to order equipment for home use. OT ADL-Toileting Comments OT Toileting Comments Pt not having to go at this time. OT ADL-Bathing Comments OT Bathing Comments Not performed. M5 OT- IP IADL's Start: 08/18/24 14:09 Freq: Status: Active Protocol: Document 08/18/24 13:54 [facility] (Rec: 08/18/24 14:23 [facility] Desktop) OT-Instrumental Activities of Daily Living Medication Management Medication Management Caregiver Provides Supervision Meal Preparation Meal Preparation Caregiver Provides Assist Metal Fabrication Supervisor Metal Fabrication Supervisor Caregiver Provides Assist M6 OT- IP Functional Cognition Start: 08/18/24 14:09 Freq: Status: Active Protocol: Document 08/18/24 13:54 [facility] (Rec: 08/18/24 14:23 [facility] Desktop) Cognitive Factors Limiting Selfcare Function Cognitive Ability Level of Alertness Alert Patient Orientation Name,Place,Situation Attention Span Ability Capable of Focused Attention, Unable to Sustain Attention Ability to Follow Commands Able to Follow One Step Commands with Increased Time, Able to Follow One Step Commands with Repetition Cognitive Comments Cognitive Assessment Comments Pt a little groggy and needing cues to follow commands. Pt needing repeated instructions as well. OT- Vision and Hearing OT- Hearing Assessment OT- Hearing Assessment WFL OT- Vision Assessment Visual Acuity Glasses All The Time Visual Attentiveness WFL M7 OT- IP Mobility and Balance Start: 08/18/24 14:09 Freq: Status: Active Protocol: Document 08/18/24 13:54 [facility] (Rec: 08/18/24 14:23 [facility] Desktop) OT-Transfer Assessment Sit to and From Stand Sit to and from Stand Contact Guard Assistance Transfers Transfer Ability Contact Guard Assistance Technique Transfer Destination Chair Transfer Technique Stand Step Pivot Devices Transfer Assistive Devices Gait Belt,4 Wheeled Walker Comments Mobility Comments CGA to stand to the 4ww and CGA for occasional balance. Also assist from his for O2 management needs. OT- Balance Assessment Sitting Balance and Reactions Static Sitting Balance Ability Good Dynamic Sitting Balance Ability Good Standing Balance and Reactions Static Standing Balance Ability Fair Dynamic Standing Balance Ability Fair M8 OT- IP Objective Assessments Start: 08/18/24 14:09 Freq: Status: Active Protocol: Document 08/18/24 13:54 [facility] (Rec: 08/18/24 14:23 [facility] Desktop) OT Gross Range of Motion Upper Extremity Range of Motion Assessment Within Functional Limits OT Strength Upper Extremity Strength Assessment Bilaterally Impaired Comments Strength Comments weakness in shoulders and hands, NT do to recent sx- at least 3+/5. M9 OT- IP Assessment and Plan Start: 08/18/24 14:09 Freq: Status: Active Protocol: Document 08/18/24 13:54 [facility] (Rec: 08/18/24 14:23 [facility] Desktop) OT Summary Assessment and Plan Potential Rehabilitation Potential Good Analytic Complexity at Evaluation Moderate Summary OT Impairments Strength,Balance,Functional Cognition,Functional Mobility, Grooming,Dressing,Toileting, Bathing,Toilet Transfers, Shower Transfers,Activity Tolerance Progress Towards Goals Slow Progress due to Medical Issues,Slow Progress due to Activity Tolerance,Slow Progress due to Cognition Assessment Summary Pt MOD complexity and main barriers are pain, decreased activity tolerance and and needing increased time to follow directions. Pt has a very supportive to assist him at home. Pt will benefit from 24/7 available assist and home health. Goals Self-Feeding Goal Independent Grooming Goal Independent Dressing Goal Independent,Long Handled Shoe Horn,Save All Operator,Sock Aid Toileting Goal Independent Bathing Goal Minimal Assistance Toilet Transfer Goal Independent Shower Transfer Goal Standby Assistance Days to Meet Goals 5 Frequency of Treatment Other frequency 5x/week Treatment Plan OT Treatment Plan ADL Training,Functional Mobility,Patient/Family Education,Discharge Planning Discharge Recommendations OT Discharge Recommendations Home with 24/7 Assist Available,Home Health Home Equipment Needs Sock aid, BSC Transportation Needs at Discharge Private Vehicle
[2024-08-18] MEDS: LACTATED RINGERS 1,000 ML 75 ML IV (14:31)
--- NOTE | 2024-08-18 14:33 | P.PN_ITS ---
Subjective Subjective Date Patient Seen: 08/18/24 Time Patient Seen: 14:33 Interval history: Zbigniew has no abdominal pain at the moment. His only real complaint was that he felt a little bit dismissed last night when he expressed abdominal pain that radiated up through his chest to the back of his throat. He says that the nurse wanted him to take Tums but he did not agree with her and wanted to go to the ER. Currently he feels fine. Exam Vital Signs (past 8 hours): - 08/18/24 08:26 08/18/24 08:48 08/18/24 09:00 Temperature 99.8 F H Pulse Rate 84 77 Respiratory Rate 18 Blood Pressure 114/59 L 134/68 Pulse Oximetry 98 98 Oxygen Delivery Method Nasal Cannula Oxygen Flow Rate 2 3 Fraction of Inspired Oxygen 28 08/18/24 11:30 Temperature Pulse Rate 70 Respiratory Rate 16 Blood Pressure Pulse Oximetry 97 Oxygen Delivery Method Nasal Cannula Oxygen Flow Rate 2 Fraction of Inspired Oxygen 28 Fraction of Inspired Oxygen 28 SaO2/FiO2 Ratio 346 Oxygen Delivery Method Nasal Cannula Oxygen Flow Rate 2 Narrative Exam Narrative: Slightly confused Abdomen is soft, minimally tender Objective Labs 08/18/24 06:00 08/18/24 06:00 Labs: Laboratory Results - last 24 hr 08/18/24 06:00 WBC 6.2 RBC 2.94 L Hgb 9.6 L Hct 27.4 L MCV 93.2 MCH 32.6 MCHC 35.0 RDW 15.0 H Plt Count 198 Neut % (Auto) 77.0 H Lymph % (Auto) 12.1 L [place] % (Auto) 10.6 Eos % (Auto) 0.1 L Baso % (Auto) 0.2 Neut # (Auto) 4800 Lymph # (Auto) 800 L [place] # (Auto) 700 Eos # (Auto) 0 Baso # (Auto) 0 Sodium 137 Potassium 3.7 Chloride 104 Carbon Dioxide 27 BUN 11 Creatinine 0.66 Estimated GFR > 60 BUN/Creatinine Ratio 16.7 Glucose 122 H Calcium 8.9 PFSH Medical History (Updated 08/11/24 @ 12:07 by Eduardo Tripp MD) Preoperative respiratory examination Pacemaker (07/17/15) Incisional hernia without mention of obstruction or gangrene Personal history of colon cancer Wears glasses Rosacea Actinic keratosis (~2014) Gouty arthritis (~2015) Idiopathic pulmonary fibrosis Pulmonary fibrosis (~2018) Chronic cough Peripheral neuropathy (~2023) Herpes (~1982) Retinal detachment (~1991) Recurrent sinusitis (~1984) Hearing loss (~2013) Glaucoma (~05/2003) Cataracts, bilateral (~1986) Diverticular disease (~2018) History of colorectal cancer (~07/2023) PMR (polymyalgia rheumatica) (~2015) COPD (chronic obstructive pulmonary disease) Prostate cancer (~06/2023) Mass of colon History of urinary retention Left epididymitis Left hydrocele Epididymal cyst Incomplete bladder emptying History of colon polyps Peyronie's disease Elevated PSA BPH w urinary obs/LUTS Osteoarthritis (~2015) Interstitial lung disease Detached retina, right (~1993) Eczema (~2014) Arthritis 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 gangrene Gout Surgical History Anesthesia History of total left knee replacement (11/22/22) H/O transurethral resection of prostate Hx of hernia repair (02/02/19) Hx of colonoscopy (~05/04/22) H/O circumcision H/O vasectomy Hx of hand surgery (~09/2018) History of left knee replacement (~03/2015) Hx of umbilical hernia repair (~1997) Hx of eye surgery (~1996) Status post correction of deviated nasal septum (~1993) History of testicular surgery (~1989) Hx of bilateral cataract extraction (~1986) Hx of arthroscopy of right knee (~1985) History of colon resection Hx of cardiac pacemaker (06/16/15) Hx of hernia repair Hx of knee surgery Family History Father History of emphysema Miners' lung Mother Congestive heart failure Social History marital status: household members: spouse lives independently: Yes occupational status: previously employed Smoking Status: Never smoker alcohol intake: current substance use type: does not use Assessment & Plan Assessment and plan (1) Colon cancer: Qualifiers: Colon location: unspecified part of colon Qualified Code(s): C18.9 - Malignant neoplasm of colon, unspecified Status: Acute Plan We will remove Rudolph today Ambulate Start Lovenox If he shows more signs of confusion or agitation we may need to start an atypical antipsychotic and consult a hospitalist. Time-Based Coding :: [TOTAL MINUTES] spent with patient and on the chart (including review of chart, obtaining history, exam, reviewing outside data, placing orders, documenting exam and treatment plan, and counseling patient) on [DATE]. 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
[2024-08-18] MEDS: ENOXAPARIN 40 MG/0.4 ML SYRINGE SUBCUT (15:52)
[2024-08-18] MEDS: TAMSULOSIN 0.4 MG CAPSULE PO (18:32)
[2024-08-19] VITALS (8 sets, daily range): BP systolic 123–154; BP diastolic 63–82; PULSE 74–91; RESP 16–20; TEMP 36.4–37.1; O2SAT 91–97
[2024-08-19] MEDS: dilTIAZem 30 MG TABLET 60 MG PO ×3 (00:24→16:05)
--- NOTE | 2024-08-19 03:25 | PC.NURSE ---
Late Entry for NOC Shift 08/17/24 to 08/18/24- Patient alert and oriented with some noted confusion. While getting report from dayshift Jana ROSARIO and myself attempted to do a skin check. Patient became irritated and refused. Tried to encourage patient to change positions and not just remain on back, patient refused each time this was brought up. Rudolph cath in place. Rudolph patent and set to gravy to drain. Urine clear and yellow. Patient complained about sore throat. Patient offered throat lozange but refused to try one. Patient also offered Zofran when c/o nausea were reported. Skin check attempted again in the morning during shift report with on coming MARLENE [place].
[2024-08-19] MEDS: ALBUTEROL/IPRATROPIUM 3 ML AMPUL INH ×3 (08:01→19:17)
[2024-08-19] MEDS: ENOXAPARIN 40 MG/0.4 ML SYRINGE SUBCUT (08:58)
[2024-08-19] MEDS: PANTOPRAZOLE 40 MG VIAL IV ×2 (08:58→20:43)
[2024-08-19] MEDS: SODIUM CHLORIDE 0.9% FLUSH 10 ML IV ×2 (09:08→20:43)
[2024-08-19] MEDS: allopurinoL 100 MG TABLET 200 MG PO (11:18)
--- NOTE | 2024-08-19 12:43 | CM.DPNOTE ---
DCP Cont Reviewed chart. Patient discussed in multidisciplinary rounds. s/p laparoscopic extended right hemicolectomy opn 08/17. Patient has developed some post operative confusion and agitation. Surgery considering consult to hospitalist if this continues. Spouse at bedside. Plan remains discharge home w/family and [facility]. Therapies have cleared patient for this plan. Emailed Milad and Helena at [facility] patient's completed F2F, orders and clinical including PT/OT notes. CM team following clinical course closely. ASHLY
--- NOTE | 2024-08-19 13:15 | OT.IP.TRT ---
Current Diagnoses Malignant neoplasm of colon, unspecified (08/17/24) Surgery Performed Operation Date: 08/17/24 07:45 Actual Procedures p Laparoscopic Transverse Colon Resection with primary repair of incisional ventral hernia - Gerardo Fong MD Occupational Therapy Treatment Note M2 OT-IP Current Condition Start: 08/18/24 14:09 Freq: Status: Active Protocol: Document 08/18/24 13:54 [facility] (Rec: 08/18/24 14:23 [facility] Desktop) Occupational Therapy Current Condition Current Condition Evaluation Date 08/18/24 Treatment Diagnosis S/P Laparoscopic extended R hemicolectomy Diagnosis Onset Date 08/17/24 Post Operative Precautions Abdominal Surgery Precautions Log Roll,Lifting Restrictions, Gait Belt above Incisional Area M3 OT- IP Subjective and Pain Start: 08/18/24 14:09 Freq: Status: Active Protocol: Document 08/19/24 13:15 [facility] (Rec: 08/19/24 14:05 [facility] Desktop) OT- Subjective Occupational Therapy Visit Type Type Treatment Note Visit Start Time 13:15 Visit Stop Time 13:54 Occupational Therapy Visit Comments Patient Comments Pt just getting back from a walk with nursing and after encouragement agreed to shower . Patient/Caregiver Goals TO get better. OT Pain Assessment Pain When Pain Assessed During Mobility Location Abdomen Intensity 2 Scale Used Numeric (0 - 10) M4 OT- IP ADL's Start: 08/18/24 14:09 Freq: Status: Active Protocol: Document 08/19/24 13:15 [facility] (Rec: 08/19/24 14:05 [facility] Desktop) OT [id number] Comments OT Self-Feeding Comments Not at meal time. OT ADL-Grooming Comments OT Grooming Comments Not performed. OT ADL-Oral Care Comments Oral Care Comments Not performed. OT ADL-Dressing General Eval Lower Body Dressing Ability Maximum Assistance Areas Needing Assistance Underpants/Brief,Socks Comments OT Dressing Comments Assist for socks over his feet and to get the brief on over his feet. Pt states looking to obtain sock aid for home use. OT ADL-Toileting Comments OT Toileting Comments Pt not having to go at this time. OT ADL-Bathing Bathing Type Bathing Type Shower General Evaluation Bathing Ability Moderate Assistance Areas Needing Assistance Wash/Dry Upper Body,Wash/Dry Lower Extremities Comments OT Bathing Comments Pt states will use his shower stool at home and also has a HHSP. Pt needing assist for his back and lower extremities at this time due to not able to bend. M5 OT- IP IADL's Start: 08/18/24 14:09 Freq: Status: Active Protocol: Document 08/18/24 13:54 [facility] (Rec: 08/18/24 14:23 [facility] Desktop) OT-Instrumental Activities of Daily Living Medication Management Medication Management Caregiver Provides Supervision Meal Preparation Meal Preparation Caregiver Provides Assist Sour Bleaching Pleater Sour Bleaching Pleater Caregiver Provides Assist M6 OT- IP Functional Cognition Start: 08/18/24 14:09 Freq: Status: Active Protocol: Document 08/18/24 13:54 [facility] (Rec: 08/18/24 14:23 [facility] Desktop) Cognitive Factors Limiting Selfcare Function Cognitive Ability Level of Alertness Alert Patient Orientation Name,Place,Situation Attention Span Ability Capable of Focused Attention, Unable to Sustain Attention Ability to Follow Commands Able to Follow One Step Commands with Increased Time, Able to Follow One Step Commands with Repetition Cognitive Comments Cognitive Assessment Comments Pt a little groggy and needing cues to follow commands. Pt needing repeated instructions as well. OT- Vision and Hearing OT- Hearing Assessment OT- Hearing Assessment WFL OT- Vision Assessment Visual Acuity Glasses All The Time Visual Attentiveness WFL M7 OT- IP Mobility and Balance Start: 08/18/24 14:09 Freq: Status: Active Protocol: Document 08/18/24 13:54 [facility] (Rec: 08/18/24 14:23 [facility] Desktop) OT-Transfer Assessment Sit to and From Stand Sit to and from Stand Contact Guard Assistance Transfers Transfer Ability Contact Guard Assistance Technique Transfer Destination Chair Transfer Technique Stand Step Pivot Devices Transfer Assistive Devices Gait Belt,4 Wheeled Walker Comments Mobility Comments CGA to stand to the 4ww and CGA for occasional balance. Also assist from his for O2 management needs. OT- Balance Assessment Sitting Balance and Reactions Static Sitting Balance Ability Good Dynamic Sitting Balance Ability Good Standing Balance and Reactions Static Standing Balance Ability Fair Dynamic Standing Balance Ability Fair M8 OT- IP Objective Assessments Start: 08/18/24 14:09 Freq: Status: Active Protocol: Document 08/18/24 13:54 [facility] (Rec: 08/18/24 14:23 [facility] Desktop) OT Gross Range of Motion Upper Extremity Range of Motion Assessment Within Functional Limits OT Strength Upper Extremity Strength Assessment Bilaterally Impaired Comments Strength Comments weakness in shoulders and hands M9 OT- IP Assessment and Plan Start: 08/18/24 14:09 Freq: Status: Active Protocol: Document 08/19/24 13:15 [facility] (Rec: 08/19/24 14:05 [facility] Desktop) OT Summary Assessment and Plan Potential Rehabilitation Potential Good Analytic Complexity at Evaluation Moderate Summary OT Impairments Strength,Balance,Functional Cognition,Functional Mobility, Grooming,Dressing,Toileting, Bathing,Toilet Transfers, Shower Transfers,Activity Tolerance Progress Towards Goals Progressing Toward Goals Assessment Summary Pt making good progress today and able to tolerate showering and O2 on RA at 93% after the shower. Pt will continue to benefit from assist at home and have home health. Goals Self-Feeding Goal Independent Grooming Goal Independent Dressing Goal Independent,Long Handled Shoe Horn,Gold Prospector,Sock Aid Toileting Goal Independent Bathing Goal Minimal Assistance Toilet Transfer Goal Independent Shower Transfer Goal Standby Assistance Days to Meet Goals 2 Frequency of Treatment Frequency Of Treatment Once a Day Treatment Plan OT Treatment Plan ADL Training,Functional Mobility,Patient/Family Education,Discharge Planning Discharge Recommendations OT Discharge Recommendations Home with 29/10 Assist Available,Home Health Home Equipment Needs sock aid, bSC Transportation Needs at Discharge Private Vehicle
--- NOTE | 2024-08-19 14:30 | PT.IPTN ---
Current Diagnoses Malignant neoplasm of colon, unspecified (08/17/24) Surgery Performed Operation Date: 08/17/24 07:45 Actual Procedures p Laparoscopic Transverse Colon Resection with primary repair of incisional ventral hernia - Gerardo Fong MD Physical Therapy Treatment Note M2 PT-IP Current Condition Start: 08/18/24 13:28 Freq: NEEDED Status: Active Protocol: Document 08/18/24 12:00 [facility] (Rec: 08/18/24 14:09 AB [id number]) Physical Therapy Current Condition Current Condition Evaluation Date 08/18/24 Treatment Diagnosis Lap extended R hemicolectomy; colon CA; difficulty in walking Onset Date 08/17/24 M3 PT-IP Subjective Start: 08/18/24 13:28 Freq: NEEDED Status: Active Protocol: Document 08/19/24 14:30 [facility] (Rec: 08/19/24 15:54 [facility] [id number]) Subjective Physical Therapy Visit Type Type Treatment Note Visit Start Time 14:30 Visit Stop Time 15:20 Number of HEAD OF IT Visits 0 Physical Therapy Visit Comments Patient Comments agreeable to do PT Therapy Pain Assessment Pain When Pain Assessed At Rest Pain Present Pain Present Pain Reported Location Abdomen Intensity 3 Scale Used Numeric (0 - 10) Pain Management Techniques Distraction,Modification of Treatment,Re-positioning, Timing of Activity with Medications M4 PT-IP Mobility and Gait Start: 08/18/24 13:28 Freq: NEEDED Status: Active Protocol: Document 08/19/24 14:30 [facility] (Rec: 08/19/24 15:54 [id number]) PT-Bed Mobility Assessment Rolling Type of Rolling Log Rolling Level of Assist Standby Assistance Supine to Sit Supine to Sit Standby Assistance Sit to Supine Sit to Supine Standby Assistance PT-Transfer Assessment Sit to and From Stand Sit to and from Stand Standby Assistance,1 Person Assistance,Use of Upper Extremities Equipment Transfer Assistive Device Gait Belt,4 Wheeled Walker Orthotic/Prosthetic Devices or Brace: No Transfers Transfer Destination Toilet Transfer Technique ambulated Transfer Ability Level of Assist Standby Assistance,Contact Guard Assistance,1 Person Assistance,Use of Upper Extremities Comments Mobility Comments pt sitting on the chair and spouse in room. pt agreed to do PT but stated that he is not ready to do stair climbing but agreed to do it tomorrow. pt completed sit to stand from chair SBA. pt uses supplemental O2 at 2L/min during ambulation. O2 sat prior to ambulation: 98%. pt ambulated in the hallway using 4WW SBA to occasional CGA ~ 150 ft. pt with increase lateral trunk lean to the R with RLE tends to cross midline. cued pt to correct. pt ambulated back to his room and sat on EOB. completed log roll sit<>supine x 2 from the L side of bed SBA and cues for techniques. completed supine<>sit from R side of bed SBA. pt requested to use the toilet. sit to stand from EOB SBA and ambulated to the toilet using 4WW SBA. able to complete toileting needs and ambulated towards the sink using 4WW sBA . pt able to maintain standing SBA while completing handwashing. pt ambulated to the chair. positioned pt on the chair. call light and table placed within reach. O2 sat after ambulation: 95% Gait Assessment Gait Gait Assistance Required: Standby Assistance,Contact Guard Assist Distance (Feet) 150 Able to Maintain Weight Bearing Status Yes During Gait Assistive Devices Assistive Device Gait Belt,4 Wheeled Walker Orthotic/Prosthetic Devices or Brace: No Gait Deviations General Gait Pattern Ataxic,Decreased Stride Length ,Decreased Feet Clearance Factors Limiting Gait Function Factors Limiting Gait Function Decreased Activity Tolerance, Decreased Strength,Difficulty Following Directions,Limited Range of Motion,Pain,Poor Balance,Poor Safety Awareness M5 PT-IP Objective Assessments Start: 08/18/24 13:28 Freq: NEEDED Status: Active Protocol: Document 08/18/24 12:00 [facility] (Rec: 08/18/24 14:09 AB [id number]) Orientation Orientation/Cognition Level of Alertness Alert Orientation Name Language Function Ability Hard of Hearing Safety Awareness Decreased Safety Awareness Memory Description Short Term Impaired Comments with slight confusion Gross Range of Motion Lower Extremity ROM Assessment Within Functional Limits Strength Lower Extremity Strength Assessment Left Impaired Knee 4-/5 Ankle 3+/5 Muscle Tone Muscle Tone WNL Yes M6 PT-IP Treatment Start: 08/18/24 13:28 Freq: NEEDED Status: Active Protocol: Document 08/19/24 14:30 [facility] (Rec: 08/19/24 15:54 [facility] [id number]) Physical Therapy Treatment Education Education Provided Safety M7 PT-IP Assessment and Plan Start: 08/18/24 13:28 Freq: NEEDED Status: Active Protocol: Document 08/19/24 14:30 [facility] (Rec: 08/19/24 15:54 [facility] [id number]) PT Summary Assessment and Plan Potential Rehabilitation Potential Good Summary Impairments Pain,ROM,Strength,Balance, Coordination,Cognition,Bed Mobility,Transfers,Gait, Activity Tolerance Progress Towards Goals Slow Progress due to Medical Issues,Slow Progress due to Activity Tolerance Assessment Summary pt progressing with mobility and able to ambulate using 4WW SBA to CGA ~ 150 ft. pt plans to go home and spouse to assist when needed. Goals Bed Mobility Goal Independent Transfer Goal Independent,Four Wheeled Walker Gait Goal Independent,Four Wheel Walker Gait Distance 150 Other Goals up/down 12 steps L rail ascending SBA Days to Meet Goals 10 Frequency of Treatment Frequency Of Treatment Once a Day Treatment Plan Physical Therapy Treatment Plan Bed Mobility Training,Transfer Training,Gait Training, Therapeutic Exercise,Balance Retraining,Post Op Education, Discharge Planning,Hot or Cold Pack,Neuromuscular Re-ed, Coordination Retraining,Manual Therapy Other Recommendations and Next Treatment log roll bed mobility, stair Focus climbing Precautions Abdominal Surgery Precautions Log Roll,Lifting Restrictions, Gait Belt above Incisional Area Recommendations To Nursing Amount of Assist Needed 1 Person Assist Discharge Recommendations PT Discharge Recommendations Home with 29/10 Assist Available,Home Health Transportation Needs at Discharge Private Vehicle - PT assist 1
--- NOTE | 2024-08-19 15:51 | PM.PN.IH.1 ---
Subjective Subjective Date Patient Seen: 08/19/24 Time Patient Seen: 15:51 Interval history: Zbigniew did have some more confusion overnight. No flatus yet. Tolerating clears. He has been ambulating Exam Vital Signs (past 8 hours): - 08/19/24 08:00 08/19/24 08:11 08/19/24 08:57 Temperature 98.8 F Pulse Rate 84 87 84 Respiratory Rate 18 16 Blood Pressure 145/64 H 145/64 H Pulse Oximetry 95 91 Oxygen Delivery Method Room Air Oxygen Flow Rate 0 0 Fraction of Inspired Oxygen 08/19/24 13:26 08/19/24 15:19 Temperature Pulse Rate 91 H Respiratory Rate 20 Blood Pressure 154/82 H Pulse Oximetry 95 95 Oxygen Delivery Method Room Air Oxygen Flow Rate 0 Fraction of Inspired Oxygen 21 Fraction of Inspired Oxygen 21 SaO2/FiO2 Ratio 452 Oxygen Delivery Method Room Air Oxygen Flow Rate 0 Narrative Exam Narrative: Abdomen is soft, nontender Incisions clean dry and intact Objective Labs 08/18/24 06:00 08/18/24 06:00 [facility] Medical History (Updated 08/11/24 @ 12:07 by Eduardo Tripp MD) Preoperative respiratory examination Pacemaker (07/17/15) Incisional hernia without mention of obstruction or gangrene Personal history of colon cancer Wears glasses Rosacea Actinic keratosis (~2014) Gouty arthritis (~2015) Idiopathic pulmonary fibrosis Pulmonary fibrosis (~2018) Chronic cough Peripheral neuropathy (~2023) Herpes (~1982) Retinal detachment (~1991) Recurrent sinusitis (~1984) Hearing loss (~2013) Glaucoma (~05/2003) Cataracts, bilateral (~1986) Diverticular disease (~2018) History of colorectal cancer (~07/2023) PMR (polymyalgia rheumatica) (~2015) COPD (chronic obstructive pulmonary disease) Prostate cancer (~06/2023) Mass of colon History of urinary retention Left epididymitis Left hydrocele Epididymal cyst Incomplete bladder emptying History of colon polyps Peyronie's disease Elevated PSA BPH w urinary obs/LUTS Osteoarthritis (~2015) Interstitial lung disease Detached retina, right (~1993) Eczema (~2014) Arthritis 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 gangrene Gout Surgical History Anesthesia History of total left knee replacement (11/22/22) H/O transurethral resection of prostate Hx of hernia repair (02/02/19) Hx of colonoscopy (~05/04/22) H/O circumcision H/O vasectomy Hx of hand surgery (~09/2018) History of left knee replacement (~03/2015) Hx of umbilical hernia repair (~1997) Hx of eye surgery (~1996) Status post correction of deviated nasal septum (~1993) History of testicular surgery (~1989) Hx of bilateral cataract extraction (~1986) Hx of arthroscopy of right knee (~1985) History of colon resection Hx of cardiac pacemaker (06/16/15) Hx of hernia repair Hx of knee surgery Family History Father History of emphysema Miners' lung Mother Congestive heart failure Social History marital status: household members: spouse lives independently: Yes occupational status: previously employed Smoking Status: Never smoker alcohol intake: current substance use type: does not use Assessment & Plan Assessment and plan (1) Colon cancer: Qualifiers: Colon location: unspecified part of colon Qualified Code(s): C18.9 - Malignant neoplasm of colon, unspecified Status: Acute Plan We will advance to full liquid diet for dinner tonight Time-Based Coding :: [TOTAL MINUTES] spent with patient and on the chart (including review of chart, obtaining history, exam, reviewing outside data, placing orders, documenting exam and treatment plan, and counseling patient) on [DATE]. Quality VTE Deep Vein Thrombosis/Pulmonary Embolism Present on Admission: No [facility] PROFEE Community Associate Document charge(s): No
[2024-08-19] MEDS: TAMSULOSIN 0.4 MG CAPSULE PO (18:26)
[2024-08-20 00:47] VITALS: BP 111/70; PULSE 82
[2024-08-20] MEDS: dilTIAZem 30 MG TABLET 60 MG PO ×4 (00:47→23:50)
[2024-08-20 08:00] VITALS: BP 139/87; PULSE 82; RESP 18; TEMP 36.6; O2SAT 98
[2024-08-20] MEDS: PANTOPRAZOLE 40 MG VIAL IV ×2 (08:58→21:46)
[2024-08-20] MEDS: SODIUM CHLORIDE 0.9% FLUSH 10 ML IV ×2 (08:58→21:47)
[2024-08-20] MEDS: ENOXAPARIN 40 MG/0.4 ML SYRINGE SUBCUT (08:58)
[2024-08-20] MEDS: allopurinoL 100 MG TABLET 200 MG PO (09:00)
--- NOTE | 2024-08-20 11:29 | PT.IPTN ---
Current Diagnoses Malignant neoplasm of colon, unspecified (08/17/24) Surgery Performed Operation Date: 08/17/24 07:45 Actual Procedures p Laparoscopic Transverse Colon Resection with primary repair of incisional ventral hernia - Gerardo Fong MD Physical Therapy Treatment Note M2 PT-IP Current Condition Start: 08/18/24 13:28 Freq: NEEDED Status: Active Protocol: Document 08/18/24 12:00 [facility] (Rec: 08/18/24 14:09 AB [id number]) Physical Therapy Current Condition Current Condition Evaluation Date 08/18/24 Treatment Diagnosis Lap extended R hemicolectomy; colon CA; difficulty in walking Onset Date 08/17/24 M3 PT-IP Subjective Start: 08/18/24 13:28 Freq: NEEDED Status: Active Protocol: Document 08/20/24 11:07 [facility] (Rec: 08/20/24 12:04 [facility] Desktop) Subjective Physical Therapy Visit Type Type Treatment Note Visit Start Time 11:07 Visit Stop Time 11:29 Notes SPTKaycee Garland led tx with permission of pt and direct supervision of Pooja CAMPOVERDE. Number of FINANCIAL SERVICES EDUCATION CONSULTANT Visits 1 Physical Therapy Visit Comments Patient Comments agreeable to do PT. Pt stated walk to stairs felt good. He has been more mindful and cautious about not pushing himself too far with activity. M4 PT-IP Mobility and Gait Start: 08/18/24 13:28 Freq: NEEDED Status: Active Protocol: Document 08/20/24 11:07 [facility] (Rec: 08/20/24 12:04 [facility] Desktop) PT-Transfer Assessment Sit to and From Stand Sit to and from Stand Standby Assistance,1 Person Assistance,Use of Upper Extremities Equipment Transfer Assistive Device Gait Belt,4 Wheeled Walker Orthotic/Prosthetic Devices or Brace: No Transfers Transfer Destination Chair,Toilet Transfer Technique ambulated Transfer Ability Level of Assist Standby Assistance,1 Person Assistance,Use of Upper Extremities Comments Mobility Comments pt sitting on the chair, agreed to do PT. Pt completed sit to stand from chair SBA. Pt used bathroom and required SBA for ambulation pt independent for all pericare reported initating of gas. Required safety cues for 4WW position and usage of brakes. Pt did not require any supplemental O2 during treatment. O2 thoughout tx sat at 91-92%. Pt left in upright chair with calllight in reach and chair alarm donned, nurse was notified of status and initiation of gas. Gait Assessment Gait Gait Assistance Required: Standby Assistance Distance (Feet) 310 Able to Maintain Weight Bearing Status Yes During Gait Assistive Devices Assistive Device Gait Belt,4 Wheeled Walker Orthotic/Prosthetic Devices or Brace: No Gait Deviations General Gait Pattern Within Normal Limits Factors Limiting Gait Function Factors Limiting Gait Function Poor Safety Awareness Stair Climbing Assessment Evaluation Level of Assist On Stairs Standby Assistance,Contact Guard Assistance,1 Person Assistance Devices Stair Climbing Assistive Devices Left Railing,Right Railing Technique/Endurance Stair Climbing Direction Ascend and Descend Stair Climbing Technique Step to Step Number of Steps Climbed 4 Stair Climbing Set # Repetitions (reps) 3 Comments Stair Climbing Comments CGA > SBA, pt demonstrated 2UE 's on 1 rail while descending, 1UE on 1 rail acending. PT-Balance Assessment Sitting Balance and Reactions Static Sitting Balance Ability Normal Dynamic Sitting Balance Ability Normal Standing Balance and Reactions Static Standing Balance Ability Normal Dynamic Standing Balance Ability Good Device Used 4WW M5 PT-IP Objective Assessments Start: 08/18/24 13:28 Freq: NEEDED Status: Active Protocol: Document 08/18/24 12:00 AB (Rec: 08/18/24 14:09 AB [id number]) Orientation Orientation/Cognition Level of Alertness Alert Orientation Name Language Function Ability Hard of Hearing Safety Awareness Decreased Safety Awareness Memory Description Short Term Impaired Comments with slight confusion Gross Range of Motion Lower Extremity ROM Assessment Within Functional Limits Strength Lower Extremity Strength Assessment Left Impaired Knee 4-/5 Ankle 3+/5 Muscle Tone Muscle Tone WNL Yes M6 PT-IP Treatment Start: 08/18/24 13:28 Freq: NEEDED Status: Active Protocol: Document 08/20/24 11:07 [facility] (Rec: 08/20/24 12:04 [facility] Desktop) Physical Therapy Treatment Education Education Provided Safety M7 PT-IP Assessment and Plan Start: 08/18/24 13:28 Freq: NEEDED Status: Active Protocol: Document 08/20/24 11:07 [facility] (Rec: 08/20/24 12:04 [facility] Desktop) PT Summary Assessment and Plan Potential Rehabilitation Potential Good Status of Condition at Evaluation Evolving Summary Impairments Strength,Transfers,Gait, Activity Tolerance Progress Towards Goals Progressing Toward Goals Assessment Summary SBA for all mobility w 4WW, occasional cues for brake management and safety at sink, bottom of stairs. Pt stable on stairs with 1 handrail and SBA. pt okay to return home w family when medically cleared. Goals Bed Mobility Goal Independent Transfer Goal Independent,Four Wheeled Walker Gait Goal Independent,Four Wheel Walker Gait Distance 150 Other Goals up/down 12 steps L rail ascending SBA Goal met: /15 Days to Meet Goals 10 Frequency of Treatment Frequency Of Treatment Once a Day Treatment Plan Physical Therapy Treatment Plan Bed Mobility Training,Transfer Training,Gait Training, Therapeutic Exercise,Balance Retraining,Post Op Education, Discharge Planning,Hot or Cold Pack,Neuromuscular Re-ed, Coordination Retraining,Manual Therapy Other Recommendations and Next Treatment log roll bed mobility, stair Focus climbing Precautions Abdominal Surgery Precautions Log Roll,Lifting Restrictions, Gait Belt above Incisional Area Recommendations To Nursing Amount of Assist Needed Standby Assistance Discharge Recommendations PT Discharge Recommendations Home with Assistance,Home Health Transportation Needs at Discharge Private Vehicle - PT assist 1
--- NOTE | 2024-08-20 11:58 | OT.IP.TRT ---
Current Diagnoses Malignant neoplasm of colon, unspecified (08/17/24) Surgery Performed Operation Date: 08/17/24 07:45 Actual Procedures p Laparoscopic Transverse Colon Resection with primary repair of incisional ventral hernia - Gerardo Fong MD Occupational Therapy Treatment Note M2 OT-IP Current Condition Start: 08/18/24 14:09 Freq: Status: Active Protocol: Document 08/18/24 13:54 [facility] (Rec: 08/18/24 14:23 [facility] Desktop) Occupational Therapy Current Condition Current Condition Evaluation Date 08/18/24 Treatment Diagnosis S/P Laparoscopic extended R hemicolectomy Diagnosis Onset Date 08/17/24 Post Operative Precautions Abdominal Surgery Precautions Log Roll,Lifting Restrictions, Gait Belt above Incisional Area M3 OT- IP Subjective and Pain Start: 08/18/24 14:09 Freq: Status: Active Protocol: Document 08/20/24 11:45 [facility] (Rec: 08/20/24 13:21 [facility] Desktop) OT- Subjective Occupational Therapy Visit Type Type Treatment Note Visit Start Time 11:45 Visit Stop Time 11:58 Occupational Therapy Visit Comments Patient Comments Pt agreed to get up to do oral care needs at the sink. Patient/Caregiver Goals TO go home. OT Pain Assessment Pain When Pain Assessed At Rest Pain Present Pain Present Denied Pain M4 OT- IP ADL's Start: 08/18/24 14:09 Freq: Status: Active Protocol: Document 08/20/24 11:45 [facility] (Rec: 08/20/24 13:21 [facility] Desktop) OT ADL-Grooming General Evaluation Grooming Ability Standby Assistance Areas Needing Assistance Retrieving/Set-up of Grooming Items Comments OT Grooming Comments Pt able to stand at the sink with 4ww. OT ADL-Oral Care General Eval Oral Care Ability Independent Comments Oral Care Comments Pt able to stand at the sink without getting SOB for all oral care needs. M5 OT- IP IADL's Start: 08/18/24 14:09 Freq: Status: Active Protocol: Document 08/18/24 13:54 [facility] (Rec: 08/18/24 14:23 [facility] Desktop) OT-Instrumental Activities of Daily Living Medication Management Medication Management Caregiver Provides Supervision Meal Preparation Meal Preparation Caregiver Provides Assist Strap Cutting Machine Operator Strap Cutting Machine Operator Caregiver Provides Assist M6 OT- IP Functional Cognition Start: 08/18/24 14:09 Freq: Status: Active Protocol: Document 08/20/24 11:45 [facility] (Rec: 08/20/24 13:21 [facility] Desktop) Cognitive Factors Limiting Selfcare Function Cognitive Comments Cognitive Assessment Comments Pt needing safety cues to reach back with his hands to the recliner to ease himself down. M7 OT- IP Mobility and Balance Start: 08/18/24 14:09 Freq: Status: Active Protocol: Document 08/20/24 11:45 [facility] (Rec: 08/20/24 13:21 [facility] Desktop) OT-Transfer Assessment Sit to and From Stand Sit to and from Stand Standby Assistance Transfers Transfer Ability Standby Assistance Technique Transfer Destination Chair Transfer Technique Stand Step Pivot Devices Transfer Assistive Devices Gait Belt,4 Wheeled Walker Comments Mobility Comments SBA to stand and walk to and from the sink with the 4ww to do oral care and grooming needs. OT- Balance Assessment Sitting Balance and Reactions Static Sitting Balance Ability Normal Dynamic Sitting Balance Ability Good Standing Balance and Reactions Static Standing Balance Ability Good Dynamic Standing Balance Ability Good M8 OT- IP Objective Assessments Start: 08/18/24 14:09 Freq: Status: Active Protocol: Document 08/18/24 13:54 [facility] (Rec: 08/18/24 14:23 [facility] Desktop) OT Gross Range of Motion Upper Extremity Range of Motion Assessment Within Functional Limits OT Strength Upper Extremity Strength Assessment Bilaterally Impaired Comments Strength Comments weakness in shoulders and hands M9 OT- IP Assessment and Plan Start: 08/18/24 14:09 Freq: Status: Active Protocol: Document 08/20/24 11:45 [facility] (Rec: 08/20/24 13:21 [facility] Desktop) OT Summary Assessment and Plan Potential Rehabilitation Potential Good Analytic Complexity at Evaluation Moderate Summary OT Impairments Strength,Balance,Functional Cognition,Functional Mobility, Grooming,Dressing,Toileting, Bathing,Toilet Transfers, Shower Transfers,Activity Tolerance Progress Towards Goals Progressing Toward Goals Assessment Summary Pt SBA in the room with mobility needs and able to do grooming and oral care needs while standing at the sink without getting SOB. Pt to go home with assist and home health when medically stable. Goals Self-Feeding Goal Independent Grooming Goal Independent Dressing Goal Independent,Long Handled Shoe Horn,Release Engineer,Sock Aid Toileting Goal Independent Bathing Goal Minimal Assistance Toilet Transfer Goal Independent Shower Transfer Goal Standby Assistance Days to Meet Goals 1 Frequency of Treatment Frequency Of Treatment Once a Day Treatment Plan OT Treatment Plan ADL Training,Functional Mobility,Patient/Family Education,Discharge Planning Discharge Recommendations OT Discharge Recommendations Home with 29/10 Assist Available,Home Health Home Equipment Needs sock aid, bSC Transportation Needs at Discharge Private Vehicle
--- NOTE | 2024-08-20 15:18 | P.PN_ITS ---
Subjective Subjective Date Patient Seen: 08/20/24 Time Patient Seen: 15:18 Interval history: Doing well today He has passed flatus once today Tolerating regular diet now He did not have any delerium or agitation last night Exam Vital Signs (past 8 hours): - 08/20/24 08:00 Temperature 97.9 F Pulse Rate 82 Respiratory Rate 18 Blood Pressure 139/87 Pulse Oximetry 98 Oxygen Flow Rate 0 Fraction of Inspired Oxygen 21 SaO2/FiO2 Ratio 452 Oxygen Delivery Method Room Air Oxygen Flow Rate 0 Const General: No acute distress Objective Labs 08/18/24 06:00 08/18/24 06:00 [facility] Medical History (Updated 08/11/24 @ 12:07 by Eduardo Tripp MD) Preoperative respiratory examination Pacemaker (07/17/15) Incisional hernia without mention of obstruction or gangrene Personal history of colon cancer Wears glasses Rosacea Actinic keratosis (~2014) Gouty arthritis (~2015) Idiopathic pulmonary fibrosis Pulmonary fibrosis (~2018) Chronic cough Peripheral neuropathy (~2023) Herpes (~1982) Retinal detachment (~1991) Recurrent sinusitis (~1984) Hearing loss (~2013) Glaucoma (~05/2003) Cataracts, bilateral (~1986) Diverticular disease (~2018) History of colorectal cancer (~07/2023) PMR (polymyalgia rheumatica) (~2015) COPD (chronic obstructive pulmonary disease) Prostate cancer (~06/2023) Mass of colon History of urinary retention Left epididymitis Left hydrocele Epididymal cyst Incomplete bladder emptying History of colon polyps Peyronie's disease Elevated PSA BPH w urinary obs/LUTS Osteoarthritis (~2015) Interstitial lung disease Detached retina, right (~1993) Eczema (~2014) Arthritis 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 gangrene Gout Surgical History Anesthesia History of total left knee replacement (11/22/22) H/O transurethral resection of prostate Hx of hernia repair (02/02/19) Hx of colonoscopy (~05/04/22) H/O circumcision H/O vasectomy Hx of hand surgery (~09/2018) History of left knee replacement (~03/2015) Hx of umbilical hernia repair (~1997) Hx of eye surgery (~1996) Status post correction of deviated nasal septum (~1993) History of testicular surgery (~1989) Hx of bilateral cataract extraction (~1986) Hx of arthroscopy of right knee (~1985) History of colon resection Hx of cardiac pacemaker (06/16/15) Hx of hernia repair Hx of knee surgery Family History Father History of emphysema Miners' lung Mother Congestive heart failure Social History marital status: household members: spouse lives independently: Yes occupational status: previously employed Smoking Status: Never smoker alcohol intake: current substance use type: does not use Assessment & Plan Assessment and plan (1) Colon cancer: Qualifiers: Colon location: unspecified part of colon Qualified Code(s): C18.9 - Malignant neoplasm of colon, unspecified Status: Acute Plan Doing well Anticipate discharge home tomorrow or Saturday Time-Based Coding :: [TOTAL MINUTES] spent with patient and on the chart (including review of chart, obtaining history, exam, reviewing outside data, placing orders, documenting exam and treatment plan, and counseling patient) on [DATE]. 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
[2024-08-20 16:00] VITALS: PULSE 88; O2SAT 97
[2024-08-20] MEDS: TAMSULOSIN 0.4 MG CAPSULE PO (18:20)
--- NOTE | 2024-08-20 18:35 | PC.NURSE ---
Day shift: Patient continues to be A&Ox4. Calling appropriately. Patient denies pain. Passing gas. No BM yet. Ambulating x 3 around entire unit. Tolerating general diet. Will continue to monitor.
[2024-08-20 19:48] VITALS: PULSE 75; RESP 76; O2SAT 16
[2024-08-20] MEDS: ALBUTEROL/IPRATROPIUM 3 ML AMPUL INH (19:48)
[2024-08-20 21:00] VITALS: BP 135/70; PULSE 87; RESP 18; TEMP 36.4; O2SAT 94
[2024-08-20 23:50] VITALS: BP 135/70; PULSE 78
[2024-08-21 09:05] VITALS: PULSE 80; RESP 20; O2SAT 95
[2024-08-21] MEDS: ALBUTEROL/IPRATROPIUM 3 ML AMPUL INH (09:05)
[2024-08-21 09:26] VITALS: BP 125/65; PULSE 92
[2024-08-21] MEDS: dilTIAZem 30 MG TABLET 60 MG PO (09:26)
[2024-08-21] MEDS: PANTOPRAZOLE 40 MG VIAL IV (09:30)
[2024-08-21] MEDS: ENOXAPARIN 40 MG/0.4 ML SYRINGE SUBCUT (09:30)
[2024-08-21] MEDS: SODIUM CHLORIDE 0.9% FLUSH 10 ML IV (09:30)
[2024-08-21] MEDS: allopurinoL 100 MG TABLET 200 MG PO (09:32)
--- NOTE | 2024-08-21 13:35 | CM.DPNOTE ---
DC Note Discharge home today, w/sp to transport and assist once home. Updated [facility] and [place] at [facility]. Waiting on DC summary from surgeon, once available will plan to email to [facility]. ASHLY
--- NOTE | 2024-08-23 14:28 | PC.NURSE ---
Late Entry for 08/18/2024- Patient is confused this morning. He is focused on heart burn, and acid reflux. into see patient and ordered some iv protonix and for his white catheter to be taken out. He is able to move in bed, bottom is pink but blanchable and not open. Dressing to ML has a medium amount of drainage outlined in black ink. Four lapsite incisions all covered with allevyn. BS with some wheezes, patient has interstial lung disease, pulmonary fibrosis, and COPD. He has reported a cough for the last couple of weeks. He is pleasant and cooperative with care, resting comfortably and will be here soon to visit.
--- NOTE | 2024-10-30 15:40 | P.DS_ITS ---
History of Present Illness History of Present Illness Chief complaint: Laparoscopically Assisted Colectomy Discharge Providers Provider Date of admission: 08/17/24 06:00 Discharge Date: 08/21/24 Primary care physician: Kirti Tai DO Consults: 08/11/24 13:44 Consult to Anesthesiology Routine Comment: Consulting Provider: Anesthesiologist Reason for consultation: PAC Courtesy re: Medical history 08/18/24 11:39 Consult to Physical Therapy Evaluate & Treat Comment: Physician Instructions: Evaluate and Treat 08/18/24 12:35 Consult to Occupational Therapy Evaluate & Treat Comment: Physician Instructions: Evaluate and treat 08/19/24 12:34 Consult to Home Health Routine Comment: Reason For Exam: Home health at discharge Discharge provider: Gerardo Fong MD Summary Hospital Course Discharge Diagnosis: Colon cancer Hospital Course: The patient underwent a laparoscopic-assisted extended right hemicolectomy. See the op note for details. He had some delirium the first few nights of his recovery. This eventually cleared up and he was discharged home in good condition. Exam Vital Signs (past 8 hours): Fraction of Inspired Oxygen 21 SaO2/FiO2 Ratio 452 Oxygen Delivery Method Room Air Oxygen Flow Rate 0 Objective Labs 08/18/24 06:00 08/18/24 06:00 [facility] Medical History (Updated 10/26/24 @ 08:34 by Kirti Tai DO) COPD exacerbation Preoperative respiratory examination Pacemaker (07/17/15) Incisional hernia without mention of obstruction or gangrene Personal history of colon cancer Wears glasses Rosacea Actinic keratosis (~2014) Gouty arthritis (~2015) Idiopathic pulmonary fibrosis Pulmonary fibrosis (~2018) Chronic cough Peripheral neuropathy (~2023) Herpes (~1982) Retinal detachment (~1991) Recurrent sinusitis (~1984) Hearing loss (~2013) Glaucoma (~05/2003) Cataracts, bilateral (~1986) Diverticular disease (~2018) History of colorectal cancer (~07/2023) PMR (polymyalgia rheumatica) (~2015) COPD (chronic obstructive pulmonary disease) Prostate cancer (~06/2023) Mass of colon History of urinary retention Left epididymitis Left hydrocele Epididymal cyst Incomplete bladder emptying History of colon polyps Peyronie's disease Elevated PSA BPH w urinary obs/LUTS Osteoarthritis (~2015) Interstitial lung disease Detached retina, right (~1993) Eczema (~2014) Arthritis 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 gangrene Gout Surgical History Anesthesia History of total left knee replacement (11/22/22) H/O transurethral resection of prostate Hx of hernia repair (02/02/19) Hx of colonoscopy (~05/04/22) H/O circumcision H/O vasectomy Hx of hand surgery (~09/2018) History of left knee replacement (~03/2015) Hx of umbilical hernia repair (~1997) Hx of eye surgery (~1996) Status post correction of deviated nasal septum (~1993) History of testicular surgery (~1989) Hx of bilateral cataract extraction (~1986) Hx of arthroscopy of right knee (~1985) History of colon resection Hx of cardiac pacemaker (06/16/15) Hx of hernia repair Hx of knee surgery Family History Father History of emphysema Miners' lung Mother Congestive heart failure Social History (Updated 10/23/24 @ 11:33 by Tamara Escalera MA) marital status: household members: spouse lives independently: Yes occupational status: previously employed Smoking Status: Never smoker alcohol intake: current substance use type: does not use Discharge Plan Discharge Plan Patient Disposition: Home Health Service Provider Discharge Comment: No lifting greater than 20 lb for 2 weeks. Okay to remove the outer dressing and shower after 24 hours. Steri-Strips can get wet in the shower. Remove the Steri-Strips after 5-7 days. No dietary restrictions. Discharge orders & Medications Prescriptions: Continued Disabled Parking Permit 1 ea Not Applicable DAILY Qty: 1 0RF ibuprofen 200 mg tablet 400 mg PO Q6H PRN (Reason: Pain) diltiazem HCl 60 mg tablet 60 mg PO TID Patient Comments: [NO ORIGINAL SIG] Rx Instructions: 0800, 1600, 0000 tamsulosin [Flomax] 0.4 mg capsule 0.4 mg PO DAILY Rx Instructions: 1900 allopurinol 100 mg tablet 200 mg PO DAILY Patient Comments: 1000 acetaminophen 325 mg Capsule 650 mg PO Q4H PRN (Reason: Pain) Stiolto Respimat 2.5-2.5 mcg/actuation mist 2 puff inhalation DAILY Qty: 4 3RF Rx Instructions: 1800 No Action metronidazole 500 mg tablet 500 mg PO TID PRN Rx Instructions: administer at 1 PM, 2 PM, and 10 PM the day prior to surgery neomycin 500 mg tablet 1 g PO TID PRN Rx Instructions: administer at 1 PM, 2 PM, and 10 PM the day prior to surgery ipratropium bromide 42 mcg (0.06 %) spray,non-aerosol 2 spray intranasal BID Qty: 15 1RF valacyclovir 500 mg tablet 500 mg PO BID Qty: 10 0RF Rx Instructions: 500 mg twice daily for 3 days at onset of lesion occurrence albuterol sulfate 90 mcg/actuation HFA aerosol inhaler 2 puff INHALATION Q4-6H Follow up/Referrals: Kirti Tai DO [Primary Care Provider, Family Practice] Visit Report/Discharge Packet Instructions: DI for Heart Failure, DI for Colectomy, DI for Laparoscopy, DI for Prescription Opioid Use, [facility]: Wound Care Stand Alone Forms: Patient Portal/API, Stroke Signs & Symptoms, Surgery Discharge Discharge Data Primary Care Provider: Kirti Tai Quality VTE Deep Vein Thrombosis/Pulmonary Embolism Present on Admission: No IH PROFEE Charge Codes Discharge inpatient/observation: [id number]
== END 2024-08-21 12:58 | disposition home health service (06) | DRG 331 ==
PROVIDERS: Admitting Provider Surgery; PCP Family Medicine; Referring Provider Surgery; Visit Provider Surgery
PROC: 0DTE0ZZ Resection of Large Intestine, Open Approach (ICD-10-PCS; principal; 2024-08-17 07:45)
DX: C18.4 Malignant neoplasm of transverse colon (principal); K43.2 Incisional hernia without obstruction or gangrene; N40.0 Benign prostatic hyperplasia without lower urinary tract symptoms; J44.9 Chronic obstructive pulmonary disease, unspecified; M10.9 Gout, unspecified; Z90.49 Acquired absence of other specified parts of digestive tract; Z95.0 Presence of cardiac pacemaker
CPT/HCPCS: 36415; 44204; 80048; 85025; 94640; 94760; 94762; 97116; 97162; 97166; 97530; 97535; J0131; J0666; J1100; J1650; J2405; J2470; J2704; J3010

== ENCOUNTER 2024-09-04 14:53 | Emergency (ER) | payer MEDICARE, OTHER, SELFPAY ==
[2024-08-17 06:32] VITALS: BMI 28.4
[2024-09-04 15:12] VITALS: BP 137/63; PULSE 65; RESP 17; TEMP 36.6; O2SAT 97; BMI 26.6
--- NOTE | 2024-09-04 15:15 | DI.US.S_ITS ---
PROCEDURE: US PERIPH VENOUS LOW EXTREM LT INDICATIONS: LEFT UPPER LEG PAIN TECHNIQUE: Real-time imaging, as well as color and pulse Doppler interrogation, were performed of the lower extremity deep veins from the inguinal ligament to the popliteal fossa, with documentation of the visualized calf veins. COMPARISON: None. FINDINGS: The common femoral, femoral, popliteal, and the visualized calf veins are normally compressible, and free of intraluminal thrombus. Color and pulse Doppler demonstrate normal phasic intraluminal flow. There is normal augmentation response to distal compression maneuver. IMPRESSION: No definitive deep venous thrombosis. Dictated by: Neelam Segura M.D. on 09/04/2024 at 16:29 Approved by: Neelam Segura M.D. on 09/04/2024 at 16:30
--- NOTE | 2024-09-04 21:21 | ED.EXTPRO ---
HPI - Extremity Problem General Chief complaint: Extremity Problem,Nontraumatic Stated complaint: sharp pain in left leg- had sx few weeks ago Time Seen by Provider: 09/04/24 21:19 Source: patient, RN notes reviewed and old records reviewed Mode of arrival: Ambulatory Limitations: no limitations History of Present Illness HPI Narrative: 89-year-old male reports pain in his left upper leg tender to touch since 2:00 a.m. in the morning. Patient states he was to very localized spots on his leg that very painful to light touch. He noticed some this morning while touching his leg. States not painful to ambulate or weightbear, he has not noticed any skin changes or redness. He denies any trauma or injuries. No swelling. No numbness or tingling. He has had gout in the past be states that has always joints. He describes as has been mid thigh. Patient is not able to reproduce it here currently. He does note that he had bowel resection mid August was concerned about potential DVT so came for evaluation. He notes that he has been stooling regularly, he was not been having any abdominal pain he feels his incision is healing well. He has not no other complaints currently. Related Data Home Medications ?Medication ?Instructions ?Recorded ?Confirmed allopurinol 100 mg tablet 200 mg PO DAILY 05/05/19 09/01/24 diltiazem HCl 60 mg tablet 60 mg PO TID 06/05/24 09/01/24 ibuprofen 200 mg tablet 400 mg PO Q6H PRN Pain 06/05/24 09/01/24 ipratropium bromide 42 mcg (0.06 2 spray intranasal BID 06/05/24 09/01/24 %) nasal spray prednisone 1 mg tablet 2 mg PO DAILY 06/05/24 09/01/24 tamsulosin 0.4 mg capsule (Flomax) 0.4 mg PO DAILY 07/09/24 09/01/24 acetaminophen 325 mg capsule 650 mg PO Q4H PRN Pain 08/10/24 09/01/24 albuterol sulfate 90 mcg/actuation 2 puff inhalation 6XD PRN 08/10/24 09/01/24 aerosol inhaler Shortness Of Breath Previous Rx's ?Medication ?Instructions ?Recorded tiotropium 2.5 mcg-olodaterol 2.5 2 puff inhalation DAILY #4 grams 04/15/24 mcg/actuation mist for inhalation (Stiolto Respimat) Disabled Parking Permit 1 ea Not Applicable DAILY #1 ea 07/20/24 metronidazole 500 mg tablet 500 mg PO TID #3 tabs 08/04/24 neomycin 500 mg tablet 1 g (2 x 500 mg) PO TID 3 doses #6 08/04/24 tabs Allergies Allergy/AdvReac Type Severity Reaction Status Date / Time cephalexin (From Keflex) Allergy Severe Anaphylaxis Verified 09/04/24 15:14 nickel Allergy Severe Rash Verified 09/04/24 15:14 Sulfa (Sulfonamide Allergy Severe Hives Verified 09/04/24 15:14 Antibiotics) Review of Systems Review of Systems ROS Unobtainable: All systems reviewed & are unremarkable except as noted in HPI and below Patient History Medical History Preoperative respiratory examination Pacemaker (07/17/15) Incisional hernia without mention of obstruction or gangrene Personal history of colon cancer Wears glasses Rosacea Actinic keratosis (~2014) Gouty arthritis (~2015) Idiopathic pulmonary fibrosis Pulmonary fibrosis (~2018) Chronic cough Peripheral neuropathy (~2023) Herpes (~1982) Retinal detachment (~1991) Recurrent sinusitis (~1984) Hearing loss (~2013) Glaucoma (~05/2003) Cataracts, bilateral (~1986) Diverticular disease (~2018) History of colorectal cancer (~07/2023) PMR (polymyalgia rheumatica) (~2015) COPD (chronic obstructive pulmonary disease) Prostate cancer (~06/2023) Mass of colon History of urinary retention Left epididymitis Left hydrocele Epididymal cyst Incomplete bladder emptying History of colon polyps Peyronie's disease Elevated PSA BPH w urinary obs/LUTS Osteoarthritis (~2015) Interstitial lung disease Detached retina, right (~1993) Eczema (~2014) Arthritis 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 gangrene Gout Surgical History Anesthesia History of total left knee replacement (11/22/22) H/O transurethral resection of prostate Hx of hernia repair (02/02/19) Hx of colonoscopy (~05/04/22) H/O circumcision H/O vasectomy Hx of hand surgery (~09/2018) History of left knee replacement (~03/2015) Hx of umbilical hernia repair (~1997) Hx of eye surgery (~1996) Status post correction of deviated nasal septum (~1993) History of testicular surgery (~1989) Hx of bilateral cataract extraction (~1986) Hx of arthroscopy of right knee (~1985) History of colon resection Hx of cardiac pacemaker (06/16/15) Hx of hernia repair Hx of knee surgery Family History Father History of emphysema Miners' lung Mother Congestive heart failure Social History marital status: household members: spouse lives independently: Yes occupational status: previously employed Smoking Status: Smoker, status unknown alcohol intake: current substance use type: does not use Smoking Status: Smoker, status unknown alcohol intake frequency: a few times a week Exam Narrative Exam Narrative: GENERAL: Alert and oriented x three, mild distress HEENT: Head normocephalic, atraumatic, EOMI, pupils reactive, face symmetric, moist mucous membranes NECK: Supple, full range of motion CARDIOVASCULAR: Regular rate and rhythm without murmurs, rubs or gallops. RESPIRATORY: Breath sounds equal bilaterally, no wheezes rales or rhonchi. ABDOMEN: Soft, nontender. Normoactive bowel sounds all 4 quadrants. No guarding or rebound, rigidity, no mass, patient has a what appears to be healed incision. : No CVA tenderness EXTREMITIES: Normal range of motion, no clubbing or edema. Neurovascularly intact. Nontender to palpation, no warmth erythema or skin changes appreciated. No vesicles or blisters. No swelling. Patient was 2+ pulses bilaterally. No bony tenderness of the hip, femur, knee, tib-fib ankle or foot. NEUROLOGICAL: Cranial nerves II through XII grossly intact. Moving all extremities SKIN: Warm, dry, no petechiae, no rashes or lesions. Initial Vital Signs Initial Vital Signs: Vital Signs Temperature 98 F 09/04/24 15:12 Pulse Rate 65 09/04/24 15:12 Respiratory Rate 17 09/04/24 15:12 Blood Pressure 137/63 09/04/24 15:12 Pulse Oximetry 97 09/04/24 15:12 Oxygen Delivery Method Room Air 09/04/24 15:12 Course Orders Ordered: ED Orders 09/04/24 15:15 US periph venous low extrem lt Stat Vital Signs Vital signs: Vital Signs - 8 hr 09/04/24 15:12 09/04/24 21:46 09/04/24 21:59 Temperature 98 F Pulse Rate 65 72 77 Respiratory Rate 17 16 15 Blood Pressure 137/63 142/72 H 153/72 H Pulse Oximetry 97 97 99 Oxygen Delivery Method Room Air Room Air Room Air MDM - Extremity (Nontraumatic) MDM Narrative Medical decision making narrative: Left lower extremity DVT ultrasound shows a noted definitive deep vein thrombosis with common femoral, femoral, popliteal in the visualized calf veins normally compressible and free of intraluminal thrombus. Color and pulsed Doppler demonstrates normal phasic intraluminal flow. Normal augmentation response to distal compression maneuver. 89-year-old male with 2 very localized spots on his leg that he describes as more superficial that were painful. He is not able to find them currently he states he was not had any recent trauma or issues with ambulation. Did have recent surgery proximally 2 weeks ago so had DVT ultrasound which was negative. Patient feels comfortable discharge we will watch for any other changes. Discharge Plan Departure Patient Disposition: Home Clinical Impression: Left leg pain Instructions: DI for Leg Pain Activity Restrictions/Additional Instructions: Please follow up for recheck if your symptoms are not improving. I hope you continue to feel better. Please return for fevers, new rash or skin changes, increasing swelling or redness, new numbness tingling or weakness, difficulty with ambulation or other new or concerning changes. Prescriptions: No Action Disabled Parking Permit 1 ea Not Applicable DAILY Qty: 1 0RF neomycin 500 mg tablet 1 g PO TID Qty: 6 0RF Rx Instructions: administer at 1 PM, 2 PM, and 10 PM the day prior to surgery metronidazole 500 mg tablet 500 mg PO TID Qty: 3 0RF Rx Instructions: administer at 1 PM, 2 PM, and 10 PM the day prior to surgery ibuprofen 200 mg tablet 400 mg PO Q6H PRN (Reason: Pain) prednisone 1 mg tablet 2 mg PO DAILY diltiazem HCl 60 mg tablet 60 mg PO TID Patient Comments: [NO ORIGINAL SIG] Rx Instructions: 0800, 1600, 0000 tamsulosin [Flomax] 0.4 mg capsule 0.4 mg PO DAILY Rx Instructions: 1900 allopurinol 100 mg tablet 200 mg PO DAILY Patient Comments: 1000 albuterol sulfate 90 mcg/actuation Hfa Aerosol Inhaler 2 puff INHALATION 6XD PRN (Reason: Shortness Of Breath) acetaminophen 325 mg Capsule 650 mg PO Q4H PRN (Reason: Pain) ipratropium bromide 42 mcg (0.06 %) spray,non-aerosol 2 spray intranasal BID Stiolto Respimat 2.5-2.5 mcg/actuation mist 2 puff inhalation DAILY Qty: 4 3RF Rx Instructions: 1800 Referrals: Kirti Tai DO [Primary Care Provider, Family Practice] Stand Alone Forms: Patient Portal/API/Survey
[2024-09-04 21:46] VITALS: BP 142/72; PULSE 72; RESP 16; O2SAT 97
[2024-09-04 21:59] VITALS: BP 153/72; PULSE 77; RESP 15; O2SAT 99
== END 2024-09-04 22:06 | disposition home or self-care (01) ==
PROVIDERS: Emergency Provider Emergency Medicine; PCP Family Medicine
DX: M79.605 Pain in left leg (principal)
CPT/HCPCS: 93971; 99281; 99283

== ENCOUNTER → 2024-12-11 12:29 | Outpatient (CLI) | payer MEDICARE, OTHER, SELFPAY ==
[2024-10-08 11:14] VITALS: BMI 28.4
--- NOTE | 2024-12-11 12:30 | DI.CT.S_ITS ---
PROCEDURE: CT ABDOMEN PELVIS W CON INDICATIONS: Malignant neoplasm of ascending colon TECHNIQUE: After the administration of intravenous contrast, axial sections acquired from the lung bases to the pubic symphysis. Coronal and sagittal reformats were performed. For radiation dose reduction, the following was used: automated exposure control, adjustment of mA and/or kV according to patient size. COMPARISON: [facility], CT, CT ABDOMEN PELVIS W CON, 06/25/2024, 14:33. FINDINGS: Image quality: Diagnostic. Lower Chest: Scarring/atelectasis in periphery of bilateral lung bases are seen. Moderate to severe centrilobular emphysema. Heart size is enlarged, no pericardial effusion. Pacemaker leads are noted. Small hiatal hernia. ABDOMEN: Liver: No solid mass. Moderate hepatic steatosis. Gallbladder: Tiny stones are seen in dependent portion of gallbladder lumen. No gallbladder wall thickening. Biliary ducts: No biliary dilation. Pancreas: No ductal dilation. Spleen: Size is within normal limits. Adrenal Glands: No adrenal nodules. Kidneys and Ureters: Mild prominence of bilateral renal collecting systems and bilateral ureter extending to the UVJ is again seen without obstructing stones. No solid mass. No complex renal cystic lesion which requires follow up. Stomach and Bowel: There is partial colectomy with intact surgical anastomosis in right lower quadrant. There is no bowel obstruction. No gastric or small bowel wall thickening. No colonic wall thickening. Moderate fecal stasis in the colon is seen. Sigmoid diverticulosis without CT evidence of acute diverticulitis. No abscess collection. Peritoneum: No abnormal intraperitoneal fluid. No free air. Ventral Wall: No significant ventral hernia. Abdominal Nodes: No retroperitoneal or mesenteric adenopathy by size criteria. Vessels: Aorta and inferior vena cava are normal in size. PELVIS: Pelvic Organs: There is prior prostatectomy. Bladder: Marked fluid distension of bladder is seen without discrete bladder wall mass or significant wall thickening. No calcified bladder stones. Pelvic Nodes: No enlarged lymph nodes. Miscellaneous: No inguinal hernias are seen. Bones: No aggressive osseous abnormality. Spondylitic changes are noted throughout lower thoracic and lumbar spine. No acute vertebral body compression fracture. IMPRESSION: 1. Prior partial colectomy with postsurgical changes. Intact surgical anastomosis. No evidence of local recurrence. 2. No evidence of metastatic disease in abdomen or pelvis. 3. Chronic changes as above, not significantly changed from previous study. Dictated by: Garth Wall M.D. on 12/11/2024 at 19:42 Approved by: Garth Wall M.D. on 12/11/2024 at 19:49
== END ==
LOC: CT 12:30
PROVIDERS: PCP Family Medicine; Referring Provider Internal Medicine Hematology & Oncology; Visit Provider Internal Medicine Hematology & Oncology
DX: C18.2 Malignant neoplasm of ascending colon (principal); C18.4 Malignant neoplasm of transverse colon; K44.9 Diaphragmatic hernia without obstruction or gangrene; K76.0 Fatty (change of) liver, not elsewhere classified; J43.2 Centrilobular emphysema; I51.7 Cardiomegaly; K57.30 Diverticulosis of large intestine without perforation or abscess without bleeding; Z98.0 Intestinal bypass and anastomosis status; Z90.49 Acquired absence of other specified parts of digestive tract
CPT/HCPCS: 74177; Q9967

== ENCOUNTER → 2024-12-21 11:05 | Outpatient (CLI) | payer MEDICARE, OTHER, SELFPAY ==
[2024-10-08 11:14] VITALS: BMI 28.4
[2024-12-21 12:33] LABS: Add Manual Diff / Slide Review NO; Hematocrit 30.9 % (41-53); Hemoglobin 10.4 g/dL (13.5-17.5); Lymphocytes Absolute Auto 1300 /uL (1100-4500); Mean Corpuscular HGB Conc 33.5 % (30-36); Mean Corpuscular Hemoglobin 31.2 PG (26-34); Mean Corpuscular Volume 92.9 fL (80-100); Platelet Count 293 X10^3/uL (150-400)
[2024-12-21 12:54] LABS: Alanine Aminotransferase 13 IU/L (<50); Albumin 4.1 g/dL (3.5-5.0); Albumin Globulin Ratio 1.4 (1.0-2.8); Alkaline Phosphatase 77 U/L (38-126); Blood Urea Nitrogen 10 mg/dL (9-20); Calcium 9.4 mg/dL (8.4-10.2); Carbon Dioxide 27 mmol/L (22-32); Chloride 101 mmol/L (98-107); Estimated Glomerular Filt Rate > 60 mL/min (>60); Globulin 3.0 g/dL (1.7-4.1); Glucose 99 mg/dL (70-99); HEMOLYSIS < 15 (0-50); Potassium 4.2 mmol/L (3.4-5.1); Sodium 137 mmol/L (137-145); Total Protein 7.1 g/dL (6.3-8.2)
[2024-12-21 13:23] LABS: Carcinoembryonic Antigen 4.7 ng/mL (0.1-3.0); Prostate Specific Antigen < 0.064 ng/mL (0.10-4.00)
== END ==
PROVIDERS: Internal Medicine Hematology & Oncology; PCP Family Medicine; Referring Provider Urology; Visit Provider Urology
DX: C18.2 Malignant neoplasm of ascending colon (principal); C61 Malignant neoplasm of prostate
CPT/HCPCS: 36415; 80053; 82378; 84153; 85025

== ENCOUNTER → 2025-01-26 14:43 | Outpatient (CLI) | payer MEDICARE, OTHER, SELFPAY ==
[2024-10-08 11:14] VITALS: BMI 28.4
--- NOTE | 2025-01-26 14:45 | DI.ECHO.S_ITS ---
[place] [facility]---------+ [facility] : : [address] : : [place] : : [id number] : : Phone: [phone] Echocardiogram Report + + :Name: RICHARD SIERRA V Study Date: 01/26/2025 Height: 70 in : :[facility] ReadingLocation: Weight: 186 lb : : Gender: Male BSA: 2.0 m2 : :: 1935 Age: 89 yrs BP: 138/76 mmHg: :Reason For Study: AORTIC VALVE INSUFFICIENCY : :Ordering Physician: CLAY WALL Performed By: Baron Lee : :Referring: CLAY WALL : + + Interpretation Summary - The left ventricular contractility is normal. Estimated ejection fraction is greater than 60% with intermittent dyskinesis of the apical segment most likely due to pacemaker activation. Mild concentric LVH. Unable to comment on diastolic function. - The right ventricular contractility is normal. - Mild right ventricular enlargement. All other cardiac chambers are of normal size. - Mild aortic insufficiency. - Mild tricuspid regurgitation with estimated pulmonary systolic artery pressures of 41 mmHg. - No obvious intracardiac shunts. - Pacemaker wires noted in right atrium and right ventricle. - No hemodynamically significant pericardial effusion. - Normal right-sided filling pressures. - Borderline aortic root enlargement without obvious dissection. Conclusion: Normal biventricular systolic function with mild aortic and tricuspid insufficiencies. When compared to previous echocardiogram, mild tricuspid regurgitation is now present. Procedure: A two-dimensional transthoracic echocardiogram with color flow and Doppler was performed. The study quality was technically adequate. Comparison is made with the echocardiogram of 01/23/2024. The patient was in normal sinus rhythm during the exam. Left Ventricle: The left ventricle is normal in size. Left ventricular wall thickness is mildly increased. There is no ventricular septal defect visualized. The ejection fraction is estimated to be 60-65%. Apical wall motion abnormality may reflect pacemaker activation. Diastolic function could not be accurately assessed due to paced rhythm. Right Ventricle: The right ventricle is mildly dilated. There is a pacemaker lead in the right ventricle. The right ventricular systolic function is normal. Atria: The left atrial size is normal. Right atrial size is normal. There is no Doppler evidence for an interatrial shunt. Mitral Valve: The mitral valve leaflets appear mildly thickened. There is no mitral regurgitation noted. Aortic Valve: The aortic valve is trileaflet. The aortic valve opens well. There is mild aortic regurgitation. Tricuspid Valve: The tricuspid valve leaflets are thin and pliable. There is mild tricuspid regurgitation. The right ventricular systolic pressure is estimated to be at least 41 mmHg based on an estimated right atrial pressure of 8 mm Hg. Pulmonic Valve: The pulmonic valve is not well visualized. There is no pulmonic valvular regurgitation. Great Vessels: The aortic root is mildly dilated. The dimensions of the ascending aorta are normal. The pulmonary artery is normal size. The IVC is of normal diameter and collapses less than 50% with a sniff. This suggests a right atrial pressure of 8 mm Hg. Pericardium/ Pleura There is no pericardial effusion. There is no pleural effusion. MMode/2D Measurements & Calculations LVIDd: 3.7 cm LVOT diam: 2.1 cm LVIDs: 2.8 cm Ao root diam: 4.0 cm FS: 24.4 % asc Aorta Diam: 3.4 cm EPSS: 0.78 cm IVSd: 1.4 cm LVPWd: 1.2 cm LV carroll. diameter/BSA (cm/m^2): 1.8 LV sys. diameter/BSA (cm/m^2): 1.4 LA A4 area: 23.8 cm2 IVC diam: 1.4 cm LA length (vol): 6.8 cm RVD1 (basal): 4.2 cm RVD2 (mid): 3.1 cm TAPSE: 2.6 cm Doppler Measurements & Calculations Ao V2 max: 153.5 cm/sec AI P1/2t: 498.9 msec Ao V2 mean: 111.5 cm/sec AI dec slope: 225.6 cm/sec2 Ao max P.4 mmHg Ao mean P.5 mmHg Ao V2 VTI: 31.4 cm MV E max eulogio: 54.7 cm/sec TR max eulogio: 286.0 cm/sec MV A max eulogio: 75.6 cm/sec TR max P.7 mmHg MV E/A: 0.72 PA V2 max: 134.9 cm/sec Med Peak E' Eulogio: 5.4 cm/sec PA V2 mean: 86.1 cm/sec E/E' med: 10.2 PA mean P.4 mmHg Lat Peak E' Eulogio: 7.1 cm/sec PA pr(Accel): 48.2 mmHg E/E' lat: 7.7 E/e' average: 8.9 MV dec time: 0.26 sec Reading Physician:MELANI
== END ==
LOC: ECHO 14:44
PROVIDERS: PCP Family Medicine; Referring Provider Family Medicine; Visit Provider Internal Medicine
DX: I08.2 Rheumatic disorders of both aortic and tricuspid valves (principal); I77.810 Thoracic aortic ectasia
CPT/HCPCS: 93306

== ENCOUNTER 2025-02-16 08:51 | Day surgery (SDC) | payer MEDICARE, OTHER, SELFPAY ==
[2025-02-02 14:08] VITALS: BMI 28.4
[2025-02-12 13:20] VITALS: BMI 26.6
--- NOTE | 2025-02-16 | PATH_ITS ---
[facility] Accession Number: [id number] No. of containers..01 Tissue . 01 Material submitted: . rectum - RECTUM BIOPSY . 01 Diagnosis: RECTUM, COLON: Colonic mucosa with mild nonspecific crypt distortion, focus of dilated lymphatic channels in superficial lamina propria and hyperplastic muscularis mucosae. See comment. No significant active inflammation, infectious organisms, granulomas, dysplasia, or malignancy. MRV 02/26/2025 1427 Local . 01 Comment: The findings are non specific and may represent prolapse changes. The dilated lymphatics may represent a lymphangioma or an obstructive process. Clinical correlation is recommended. . 01 Electronically signed: . Neena Lennon MD, Pathologist NPI- [id number] . 01 Gross description: . Received in formalin with two patient identifiers, and rectum are three, 0.2-0.4 cm, rodriguez tissue fragments, entirely submitted in A1. ([id number]) /MRV 02/20/2025 1204 Local . 01 Pathologist provided ICD-10: K63.89, R85.7 . 01 CPT . 390478 Specimen Comment: A courtesy copy of this report has been sent to [phone] Performed at: [address] [facility], [place], [place] [id number] MD Osvaldo Hightower MD Phone: [phone]
[2025-02-16 09:07] VITALS: BP 127/70; PULSE 88; RESP 20; TEMP 36.2; O2SAT 97
[2025-02-16] MEDS: LACTATED RINGERS 1,000 ML 42 ML IV (09:25)
--- NOTE | 2025-02-16 09:47 | PM.HP.IH.1 ---
History of Present Illness History of Present Illness Date Patient Seen: 02/16/25 Time Patient Seen: 09:47 Chief complaint: Colonoscopy Narrative: Zbigniew is an 89 year man who had colon cancer. He had a revision of his colon resection last July. Started to notice bright red blood in his stool back in January and it has gotten progressively larger in volume. [facility] Medical History (Updated 02/16/25 @ 09:48 by Gerardo Fong MD) Personal history of colon cancer COPD exacerbation Preoperative respiratory examination Pacemaker (07/17/15) Incisional hernia without mention of obstruction or gangrene Wears glasses Rosacea Actinic keratosis (~2014) Gouty arthritis (~2015) Idiopathic pulmonary fibrosis Pulmonary fibrosis (~2018) Chronic cough Peripheral neuropathy (~2023) Herpes (~1982) Retinal detachment (~1991) Recurrent sinusitis (~1984) Hearing loss (~2013) Glaucoma (~05/2003) Cataracts, bilateral (~1986) Diverticular disease (~2018) History of colorectal cancer (~07/2023) PMR (polymyalgia rheumatica) (~2015) COPD (chronic obstructive pulmonary disease) Prostate cancer (~06/2023) Mass of colon History of urinary retention Left epididymitis Left hydrocele Epididymal cyst Incomplete bladder emptying History of colon polyps Peyronie's disease Elevated PSA BPH w urinary obs/LUTS Osteoarthritis (~2015) Interstitial lung disease Detached retina, right (~1993) Eczema (~2014) Arthritis 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 gangrene Gout Surgical History (Updated 02/12/25 @ 13:19 by Ashley Camacho RN) Hx of right hemicolectomy (08/17/24) Anesthesia History of total left knee replacement (11/22/22) H/O transurethral resection of prostate Hx of hernia repair (02/02/19) Hx of colonoscopy (~05/04/22) H/O circumcision H/O vasectomy Hx of hand surgery (~09/2018) History of left knee replacement (~03/2015) Hx of umbilical hernia repair (~1997) Hx of eye surgery (~1996) Status post correction of deviated nasal septum (~1993) History of testicular surgery (~1989) Hx of bilateral cataract extraction (~1986) Hx of arthroscopy of right knee (~1985) History of colon resection Hx of cardiac pacemaker (06/16/15) Hx of hernia repair Hx of knee surgery Family History Father History of emphysema Miners' lung Mother Congestive heart failure Social History marital status: household members: spouse lives independently: Yes occupational status: previously employed Smoking Status: Never smoker alcohol intake: current substance use type: does not use Meds Home Medications and Allergies Home Medications ?Medication ?Instructions ?Recorded ?Confirmed ?Type allopurinol 100 mg tablet 200 mg PO DAILY 05/05/19 02/16/25 History tiotropium 2.5 mcg-olodaterol 2.5 2 puff inhalation DAILY #4 grams 04/15/24 02/01/25 Rx mcg/actuation mist for inhalation (Stiolto Respimat) diltiazem HCl 60 mg tablet 60 mg PO TID 06/05/24 02/16/25 History tamsulosin 0.4 mg capsule (Flomax) 0.4 mg PO DAILY 07/09/24 02/16/25 History Disabled Parking Permit 1 ea Not Applicable DAILY #1 ea 07/20/24 02/01/25 Rx acetaminophen 325 mg capsule 650 mg PO Q4H PRN Pain 08/10/24 02/01/25 History albuterol sulfate 90 mcg/actuation 2 puff inhalation Q4-6H Shortness 10/23/24 02/01/25 History aerosol inhaler Of Breath ipratropium bromide 42 mcg (0.06 2 spray intranasal BID #15 mL 10/23/24 02/01/25 Rx %) nasal spray metronidazole 500 mg tablet 500 mg PO TID 10/23/24 02/16/25 History valacyclovir 500 mg tablet 500 mg PO BID PRN 02/01/25 02/01/25 History sodium,potassium,mag sulfates 17.5 See Rx Instructions PO .COMPLEX 02/02/25 Rx gram-3.13 gram-1.6 gram oral soln #354 mL (Suprep Bowel Prep Kit) Allergies Allergy/AdvReac Type Severity Reaction Status Date / Time cephalexin (From Keflex) Allergy Severe Anaphylaxis Verified 02/16/25 09:05 nickel Allergy Severe Rash Verified 02/16/25 09:05 Sulfa (Sulfonamide Allergy Severe Hives Verified 02/16/25 09:05 Antibiotics) Exam Vital Signs (past 8 hours): - 02/16/25 09:07 Temperature 97.2 F L Pulse Rate 88 Respiratory Rate 20 Blood Pressure 127/70 Pulse Oximetry 97 Oxygen Delivery Method Room Air Oxygen Delivery Method Room Air Const General: healthy appearing Assessment & Plan Assessment and plan (1) Personal history of colon cancer: Status: Acute Plan Colonoscopy for history of colon cancer and recent rectal bleeding Time-Based Coding :: [TOTAL MINUTES] spent with patient and on the chart (including review of chart, obtaining history, exam, reviewing outside data, placing orders, documenting exam and treatment plan, and counseling patient) on [DATE]. PROFEE Typewriter Assembler Document charge(s): No
[2025-02-16 10:26] VITALS: BP 90/50; PULSE 70; RESP 14; TEMP 36.2; O2SAT 95
--- NOTE | 2025-02-16 10:28 | PM.OP.COLON ---
Operative Date/Time/Diagnoses Date of procedure: 02/16/25 Time of procedure: 10:29 Pre-op diagnosis: Rectal bleeding Post-op diagnosis: same Procedure & Clinicians Study performed: Colonoscopy Same procedure(s) as scheduled: Yes Surgeon: Gerardo Fong Anesthesia Type: MAC +/- Procedure Notes Procedure in detail: Surgeon: Gerardo Fong MD Anesthesia: Jayda Rosemary [employer] AGENT Procedure: The patient was brought to the endoscopy suite, placed in left lateral decubitus position. The patient was connected to monitoring devices. A time-out was performed. Sedation was administered. Once the patient was adequately sedated, a digital rectal exam was performed and was normal. The scope was then inserted and advanced to the anastomosis in the transverse colon. No abnormalities were seen at the anastomosis. The scope was then slowly withdrawn over greater than 6 minutes. The mucosa was thoroughly inspected. There was diverticulosis. The scope was retroflexed in the rectum. There was patchy erythema and telangiectasias in one part of the distal rectum. Biopsies were taken from the erythematous rectal mucosa with cold forceps. The scope was straightened and removed. The patient was awakened and brought to recovery. Scope withdrawal time: 6 minutes Sedation time: 14 minutes Findings: Normal anastomosis, distal patchy proctitis Estimated Blood Loss: 5 Complications: none Post-procedure Disposition: PACU
[2025-02-16 10:35] VITALS: BP 90/50; PULSE 60; RESP 16; O2SAT 97
[2025-02-16 10:39] VITALS: BP 102/60; PULSE 65; RESP 16; O2SAT 97
[2025-02-16 10:41] VITALS: BP 109/60; PULSE 65; RESP 14; O2SAT 98
[2025-02-16 11:07] VITALS: BP 128/70; PULSE 61; RESP 16; O2SAT 99
== END 2025-02-16 11:23 | disposition home or self-care (01) ==
PROVIDERS: PCP Family Medicine; Referring Provider Family Medicine; Visit Provider Surgery
PROC: 0DJD8ZZ Inspection of Lower Intestinal Tract, Via Natural or Artificial Opening Endoscopic (ICD-10-PCS; CPT 45378; principal; 2025-02-16 10:00)
DX: K62.5 Hemorrhage of anus and rectum (principal); K62.89 Other specified diseases of anus and rectum; K57.90 Diverticulosis of intestine, part unspecified, without perforation or abscess without bleeding; Z85.038 Personal history of other malignant neoplasm of large intestine; Z85.46 Personal history of malignant neoplasm of prostate; J44.9 Chronic obstructive pulmonary disease, unspecified; J84.10 Pulmonary fibrosis, unspecified; I49.5 Sick sinus syndrome; Z98.0 Intestinal bypass and anastomosis status; Z95.0 Presence of cardiac pacemaker; Z99.81 Dependence on supplemental oxygen
CPT/HCPCS: 45380; J2704; J7120

== ENCOUNTER → 2025-03-30 14:18 | Outpatient (CLI) | payer MEDICARE, OTHER, SELFPAY ==
[2025-02-02 14:08] VITALS: BMI 28.4
[2025-03-30 15:08] LABS: Hematocrit 32.9 % (41-53); Hemoglobin 10.9 g/dL (13.5-17.5); Mean Corpuscular HGB Conc 33.2 % (30-36); Mean Corpuscular Hemoglobin 31.0 PG (26-34); Mean Corpuscular Volume 93.4 fL (80-100); Platelet Count 269 X10^3/uL (150-400)
[2025-03-30 15:36] LABS: Blood Urea Nitrogen 9 mg/dL (9-20); Calcium 9.6 mg/dL (8.4-10.2); Carbon Dioxide 30 mmol/L (22-32); Chloride 102 mmol/L (98-107); Estimated Glomerular Filt Rate > 60 mL/min (>60); Glucose 111 mg/dL (70-99); HEMOLYSIS < 15 (0-50); Potassium 4.1 mmol/L (3.4-5.1); Sodium 139 mmol/L (137-145)
== END ==
PROVIDERS: PCP Family Medicine; Referring Provider Surgery; Visit Provider Surgery
DX: K62.5 Hemorrhage of anus and rectum (principal)
CPT/HCPCS: 36415; 80048; 85027